=== PATIENT | female | born 1965 | race Caucasian/White ===

== ENCOUNTER 2018-04-03 18:28 | Emergency (ER) | payer BC, OTHER ==
[~2018-04-03] VITALS: Ht 167.6 cm; Wt 113.4 kg
[~2018-04-03 18:28] MED LIST: CARVEDILOL PO; CAVEDILOL; ENOXAPARIN SQ; FOLIC ACID0.8 MG; PANTOPRAZOLE SO40 MG PO; Z ARMOUR THYROID PO; Z.0.CYMBALTA60 MG PO; Z.0.GLIMEPIRIDE4 MG PO; Z.0.LISINOPRIL5 MG PO; Z.0.MECLIZINE HCL12. PO; Z.0.PRAVASTATIN SOD4 PO; Z.0.WARFARIN SODIUM5 PO
[2018-04-03 19:50] LABS: BASOPHILS % 0.3 % (0.0-1.0); EOSINOPHILS # (AUTO) 0.1 (0.0-0.4); EOSINOPHILS % 1.8 % (0.0-6.0); HEMATOCRIT 33.5 % (34.2-44.1); HEMOGLOBIN 10.4 g/dL (12.0-16.0); LYMPHOCYTES # (AUTO) 1.2 (1.0-3.2); LYMPHOCYTES % 16.1 % (18.0-39.1); MEAN CORPUSCULAR HEMOGLOBIN 24.9 pg (28-32); MEAN CORPUSCULAR VOLUME 80.1 fL (81-99); MONOCYTES # (AUTO) 0.5 (0.2-0.8); MONOCYTES % 6.8 % (4.4-11.3); NEUTROPHILS # (AUTO) 5.5 (2.1-6.9); NEUTROPHILS % 74.6 % (38.7-80.0); PLATELET COUNT 163 x10e3/uL (140-360); RED BLOOD COUNT 4.18 x10e6/uL (3.6-5.1); RED CELL DISTRIBUTION WIDTH 17.1 % (11.7-14.4)
[2018-04-03 20:22] LABS: ALANINE AMINOTRANSFERASE 28 IU/L (0-55); ALBUMIN 3.3 g/dL (3.5-5.0); ALBUMIN/GLOBULIN RATIO 0.7 (0.8-2.0); ALKALINE PHOSPHATASE 92 IU/L (40-150); ANION GAP 13.8 mmol/L (8-16); BLOOD UREA NITROGEN 13 mg/dL (7-26); BUN/CREATININE RATIO 15 (6-25); CALCIUM 9.4 mg/dL (8.4-10.2); CARBON DIOXIDE 25 mmol/L (22-29); CHLORIDE 105 mmol/L (98-107); CREATININE, SERUM 0.85 mg/dL (0.57-1.11); EST GLOMERULAR FILTRATION RATE > 60 ML/MIN (60-); GLUCOSE 260 mg/dL (74-118); POTASSIUM 3.8 mmol/L (3.5-5.1); SODIUM 140 mmol/L (136-145)
[2018-04-03 21:14] LABS: CLARITY,URINE CLEAR (CLEAR); COLOR,URINE AMBER (YELLOW); KETONES,URINE 1+ (NEGATIVE); LEUKOCYTE ESTERASE ,URINE NEGATIVE (NEGATIVE); NITRITE,URINE NEGATIVE (NEGATIVE); PROTEIN,URINE DIPSTICK 1+ (NEGATIVE); URINE UROBILINOGEN 1 mg/dL (0.2 - 1)
[2018-04-03 21:15] LABS: BILIRUBIN,URINE 1+ (NEGATIVE)
[2018-04-03] MEDS ORDERED: ONDANSETRON HCL INJ 2 MG/ML VIAL IV STA (21:15)
[2018-04-03 21:29] LABS: BACTERIA,URINE MODERATE /HPF; EPITHELIAL CELLS,URINE MANY /LPF
[2018-04-03 21:32] LABS: MUCUS,URINE MANY (RARE)
[2018-04-03] MEDS ORDERED: SODIUM CHLORIDE 0.9% 50ML 50 ML ONE (21:53)
[2018-04-03] MEDS ORDERED: IOPAMIDOL 370 MG/ML 200 ML INFUS..BTL INJ ONE (21:53)
--- NOTE | 2018-04-03 22:10 | Diagnostic Imaging Report ---
EXAM: CT ABDOMEN AND PELVIS with IV CONTRAST DATE: 04/03/2018 9:15 PM Time stamp on Exam: 2144 hours INDICATION: Right-sided abdominal pain COMPARISON: CT of the abdomen and pelvis March 20, 2012 TECHNIQUE: The abdomen and pelvis were scanned using a multidetector helical scanner. Coronal and sagittal reformations were obtained. Routine protocol performed. IV Contrast: 100 cc Isovue-370 Oral Contrast: None CTDIvol has been reviewed. It is below the limits set by the Radiation Protocol Committee (RPC). FINDINGS: LOWER THORAX: No consolidations LIVER: Hepatomegaly with subtle nodular liver contour and relative enlargement of the left lobe and caudate lobes of the liver. BILIARY: Cholecystectomy. No ductal dilation. SPLEEN: Splenomegaly to 15.7 cm in craniocaudal dimension. PANCREAS: No masses ADRENALS: No nodules KIDNEYS: Symmetric perfusion. No enhancing masses. No hydronephrosis. GI TRACT: No distention, wall thickening or evidence of obstruction. VESSELS: Moderate atherosclerotic changes of the abdominal aorta without aneurysm. There is an infrarenal inferior vena cava filter. The main portal vein is patent. PERITONEUM/RETROPERITONEUM: Mesenteric edema and trace ascites around the inferior liver. LYMPH NODES: No lymphadenopathy REPRODUCTIVE ORGANS: Not visualized BLADDER: Decompressed SOFT TISSUES: Unremarkable BONES: No suspicious bone lesions. IMPRESSION: Findings consistent with early cirrhosis and portal hypertension with trace ascites. Signed by: Dr. Azra Pickering M.D. on 04/03/2018 10:06 PM
[2018-04-03 22:18] VITALS: BP 145/77
== END 2018-04-03 22:32 | disposition home or self-care (01) ==
LOC: ER 18:28
DX: R10.84 Generalized abdominal pain (principal); K74.60 Unspecified cirrhosis of liver; K76.6 Portal hypertension; I10 Essential (primary) hypertension; E11.9 Type 2 diabetes mellitus without complications; Z79.84 Long term (current) use of oral hypoglycemic drugs; E03.9 Hypothyroidism, unspecified; K21.9 Gastro-esophageal reflux disease without esophagitis; E78.5 Hyperlipidemia, unspecified; K44.9 Diaphragmatic hernia without obstruction or gangrene; K22.70 Barrett's esophagus without dysplasia; D64.9 Anemia, unspecified; Z86.718 Personal history of other venous thrombosis and embolism; Z79.01 Long term (current) use of anticoagulants
CPT/HCPCS: 36415; 74177; 80053; 81001; 85025; 99284; J2405; Q9967

== ENCOUNTER → 2018-05-12 | Day surgery (SDC) | payer OTHER ==
[2018-05-10 16:10] LABS: BASOPHILS # (AUTO) 0.1 (0.0-0.1); BASOPHILS % 0.8 % (0.0-1.0); EOSINOPHILS # (AUTO) 0.1 (0.0-0.4); HEMATOCRIT 33.8 % (34.2-44.1); HEMOGLOBIN 10.4 g/dL (12.0-16.0); LYMPHOCYTES # (AUTO) 1.5 (1.0-3.2); LYMPHOCYTES % 22.8 % (18.0-39.1); MEAN CORPUSCULAR HEMOGLOBIN 24.8 pg (28-32); MEAN CORPUSCULAR HGB CONC 30.8 g/dL (31-35); MEAN CORPUSCULAR VOLUME 80.7 fL (81-99); MONOCYTES # (AUTO) 0.5 (0.2-0.8); MONOCYTES % 7.7 % (4.4-11.3); NEUTROPHILS # (AUTO) 4.2 (2.1-6.9); NEUTROPHILS % 66.2 % (38.7-80.0); PLATELET COUNT 141 x10e3/uL (140-360); RED BLOOD COUNT 4.19 x10e6/uL (3.6-5.1); RED CELL DISTRIBUTION WIDTH 16.3 % (11.7-14.4)
[2018-05-10 16:20] LABS: INR 1.61
[2018-05-10 16:21] LABS: PARTIAL THROMBOPLASTIN TIME 38.5 seconds (23.8-35.5)
[2018-05-10 16:29] LABS: ALANINE AMINOTRANSFERASE 35 IU/L (0-55); ALBUMIN 3.4 g/dL (3.5-5.0); ALBUMIN/GLOBULIN RATIO 0.7 (0.8-2.0); ALKALINE PHOSPHATASE 92 IU/L (40-150); ANION GAP 13.5 mmol/L (8-16); BLOOD UREA NITROGEN 14 mg/dL (7-26); BUN/CREATININE RATIO 16 (6-25); CARBON DIOXIDE 25 mmol/L (22-29); CHLORIDE 104 mmol/L (98-107); CREATININE, SERUM 0.87 mg/dL (0.57-1.11); EST GLOMERULAR FILTRATION RATE > 60 ML/MIN (60-); GLUCOSE 284 mg/dL (74-118); POTASSIUM 4.5 mmol/L (3.5-5.1); SODIUM 138 mmol/L (136-145)
[~2018-05-12] MED LIST changes: +BYETTA5 MCG/0.02 SQ; +CRESTOR20 MG PO; +KETAMINE HCL INJ 50 MG/ML 10 ML VIAL ONE; +LEVSIN0.125 MG PO; +LIDOCAINE HCL 2% LOCAL INJ 5 ML SDV VIAL INJ ONE; +LOVENOX SQ; +METOCLOPRAMIDE HCL 10 MG/2ML VIAL ONE; +MIDAZOLAM HCL 2 MG/2 ML VIAL ONE; +ONDANSETRON HCL INJ 2 MG/ML VIAL ONE; +PROMETHAZINE HC25 M1 PO; +PROPOFOL IV EMULSION 10 MG/ML 50 ML VIAL ONE; +QUESTRAN PACKET4 GM PO; +SERTRALINE HCL100 MG PO; +SUCRALFATE1 GM PO; +SYNTHROID125 MCG PO; +WARFARIN SODIUM2 MG PO; +ZOFRAN ODT4 MG PO
[2018-05-12 07:21] LABS: INR 1.39
[2018-05-12 07:22] LABS: PARTIAL THROMBOPLASTIN TIME 36.4 seconds (23.8-35.5)
== END | disposition home or self-care (01) ==
LOC: OR 05:03
PROVIDERS: ATTEND Internal Medicine Gastroenterology
DX: R19.7 Diarrhea, unspecified (principal); K63.9 Disease of intestine, unspecified; K58.9 Irritable bowel syndrome, unspecified; K64.8 Other hemorrhoids; K74.60 Unspecified cirrhosis of liver; I10 Essential (primary) hypertension; E11.9 Type 2 diabetes mellitus without complications; E03.9 Hypothyroidism, unspecified; G47.33 Obstructive sleep apnea (adult) (pediatric); E78.5 Hyperlipidemia, unspecified; E66.01 Morbid (severe) obesity due to excess calories; B19.10 Unspecified viral hepatitis B without hepatic coma; B19.20 Unspecified viral hepatitis C without hepatic coma; N20.0 Calculus of kidney; F32.9 Major depressive disorder, single episode, unspecified; Z88.6 Allergy status to analgesic agent; Z88.1 Allergy status to other antibiotic agents; Z01.810 Encounter for preprocedural cardiovascular examination; Z01.812 Encounter for preprocedural laboratory examination; Z79.01 Long term (current) use of anticoagulants; Z79.02 Long term (current) use of antithrombotics/antiplatelets; Z68.38 Body mass index [BMI] 38.0-38.9, adult; Z86.718 Personal history of other venous thrombosis and embolism; Z87.891 Personal history of nicotine dependence; Z80.0 Family history of malignant neoplasm of digestive organs
CPT/HCPCS: 36415 ×2; 45380; 80053; 82948; 85025; 85610 ×2; 85730 ×2; 93005; J2001; J2250; J2405; J2765

== ENCOUNTER 2018-07-21 13:09 | Emergency (ER) | payer OTHER ==
[~2018-07-21] VITALS: Ht 167.6 cm; Wt 110.2 kg
[~2018-07-21 13:09] MED LIST changes: -KETAMINE HCL INJ 50 MG/ML 10 ML VIAL ONE; -LIDOCAINE HCL 2% LOCAL INJ 5 ML SDV VIAL INJ ONE; -METOCLOPRAMIDE HCL 10 MG/2ML VIAL ONE; -MIDAZOLAM HCL 2 MG/2 ML VIAL ONE; -ONDANSETRON HCL INJ 2 MG/ML VIAL ONE; -PROPOFOL IV EMULSION 10 MG/ML 50 ML VIAL ONE
[2018-07-21] MEDS ORDERED: ONDANSETRON HCL INJ 2 MG/ML VIAL IV STA (13:17)
[2018-07-21] MEDS ORDERED: SODIUM CHLORIDE 0.9% 1000ML 1,000 ML IV STA (13:17)
[2018-07-21] MEDS ORDERED: ASPIRIN 81 MG CHEW TAB PO ONE (13:30)
[2018-07-21 14:25] LABS: BASOPHILS # (AUTO) 0.1 (0.0-0.1); EOSINOPHILS # (AUTO) 0.2 (0.0-0.4); EOSINOPHILS % 2.4 % (0.0-6.0); HEMATOCRIT 42.6 % (34.2-44.1); HEMOGLOBIN 13.2 g/dL (12.0-16.0); LYMPHOCYTES # (AUTO) 1.3 (1.0-3.2); LYMPHOCYTES % 17.7 % (18.0-39.1); MEAN CORPUSCULAR HEMOGLOBIN 26.4 pg (28-32); MEAN CORPUSCULAR VOLUME 85.2 fL (81-99); MONOCYTES # (AUTO) 0.5 (0.2-0.8); MONOCYTES % 6.1 % (4.4-11.3); NEUTROPHILS # (AUTO) 5.3 (2.1-6.9); NEUTROPHILS % 72.5 % (38.7-80.0); PLATELET COUNT 160 x10e3/uL (140-360); RED CELL DISTRIBUTION WIDTH 18.6 % (11.7-14.4)
[2018-07-21 14:35] LABS: BILIRUBIN,URINE NEGATIVE (NEGATIVE); CLARITY,URINE SL CLOUDY (CLEAR); COLOR,URINE YELLOW (YELLOW); KETONES,URINE TRACE (NEGATIVE); LEUKOCYTE ESTERASE ,URINE NEGATIVE (NEGATIVE); NITRITE,URINE NEGATIVE (NEGATIVE); PROTEIN,URINE DIPSTICK NEGATIVE (NEGATIVE); URINE UROBILINOGEN 0.2 mg/dL (0.2 - 1)
[2018-07-21 14:37] LABS: INR 2.2; PROTHROMBIN TIME 26.1 seconds (11.9-14.5)
[2018-07-21 14:38] LABS: PARTIAL THROMBOPLASTIN TIME 44.8 seconds (23.8-35.5)
[2018-07-21 14:41] LABS: AMORPHOUS SEDIMENT,URINE FEW (FEW); BACTERIA,URINE FEW /HPF; EPITHELIAL CELLS,URINE FEW /LPF; MUCUS,URINE FEW (RARE); WBC,URINE (MAN) 0-5 /HPF (0-5)
[2018-07-21 14:50] LABS: ALANINE AMINOTRANSFERASE 38 IU/L (0-55); ALBUMIN 3.8 g/dL (3.5-5.0); ALBUMIN/GLOBULIN RATIO 0.8 (0.8-2.0); ALKALINE PHOSPHATASE 103 IU/L (40-150); AMYLASE 63 U/L (25-125); ANION GAP 16.3 mmol/L (8-16); BLOOD UREA NITROGEN 12 mg/dL (7-26); BUN/CREATININE RATIO 13 (6-25); CALCIUM 10.2 mg/dL (8.4-10.2); CARBON DIOXIDE 23 mmol/L (22-29); CHLORIDE 105 mmol/L (98-107); CREATINE KINASE 37 IU/L (29-168); EST GLOMERULAR FILTRATION RATE > 60 ML/MIN (60-); GLUCOSE 184 mg/dL (74-118); LIPASE 40 U/L (8-78); MAGNESIUM 1.8 MG/DL (1.3-2.1); POTASSIUM 4.3 mmol/L (3.5-5.1); SODIUM 140 mmol/L (136-145)
[2018-07-21 15:11] LABS: THYROID STIMULATING HORMONE 0.601 uIU/mL (0.350-4.940)
--- NOTE | 2018-07-21 16:45 | Diagnostic Imaging Report ---
EXAM: CT of the abdomen and pelvis WITH contrast HISTORY: Abdominal pain, vomiting, nausea, blood in stool, lower abdominal pain COMPARISON: CT abdomen and pelvis April 03, 2018. TECHNIQUE: The abdomen and pelvis were scanned utilizing a multidetector helical scanner. Coronal and sagittal reformats are provided. PROTOCOL: Routine IV CONTRAST: 100 cc of Isovue-370. ORAL CONTRAST: Water RADIATION DOSE: Total DLP: 804.57 mGy*cm Estimated effective dose: (DLP x 0.015 x size factor) Dose modulation, iterative reconstruction, and/or weight based adjustment of the mA/kV was utilized to reduce the radiation dose to as low as reasonably achievable. COMPLICATIONS: None FINDINGS: LOWER THORAX: Unremarkable LIVER: Persistent hepatomegaly with subtle nodular liver contour and relative enlargement of the left lobe and caudate lobes of the liver. BILIARY: Cholecystectomy. No ductal dilation. SPLEEN: Persistent splenomegaly. PANCREAS: No masses. Mild diffuse atrophy. ADRENALS: No nodules KIDNEYS: Symmetric perfusion. No enhancing masses. No hydronephrosis. A stable 3 mm nonobstructing calcific density near the inferior pole of the left kidney. GI TRACT: Postsurgical changes within the right lower quadrant of the abdomen/right pelvis, and in the rectosigmoid region. Near one surgical anastomotic site there is mild dilation and small bowel feces sign (see series 2 image 58), but this appears similar to the comparison. Bowel gas and fecal material in the rectosigmoid region. VESSELS: Moderate atherosclerotic changes including the coronary arteries. IVC filter. PERITONEUM/RETROPERITONEUM: Persistent mild mesenteric edema and trace ascites adjacent to the inferior liver. LYMPH NODES: No lymphadenopathy REPRODUCTIVE ORGANS: Not visualized BLADDER: Decompressed, which limits evaluation. SOFT TISSUES: Unremarkable BONES: No suspicious bone lesions. IMPRESSION: 1. Findings remain consistent with early cirrhosis and portal hypertension. 2. Postsurgical changes within the abdomen and pelvis and one small segment of stable small bowel stasis, the stability suggests postsurgical stasis/mild chronic low-grade mechanical obstruction. If there is concern for developing/increasing bowel obstruction, advise serial abdominal radiographs. 3. Stable 3 mm nonobstructing left renal stone. Signed by: Dr. Aubrey Curran D.O., M.M.M. on 07/21/2018 4:42 PM
[2018-07-21] MEDS ORDERED: PROPRANOLOL HCL10 MG PO (17:56)
[2018-07-21] MEDS ORDERED: ULTRAM50 MG PO (17:56)
[2018-07-21] MEDS ORDERED: SODIUM CHLORIDE 0.9% 50ML 50 ML ONE (18:22)
[2018-07-21] MEDS ORDERED: IOPAMIDOL 370 MG/ML 200 ML INFUS..BTL INJ ONE (18:22)
[2018-07-21 19:15] VITALS: BP 124/71
== END 2018-07-21 19:04 | disposition home or self-care (01) ==
LOC: ER 13:09
DX: R10.11 Right upper quadrant pain (principal); R10.84 Generalized abdominal pain; R11.2 Nausea with vomiting, unspecified; K74.60 Unspecified cirrhosis of liver; N20.0 Calculus of kidney
CPT/HCPCS: 36415; 74177; 80053; 81001; 82150; 82550; 82553; 83690; 83735; 84443; 84484; 85025; 85610; 85730; 87086; 99284; Q9967

== ENCOUNTER 2018-10-04 19:25 | Emergency (ER) | payer OTHER ==
[~2018-10-04] VITALS: Ht 165.1 cm; Wt 118.8 kg
[~2018-10-04 19:25] MED LIST changes: +PROPRANOLOL HCL10 MG PO; +ULTRAM50 MG PO
[2018-10-04] MEDS ORDERED: MORPHINE SULFATE 2 MG/ML SYR IV STA (20:01)
[2018-10-04] MEDS ORDERED: ONDANSETRON HCL INJ 2 MG/ML VIAL IV STA (20:01)
--- NOTE | 2018-10-04 22:37 | Diagnostic Imaging Report ---
EXAM: CT ABD/PEL WITH CONTRAST-HOPD DATE: 10/04/2018 12:00 AM INDICATION: Abdominal pain COMPARISON: 07/21/2018 TECHNIQUE: The abdomen and pelvis were scanned using a multidetector helical scanner. Coronal and sagittal reformations were obtained. CT low dose techniques were utilized, as applicable. IV Contrast: 100 ml Isovue 300/370 FINDINGS: Evaluation somewhat degraded by noise related to body habitus. LOWER THORAX: No consolidations LIVER: Stable morphologic changes suggesting cirrhosis. No masses. GALLBLADDER/BILIARY: Surgically absent SPLEEN: Stable splenomegaly, 15 to 16 cm. PANCREAS: Unremarkable ADRENALS: No nodules KIDNEYS: No suspicious renal masses. Stable 3 mm nonobstructing left renal calculus. No hydronephrosis. GI TRACT: Postsurgical changes are again noted status post prior bowel resections. Unchanged haziness of the small bowel mesentery. No evidence of bowel obstruction. Appendix is not visualized. VESSELS: Moderate atherosclerotic changes. Infrarenal IVC filter is again noted. PERITONEUM/RETROPERITONEUM: No free air or fluid collection. Stable areas of fat necrosis. LYMPH NODES: No lymphadenopathy REPRODUCTIVE ORGANS/BLADDER: Hysterectomy. Decompressed bladder. SOFT TISSUES: Postsurgical changes along the anterior abdominal wall with juxtaposed bowel. BONES: No suspicious bone lesions. IMPRESSION: 1. No significant change from prior. No acute abnormality. 2. Morphologic changes of cirrhosis with splenomegaly suggesting portal hypertension. Signed by: Dr Alice Rocha MD on 10/04/2018 10:34 PM
[2018-10-04 22:55] VITALS: BP 154/83
== END 2018-10-04 23:02 | disposition home or self-care (01) ==
LOC: FSED 19:25
DX: R10.11 Right upper quadrant pain (principal); R10.13 Epigastric pain; R11.2 Nausea with vomiting, unspecified; R19.7 Diarrhea, unspecified; I10 Essential (primary) hypertension; E11.9 Type 2 diabetes mellitus without complications; E78.5 Hyperlipidemia, unspecified; K74.60 Unspecified cirrhosis of liver; B19.20 Unspecified viral hepatitis C without hepatic coma; Z86.711 Personal history of pulmonary embolism
CPT/HCPCS: 74177; 80048; 80076; 81003; 85025; 99284; J2270; J2405

== ENCOUNTER 2019-03-22 14:32 | Emergency (ER) | payer OTHER ==
[~2019-03-22] VITALS: Ht 165.1 cm; Wt 118.8 kg
[2019-03-22] MEDS ORDERED: SODIUM CHLORIDE 0.9% 1000ML 1,000 ML IV STA (14:55)
--- NOTE | 2019-03-22 14:59 | NUR ---
PT GIVEN UA CUP ON ARRIVAL, STATES WENT TO RESTROOM TO VOID AND "FORGOT" TO GET SPECIMENT D/T HER "SHORT TERM MEMORY LOSS" WHICH SHE HAS FROM LONG-TERM TPN WHEN IN HOSPITAL AT [facility] FOR 9 MONTHS FOR DIVERTICULITIS FIXED AND SMALL INTESTINES RUPTURED AND CONTINUED COMPLICATIONS.
[2019-03-22 15:55] LABS: BASOPHILS % 0.7 % (0.0-1.0); EOSINOPHILS # (AUTO) 0.1 (0.0-0.4); EOSINOPHILS % 2.1 % (0.0-6.0); HEMATOCRIT 38.5 % (34.2-44.1); HEMOGLOBIN 12.8 g/dL (12.0-16.0); LYMPHOCYTES # (AUTO) 1.6 (1.0-3.2); LYMPHOCYTES % 25.7 % (18.0-39.1); MEAN CORPUSCULAR HEMOGLOBIN 28.1 pg (28-32); MEAN CORPUSCULAR HGB CONC 33.2 g/dL (31-35); MEAN CORPUSCULAR VOLUME 84.6 fL (81-99); MONOCYTES # (AUTO) 0.4 (0.2-0.8); NEUTROPHILS # (AUTO) 3.9 (2.1-6.9); NEUTROPHILS % 64.2 % (38.7-80.0); PLATELET COUNT 115 x10e3/uL (140-360); RED BLOOD COUNT 4.55 x10e6/uL (3.6-5.1); RED CELL DISTRIBUTION WIDTH 15.6 % (11.7-14.4)
[2019-03-22 15:56] LABS: BILIRUBIN,URINE NEGATIVE (NEGATIVE); CLARITY,URINE HAZY (CLEAR); COLOR,URINE YELLOW (YELLOW); KETONES,URINE NEGATIVE (NEGATIVE); LEUKOCYTE ESTERASE ,URINE NEGATIVE (NEGATIVE); NITRITE,URINE NEGATIVE (NEGATIVE); PROTEIN,URINE DIPSTICK NEGATIVE (NEGATIVE); URINE UROBILINOGEN 4 mg/dL (0.2 - 1)
[2019-03-22 16:10] LABS: BACTERIA,URINE MODERATE /HPF; EPITHELIAL CELLS,URINE MODERATE /LPF; RBC,URINE 0-5 /HPF (0-5); WBC,URINE (MAN) 0-5 /HPF (0-5)
[2019-03-22 16:12] LABS: ALANINE AMINOTRANSFERASE 35 IU/L (0-55); ALBUMIN 3.4 g/dL (3.5-5.0); ALBUMIN/GLOBULIN RATIO 0.7 (0.8-2.0); ALKALINE PHOSPHATASE 100 IU/L (40-150); ANION GAP 9.9 mmol/L (8-16); BLOOD UREA NITROGEN 8 mg/dL (7-26); BUN/CREATININE RATIO 10 (6-25); CALCIUM 9.7 mg/dL (8.4-10.2); CARBON DIOXIDE 28 mmol/L (22-29); CHLORIDE 97 mmol/L (98-107); CREATININE, SERUM 0.82 mg/dL (0.57-1.11); EST GLOMERULAR FILTRATION RATE > 60 ML/MIN (60-); GLUCOSE 346 mg/dL (74-118); POTASSIUM 3.9 mmol/L (3.5-5.1); SODIUM 131 mmol/L (136-145)
[2019-03-22] MEDS ORDERED: KEFLEX500 MG PO (16:18)
== END 2019-03-22 19:04 | disposition home or self-care (01) ==
LOC: ER 14:32
DX: E11.65 Type 2 diabetes mellitus with hyperglycemia (principal); L73.8 Other specified follicular disorders; E11.22 Type 2 diabetes mellitus with diabetic chronic kidney disease; I12.9 Hypertensive chronic kidney disease with stage 1 through stage 4 chronic kidney disease, or unspecified chronic kidney disease; N18.4 Chronic kidney disease, stage 4 (severe); E03.9 Hypothyroidism, unspecified; K21.9 Gastro-esophageal reflux disease without esophagitis; Z88.1 Allergy status to other antibiotic agents; Z88.8 Allergy status to other drugs, medicaments and biological substances
CPT/HCPCS: 36415; 80053; 81001; 82948; 85025; 87086; 99284; J7030

== ENCOUNTER 2019-04-16 23:57 | Emergency (ER) | payer OTHER ==
[~2019-04-16] VITALS: Ht 170.2 cm; Wt 123.4 kg
[~2019-04-16 23:57] MED LIST changes: +KEFLEX500 MG PO
[2019-04-17] MEDS ORDERED: ONDANSETRON HCL INJ 2MG/ML 2ML 2 MG/ML VIAL IV STA (00:14)
[2019-04-17] MEDS ORDERED: MORPHINE SULFATE INJ 4 MG/ML INJ 1ML IV PRN (00:15)
[2019-04-17] MEDS ORDERED: SODIUM CHLORIDE 0.9% 50ML 50 ML ONE (00:37)
[2019-04-17] MEDS ORDERED: IOPAMIDOL 370 MG/ML 200 ML INFUS..BTL INJ ONE (00:37)
[2019-04-17] MEDS ORDERED: ONDANSETRON HCL INJ 2MG/ML 2ML 2 MG/ML VIAL ONE (00:38)
[2019-04-17] MEDS ORDERED: MORPHINE SULFATE INJ 4 MG/ML INJ 1ML ONE (00:38)
--- NOTE | 2019-04-17 01:42 | Diagnostic Imaging Report ---
EXAMINATION: CT of the abdomen and pelvis with contrast. TECHNIQUE: Helical CT images of the abdomen and pelvis were performed from the lung bases to the lesser trochanters after the intravenous administration of 100 cc of Omnipaque 300 and the oral administration of none. Coronal and sagittal reformatted images were obtained.Dose modulation, iterative reconstruction, and/or weight based adjustment of the mA/kV was utilized to reduce the radiation dose to as low as reasonably achievable. COMPARISON: None. CLINICAL HISTORY:Abdominal pain DISCUSSION: ABDOMEN/PELVIS: LOWER THORAX:Unremarkable. HEPATOBILIARY: Cirrhotic morphology. No intra-or extrahepatic biliary ductal dilation. Cholecystectomy. SPLEEN: No splenomegaly. PANCREAS: No focal masses or ductal dilatation. ADRENALS: No adrenal nodules. KIDNEYS/URETERS: No obstruction. Punctate left renal calculus. PELVIC ORGANS/BLADDER: Bladder is decompressed. Hysterectomy. PERITONEUM/RETROPERITONEUM: No free air or fluid. LYMPH NODES: No intra-abdominal, retroperitoneal, pelvic or inguinal lymphadenopathy. VESSELS: Vascular calcifications. IVC filter. GI TRACT: No obstruction. Postsurgical change to the bowel. BONES AND SOFT TISSUE: No bony destructive lesions. Prior hernia repair. IMPRESSION: No acute CT finding. Cirrhotic liver. Punctate left renal calculus. Signed by: Dr. Randy Lacy M.D. on 04/17/2019 1:39 AM
== END 2019-04-17 02:08 | disposition home or self-care (01) ==
LOC: FSED 23:57
DX: R10.13 Epigastric pain (principal); R10.33 Periumbilical pain; R11.2 Nausea with vomiting, unspecified; N30.90 Cystitis, unspecified without hematuria
CPT/HCPCS: 74177; 80048; 80076; 81003; 85025; 99284; J2270; J2405; Q9967

== ENCOUNTER 2019-09-18 18:07 | Emergency (ER) | payer OTHER ==
[~2019-09-18] VITALS: Ht 167.6 cm; Wt 123.4 kg
--- OUTSIDE RECORDS SUMMARY | 2019-09-18 18:12 | XMS REPORT | Summary of Care ---
Author Author [facility] Organization [facility] Address Unknown Phone Unavailable Care Team Providers Care Supervisor Assembling Name Role Phone Mulu Flanagan Bunny HUI PCP Reason for Referral * Radiology Services (Routine) Referred By Contact Referred To Contact Status Reason Specialty Diagnoses / Procedures Roque Sierra MD [address] [facility] [address] [place] [id number] [place], Radiology [address] [facility] [address] [place] [address] Pending Radiology Diagnoses Nausea and vomiting, intractability of vomiting not specified, unspecified vomiting type P rocedures NM GASTRIC EMPTYING SOLID Reason for Visit * Reason Comments Initial Consultation Encounter Details Care Team Description Date Type Department Roque Sierra MD [address] [facility] [address] [place] [address] [phone] Initial Consultation 06/27/2019 Office Visit [facility] Gastroenterology [address] [facility] [address] [facility], [address] [place] [id number] Allergies Comments Active Allergy Reactions Severity Noted Date Adhesive Tape "makes me sick" Cephalexin Other (See 05/06/2018 Comments) Hydromorphone Hcl Doxycycline " makes me sick" Doxycycline Hyclate 05/06/2018 Dapagliflozin Itching, Rash 11/30/2018 documented as of this encounter (statuses as of 06/27/2019) Medications End Date Status Medication Sig Dispensed Refills Start Date Active pantoprazole (PROTONIX) 0 40 MG tabletIndications: 8 Finger pain, left Active rosuvastatin (CRESTOR) 20 0 MG tabletIndications: 8 Finger pain, left Active warfarin (COUMADIN) 3 MG 0 tabletIndications: Finger 8 pain, left Active levothyroxine (SYNTHROID) 0 125 MCG 8 tabletIndications: Finger pain, left Active warfarin (COUMADIN) 4 MG 0 tabletIndications: Finger 8 pain, left Active carvedilol (COREG) 6.25 Take 6.25 mg 0 MG tabletIndications: by mouth 2 Finger pain, left times daily (with meals). Active Diclofenac Sodium 1 % GEL Apply 2g tid 3 Tube 2 to the BL 9 knees Active sucralfate (CARAFATE) 1 Take 1 g by 0 GM/10ML suspension mouth four times daily. Active ONDANSETRON OR Take 4 mg by 0 mouth. Active promethazine (PHENERGAN) Take 12.5 mg 0 12.5 MG tablet by mouth every 6 hours as needed for Nausea. Active atorvastatin (LIPITOR) 40 Take 40 mg by 0 MG tablet mouth daily. Active ascorbic acid 500 MG Take 500 mg 0 tablet by mouth daily. Active ferrous sulfate 325 (65 ferrous 0 Fe) MG tablet sulfate 325 mg (65 mg iron) tablet Active hyoscyamine (LEVBID) hyoscyamine 0 0.375 MG CR tablet ER 0.375 mg tablet,extend ed release,12 hr Active PILOCARPINE HCL, ORAL, 5 Take 5 mg by 90 Each 1 MG TABS mouth daily. 9 Active NOVOLOG FLEXPEN 100 Inject 30 12 Pen 3 UNIT/ML SOPN Units into 9 the skin 3 times daily (with meals). Active Insulin Glargine 300 Inject 35 12 Pen 2 UNIT/ML SOPN Units into 9 the skin two times daily. Active tramadol (ULTRAM) 50 MG Take 1 Tab by 90 Tab 2 tablet mouth every 6 9 hours as needed for Pain. Active Continuous Blood Gluc 1 Each every 6 Each 3 Sensor (FREESTYLE KATHERINE 14 days. 9 14 DAY SENSOR) MISCIndications: Insulin dependent type 2 diabetes mellitus (HCCode) Active Continuous Blood Gluc 1 Each daily. 1 Device 1 Policy Intern (FREESTYLE KATHERINE 9 14 DAY READER) DEVIIndications: Insulin dependent type 2 diabetes mellitus (HCCode) Active gabapentin (NEURONTIN) TAKE 1 90 Cap 0 300 MG capsule CAPSULE BY 9 MOUTH THREE TIMES A DAY Active polyethylene glycol Take 17 g by 1 Bottle 2 (GLYCOLAX) powder mouth daily. 9 documented as of this encounter (statuses as of 06/27/2019) Active Problems Problem Noted Date Insulin dependent type 2 diabetes mellitus (HCCode) 05/02/2019 Cirrhosis (HCCode) 05/02/2019 Flexor tenosynovitis of finger 01/31/2018 Osteophyte of hand 01/31/2018 documented as of this encounter (statuses as of 06/27/2019) Immunizations Name Administration Dates Next Due Pneumococcal 05/04/2019 Polysaccharide Zoster Live 05/04/2019 documented as of this encounter Social History Date Tobacco Use Types Packs/Day Years Used Former Smoker Smokeless Tobacco: Never Used Drinks/Week oz/Week Comments Alcohol Use 1 Glasses of wine 0.6 No Alcohol Habits Answer Date Recorded How often do you have a drink containing alcohol? Never 11/30/2018 How many drinks containing alcohol do you have on Not asked a typical day when you are drinking? How often do you have six or more drinks on one Not asked occasion? Sex Assigned at Date Recorded Not on file Industry Job Start Date Occupation Not on file Not on file Not on file Travel End Travel History Travel Start No recent travel history available. documented as of this encounter Last Filed Vital Signs Reading Time Taken Comments Vital Sign 130/70 06/27/2019 1:54 PM CDT Blood Pressure - - Pulse 36.8 C (98.3 F) 06/27/2019 1:54 PM CDT Temperature - - Respiratory Rate - - Oxygen Saturation - - Inhaled Oxygen Concentration 121.6 kg (268 lb) 06/27/2019 1:54 PM CDT Weight 170.2 cm (5' 7") 06/27/2019 1:54 PM CDT Height 41.97 06/27/2019 1:54 PM CDT Body Mass Index documented in this encounter Progress Notes * Roque Sierra MD - 06/27/2019 2:00 PM CDT [facility] Dr. Roque Sierra [address] [place] [address] Erinn Pate female 1965 [id number] Visit Type: Initial Consult Referring Physician: [place] [address] [address] [facility] [place] [address] CHIEF COMPLAINT: Chief Complaint Patient presents with Initial Consultation REASON FOR CONSULTATION: abdominal pain/nausea/vomiting SOURCE OF INFORMATION: patient and chart HISTORY OF PRESENT ILLNESS: Ms. Pate is a 54yo F with compensated DONAHUE cirrhosis, DM, ?bowel perforation in 2014 s/p possible resection, ?gastroparesis and GERD here for initial visit. EGD 05/2019 with three nodules in stomach; no PHG or varices. Path c/w hyperplas tic polyp Ms. Pate was previously followed by Dr. Ervin in [place] but wants to move a ll her care to [facility]. Started seeing Dr. Ervin in 2017 to establish care and do routine screening. S he was found to have abdominal pain which led to imaging showing fatty liver/cir rhosis. She had a Colonoscopy in 2018 which showed a possible lipoma at the AO and resolving colitis. He was referred to Dr. Sumner for cirrhosis care who is pl anning an EGD tomorrow and colonoscopy. Abdominal pain/vomiting: Around the beginning of 2018 she started having intermi ttent mid-abdomen/LLQ pain that occurs daily. Occasionally it gets so severe th at she has to "double over." She alternates between diarrhea and constipation. The pain is unchanged regardless of whether she has a BM. Half the week she is constipated, some time she has loose stools. No overt blood in her stool. Kezia ting for celiac with Dr. Ervin with high Ttg IgA. Fecal calprotectin was eleva aden. VCE 2018 with gastritis AVMs. Interestingly CRP also elevated with path a t some point showing colitis. Takes hyoscyamine which controls spasms but make her sedated. Has not tried FDgard. Drinks ample water. States she takes lots of vegetables fruits but no fiber supplement. CT in 04/2019: with nodular contour liver, punctate nonobstructing left lower tosha e nephrolithiasis. Small and large intestine: The small and large bowel are norm al in caliber with postsurgical changes with sigmoid resection and small bowel resect ion. Again seen are multiple patulous anastomosis in the right lower quadrant. Unchanged tethering of multiple small bowel loops to the anterior abdominal wal l with surrounding inflammatory stranding and misting mesentery. Appendix: Not identified. Mesenteric stranding in vascular congestion within the lower abdomen is again seen, mildly increased in the interval. No pathologically enlarged intra-abdominal lymph nodes. Inferior abdominal wall hernia containing a loop of small bowel, unchanged in the interval. Nausea/vomiting: Has been going on for two years. Occurs almost daily. Takes Zofran and phenerg an to control nausea. No formal gastric emptying study. EGD by Dr. Tracee lopez. No MJ use Past Medical History: Diagnosis Date Anemia Arthritis Cirrhosis (HCCode) Depression Diabetes (HCCode) Diverticulitis DVT (deep venous thrombosis) (HCCode) GERD (gastroesophageal reflux disease) H/O seasonal allergies High blood pressure High cholesterol Hypothyroid Kidney stone Memory loss Migraine Pulmonary embolus (HCCode) 2000 Past Surgical History: Procedure Laterality Date HX APPENDECTOMY 2002 HX BLADDER REMOVAL Half of bladder removed HX BREAST EXCISIONAL BIOPSY 2009 HX CHOLECYSTECTOMY HX COLON SURGERY HX COLONOSCOPY HX ENDOSCOPY HX GALLBLADDER REMOVAL HX HAND SURGERY HX HERNIA REPAIR 1989, 2013 HX HYSTERECTOMY HX INGUINAL HERNIA REPAIR HX IVC FILTER PLACEMENT 2000 HX STOMACH SURGERY HX TUMOR REMOVAL 1969 1989 Family History Problem Relation Name Age of Onset High Cholesterol Mother High Blood Pressure Mother Depression Mother Heart Attack Mother High Blood Pressure Father High Cholesterol Father Depression Father Diabetes Father Prostate Cancer Father Stroke Maternal Grandmother Prostate Cancer Maternal Grandfather Social History Socioeconomic History Marital status: Spouse name: Not on file Number of children: Not on file Years of education: Not on file Highest education level: Not on file Occupational History Not on file Social Needs Financial resource strain: Not on file Food insecurity: Worry: Not on file Inability: Not on file Transportation needs: Medical: Not on file Non-medical: Not on file Tobacco Use Smoking status: Former Smoker Smokeless tobacco: Never Used Substance and Sexual Activity Alcohol use: No Alcohol/week: 0.6 oz Types: 1 Glasses of wine per week Frequency: Never Drug use: No Sexual activity: Not on file Lifestyle Physical activity: Days per week: Not on file Minutes per session: Not on file Stress: Not on file Relationships Social connections: Talks on phone: Not on file Gets together: Not on file Attends sikh service: Not on file Active member of club or organization: Not on file Attends meetings of clubs or organizations: Not on file Relationship status: Not on file Intimate partner violence: Fear of current or ex partner: Not on file Emotionally abused: Not on file Physically abused: Not on file Forced sexual activity: Not on file Other Topics Concerns: Not on file Social History Narrative Not on file Allergies Allergen Reactions Adhesive Tape Cephalexin Other (See Comments) "makes me sick" Dilaudid [Hydromorphone Hcl] Doxycycline Doxycycline Hyclate " makes me sick" Farxiga [Dapagliflozin] Itching and Rash CURRENT MEDICATIONS: Current Outpatient Medications: ascorbic acid 500 MG tablet, Take 500 mg by mouth daily., Disp: , Rfl: atorvastatin (LIPITOR) 40 MG tablet, Take 40 mg by mouth daily., Disp: , Rf l: carvedilol (COREG) 6.25 MG tablet, Take 6.25 mg by mouth 2 times daily (wit h meals)., Disp: , Rfl: Continuous Blood Gluc Policy Intern (FREESTYLE KATHERINE 14 DAY READER) LYRIC, 1 Each daily., Disp: 1 Device, Rfl: 1 Continuous Blood Gluc Sensor (FREESTYLE KATHERINE 14 DAY SENSOR) MISC, 1 Each e very 14 days., Disp: 6 Each, Rfl: 3 Diclofenac Sodium 1 % GEL, Apply 2g tid to the BL knees, Disp: 3 Tube, Rfl: 2 ferrous sulfate 325 (65 Fe) MG tablet, ferrous sulfate 325 mg (65 mg iron) tablet, Disp: , Rfl: gabapentin (NEURONTIN) 300 MG capsule, TAKE 1 CAPSULE BY MOUTH THREE TIMES A DAY, Disp: 90 Cap, Rfl: 0 hyoscyamine (LEVBID) 0.375 MG CR tablet, hyoscyamine ER 0.375 mg tablet,ext ended release,12 hr, Disp: , Rfl: Insulin Glargine 300 UNIT/ML SOPN, Inject 35 Units into the skin two times daily., Disp: 12 Pen, Rfl: 2 levothyroxine (SYNTHROID) 125 MCG tablet, , Disp: , Rfl: NOVOLOG FLEXPEN 100 UNIT/ML SOPN, Inject 30 Units into the skin 3 times de ly (with meals)., Disp: 12 Pen, Rfl: 3 ONDANSETRON OR, Take 4 mg by mouth., Disp: , Rfl: pantoprazole (PROTONIX) 40 MG tablet, , Disp: , Rfl: PILOCARPINE HCL, ORAL, 5 MG TABS, Take 5 mg by mouth daily., Disp: 90 Each, Rfl: 1 promethazine (PHENERGAN) 12.5 MG tablet, Take 12.5 mg by mouth every 6 hour s as needed for Nausea., Disp: , Rfl: rosuvastatin (CRESTOR) 20 MG tablet, , Disp: , Rfl: sucralfate (CARAFATE) 1 GM/10ML suspension, Take 1 g by mouth four times da savana., Disp: , Rfl: tramadol (ULTRAM) 50 MG tablet, Take 1 Tab by mouth every 6 hours as needed for Pain., Disp: 90 Tab, Rfl: 2 warfarin (COUMADIN) 3 MG tablet, , Disp: , Rfl: warfarin (COUMADIN) 4 MG tablet, , Disp: , Rfl: REVIEW OF SYSTEMS: GENERAL: No fevers/chills EYES: no vision loss ENT: no hearing loss CV: no chest pain RESP: no dyspnea or cough GI: per HPI : no dysuria DERM: Varicose veins NEURO: no stroke ENDO: polydipsia HEME: no bleeding PHYSICAL EXAMINATION: Patient Profile: 54 y.o. female BP 130/70 | Temp 98.3 F (36.8 C) (Oral) | Ht 5' 7" (1.702 m) | Wt 268 lb (121.6 kg) | BMI 41.97 kg/m Body mass index is 41.97 kg/m. Body surface area is 2.4 meters squared. Gen: NAD, well-appearing, appears stated age HEENT: NCAT, anicteric CV: RRR, no mrg, +TANNER Resp: CTAB Abd: +BS, soft, diffuse mild ttp, no r/g, midline scar MSK: moving all extremities; varicose veins Neuro: alert and oriented Psych: appropriate affect Skin: no jaundice IMPRESSION AND RECOMMENDATIONS: 54yo F with compensated DONAHUE cirrhosis, DM, ?bowel perforation in 2015 s/p possi ble resection, ?gastroparesis and GERD here for initial visit. GERD: - continue BID protonix at this time; can discuss decreasing to daily in future Suspected IBS: mixed type though has frequent constipation. CT x 2 without sign ificant pathology aside from adhesions though does have some objective data from other gastro with high CRP, fecal calpro and +ttg IgA - will ask to start taking fiber supplement - miralax on days of constipation - continue hyoscyamine as is working - will ask Dr. Sumner for repeat colon biopsies - CRP, sed rate, fecal calprotectin and elastase +TTG IgA with normal IgA - repeat serologies here - will ask Dr. Sumner to biopsy small bowel at time of scheduled EGD and biopsy co shanta. Recurrently nausea/vomiting: gastroparesis vs. GERD vs other - Gastric emptying study - continue BID ppi; can consider ph impedance in future if above negative Roque Sierra MD documented in this encounter Plan of Treatment Care Team Description Date Type Specialty Fidencio Sumner MD [address] [facility] [address] [place] [address] 06/29/2019 [facility] Hepatology Sekou Soria MD [address] [facility] [address] [facility], [address] [place], [place] [id number] 08/21/2019 Office Visit Endocrinology Leonard Galvan MD [address] [place], [place] [id number] 09/19/2019 Office Visit Neurology Order Schedule Name Type Priority Associated Diagnoses Ordered: 06/27/2019 CELIAC DISEASE PANEL Lab Routine Abdominal bloating Positive autoantibody screening for celiac disease Ordered: 06/27/2019 IGA Lab Routine Abdominal bloating Positive autoantibody screening for celiac disease Ordered: 06/27/2019 C-REACTIVE PROTEIN Lab Routine Positive autoantibody screening for celiac disease Elevated C-reactive protein (CRP) Ordered: 06/27/2019 SEDIMENTATION RATE Lab Routine Positive autoantibody MODIFIED WESTERGREN screening for celiac disease Elevated C-reactive protein (CRP) Ordered: 06/27/2019 CALPROTECTIN, FECAL Lab Routine Alternating constipation and diarrhea Ordered: 06/27/2019 PANCREATIC ELASTASE - Lab Routine Alternating constipation FECAL and diarrhea 1 Occurrences starting 06/27/2019 until 12/25/2020 NM GASTRIC EMPTYING SOLID Imaging Routine Nausea and vomiting, intractability of vomiting not specified, unspecified vomiting type Health Maintenance Due Date Last Done Comments A1C TESTING EVERY 6 1965 MONTHS COLON CANCER SCREENIN1965 COLONOSCOPY MAMMOGRAM ANNUAL 1965 TETANUS SHOT (ADULT) 01/20/1979 ANNUAL DIABETIC FOOT EXAM 01/20/1982 ANNUAL DIABETIC 01/20/1982 RETINOPATHY SCREENING BMI FOLLOW UP PLAN 01/20/1982 HIV SCREENING 01/20/1982 CERVICAL CANCER SCREENING 01/20/1985 3 YEAR FOLLOW UP FLU VACCINE > 6 MONTHS 05/18/2019 11/18/2018 HEPATITIS C SCREENING Completed 05/06/2018 documented as of this encounter Results Not on filedocumented in this encounter Visit Diagnoses Diagnosis Abdominal bloating - Primary Flatulence, eructation, and gas pain Positive autoantibody screening for celiac disease Nausea and vomiting, intractability of vomiting not specified, unspecified vomiting type Alternating constipation and diarrhea Other symptoms involving digestive system Elevated C-reactive protein (CRP) documented in this encounter Insurance Type Payer Benefit Subscriber ID Effective Phone Address Plan / Dates Group [facility] xxxxxxxxxx 2018-P [facility] PLAN [facility] [address] [id number] - [place] [address] documented as of this encounter
--- OUTSIDE RECORDS SUMMARY | 2019-09-18 18:13 | XMS REPORT | Summary of Care ---
Author Author [facility] Organization [facility] Address Unknown Phone Unavailable Care Team Providers Care Fluxer Name Role Phone Masha Mulu Bunny HUI PCP Reason for Referral * Consult, Test & Treat (Routine) Referred By Contact Referred To Contact Status Reason Specialty Diagnoses / Procedures Sergey Redmond MD [address] [place] [id number] Hiren Burger MD [address] [place] [id number] Pending Consult, Test, and Physical Diagnoses Treat Medicine and Back pain, Rehab unspecified back location, unspecified back pain laterality, unspecified chronicity P rocedures [place] OFFICE OUTPATIENT NEW 45 MINUTES Reason for Visit * Reason Comments Leg Pain Left leg, thigh Encounter Details Care Team Description Date Type Department Sergey Redmond MD [address] [place] [address] [place] [id number] Leg Pain (Left leg, thigh) 08/24/2019 Office Visit [facility] Vascular Surgery [address] [place] [address] [place] [id number] Allergies Comments Active Allergy Reactions Severity Noted Date Adhesive Tape "makes me sick" Cephalexin Other (See 05/06/2018 Comments) Hydromorphone Hcl Doxycycline " makes me sick" Doxycycline Hyclate 05/06/2018 Dapagliflozin Itching, Rash 11/30/2018 documented as of this encounter (statuses as of 08/24/2019) Medications End Date Status Medication Sig Dispensed Refills Start Date Active pantoprazole (PROTONIX) at bedtime. 0 40 MG tabletIndications: 8 Finger pain, [...] pain, left times daily (with meals). Active sucralfate (CARAFATE) 1 Take 1 g by 0 GM/10ML suspension mouth four times daily. Active ONDANSETRON OR Take 4 mg by 0 mouth. Active atorvastatin (LIPITOR) 40 Take 40 mg by 0 MG tablet mouth daily. Active ascorbic acid 500 MG Take 500 mg 0 tablet by mouth daily. Active ferrous sulfate 325 (65 ferrous 0 Fe) MG tablet sulfate 325 mg (65 mg iron) tablet Active hyoscyamine (LEVBID) hyoscyamine 0 0.375 MG CR tablet ER 0.375 mg tablet,extend ed release,12 hr Active tramadol (ULTRAM) 50 MG Take 1 Tab by 90 Tab 2 tablet mouth every 6 9 hours as needed for Pain. Active polyethylene glycol Take 17 g by 1 Bottle 2 (GLYCOLAX) powder mouth daily. 9 Active gabapentin (NEURONTIN) TAKE 1 270 Cap 1 300 MG capsule CAPSULE BY 9 MOUTH THREE TIMES A DAY Active trazodone (DESYREL) 50 MG Take 50 mg by 0 tabletIndications: Major mouth nightly depressive disorder, as needed. recurrent episode, moderate (HCCode), Illness anxiety disorder Active escitalopram (LEXAPRO) 10 Take 1 Tab by 30 Tab 2 MG tabletIndications: mouth daily. 9 Major depressive disorder, recurrent episode, moderate (HCCode), Illness anxiety disorder Active promethazine (PHENERGAN) Take 1 Tab by 30 Tab 1 12.5 MG tablet mouth every 6 9 hours as needed for Nausea. Active PILOCARPINE HCL, ORAL, 5 TAKE 1 TABLET 90 Each 1 MG TABSIndications: BY MOUTH 9 Sicca, unspecified type THREE TIMES A (HCCode) DAY - REPLACING CEVILAMINE Active NOVOLOG FLEXPEN 100 Inject 35-40 15 Pen 3 UNIT/ML SOPN Units into 9 the skin 3 times daily (with meals). Active Insulin Glargine, 1 Unit Inject 40 15 Pen 2 Dial, 300 UNIT/ML SOPN Units into 9 the skin two times daily. documented as of this encounter (statuses as of 08/24/2019) Active Problems Problem Noted Date Major depressive [facility], recurrent episode, [facility] 07/19/2019 Illness anxiety disorder 07/19/2019 Insulin dependent type 2 diabetes mellitus [facility] 05/02/2019 Cirrhosis [facility] 05/02/2019 Flexor tenosynovitis of finger 01/31/2018 Osteophyte of hand 01/31/2018 documented as of this encounter (statuses as of 08/24/2019) Immunizations Name Administration Dates Next Due Pneumococcal [...] Signs Reading Time Taken Comments Vital Sign 126/67 08/24/2019 11:38 AM ROLL OUT MANAGER Blood Pressure 82 08/24/2019 11:38 AM ROLL OUT MANAGER Pulse - - Temperature - - Respiratory Rate - - Oxygen Saturation - - Inhaled Oxygen Concentration 122 kg (268 lb 14.4 oz) 08/24/2019 11:38 AM ROLL OUT MANAGER Weight 167.6 cm (5' 6") 08/24/2019 11:38 AM ROLL OUT MANAGER Height 43.4 08/24/2019 11:38 AM ROLL OUT MANAGER Body Mass Index documented in this encounter Patient Instructions * Patient Instructions* Felicitas Fisher CMA - 08/24/2019 12:15 PM ROLL OUT MANAGER Thank you for choosing [facility]. You may receive a survey in the mail. Please provide comments to let us know how we can improve our patient care. Instructions for your care: Follow up PRN referral to PMR Dr Hiren Redmond MD emergency department aide Division of Vascular Surgery and Endovascular Therapy If you have any questions, please feel free to call us at: OUT MANAGER documented in this encounter Progress Notes * Randy Marx MD - 08/24/2019 11:00 AM ROLL OUT MANAGER [facility] Vascular Surgery Clinic [address] [place] [address]. [id number] Office: [phone] DATE OF VISIT: 08/24/19 PATIENT NAME: Erinn Pate : 1965; AGE: 54 y.o.; Sex:F PHONE NUMBER: ; (Work); PHYSICIAN: No att. providers found PRIMARY CARE / REFERRING PHYSICIAN: Mulu Flanagan DO / Karolina Flanagan / [id number] [facility] [id number] REASON FOR EVALUATION / CHIEF COMPLAINT: Evaluation and treatment of left lower extremity pain. History of DVT with IVC filter on coumadin. HISTORY OF PRESENT ILLNESS: Erinn Pate is a 54 y.o. female patient wh o has medical history significant for hypertension, hyperlipidemia, diabetes deb litus type II, morbid obesity, non-alcoholic steatohepatitis with cirrhosis, div erticulitis s/p bowel resection, obstructive sleep apnea with home CPAP, recurre nt deep venous thrombosis with pulmonary embolism on coumadin and s/p inferior v raul cava filter in 2000, gastroparesis, and major depressive disorder who presen for evaluation of left leg pain. She reports acute onset focal stabbing left distal lateral lower leg pain that began acutely. Not associated with walking or trauma. Rest did not help. No skin changes. No fever or chills. Went to ED to be evaluated for DVT and was discharged home. No claudication or rest pain. Now the lower leg pain has resolved and she has similar pain on her lateral upper thigh. No aggravating or alleviating factors. PAST SURGICAL HISTORY: The patient's has a past surgical history that includes HX Hand surgery; HX Hysterectomy; hx gallbladder removal; HX Stomach surgery; hx hernia repair (1989, 2013); hx tumor removal (1969 1989); HX Bladder removal; hx ivc filter placement (2000); HX Appendectomy (2002); hx breast excisional biopsy (2007, 2009); hx colonoscopy; hx endoscopy; HX Cholecystectomy; HX Inguinal h ernia repair; and HX Colon surgery. PAST MEDICAL HISTORY: The patient has a past medical history of Anemia, Arthrit is, Cirrhosis (HCCode), Depression, Diabetes (HCCode), Diverticulitis, DVT (deep venous thrombosis) (HCCode), GERD (gastroesophageal reflux disease), H/O season al allergies, High blood pressure, High cholesterol, Hypothyroid, Kidney stone, Memory loss, Migraine, and Pulmonary embolus (HCCode). FAMILY HISTORY: The patient's family history includes Depression in her father a nd mother; Diabetes in her father; Heart Attack in her mother; High Blood Pressu re in her father and mother; High Cholesterol in her father and mother; Prostate Cancer in her father and maternal grandfather; Stroke in her maternal grandmoth er. CURRENT MEDICATIONS: Outpatient Medications Prior to Visit Medication Sig Dispense Refill ascorbic acid Take 500 mg by mouth daily. atorvastatin Take 40 mg by mouth daily. carvedilol Take 6.25 mg by mouth 2 times daily (with meals). escitalopram Take 1 Tab by mouth daily. 30 Tab 2 ferrous sulfate ferrous sulfate 325 mg (65 mg iron) tablet gabapentin TAKE 1 CAPSULE BY MOUTH THREE TIMES A DAY 270 Cap 1 hyoscyamine hyoscyamine ER 0.375 mg tablet,extended release,12 hr Insulin Glargine (1 Unit Dial) Inject 40 Units into the skin two times daily . 15 Pen 2 levothyroxine NOVOLOG FLEXPEN Inject 35-40 Units into the skin 3 times daily (with meals). 15 Pen 3 ONDANSETRON OR Take 4 mg by mouth. pantoprazole at bedtime. PILOCARPINE HCL (ORAL) TAKE 1 TABLET BY MOUTH THREE TIMES A DAY - REPLACING CEVILAMINE 90 Each 1 polyethylene glycol Take 17 g by mouth daily. 1 Bottle 2 promethazine Take 1 Tab by mouth every 6 hours as needed for Nausea. 30 Tab 1 rosuvastatin sucralfate Take 1 g by mouth four times daily. tramadol Take 1 Tab by mouth every 6 hours as needed for Pain. 90 Tab 2 trazodone Take 50 mg by mouth nightly as needed. warfarin warfarin No facility-administered medications prior to visit. Allergies Allergen Reactions Adhesive Tape Cephalexin Other (See Comments) "makes me sick" Dilaudid [Hydromorphone Hcl] Doxycycline Doxycycline Hyclate " makes me sick" Farxiga [Dapagliflozin] Itching and Rash SOCIAL HISTORY: reports that she has quit smoking. She has never used smokeless tobacco. She reports that she does not drink alcohol or use drugs. FAMILY HISTORY: family history includes Depression in her father and mother; Paulette betes in her father; Heart Attack in her mother; High Blood Pressure in her [facility] and mother; High Cholesterol in her father and mother; Prostate Cancer in her father and maternal grandfather; Stroke in her maternal grandmother. REVIEW OF SYSTEMS: General: negative for - maiaise, weight gain or weight loss Ophthalmic: negative for - decreased vision, double vision or loss of vision ENT: negative for - headaches, visual changes, or tinnitus. Respiratory: no cough, shortness of breath Cardiovascular: no chest pain, orthopnea, or dyspnea on exertion Gastrointestinal: no abdominal pain, change in bowel habits, Musculoskeletal: negative for - joint stiffness, joint swelling or bone pain Neurological: negative for - numbness of left hand and bilateral feet. No weakne ss. Hematological and Lymphatic: negative for - bleeding problems, bruising, fatigue , swollen lymph nodes. VITAL SIGNS: BP 126/67 (BP Location: left arm, Patient Position: Sitting) | Pul se 82 | Ht 5' 6" (1.676 m) | Wt 268 lb 14.4 oz (122 kg) | BMI 43.40 kg/m PHYSICAL EXAM: Constitutional: Well nourished, no signs of distress. Obese HENT: Normocephalic and atraumatic. Cranial nerves II-XI are grossly intact. E xtraocular motor intact. Cardiovascular: Normal rate, regular rhythm and normal heart sounds. No murmurs , rubs or gallops Pulmonary/Chest: Breath sounds normal. No respiratory distress. No adventitious sounds. Abdominal: Soft. No abdominal distension or tenderness. Obese. No abdominal puls atile mass noted. Extremities: Trace ankle Edema. No cyanosis or clubbing. Scattered varicosities L>R Neurological: She is alert and oriented. No muscle weakness and normal gait. Vascular: Papable femoral, dorsalis pedis, and posterior tibial pulses. No wound s. Diagnostic Evaluation: ASSESSMENT & PLAN: The patient with known history of deep venous thrombosis with pulmonary embolism s/p IVC filter on coumadin. No arterial or venous etiology identified for left leg pain. -Continue lifelong therapeutic anticoagulation -Recommended daily 20-30mm Hg compression stockings when upright - referral to Dr Burger, PM&R for history of spine herniation, neurologic symptoms of left leg. Randy Marx MD Vascular Surgery Fellow [facility] I have reviewed the above note performed by Dr Rodriguez and agree with his assessm ent and plan. She has no evidence of peripheral arterial disease and her pain i s not claudication. PM&R referral for neurologic pain without vascular etiology. Follow up PRN Over 50% of this 45 minute visit was spent in counseling and coordination of car e (Outpatient office established patient visit:- CPT# 04441). Sergey Redmond MD Director Client Division of Vascular Surgery and Endovascular Therapy Demetri Marroquin Department of Surgery [facility] OUT MANAGER documented in this encounter Plan of Treatment Care Team Description Date Type Specialty Leonard Galvan MD [address] [address] [phone] 09/19/2019 Office Visit Neurology Order Schedule Name Type Priority Associated Diagnoses Ordered: 08/24/2019 AMB REF TO PHYSICAL MED Outpatient Routine Back pain, unspecified [facility] Referral back location, unspecified back pain laterality, unspecified chronicity Health Maintenance Due Date Last Done Comments MAMMOGRAM ANNUAL 1965 TETANUS SHOT (ADULT) 01/20/1979 ANNUAL DIABETIC FOOT EXAM 01/20/1982 ANNUAL DIABETIC 01/20/1982 RETINOPATHY SCREENING BMI FOLLOW UP PLAN 01/20/1982 HIV SCREENING 01/20/1982 CERVICAL CANCER SCREENING 01/20/1985 3 YEAR FOLLOW UP FLU VACCINE > 6 MONTHS 05/18/2019 11/18/2018 A1C TESTING EVERY 6 02/19/2020 08/21/2019 MONTHS COLON CANCER SCREENIN06/29/2029 06/29/2019 COLONOSCOPY HEPATITIS C SCREENING Completed 05/06/2018 documented as of this encounter Results Not on filedocumented in this encounter Visit Diagnoses Diagnosis Back pain, unspecified back location, unspecified back pain laterality, unspecified chronicity - Primary documented in this encounter Insurance Type Payer Benefit Subscriber ID Effective Phone Address Plan / Dates Group [facility] xxxxxxxxxx 2018-P [facility] [address] [place] [address] documented as of this encounter
--- OUTSIDE RECORDS SUMMARY | 2019-09-18 18:13 | XMS REPORT | Summary of Care ---
Author Author [facility] Organization [facility] Address Unknown Phone Unavailable Care Team Providers Care Bleach Machine Operator Name Role Phone Masha Mulu Bunny HUI PCP Reason for Referral * Consult, Test & Treat (Routine) Referred By Contact Referred To Contact Status Reason Specialty Diagnoses / Procedures Sekou Soria MD [address], [address] [place] [address] [place] [phone] Pending Consult, Test, and Ophthalmology Diagnoses Treat Insulin dependent type 2 diabetes mellitus (HCCode) P rocedures AL OFFICE OUTPATIENT NEW 45 MINUTES AL EYE EXAM, NEW PATIENT,COMPREHESV Reason for Visit * Reason Comments Follow-up Visit - Diabetes Encounter Details Care Team Description Date Type Department Sekou Soria MD [address], [address] [place] [address] Follow-up Visit - Diabetes 08/21/2019 Office Visit [facility] Endocrinology [address]; [address] [place] [address] Allergies Comments Active Allergy Reactions Severity Noted Date Adhesive Tape "makes me sick" Cephalexin Other (See 05/06/2018 Comments) Hydromorphone Hcl Doxycycline " makes me sick" Doxycycline Hyclate 05/06/2018 Dapagliflozin Itching, Rash 11/30/2018 documented as of this encounter (statuses as of 08/21/2019) Medications End Date Status Medication Sig Dispensed [...] into 9 the skin two times daily. 08/21/2019 Discontinued Diclofenac Sodium 1 % GEL Apply 2g tid 3 Tube 2 to the BL 9 knees 08/19/2019 Discontinued PILOCARPINE HCL, ORAL, 5 Take 5 mg by 90 Each 1 MG TABS mouth daily. 9 08/21/2019 Discontinued NOVOLOG FLEXPEN 100 Inject 30 12 Pen 3 UNIT/ML SOPN Units into 9 the skin 3 times daily (with meals). 08/21/2019 Discontinued Insulin Glargine 300 Inject 35 12 Pen 2 UNIT/ML SOPN Units into 9 the skin two times daily. 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 [facility] 05/02/2019 [facility]osis [facility] 05/02/2019 Flexor tenosynovitis of finger 01/31/2018 Osteophyte of hand 01/31/2018 documented as of this encounter (statuses as of 08/21/2019) Immunizations Name Administration Dates Next Due Pneumococcal [...] Signs Reading Time Taken Comments Vital Sign 126/78 08/21/2019 2:10 PM [facility] Blood Pressure 93 08/21/2019 2:10 PM [facility] Pulse - - Temperature - - Respiratory Rate - - Oxygen Saturation - - Inhaled Oxygen Concentration 122 kg (269 lb) 08/21/2019 2:10 PM [facility] Weight 167.6 cm (5' 6") 08/21/2019 2:10 PM [facility] Height 43.42 08/21/2019 2:10 PM [facility] Body Mass Index documented in this encounter Patient Instructions * Patient Instructions* Sekou Soria MD - 08/21/2019 2:30 PM [facility] DIABETES INSTRUCTIONS Your diabetes regimen is as follows: Insulin Toujeo 40 units in the morning and 40 units in the afternoon. This is a long acting insulin. Please take at the same time of the day. Insulin Novolog 35 units with meals. Please do NOT take it if you do not eat. Yo u can take half of the dose if you eat half of your meal. Please use the following scale before your meals if your sugar is high: Blood Sugar Novolog Insulin < 150 No insulin 151-200 2 units 201-250 4 units 251-300 6 units 301-350 8 units 351-400 10 units PLEASE CHECK YOUR BLOOD GLUCOSE 4 TIMES A DAY: BEFORE BREAKFAST, BEFORE LUNCH, B EFORE DINNER AND AT BEDTIME. Please send the results through [employer] or call in the clinic in 2 weeks after this visit for our review and further recommendation s Important Reminders: - Please remember to obtain your yearly diabetic eye exam for diabetic retinopat hy if you have not done. Please send us a copy of the results if they were not done at [facility]. Our fax # is [phone]. - Please check your blood pressure at home, your blood pressure goal is less juan n 140/90 - Please check your feet daily for ulcers and infections - It is recommended that you eat Diabetic diet. More information can be found a t [email or web address]-[email or web address]-[email or web address]/rarc-mkp-h-[email or web address] - Eat meals on time and on a regular schedule - Blood sugar goals ---- Your fasting blood sugar should be between 90-130 ---- Your blood sugar after meals should be no greater than 180 Treatment of low blood sugar (less than 65) - the 15/15 rule Eat 15 grams of carbohydrate 4 glucose tablets OR Half cup (4 ounces) of fruit juice or regular soda OR 6 hard candies OR 1 tablespoon of sugar OR honey Wait 15 minutes for the sugar to get into the blood and check your blood sugar. If it is below 65 then you can repeat with 15 more grams of carbohydrates. Your blood sugar should be checked to make sure it has come within a safe range PLEASE BRING A RECORD OF YOUR DILATED EYE EXAM at your next visit IT IS VERY IMPORTANT TO BRING YOUR BLOOD GLUCOSE LOGS WITH YOU TO EVERY ENDOCRIN E VISIT GENERAL INSTRUCTIONS Please go to the front line supervisor on your way out today to schedule your next appointm ent. Please let us know what we can do better by providing comments on the survey you will receive. We value your feedback! Return to clinic in 3 months [facility] documented in this encounter Progress Notes * Sekou Soria MD - 08/21/2019 2:30 PM [facility] [address] [facility] 8th [address]; [address] [facility] [address] Dept: [phone] Dept Referring physician No ref. provider found Chief Complaint: Type 2 diabetes History of Present Illness Ms. Pate is a 54 y.o. White female who presents with type 2 diabetes. She has cirrhosis and steatosis Initial endocrine visit at [facility] Endocrine with ma 05/02/2019 She saw endo at [place] before Onset: Diagnosed > 10 years ago Current diabetes regimen: Forgets Novolog 4-5 times a week. Insulin Toujeo 35 units in the morning and 35 units in the afternoon Novolog insulin 30 units with each meal SSI 2:50 > 150 Stopped Byetta around early 2018 . She recalled NO pancreatitis but unsure why i t was stopped Severity: Last A1C: HEMOGLOBIN A1C Date Value Ref Range Status 08/21/2019 9.8 (A) 4.0 - 5.6 % Final 04/2019: hba1c 11.3% Hypoglycemic episodes: BG 69, happened during the day. Unclear precipitating fac tor No history of seizure, loss of consciousness or hospitalization due to hypoglyce amarilis Eat 3 meals a day: bk, lunch and dinner. No bedtime snacks. Before BK: 200-300 Before meals: 300s Associated signs and symptoms Diabetes associated complications/co-morbidities Microvascular Neuropathy: ++ numbness, tingling in b/l fingers/toes Eye exam: last dilated eye exam was in > 1 year ago Nephropathy: not on ACEI/ARB Macrovascular Lipids: on statin CAD: no history of stroke, ischemic heart disease, peripheral arterial disease DM foot: no ulcers No history of pancreatitis, medullary thyroid carcinoma or MEN syndrome Current Outpatient Medications Medication Sig Dispense Refill ascorbic acid 500 MG tablet Take 500 mg by mouth daily. atorvastatin (LIPITOR) 40 MG tablet Take 40 mg by mouth daily. carvedilol (COREG) 6.25 MG tablet Take 6.25 mg by mouth 2 times daily (with meals). Diclofenac Sodium 1 % GEL Apply 2g tid to the BL knees 3 Tube 2 escitalopram (LEXAPRO) 10 MG tablet Take 1 Tab by mouth daily. 30 Tab 2 ferrous sulfate 325 (65 Fe) MG tablet ferrous sulfate 325 mg (65 mg iron) ta blet gabapentin (NEURONTIN) 300 MG capsule TAKE 1 CAPSULE BY MOUTH THREE TIMES A DAY 270 Cap 1 hyoscyamine (LEVBID) 0.375 MG CR tablet hyoscyamine ER 0.375 mg tablet,exten ded release,12 hr Insulin Glargine 300 UNIT/ML SOPN Inject 35 Units into the skin two times da savana. 12 Pen 2 levothyroxine (SYNTHROID) 125 MCG tablet NOVOLOG FLEXPEN 100 UNIT/ML SOPN Inject 30 Units into the skin 3 times daily (with meals). 12 Pen 3 ONDANSETRON OR Take 4 mg by mouth. pantoprazole (PROTONIX) 40 MG tablet at bedtime. PILOCARPINE HCL, ORAL, 5 MG TABS TAKE 1 TABLET BY MOUTH THREE TIMES A DAY - REPLACING CEVILAMINE 90 Each 1 polyethylene glycol (GLYCOLAX) powder Take 17 g by mouth daily. 1 Bottle 2 promethazine (PHENERGAN) 12.5 MG tablet Take 1 Tab by mouth every 6 hours as needed for Nausea. 30 Tab 1 rosuvastatin (CRESTOR) 20 MG tablet sucralfate (CARAFATE) 1 GM/10ML suspension Take 1 g by mouth four times mahogany y. tramadol (ULTRAM) 50 MG tablet Take 1 Tab by mouth every 6 hours as needed f or Pain. 90 Tab 2 trazodone (DESYREL) 50 MG tablet Take 50 mg by mouth nightly as needed. warfarin (COUMADIN) 3 MG tablet warfarin (COUMADIN) 4 MG tablet No current facility-administered medications for this visit. Review of Systems Constitutional: negative for fevers, chills, sweats. anorexia. Eyes: negative for eye redness or excessive tears Ears, nose, mouth, throat: negative for ear drainage, earaches, hearing loss. Respiratory: negative for cough, sputum, hemoptysis. Cardiovascular: Negative for chest pain, dyspnea, or palpitations. Gastrointestinal: negative for nausea or vomiting Genitourinary: negative for dysuria. Skin: negative for rash, skin lesion(s). Hematologic/lymphatic: negative for easy bruising, bleeding. Musculoskeletal: negative for myalgias, or arthralgias. Neurological: negative for weakness. Endocrine: please see HPI Allergic/Immunologic: negative for urticaria, and anaphylaxis. Social History Tobacco Use Smoking status: Former Smoker Smokeless tobacco: Never Used Substance Use Topics Alcohol use: No Alcohol/week: 0.6 oz Types: 1 Glasses of wine per week Frequency: Never Drug use: No Past medical history, family history and surgical history : reviewed, listed bel ow or as in scanned in media Past Medical History: Diagnosis Date Anemia Arthritis Cirrhosis (HCCode) Depression Diabetes (HCCode) Diverticulitis DVT (deep venous thrombosis) (HCCode) GERD (gastroesophageal reflux disease) H/O seasonal allergies High blood pressure High cholesterol Hypothyroid Kidney stone Memory loss Migraine Pulmonary embolus (HCCode) 2000 Past Surgical History: Procedure Laterality Date HX APPENDECTOMY 2002 HX BLADDER REMOVAL Half of bladder removed HX BREAST EXCISIONAL BIOPSY 2007, 2009 HX CHOLECYSTECTOMY HX COLON SURGERY HX COLONOSCOPY HX ENDOSCOPY HX GALLBLADDER REMOVAL HX HAND SURGERY HX HERNIA REPAIR 1989, 2013 HX HYSTERECTOMY HX INGUINAL HERNIA REPAIR HX IVC FILTER PLACEMENT 2000 HX STOMACH SURGERY HX TUMOR REMOVAL 1969 1989 Allergies Allergen Reactions Adhesive Tape Cephalexin Other (See Comments) "makes me sick" Dilaudid [Hydromorphone Hcl] Doxycycline Doxycycline Hyclate " makes me sick" Farxiga [Dapagliflozin] Itching and Rash Physical Exam Vitals: 08/21/19 1410 Height: 5' 6" (1.676 m) Body mass index is 42.68 kg/m. 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 DIAGNOSIS ICD-10-CM 1. Insulin dependent type 2 diabetes mellitus (HCCode) E11.9 Z79.4 Assessment and Plan Erinn Pate is a 54 y.o. female with 1. Type 2 diabetes Hypoglycemia: BG 69s, close to dinner time. Unclear trigger Regimen prior to this visit: she missed taking her insulin 4- 5 times a week. ually Novolog Insulin Toujeo 30 units in AM and 30 units in PM Novolog insulin 30 units with each meal SSI 2:50 > 150 Stopped Byetta around early 2018 . She recalled NO pancreatitis but unsure why i t was stopped Plan: Prescription drug management for diabetes: emphasized compliance . Increase Touj eo and Novolog dose Insulin Toujeo 40 units in the morning and 40 units in the afternoon Novolog insulin 35 units with each meal. Only take Novolog with meal SSI 2:50 > 150 BG log to be sent in for review in 1-2 weeks Discussed with patient to do self exam of both feet daily Check blood glucose before meals and at bedtime Counseled consistent and low carb diet Counseled signs/symptoms of hypoglycemia. Hypoglycemia precautions and manag ement discussed. Counseled to eat all meals on time to avoid hypoglycemia Counseled patient to wear socks/shoes that are loose and examine feet daily Dyslipidemia: - On statin Diabetic retinopathy - Eye exam 04/2019 . Per pt, no dilated eye exam due to possible side effects of eye drops Diabetic nephropathy - Check microalbuminuria - not on CARLA/ARB Orders Placed This Encounter Procedures POCT glycated hemoglobin, total Lipid panel Fast 8 hours before lipid testing Microalbumin / creatinine urine ratio AMB REFERRAL TO OPHTHALMOLOGY [facility] Referral Priority: Routine Referral Type: Consult, Test & Treat Referral Reason: Consult, Test, and Treat Requested Specialty: Ophthalmology Number of Visits Requested: 6 Return to clinic in 3 months. Patient was given enough time and opportunities to ask questions. All questions and concerns were addressed to patient's satisfaction Sekou Soria MD Coin Wrapping Machine Operator Department of Endocrinology, Diabetes and Metabolism [facility] documented in this encounter Plan of Treatment Care Team Description Date Type Specialty Sergey Redmond MD [address] [facility] [address] [place] [address] 08/24/2019 Office Visit Vascular Surgery Leonard Galvan MD [address] [facility] [address] [place] [address] 09/19/2019 Office Visit Neurology Order Schedule Name Type Priority Associated Diagnoses Ordered: 08/21/2019 LIPID PANEL Lab Routine Insulin dependent type 2 diabetes mellitus (HCCode) Ordered: 08/21/2019 MICROALBUMIN/CREAT URINE Lab Routine Insulin dependent type 2 RATIO diabetes mellitus (HCCode) Order Schedule Name Type Priority Associated Diagnoses Ordered: 08/21/2019 AMB REF TO OPHTHALMOLOGY Outpatient Routine Insulin dependent type 2 [facility] Referral diabetes mellitus (HCCode) Health Maintenance Due Date Last Done Comments A1C TESTING EVERY 6 1964 MONTHS MAMMOGRAM ANNUAL 1965 TETANUS SHOT (ADULT) 01/20/1979 ANNUAL DIABETIC FOOT EXAM 01/20/1982 ANNUAL DIABETIC 01/20/1982 RETINOPATHY SCREENING BMI FOLLOW UP PLAN 01/20/1982 HIV SCREENING 01/20/1982 CERVICAL CANCER SCREENING 01/20/1985 3 YEAR FOLLOW UP FLU VACCINE > 6 MONTHS 05/18/2019 11/18/2018 COLON CANCER SCREENIN06/29/2029 06/29/2019, 05/12/2018 COLONOSCOPY HEPATITIS C SCREENING Completed 05/06/2018 documented as of this encounter Procedures Comments Procedure Name Priority Date/Time Associated Diagnosis POCT HEMOGLOBIN A1C Routine 08/21/2019 Insulin dependent type 2 2:50 PM [facility] diabetes mellitus (HCCode) documented in this encounter Results * POCT HEMOGLOBIN A1C (08/21/2019 2:50 PM [facility]) HEMOGLOBIN A1C 9.8 (A) 4.0 - 5.6 % Specimen Blood documented in this encounter Visit Diagnoses Diagnosis Insulin dependent type 2 diabetes mellitus (HCCode) - Primary Type II or unspecified type diabetes mellitus without mention of complication, not stated as uncontrolled documented in this encounter Insurance Type Payer Benefit Subscriber ID Effective Phone Address Plan / Dates Group [facility] xxxxxxxxxx [id number] [facility] [address] [id number] [place] [address] documented as of this encounter
--- OUTSIDE RECORDS SUMMARY | 2019-09-18 18:13 | XMS REPORT | Clinical Summary ---
Author Author [facility] Organization [facility] Address Unknown Phone Unavailable Care Team Providers Care Computer Discovery Teacher Name Role Phone Mulu Flanagan PCP Allergies Comments Active Allergy Reactions Severity Noted Date Adhesive Tape "makes me sick" Cephalexin Other (See 05/06/2018 Comments) Hydromorphone Hcl Doxycycline " makes me sick" Doxycycline Hyclate 05/06/2018 Dapagliflozin Itching, Rash 11/30/2018 Medications End Date Status Medication Sig Dispensed [...] Gluc 1 Each daily. 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 (HCCode) 05/02/2019 Cirrhosis (HCCode) 05/02/2019 Flexor tenosynovitis of finger 01/31/2018 Osteophyte of hand 01/31/2018 Encounters Care Team Description Date Type Specialty Roque Sierra MD Needs Labs Drawn 07/18/2019 Telephone Gastroenterology Roque Sierra MD 07/18/2019 Orders Only Gastroenterology Christina Gamez MD Refill 07/14/2019 Refill Rheumatology Roque Sierra MD Schedule For Test/Appt (info) 07/13/2019 Telephone Gastroenterology Roque Sierra MD 07/13/2019 Orders Only Gastroenterology Roque Sierra MD 07/10/2019 Orders Only Gastroenterology Carol Chopra MD 07/07/2019 Orders Only Rheumatology Sekou Soria MD Prior Authorization (Prior Authorization) 07/05/2019 Telephone Endocrinology Fidencio Sumner MD 06/29/2019 Orders Only Hepatology Sekou Soria MD Medication Change 06/29/2019 Telephone Endocrinology Roque Sierra MD Initial Consultation 06/27/2019 Office Visit Gastroenterology Provider, Historical 06/26/2019 Orders Only Gastroenterology Santiago Easley MD Gastro Procedure (see Procedures or Media tab for report) 06/26/2019 Telephone Gastroenterology Kristal Erwin PA-C 06/20/2019 Orders Only Hepatology Christina Gamez MD Refill 06/15/2019 Refill Rheumatology Carol Chopra MD Other (Pharmacy form) 06/13/2019 Telephone Rheumatology Claribel Kinney MD Return Patient Call (NOV appointment) 06/13/2019 Telephone Neurology Santiago Easley MD 06/02/2019 Orders Only Gastroenterology Lyssa Barbosa, RN, BSN 05/31/2019 Orders Only Rheumatology Carol Chopra MD 05/12/2019 Orders Only Rheumatology Myah Torres PA-C 05/09/2019 Orders Only Hepatology Sekou Soria MD Initial Consultation (Type 2. Fasting am: 338. Pt has high BG. Wants to discuss disease managment. Post ER Follow up / ) 05/02/2019 Office Visit Endocrinology from Last 3 Months Immunizations Name Administration Dates Next Due Pneumococcal 05/04/2019 Polysaccharide Zoster Live 05/04/2019 Family History Medical History Relation Name Comments Depression Father Diabetes Father High Blood Pressure Father High Cholesterol Father Prostate Cancer Father Prostate Cancer Maternal Grandfather Stroke Maternal Grandmother Depression Mother Heart Attack Mother High Blood Pressure Mother High Cholesterol Mother Relation Name Status Comments Father Maternal Grandfather Maternal Grandmother Mother Social History Date Tobacco Use Types Packs/Day [...] Travel Start No recent travel history available. 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 Oxygen Saturation - - Inhaled Oxygen Concentration 119.9 kg (264 lb 6.4 oz) 07/18/2019 9:41 AM CDT Weight 167.6 cm (5' 6") 07/18/2019 9:41 AM CDT Height 42.68 07/18/2019 9:41 AM CDT Body Mass Index Plan of Treatment Care Team Description Date Type Specialty Sekou Soria MD [address], [address] [place] [address] 08/21/2019 Office Visit Endocrinology Leonard Galvan MD [address] [place], [place] [id number] 09/19/2019 Office Visit Neurology Health Maintenance Due Date Last Done Comments A1C TESTING EVERY 6 1964 MONTHS MAMMOGRAM ANNUAL 1965 TETANUS SHOT (ADULT) 01/20/1979 ANNUAL DIABETIC FOOT EXAM 01/20/1982 ANNUAL DIABETIC 01/20/1982 RETINOPATHY SCREENING BMI FOLLOW UP PLAN 01/20/1982 HIV SCREENING 01/20/1982 CERVICAL CANCER SCREENING 01/20/1985 3 YEAR FOLLOW UP FLU VACCINE > 6 MONTHS 07/19/2019 11/18/2018 Postponed from 05/18/2019 (Other) COLON CANCER SCREENIN05/12/2028 05/12/2018 COLONOSCOPY HEPATITIS C SCREENING Completed 05/06/2018 Procedures Comments Procedure Name Priority Date/Time Associated Diagnosis CELIAC DISEASE Routine 07/10/2019 COMPREHENSIVE([facility] 12:[address]) C-REACTIVE PROTEIN Routine 07/10/2019 12:20 PM CDT SEDIMENTATION RATE Routine 07/10/2019 MODIFIED WESTERGREN 12:20 PM CDT PATHOLOGY TISSUE Routine 06/29/2019 11:04 AM CDT POCT GLUCOSE Routine 06/29/2019 9:54 AM CDT PROTIME-INR Routine 06/29/2019 9:46 AM CDT CBC W/AUTO DIFF WITH Routine 06/20/2019 PLATELETS 9:51 AM CDT PROTIME-INR Routine 06/20/2019 9:51 AM CDT HEPATIC FUNCTION PANEL Routine 06/20/2019 9:51 AM CDT BASIC METABOLIC PROFILE + Routine 06/20/2019 E-GFR 9:51 AM CDT PATHOLOGY TISSUE Routine 06/02/2019 12:15 PM CDT (SCN) GI PROCEDURE Routine 06/02/2019 AFP TUMOR MARKER Routine 05/09/2019 4:10 PM CDT BASIC METABOLIC PANEL Routine 05/09/2019 4:10 PM CDT HEPATIC FUNCTION PANEL Routine 05/09/2019 4:10 PM CDT PROTIME-INR Routine 05/09/2019 4:10 PM CDT CBC W/AUTO DIFF WITH Routine 05/09/2019 PLATELETS 4:10 PM CDT from Last 3 Months Results * CELIAC DISEASE COMPREHENSIVE([facility]) (07/10/2019 12:20 PM CDT) INTERPRETATION SEE NOTE [facility] Comment: tTG IgA positive by JOHN is consistent with celiac disease, but not confirmed by NIKKI IFA. Total serum IgA is elevated. Consider mucosal inflammatory conditions or underlying gammopathy. Recommend correlation with clinical, radiographic and endoscopic findings. Test code 60976 will be discontinued on 09/18/19 to be consistent with AAFP and ACG guidelines. A new test code, 53970, has been available since 04/17/19 to include Tissue Transglutaminase (tTG) IgA with Reflex to Endomysial Screen/Titer reflex, and Total IgA with Reflex to Deamidated Gliadin Peptide (DGP) IgG and Tissue Transglutaminase (tTG) IgG to be consistent with said guidelines. Test code 93087 will be orderable up to and including 09/17/19, thereafter it will not be orderable. TISSUE 6 (H) U/mL [facility] TRANSGLUTAMINAS Comment: E ANTIBODY, IGA <4 No Antibody Detected > OR=4 Antibody Detected IGA 459 (H) 47 - 310 mg/dL [facility] ENDOMYSI[facility] NEGATIVEComment: Performed at: NEGATIVE [facility] ANTIBODY SCR [facility]Z [facility] (IGA) W/REFL TO [facility] [id number] [place] [phone] BRITTANY COWART MD,PHD,YECENIA Specimen Serum specimen (specimen) Resulting Agency Comment Performing Organization Information: Site ID: [id number] Name: [facility] Address: [address] [place] [phone] Director: BRITTANY COWART MD,PHD,YECENIA Performing Organization Address City/State/Zipcode Phone Number [facility] [address] [place] [address] * SEDIMENTATION RATE MODIFIED WESTERGREN (07/10/2019 12:20 PM CDT) ERYTHROCYTE 56 (H)Comment: Performed at: < OR=30 mm/h [facility] SEDIMENTATION [facility] [place] [address] [place] [phone] MARS GEORGE MD Specimen Blood (substance) Resulting Agency Comment Performing Organization Information: Site ID: MILLIE Name: [facility] [place] Address: [address] [place] [phone] Director: MARS GEORGE MD Performing Organization Address City/[facility] [place] [place] [address] * C-REACTIVE PROTEIN (07/10/2019 12:20 PM CDT) C-REACTIVE 15.9 (H) <8.0 mg/L [facility] PROTEIN Comment: REPORT COMMENT: FASTING:YES COLLECTION KIT GIVEN TO PATIENT. PATIENT ADVISED TO RETURN. Performed at: [facility] [address] [address] MARS GEORGE MD Specimen Serum specimen (specimen) Resulting Agency Comment Performing Organization Information: Site ID: [facility] Name: [facility] [place] Address: [address] [place] [phone] Director: MARS GEORGE MD Performing Organization Address [facility] Hospital[facility] [address] * PATHOLOGY TISSUE (06/29/2019 11:04 AM CDT) Only the most recent of 2 results within the time period is included. CASE REPORT Surgical Pathology [facility] Report Case: [id number] Authorizing Provider:Fidencio Sumner MD Collected: 06/29/2019 1104 Ordering Location: [facility] Endoscopy Received: 06/29/2019 1535 Services Pathologist: Jocy Evans MD Specimens: A) - Duodenum, BX B) - Cecum, BX C) - Colon Biopsy, Random DIAGNOSIS A.DUODENUM BIOPSY [facility] - NO DIAGNOSTIC ALTERATION B. COLON, CECUM, BIOPSY -NO DIAGNOSTIC ALTERATION -MINUTE MATURE ADIPOSE TISSUE SEEN (SEE COMMENT) C. COLON, RANDOM BIOPSY -NO DIAGNOSTIC ALTERATION -NO EVIDENCE OF MICROSCOPIC COLITIS Signing Pathologist Direct Phone Line: [phone] at3:43 PM DIAGNOSIS B. A very minute area of [facility] COMMENT adipose tissue is seen in deep lamina propria/submucosa.Although non-specific, it may be part of the lipoma noted endoscopically. CPT 46029 X 3 [facility] CLINICAL Cirrhosis of liver without [facility] HISTORY ascites and screening for colon cancer SPECIMEN SOURCE A. Duodenum biopsy. B. [facility] biopsy. C. Random colon biopsy GROSS This case is received in three [facility] DESCRIPTION parts. All parts are labeled correctly with the patient's name and date of . Part A. Received in formalin labeled "duodenum" consists of a 0.5 x 0.4 x 0.3 cm rockwell-brown irregular tissue. The specimen is filtered and is submitted in toto in cassette A. Part B. Received in formalin labeled "cecum" consists of a 0.6 x 0.4 x 0.3 cm rockwell-brown irregular tissue. The specimen is filtered and is submitted in toto in cassette B. Part C. Received in formalin labeled "random colon biopsy" consists of two irregular fragments of rockwell-brown tissue aggregating to 0.8 x 0.3 x 0.2 cm. The specimen is filtered and is submitted in toto in cassette C. AH/ew MICROSCOPIC Performed. [facility] DESCRIPTION GROSS [facility], Department of Pathology, [address] [place] [address], TECHNICAL [facility], Department of Pathology, [address] [place] [address], PROFESSIONAL [facility], Department of Pathology, [address] [place] [id number], Specimen Other (qualifier value) Performing Organization Address City/State/Zipcode Phone Number [facility] * POCT GLUCOSE (06/29/2019 9:54 AM CDT) GLUCOSE [address] (H)Comment: TESTED AT 70 - 110 mg/dL [facility] [address] [facility] [id number] Specimen Performing Organization Address City/State/[facility] Phone Number [facility] * PROTIME-INR (06/29/2019 9:46 AM CDT) Only the most recent of 3 results within the time period is included. PROTIME 14.5 (H) 11.9 - 14.[address] [facility] INR 1.[address] <=[address]9 [facility] Specimen Narrative Performed At Effective 03/15/2019: PT Reference Range Change [facility] New: 11.9-14.2Previous: 11.7-14.7 RECOMMENDED COUMADIN/WARFARIN INR THERAPY RANGES STANDARD DOSE: 2.0-3.0Includes: PROPHYLAXIS for venous thrombosis, systemic embolization; TREATMENT for venous thrombosis and/or pulmonary embolus. HIGH RISK: Target INR is 2.5-3.5 for patients wiht mechanical heart valves. Performing Organization Address [facility] Phone Number [facility] * BASIC METABOLIC PROFILE + E-GFR (06/20/2019 9:51 AM CDT) GLUCOSE 201 (H) 65 - 139 mg/dL [facility] Comment: Non-fasting reference interval BLOOD UREA 13 7 - 25 mg/dL [facility] NITROGEN CREATININE 0.73 0.50 - 1.05 mg/dL [facility] Comment: For patients >49 years of age, the reference limit for Creatinine is approximately 13% higher for people identified as -Gabonese. EGFR 93 > OR=60 [facility] mL/min/1.73m2 EGFR AA 107 > OR=60 [facility] mL/min/1.73m2 BUN/CREAT RATIO NOT APPLICABLE 6 - 22 (calc) [facility] SODIUM 139 135 - 146 mmol/L [facility] POTASSIUM 4.2 3.5 - 5.3 mmol/L [facility] CHLORIDE 101 98 - 110 mmol/L [facility] CO2 30 20 - 32 mmol/L [facility] CALCIUM 9.7Comment: Performed at: [facility] 8.6 - 10.4 mg/dL [employer] [address] [phone] MARS GEORGE MD Specimen Serum specimen (specimen) Resulting Agency Comment Performing Organization Information: Site ID: [id number] Name: [facility] [place] Address: [address] [place] [phone] Director: MARS GEORGE MD Performing Organization Address [facility]/Zipcode Phone Number [facility] [address] [place] [address] * CBC W/AUTO DIFF WITH PLATELETS (06/20/2019 9:51 AM CDT) Only the most recent of 2 results within the time period is included. WHITE BLOOD 8.1 3.8 - 10.8 [facility] CELL COUNT Thousand/uL RED BLOOD CELL 4.78 3.80 - 5.10 [facility] COUNT Million/uL HEMOGLOBIN 13.6 11.7 - 15.5 g/dL [facility] HEMATOCRIT 40.0 35.0 - 45.0 % [facility] MEAN 83.7 80.0 - 100.0 fL [facility] CORPUSCULAR VOLUME MEAN 28.5 27.0 - 33.0 pg [facility] CORPUSCULAR HEMOGLOBIN MEAN 34.0 32.0 - 36.0 g/dL [facility] CORPUSCULAR HEMOGLOBIN CONC RED CELL 15.0 11.0 - 15.0 % [facility] DISTRIBUTION WIDTH PLATELET COUNT 172 140 - 400 [facility] Thousand/uL MEAN PLATELET 12.3 7.5 - 12.5 fL [facility] VOLUME NEUTROPHILS 5,808 1,500 - 7,800 [facility] ABSOLUTE COUNT cells/uL LYMPHOCYTES 1,563 850 - 3,900 cells/uL [facility] ABSOLUTE COUNT MONOCYTES 470 200 - 950 cells/uL [facility] ABSOLUTE COUNT EOSINOPHILS 203 15 - 500 cells/uL [facility] ABSOLUTE COUNT BASOPHILS 57 0 - 200 cells/uL [facility] ABSOLUTE COUNT NEUTROPHILS % 71.7 % [facility] LYMPHOCYTES % 19.3 % [facility] MONOCYTES % 5.8 % [facility] EOSINOPHILS % 2.5 % [facility] BASOPHILS % 0.7 % [facility] Comment: REPORT COMMENT: FASTING:NO Performed at: [facility] [address] [address] MARS GEORGE MD Specimen Blood (substance) Resulting Agency Comment Performing Organization Information: Site ID: [facility] Name: [facility] [place] Address: [address] [place] [phone] Director: MARS GEORGE MD Performing Organization Address [facility]/Zipcode Phone Number [facility] [address] [place] [address] * HEPATIC FUNCTION PANEL (06/20/2019 9:51 AM CDT) Only the most recent of 2 results within the time period is included. Pathologist [facility] PROTEIN TOTAL 8.2 (H) 6.1 - 8.1 g/dL [facility] ALBUMIN 4.0 3.6 - 5.1 g/dL [facility] GLOBULINS, 4.2 (H) 1.9 - 3.7 g/dL [facility] SERUM, TOTAL (calc) A/G RATIO 1.0 1.0 - 2.5 (calc) [facility] BILIRUBIN TOTAL 1.1 0.2 - 1.2 mg/dL [facility] BILIRUBIN 0.3 (H) < OR=0.2 mg/dL [facility] DIRECT BILIRUBIN 0.8 0.2 - 1.2 mg/dL [facility] INDIRECT (calc) ALKALINE 95 33 - 130 U/L [facility] PHOSPHATASE AST (SGOT) 20 10 - 35 U/L [facility] ALT (SGPT) 17Comment: Performed at: [facility] 6 - 29 U/L [employer] [address] [address] MARS GEORGE MD Specimen Serum specimen (specimen) Resulting Agency Comment Performing Organization Information: Site ID: [facility] Name: [facility] [place] Address: [address] [place] [phone] Director: MARS GEORGE MD Performing Organization Address City/[facility] Phone Number [place] [phone] * (SCN) GI PROCEDURE (06/02/2019) Narrative Performed At * AFP TUMOR MARKER (05/09/2019 4:10 PM CDT) Pathologist [facility] AFP 4.3 <10.0 ng/mL [facility] Specimen Performing Organization Address City/State/Zipcode Phone Number [facility] * BASIC METABOLIC PANEL (05/09/2019 4:10 PM CDT) Pathologist [facility] SODIUM 137 136 - 145 meq/L [facility] POTASSIUM 4.1 3.5 - 5.1 meq/L [facility] CHLORIDE 102 98 - 107 meq/L [facility] CO2 26 22 - 29 meq/L [facility] BLOOD UREA 9 7 - 21 mg/dL [facility] NITROGEN CREATININE 0.79 0.57 - 1.25 mg/dL [facility] GLUCOSE 251 (H) 70 - 105 mg/dL [facility] CALCIUM 9.5 8.4 - 10.2 mg/dL [facility] EGFR 76Comment: ESTIMATED GFR IS mL/min/1.[address] [facility] NOT ACCURATE CREATININE CLEARANCE IN PREDICTING GLOMERULAR FILTRATION RATE. ESTIMATED GFR IS NOT APPLICABLE FOR DIALYSIS PATIENTS. Specimen Performing Organization Address City/State/Zipcode Phone Number [facility] from Last 3 Months Insurance Type Payer Benefit Subscriber ID Effective Phone Address Plan / Dates Group [facility] xxxxxxxxxx 2018-P [facility] resent [id number] [place] [address]
--- NOTE | 2019-09-18 19:05 | Diagnostic Imaging Report ---
EXAM: FINGER RT - HOPD DATE: 09/18/2019 12:00 AM INDICATION: Injury ^[id number] ^[id number] COMPARISON: None FINDINGS: 3 views of the right fourth finger show no displaced fracture or dislocation. Bones are moderately demineralized. Degenerative changes are seen at the DIP joints. There is mild deformity of the third, fourth and fifth proximal phalanges that may be related to previous injury. Soft tissues unremarkable. IMPRESSION: No acute bony abnormality. Signed by: Dr. Jamil Gutierrez M.D. on 09/18/2019 7:02 PM
== END 2019-09-18 18:55 | disposition home or self-care (01) ==
LOC: FSED 18:07
DX: S63.634A Sprain of interphalangeal joint of right ring finger, initial encounter (principal); X50.1XXA Overexertion from prolonged static or awkward postures, initial encounter; Y92.008 Other place in unspecified non-institutional (private) residence as the place of occurrence of the external cause; I10 Essential (primary) hypertension; E11.9 Type 2 diabetes mellitus without complications; E78.5 Hyperlipidemia, unspecified; K76.9 Liver disease, unspecified; K21.9 Gastro-esophageal reflux disease without esophagitis; Z86.718 Personal history of other venous thrombosis and embolism
CPT/HCPCS: 99283

== ENCOUNTER 2020-03-24 22:19 | Emergency (ER) | payer OTHER ==
[~2020-03-24] VITALS: Ht 167.6 cm; Wt 119.3 kg
[~2020-03-24 22:19] MED LIST changes: +TYLENOL WITH C1 EACH PO
--- OUTSIDE RECORDS SUMMARY | 2020-03-24 22:25 | XMS REPORT | Clinical Summary ---
Author Author [facility] Address Unknown Phone Unavailable Care Team Providers Care Handle Turner Name Role Phone Mulu Flanagan PCP Allergies Comments Active Allergy Reactions Severity Noted Date Adhesive Rash Low 01/17/2019 hallucination Hydromorphone (Bulk) Other (See 05/06/2018 Comments) Doxycycline Hyclate Nausea And 05/06/2018 Vomiting Fluconazole Rash Low 01/17/2019 Cephalexin Nausea And 05/06/2018 Vomiting Medications End Date Status Medication Sig Dispensed Refills Start Date Active carvedilol (COREG) 6.25 Take 6.25 mg 0 MG tablet by mouth 2 (two) times daily with breakfast and dinner. Active levothyroxine (SYNTHROID, Take 125 mcg 0 LEVOTHROID) 125 MCG by mouth tablet Every morning on an empty stomach. Active promethazine (PHENERGAN) Take 12.5 mg 0 12.5 MG tablet by mouth every 12 (twelve) hours as needed for Nausea . Active ergocalciferol (VITAMIN Take 50,000 0 D2) 1,250 mcg (50,000 Units by unit) capsule mouth once a week . Active ondansetron (ZOFRAN-ODT) Take 4 mg by 0 4 MG disintegrating mouth every 8 tablet (eight) hours as needed for Nausea. Active DULoxetine (CYMBALTA) 60 Take 60 mg by 0 MG capsule mouth nightly. Active hyoscyamine (LEVBID) Take 0.75 mg 0 0.375 mg 12 hr tablet by mouth 2 (two) times daily 2 tablet of 0.375 twice day. Active atorvastatin (LIPITOR) 40 Take 40 mg by 0 MG tablet mouth daily. Active gabapentin (NEURONTIN) Take 300 mg 0 300 MG capsule by mouth 3 (three) times daily as needed. Active ferrous sulfate 325 (65 Take 325 mg 0 FE) MG tablet by mouth 2 (two) times daily. Active insulin aspart U-100 Inject 0 (NOVOLOG) 100 unit/mL (3 subcutaneousl mL) InPn y 3 (three) times daily before meals 12 units before meals with sliding scale. Active pilocarpine (SALAGEN) 5 Take 5 mg by 0 MG tablet mouth once. Active warfarin (COUMADIN) 4 MG Take 1 tablet 30 tablet 0 tablet (4 mg total) 9 by mouth daily Alternate with 3mg. Active TOUJEO SOLOSTAR U-300 INJECT 35 1 02/28/20 1 INSULIN 300 unit/mL (1.5 UNITS 9 mL) InPn syringe SUBCUTANEOUSL Y TWICE DAILY Active warfarin (COUMADIN) 3 MG Take 3 mg by 0 tablet mouth daily 3MG on Wednesday, Wednesday, and Wednesday. . Active traZODone (DESYREL) 50 MG Take 50 mg by 0 tablet mouth nightly. Active enoxaparin (LOVENOX) 80 Inject 0 mg/0.8 mL Syrg subcutaneousl y 2 (two) times daily . 08/21/2020 Active spironolactone Take 1 tablet 30 tablet 11 (ALDACTONE) 50 MG tablet (50 mg total) 9 by mouth daily. 06/05/2020 Active furosemide (LASIX) 20 MG Take 1 tablet 60 tablet 6 tabletIndications: (20 mg total) 0 Cirrhosis of liver with by mouth 2 ascites, unspecified (two) times hepatic cirrhosis type daily for 210 (HCC) days. Active rifAXIMin (XIFAXAN) 550 Take 1 tablet 60 tablet 11 mg TabIndications: (550 mg 0 Hepatic encephalopathy total) by (HCC) mouth 2 (two) times daily. 02/11/2021 Active ursodioL (ACTIGALL) 500 Take 1 tablet 180 tablet 3 MG tablet (500 mg 0 total) by mouth 2 (two) times daily. Active dicyclomine (BENTYL) 10 Take 10 mg by 0 MG capsule mouth 4 (four) times daily before meals and nightly. Active escitalopram oxalate Take 20 mg by 0 (LEXAPRO) 20 MG tablet mouth daily. Active insulin detemir U-100 Inject 0 (LEVEMIR) 100 unit/mL subcutaneousl injection y nightly. Active omeprazole (PRILOSEC) 40 Take 40 mg by 0 MG capsule mouth daily. Active ondansetron (ZOFRAN) 4 MG Take 4 mg by 0 tablet mouth 2 (two) times daily as needed for Nausea. Active traMADoL (ULTRAM) 50 mg Take 50 mg by 0 tablet mouth every 6 (six) hours as needed for Pain. 03/12/2020 Discontinued sucralfate (CARAFATE) 1 Take 1 g by 0 gram tablet mouth 2 (two) times daily . 06/03/2019 Discontinued pantoprazole (PROTONIX) Take 40 mg by 0 40 MG tablet mouth once . 04/20/2019 Discontinued warfarin (COUMADIN) 4 MG Take 4 mg by 0 tablet mouth every other day Alternate with 3mg. 06/27/2019 Discontinued traMADol (ULTRAM) 50 mg 50 mg every 6 0 tablet (six) hours 9 as needed . 04/20/2019 Discontinued warfarin (COUMADIN) 3 MG Take 3 mg by 0 tablet mouth every other day Alternate with 4mg. . 03/12/2020 Discontinued ascorbic acid, vitamin C, Take 500 mg 0 (ASCORBIC ACID WITH LYNSEY by mouth HIPS) 500 MG tablet daily. 03/12/2020 Discontinued nystatin-triamcinolone Apply 0 (MYCOLOG II) 100,000-0.1 topically 2 unit/g-% cream (two) times daily as needed. 04/20/2019 Discontinued enoxaparin (LOVENOX) 80 Inject 0 mg/0.8 mL Syrg subcutaneousl y every 12 (twelve) hours. 06/03/2019 furosemide (LASIX) 20 MG Take 1 tablet 30 tablet 3 tabletIndications: (20 mg total) 9 Cirrhosis of liver with by mouth ascites, unspecified daily for 120 hepatic cirrhosis type days. (HCC) 06/03/2019 spironolactone Take 1 tablet 30 tablet 3 (ALDACTONE) 50 MG (50 mg total) 9 tabletIndications: by mouth Cirrhosis of liver with daily for 120 ascites, unspecified days. hepatic cirrhosis type (HCC) 02/12/2020 Discontinued ursodiol (ACTIGALL) 500 Take 500 mg 0 MG tablet by mouth 2 (two) times daily. 03/12/2020 Discontinued pantoprazole (PROTONIX) Take 1 tablet 30 tablet 1 40 MG tablet (40 mg total) 9 by mouth daily. 06/27/2019 Discontinued PEG Between 4-6 1 each 0 8782-wzsfcepdseuf-pkwssvn pm the day 9 C (MOVIPREP) before mix 1 100-7.5-2.691 gram PwPk packet of ea packetIndications: Colon A & B drink 1 cancer screening section q 15 min, mix and drink other A & B 6-8 hrs before appt.. 07/24/2019 Discontinued furosemide (LASIX) 20 MG TAKE 1 TABLET 30 tablet 1 tablet BY MOUTH 9 EVERY DAY 08/22/2019 Discontinued spironolactone TAKE 1 TABLET 30 tablet 1 (ALDACTONE) 50 MG tablet BY MOUTH 9 EVERY DAY 06/27/2019 Discontinued enoxaparin sodium Inject 0 (LOVENOX SUBQ) subcutaneousl y. 09/20/2019 Discontinued furosemide (LASIX) 20 MG TAKE 1 TABLET 30 tablet 1 tablet BY MOUTH 9 EVERY DAY 11/08/2019 Discontinued furosemide (LASIX) 20 MG Take 1 tablet 20 tablet 0 tablet (20 mg total) 9 by mouth 2 (two) times daily. 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 Abnormal liver enzyme appears to be related to nonalco holic fatty liver disease and she has multiple risk factors for that Class 3 severe obesity in adult 05/06/2018 Last Assessment & Plan: The patient's current BMI is 40 . Obesity is an established risk facto r for vascular complications (ie coronary artery disease, cerebrovascula r disease, peripheral vascular disease), osteoarthritis, pulmonary dis ease, as well as the development of non-alcoholic fatty liver disease and t he risk for non-alcoholic steatohepatitis. We have recommended a structured weight loss program (10% body weight initially), along with diet jourdan modifications and regular exercise for overall good health and to minimize the risk of obesity -related complications. The assessment of a high density finishing operator or packing floor worker may be beneficial. I discussed the following weight loss t echniques: (1) Decreasing portion size. (2) Avoid eating in front of television or computers. Eat at a dining room table instead. (3) Start exercising. Start at 15 minut es every day and increase by 2 minutes every 2 weeks. Your goal is to exercise 30-45 minutes most days of the week. Time yourself every time you exercise and do not go over your alloted time for the day. You can try fast walking or swimming. Screening for endocrine/metabolic/immunity disorders 05/06/2018 Last Assessment & Plan: Serological tests will be completed to determine the presence of immunity to hepatitis A and B. If found suscepti ble she will be referred to her primary care provider to consider the a dministration of the appropriate vaccines. Cirrhosis of liver without ascites 05/06/2018 Last Assessment & Plan: Compensated cirrhosis, diagnosed by con stellation of symptoms/examination/labs/imaging. The re is not any evidence of acute decompensation. This is complicated by portal hypertension manifested by thrombocytopenia and cirrhosis appears to be related to nonalcoholic fatty liver disease, related to diabetes obes ity and hyperlipidemia Screening for cancer 05/06/2018 Last Assessment & Plan: Cirrhosis, regardless of etiology, is a risk factor for hepatocellular carcinoma (HCC), with an annual inciden ce of 1.5-7%. We recommend surveillance for HCC with abdominal tang ging and alphafetoprotein every 6 months. Pulmonary embolism 05/06/2018 Last Assessment & Plan: Patient has known history of deep vein thrombosis and pulmonary embolism , S/p IVC Filter and on warfarin Encounters Care Team Description Date Type Specialty Lee Holden III ARTHRODESIS,FINGER 03/14/2020 Surgery General Surgery AntonioSydniDO tyler 03/14/2020 Anesthesia General Surgery Event Lee Holden III 03/14/2020 Hospital General Surgery Encounter 03/14/2020 Travel 03/12/2020 Hospital Pre-Admission Testi ng Encounter 03/12/2020 Travel Mely Wise RN 03/08/2020 Abstract Hepatology Mely Wise RN 02/12/2020 Refill Hepatology Fidencio Sumner MD 02/11/2020 Refill Hepatology Kristal Erwin PA Cirrhosis of liver without ascites, unsp ecified hepatic cirrhosis type (HCC) (Primary Dx); Hepatic encephalopathy (HCC) 02/08/2020 Orders Only Hepatology Shannon Swenson RN Paperwork 12/08/2019 Telephone Hepatology Kristal Erwin PA Hepatic encephalopathy (HCC) (Primary Dx ) 11/28/2019 Orders Only Hepatology Fidencio Sumner MD Cirrhosis of liver with ascites, unspeci fied hepatic cirrhosis type (HCC) 11/27/2019 Hospital Radiology Encounter Mami Anne 11/27/2019 Abstract Hepatology 11/26/2019 Travel Blake Annehawn PRIOR AUTH (XIFAXAN 550 MG ) 11/24/2019 Telephone Hepatology Fidencio Sumner MD Dunn, Parxann Marie, PA Immunity status testing (Primary Dx); Cirrhosis of liver with ascites, unspecified hepatic cirrhosis type (HCC); Cirrhosis of liver without ascites, unspecified hepatic cirrhosis type (HCC); Fatty liver; Obesity, Class III, BMI 40-49.9 (morbid obesity) (HCC); Screening for cancer; Screening for endocrine/metabolic/immunity disorders; Hepatic encephalopathy (HCC); Hepatitis B core antibody positive; Other pulmonary embolism without acute cor pulmonale, unspecified chronicity (HCC); Portal hypertension (HCC) 11/22/2019 Office Visit Hepatology Mely Wise RN Abdominal Pain 11/13/2019 Telephone Hepatology Yuriy Us REFILL REQUEST 11/08/2019 Telephone Hepatology Mely Wise RN 09/20/2019 Refill Hepatology Fidencio Sumner MD 09/18/2019 Refill Hepatology Haleigh Cao, adobe ball mixer Refill (Spironolactone and ne w symptoms) 08/22/2019 Telephone Transplant Hepatolo Haleigh Roach RN 08/22/2019 Refill Transplant Hepatolo gy Fidencio Sumner MD 08/15/2019 Refill Hepatology Jeffery Alvarado FNP Returning pt's mychart msg 08/04/2019 Telephone Hepatology Roque Sierra MD Nausea and vomiting, intractability of v omiting not specified, unspecified vomiting type 08/01/2019 Hospital Radiology Encounter 08/01/2019 Travel 07/31/2019 Travel Roque Sierra MD Diarrhea, unspecified type (Primary Dx); Elevated sed rate (elev SR); Nausea and vomiting, intractability of vomiting not specified, unspecified vomiting type 07/28/2019 Outside Orders Central Scheduling Myah Torres PA-C Follow-up 07/26/2019 Telephone Hepatology Roque Sierra MD Nausea and vomiting, intractability of v omiting not specified, unspecified vomiting type (Primary Dx) 07/26/2019 Outside Orders Central Scheduling Fidencio Sumner MD 07/24/2019 Refill Hepatology Ramon Cabezas, HAT MODEL 06/29/2019 Anesthesia Gastroenterology Event Fidencio Sumner MD UPPER ENDOSCOPY 06/29/2019 Surgery Gastroenterology Fidencio Sumner MD 06/29/2019 Hospital Gastroenterology Encounter 06/27/2019 Hospital Pre-Admission Testi ng Encounter Fidencio Sumner MD 06/26/2019 Refill Hepatology Opal Parks RN colonoscopy prep 06/21/2019 Telephone Hepatology Kristal Erwin PA Cirrhosis of liver without ascites, unsp ecified hepatic cirrhosis type (HCC) (Primary Dx) 06/08/2019 Orders Only Hepatology Dilshad Frias MD 06/02/2019 Anesthesia Gastroenterology Event Santiago Easley MD UPPER ENDOSCOPY,POLYPECTOMY 06/02/2019 Surgery Gastroenterology Antonio Phillips MD Athreya, Khannan Kameshvaran, MD Generalized abdominal pain; Cirrhosis of liver without ascites, unspecified hepatic cirrhosis type (HCC); UGIB (upper gastrointestinal bleed); Obesity, Class III, BMI 40-49.9 (morbid obesity) (HCC) 06/02/2019 Hospital Cardiology - Encounter 06/03/2019 Myah Bailey Procedure (EGD/Colonoscopy) 05/24/2019 Telephone Hepatology Fidencio Sumner MD Diller, Karen Cardwell, PA-C Cirrhosis of liver without ascites, unsp ecified hepatic cirrhosis type (HCC) (Primary Dx); Screening for cancer; Immunity status testing; Portal hypertension (HCC) 05/09/2019 Office Visit Hepatology Johny Craft MD Hoffman, Maria, MD Henderson, Joceline Lopez MD Generalized abdominal pain (Primary Dx); Abdominal pain, unspecified abdominal location; Cirrhosis of liver without ascites, unspecified hepatic cirrhosis type (HCC); Metabolic syndrome; Abnormal liver enzymes; Fatty liver; Portal hypertension (HCC); Kidney stone on left side; NAFLD (nonalcoholic fatty liver disease); Obesity, Class III, BMI 40-49.9 (morbid obesity) (HCC); Screening for malignant neoplasm; Immunity status testing 04/17/2019 Emergency General Internal Il dicine - 04/20/2019 04/17/2019 Orders Only General Internal Il dicine 04/17/2019 Travel Myah Torres PA-C Follow-up 04/17/2019 Telephone Hepatology after 03/24/2019 Family History Medical History Relation Name Comments Cancer Father Diabetes Father Alzheimer's disease Maternal Grandfather Other Maternal Stomach tumor Grandfather Anuerysm Maternal Grandmother Stroke Maternal Grandmother Heart disease Mother Cancer Paternal Grandmother Relation Name Status Comments Father Maternal Grandfather Maternal Grandmother Mother Paternal Grandmother Social History Date Tobacco Use Types Packs/Day Years Used Quit: 11/2014 Former Smoker Smokeless Tobacco: Never Used Tobacco Cessation: Counseling Given: No Comments: quit 2014 Alcohol Use Drinks/Week oz/Week Comments No Alcohol Habits Answer Date Recorded How often do you have a drink containing alcohol? Never 01/11/2019 How many drinks containing alcohol do you have on No t asked a typical day when you are drinking? How often do you have six or more drinks on one Not asked occasion? Sex Assigned at Date Recorded Female 07/31/2019 4:59 PM CDT Industry Job Start Date Occupation Not on file Not on file Not on file Travel End Travel History Travel Start No recent travel history available. Last Filed Vital Signs Time Taken Vital Sign Reading 03/14/2020 12:45 PM CDT Blood Pressure 98/59 03/14/2020 12:45 PM CDT Pulse 66 03/14/2020 12:45 PM CDT Temperature 36.4 C (97.6 F) 03/14/2020 12:45 PM CDT Respiratory Rate 9 03/14/2020 12:45 PM CDT Oxygen Saturation 95% 06/03/2019 5:51 PM CDT Inhaled Oxygen 21% Concentration 03/14/2020 9:45 AM CDT Weight 115.7 kg (255 lb 1.2 oz) 03/14/2020 9:45 AM CDT Height 175.3 cm (5' 9") 03/14/2020 9:45 AM CDT Body Mass Index 37.67 Plan of Treatment Care Team Description Date Type Specialty Fidencio Sumner MD [address] [address] [phone] 05/22/2020 Office Visit Hepatology Health Maintenance Due Date Last Done Comments BREAST CANCER SCREENING 1965 DIABETIC EYE EXAM 01/20/1974 CERVICAL CANCER SCREENING 01/20/1985 PAP ONLY (Age 21-65) HEMOGLOBIN A1C 07/20/2019 04/19/2019 COLON CANCER SCREENING 06/29/2029 06/29/2019 COLONOSCOPY PNEUMOCOCCAL VACCINE 2-64 Completed 05/04/2019 YEARS AT RISK INFLUENZA VACCINE Completed 08/18/2019 Implants Device Identifier Shelf Expiration Date Model / Serial / L ot [place]planted [place] [id number] / / Scr Cmpr Hdlss Lng Thrd 2.4x25 Fracture/F Right: Hand SYNTHES:SY - [id number] [employer] [place] Implanted: Qty: 1 on 03/14/2020 by Lee Holden III Device Identifier Shelf Expiration Date Model / Serial / L ot Explanted Type Area Manufactur er 292.623 / / Gwire Spde-1e 1.1x150 Ns 292.623 - IMPLANTS Right: Hand SYNTHES:SY [id number] [employer] [place] Explanted: Qty: 3 on 03/14/2020 by Lee Holden III Procedures Comments Procedure Name Priority Date/Time Associated Diag nosis RHYTHM STRIP - SCAN 03/18/2020 8:20 AM CDT POCT-GLUCOSE METER Routine 03/14/2020 12:03 PM CDT FL FLUORO NON-SPECIFIC UP Routine 03/14/2020 TO 1 HOUR 11:45 AM CDT ARTHRODESIS,FINGER 03/14/2020 Arthritis of hand, right 11:00 AM CDT Special Needs Rvd by tena hook POCT-GLUCOSE METER Routine 03/14/2020 9:36 AM CDT PT/APTT STAT 03/14/2020 9:28 AM CDT BASIC METABOLIC PANEL (7) Routine 02/09/2020 Cirr hosis of liver 12:34 PM CDT without ascites, unspecified hepatic cirrhosis type (HCC) HEPATIC FUNCTION PANEL Routine 02/09/2020 Cirrhos is of liver 12:34 PM CDT without ascites, unspecified hepatic cirrhosis type (HCC) CBC W/PLT COUNT & AUTO Routine 02/09/2020 Cirrhos is of liver DIFFERENTIAL 12:34 PM CDT without ascites, unspecified hepatic cirrhosis type (HCC) PROTHROMBIN TIME/INR Routine 02/09/2020 Cirrhosis of liver 12:34 PM CDT without ascites, unspecified hepatic cirrhosis type (HCC) US ABDOMEN COMPLETE Routine 11/27/2019 Cirrhosis of liver with 1:15 PM VITICULTURIST ascites, unspecified hepatic cirrhosis type (HCC) CBC W/PLT COUNT & AUTO Routine 11/22/2019 Cirrhos is of liver with DIFFERENTIAL 2:06 PM VITICULTURIST ascites, unspecifie d hepatic cirrhosis type (HCC) HEPATITIS B SURFACE Routine 11/22/2019 Immunity s tatus testing ANTIBODY 2:06 PM VITICULTURIST HEPATITIS B SURFACE Routine 11/22/2019 Immunity s tatus testing ANTIGEN 2:06 PM VITICULTURIST HEPATITIS B PCR, Routine 11/22/2019 Cirrhosis of liver with QUANTITATIVE 2:06 PM VITICULTURIST ascites, unspecifie d hepatic cirrhosis type (HCC) ALPHA FETOPROTEIN (AFP), Routine 11/22/2019 Cirrh osis of liver with TUMOR MARKER 2:06 PM VITICULTURIST ascites, unspecifie d hepatic cirrhosis type (HCC) PROTHROMBIN TIME/INR Routine 11/22/2019 Cirrhosis of liver with 2:06 PM VITICULTURIST ascites, unspecified hepatic cirrhosis type (HCC) CBC W/PLT COUNT & AUTO Routine 11/22/2019 Cirrhos is of liver with DIFFERENTIAL 2:06 PM VITICULTURIST ascites, unspecifie d hepatic cirrhosis type (HCC) HEPATIC FUNCTION PANEL Routine 11/22/2019 Cirrhos is of liver with 2:06 PM VITICULTURIST ascites, unspecified hepatic cirrhosis type (HCC) BASIC METABOLIC PANEL (7) Routine 11/22/2019 Cirr hosis of liver with 2:06 PM VITICULTURIST ascites, unspecified hepatic cirrhosis type (HCC) NM GASTRIC EMPTYING STUDY Routine 08/01/2019 Naus ea and vomiting, SOLID 11:41 AM CDT intractability of vomiting not specified, unspecified vomiting type REPORT OF PROCEDURE - 06/29/2019 ENDOSCOPY URL 11:26 AM CDT TISSUE EXAM AP Routine 06/29/2019 11:04 AM CDT REPORT OF PROCEDURE - 06/29/2019 ENDOSCOPY URL 10:55 AM CDT COLONOSCOPY,BIOPSY 06/29/2019 Cirrhosis of liver 10:00 AM CDT without ascites, unspecified hepatic cirrhosis type (HCC) Screening for colon cancer UPPER ENDOSCOPY 06/29/2019 Cirrhosis of liver 10:00 AM CDT without ascites, unspecified hepatic cirrhosis type (HCC) Screening for colon cancer POCT-GLUCOSE METER Routine 06/29/2019 9:54 AM CDT PROTHROMBIN TIME/INR STAT 06/29/2019 9:46 AM CDT BASIC METABOLIC PANEL (7) Routine 06/20/2019 Cirr hosis of liver 9:51 AM CDT without ascites, unspecified hepatic cirrhosis type (HCC) HEPATIC FUNCTION PANEL Routine 06/20/2019 Cirrhos is of liver 9:51 AM CDT without ascites, unspecified hepatic cirrhosis type (HCC) CBC W/PLT COUNT & AUTO Routine 06/20/2019 Cirrhos is of liver DIFFERENTIAL 9:51 AM CDT without ascites, unspecified hepatic cirrhosis type (HCC) PROTHROMBIN TIME/INR Routine 06/20/2019 Cirrhosis of liver 9:51 AM CDT without ascites, unspecified hepatic cirrhosis type (HCC) RHYTHM STRIP - SCAN 06/06/2019 9:00 AM CDT POCT-GLUCOSE METER Routine 06/03/2019 1:30 PM CDT PROTHROMBIN TIME/INR Routine 06/03/2019 12:22 PM CDT COMPREHENSIVE METABOLIC Routine 06/03/2019 PANEL 12:22 PM CDT CBC (HEMOGRAM ONLY) Routine 06/03/2019 12:22 PM CDT HIV-1 ANTIGEN WITH Routine 06/03/2019 HIV-1/2 ANTIBODY 4:[address] ABDOMEN & PELVIS - Routine 06/03/2019 RENAL STONE EVALUATION 3:37 AM CDT WITHOUT/WITH IV CONTRAST CT CHEST WITHOUT IV Routine 06/03/2019 CONTRAST 3:37 AM CDT POCT-GLUCOSE METER Routine 06/02/2019 9:26 PM CDT URINALYSIS W/ REFLEX Routine 06/02/2019 URINE CULTURE 5:12 PM CDT POCT-GLUCOSE METER Routine 06/02/2019 4:58 PM CDT POCT-GLUCOSE METER Routine 06/02/2019 12:44 PM CDT REPORT OF PROCEDURE - 06/02/2019 ENDOSCOPY URL 12:43 PM CDT TISSUE EXAM AP Routine 06/02/2019 12:15 PM CDT UPPER 06/02/2019 Gastrointestinal ENDOSCOPY,POLYPECTOMY 12:00 PM CDT hemorrhage, uns pecified gastrointestinal hemorrhage type POCT-GLUCOSE METER Routine 06/02/2019 11:58 AM CDT POCT-GLUCOSE METER Routine 06/02/2019 7:29 AM CDT CBC W/PLT COUNT & AUTO Routine 06/02/2019 DIFFERENTIAL 5:40 AM CDT PROTHROMBIN TIME/INR Routine 06/02/2019 5:40 AM CDT HEPATIC FUNCTION PANEL Routine 06/02/2019 5:40 AM CDT BASIC METABOLIC PANEL (7) Routine 06/02/2019 5:40 AM CDT CBC W/PLT COUNT & AUTO Routine 06/02/2019 DIFFERENTIAL 5:40 AM CDT CBC W/PLT COUNT & AUTO Routine 05/09/2019 Cirrhos is of liver DIFFERENTIAL 4:10 PM CDT without ascites, unspecified hepatic cirrhosis type (HCC) Screening for cancer ALPHA FETOPROTEIN (AFP), Routine 05/09/2019 Cirrh osis of liver TUMOR MARKER 4:10 PM CDT without ascites, unspecified hepatic cirrhosis type (HCC) Screening for cancer PROTHROMBIN TIME/INR Routine 05/09/2019 Cirrhosis of liver 4:10 PM CDT without ascites, unspecified hepatic cirrhosis type (HCC) Screening for cancer CBC W/PLT COUNT & AUTO Routine 05/09/2019 Cirrhos is of liver DIFFERENTIAL 4:10 PM CDT without ascites, unspecified hepatic cirrhosis type (HCC) Screening for cancer HEPATIC FUNCTION PANEL Routine 05/09/2019 Cirrhos is of liver 4:10 PM CDT without ascites, unspecified hepatic cirrhosis type (HCC) Screening for cancer BASIC METABOLIC PANEL (7) Routine 05/09/2019 Cirr hosis of liver 4:10 PM CDT without ascites, unspecified hepatic cirrhosis type (HCC) Screening for cancer REPORT OF PROCEDURE - 04/20/2019 ENDOSCOPY SCAN 3:10 PM CDT POCT-GLUCOSE METER Routine 04/20/2019 12:00 PM CDT POCT-GLUCOSE METER Routine 04/20/2019 7:52 AM CDT CBC W/PLT COUNT & AUTO Routine 04/20/2019 DIFFERENTIAL 3:32 AM CDT PROTHROMBIN TIME/INR Routine 04/20/2019 3:32 AM CDT CBC W/PLT COUNT & AUTO Routine 04/20/2019 DIFFERENTIAL 3:32 AM CDT HEPATIC FUNCTION PANEL Routine 04/20/2019 3:32 AM CDT BASIC METABOLIC PANEL (7) Routine 04/20/2019 3:32 AM CDT POCT-GLUCOSE METER Routine 04/19/2019 8:55 PM CDT POCT-GLUCOSE METER Routine 04/19/2019 4:36 PM CDT POCT-GLUCOSE METER Routine 04/19/2019 12:08 PM CDT POCT-GLUCOSE METER Routine 04/19/2019 7:13 AM CDT CBC W/PLT COUNT & AUTO Routine 04/19/2019 DIFFERENTIAL 4:42 AM CDT CBC W/PLT COUNT & AUTO Routine 04/19/2019 DIFFERENTIAL 4:42 AM CDT HEPATIC FUNCTION PANEL Routine 04/19/2019 4:42 AM CDT BASIC METABOLIC PANEL (7) Routine 04/19/2019 4:42 AM CDT HEMOGLOBIN A1C Routine 04/19/2019 4:42 AM CDT PROTHROMBIN TIME/INR Routine 04/19/2019 4:42 AM CDT POCT-GLUCOSE METER Routine 04/18/2019 10:11 PM CDT PERIPHERAL VASCULAR 04/18/2019 REPORT - SCAN 9:12 PM CDT POCT-GLUCOSE METER Routine 04/18/2019 6:21 PM CDT RAPID DRUG SCREEN, URINE Routine 04/18/2019 1:14 PM CDT POCT-GLUCOSE METER Routine 04/18/2019 12:16 PM CDT POCT-GLUCOSE METER Routine 04/18/2019 7:22 AM CDT CBC W/PLT COUNT & AUTO Routine 04/18/2019 DIFFERENTIAL 6:23 AM CDT CBC W/PLT COUNT & AUTO Routine 04/18/2019 DIFFERENTIAL 6:[address] ABDOMEN/PELVIS WITH IV STAT 04/18/2019 CONTRAST 2:01 AM CDT VENOUS DOPPLER LEGS Routine 04/18/2019 BILATERAL 12:35 AM CDT ECG 12-LEAD Routine 04/17/2019 10:09 PM CDT Procedure Note - Interface, External Ris In - 04/17/2019 10:17 PM CDT Ventricula r Rate 85 BPM Atrial Rate 85 BPM P-R Interval 142 ms QRS Duration 72 ms Q-T Interval 406 ms QTC Calculatio n(Bazett) 483 ms P [place] 36 degrees R [place] 81 degrees T [place] 63 degrees Normal sinus rhythm Prolonged QT Abnormal ECG No previous ECGs available ECG 12-LEAD STAT 04/17/2019 10:09 PM CDT XR CHEST 2 VIEWS STAT 04/17/2019 9:42 PM CDT CBC W/PLT COUNT & AUTO STAT 04/17/2019 DIFFERENTIAL 9:39 PM CDT PT/APTT STAT 04/17/2019 9:39 PM CDT LIPASE STAT 04/17/2019 9:39 PM CDT COMPREHENSIVE METABOLIC STAT 04/17/2019 PANEL 9:39 PM CDT CBC W/PLT COUNT & AUTO STAT 04/17/2019 DIFFERENTIAL 9:39 PM CDT URINALYSIS W/ REFLEX STAT 04/17/2019 URINE CULTURE 9:31 PM CDT after 03/24/2019 Results * RHYTHM STRIP - SCAN (03/18/2020 8:20 AM CDT) Only the most recent of 2 results within the time period is included. Narrative Performed At This result has an attachment that is n ot available. * POC-Glucose meter (03/14/2020 12:03 PM CDT) Only the most recent of 19 results within the time period is included. POC-Glucose Meter 221 (H)Comment: : Notified 70 - 110 mg/dL [facility] RN/MD: TESTED AT [facility] [address] [address]: Traction Power Engineer/Licensing Coordinator ID = [id number] for Shannon Genao Specimen Blood Performing Organization Address City/State/Zipcode Ph one Number [place] [address] [facility] [place] * [place] fluoro non-specific up to 1 hour (03/14/2020 11:45 AM CDT) Specimen Narrative Performed At FINAL REPORT RIS TECHNIQUE: Fluoroscopic images from ort hopedic procedure. INDICATION: Surgery. COMPARISON: None. IMPRESSION: Fluoroscopic images from orthopedic pro cedure, not obtained by the undersigned. Please refer to operative note for more details of the procedure and findings. Fluoroscopy time: 150 seconds Number of images: Two Signed: Randy Lacy MD Report Verified Date/Time: 0 14:34:58 Procedure Note Interface, External Ris In - 03/14/2020 2:37 PM CDT FINAL REPORT TECHNIQUE: Fluoroscopic images from orthopedic procedure. INDICATION: Surgery. COMPARISON: None. IMPRESSION: Fluoroscopic images from orthopedic procedure, not obtained by the undersigned. Please refer to operative note for more details of the procedure and findings. Fluoroscopy time: 150 seconds Number of images: Two Signed: Randy Lacy MD Report Verified Date/Time: 03/14/2020 14:34:58 Performing Organization Address [facility] one Number GE RIS * PT/aPTT (03/14/2020 9:28 AM CDT) Only the most recent of 2 results within the time period is included. Protime <10.0 9.8 - 12.[address] [facility] [place] INR 1.0 <=5.[address] [facility] [place] PTT 25.4 (L) 25.8 - 34.[address] [facility] [place] Specimen Blood Narrative Performed At RECOMMENDED COUMADIN/WARFARIN INR THERAPY RANGES [facility] STANDARD DOSE: 2.0 - 3.0 Includes: PROPHYLAXIS fo r venous thrombosis, - CLYDE systemic embolization; TREATMENT for ve nous thrombosis and/or pulmonary embolus. HIGH RISK: Target INR is 2.5-3.5 for pa tients with mechanical heart valves. Performing Organization Address [facility] one Number [facility] - [address] [place], [place] [address] [place] * Pro-time/INR (02/09/2020 12:34 PM CDT) Only the most recent of 9 results within the time period is included. INR 1.4 (H) BHAKTI Comment: Reference Range 0.9-1.1 Moderate-intensity Warfarin Therapy 2.0-3.0 Higher-intensity Warfarin Therapy 3.0-4.0 PT 14.4 (H) 9.0 - 11.5 sec BHAKTI Comment: For more information on this test, go to: http://education.[employer].com/faq/TFW934 Specimen Blood Narrative Performed At FASTING:YES [facility] FASTING: YES Resulting Agency Comment Performing Organization Information: Site ID: [id number] Name: [facility] Address: [address] [place] [address] Director: Bill Humphreys Performing Organization Address [facility] one Number [facility] [address] [place] [address] [facility] * CBC with platelet count + automated diff (02/09/2020 12:34 PM CDT) Only the most recent of 2 results within the time period is included. WBC 5.9 3.8 - 10.8 Thousand/uL [facility] A RBC 5.18 (H) 3.80 - 5.10 Million/uL [facility] A Hemoglobin 14.3 11.7 - 15.5 g/dL [facility] Hematocrit 44.4 35.0 - 45.0 % [facility] MCV 85.7 80.0 - 100.0 fL [facility] MCH 27.6 27.0 - 33.0 pg [facility] MCHC 32.2 32.0 - 36.0 g/dL [facility] RDW 14.3 11.0 - 15.0 % [facility] Platelets 121 (L) 140 - 400 Thousand/uL [facility] MPV 12.1 7.5 - 12.5 fL [facility] # Neutros 3,888 1,500 - 7,800 cells/uL [facility] # Lymphs 1,463 850 - 3,900 cells/uL [facility] # Monos 384 200 - 950 cells/uL [facility] # Eos 124 15 - 500 cells/uL [facility] # Baso 41 0 - 200 cells/uL [facility] % Neutros 65.9 % [facility] % Lymphs 24.8 % [facility] % Monos 6.5 % [facility] % Eos 2.1 % [facility] % Baso 0.7 % [facility] Specimen Blood Narrative Performed At FASTING:YES [facility] FASTING: YES Resulting Agency Comment Performing Organization Information: Site ID: [id number] Name: [facility] Address: [address] [place] [phone] Director: Bill Humphreys Performing Organization Address City/State/[facility] Ph one Number [facility] [address] [place] [address] [facility] * Hepatic function panel (02/09/2020 12:34 PM CDT) Only the most recent of 7 results within the time period is included. Protein, Total, Serum 7.7 6.1 - 8.1 g/dL [facility] Albumin 3.9 3.6 - 5.1 g/dL [facility] GLOBULIN (QUEST) 3.8 (H) 1.9 - 3.7 g/dL (calc) [facility] Albumin Globulin Ratio 1.0 1.0 - 2.5 (calc) [facility] Bilirubin, Total 1.1 0.2 - 1.2 mg/dL [facility] Bilirubin, Direct 0.3 (H) < OR = 0.2 mg/dL [facility] Bilirubin, Indirect 0.8 0.2 - 1.2 mg/dL (calc) [facility] Alkaline Phosphatase, S 90 37 - 153 U/L [facility] AST (SGOT) 23 10 - 35 U/L [facility] ALT (SGPT) 24 6 - 29 U/L [facility] Specimen Blood Narrative Performed At FASTING:YES [facility] FASTING: YES Resulting Agency Comment Performing Organization Information: Site ID: [id number] Name: [facility] Address: [address] [place] [id number] Director: Bill Humphreys Performing Organization Address City/State/Zipcode Ph one Number [facility] [address] [place] [address] [facility] * Basic Metabolic Panel (02/09/2020 12:34 PM CDT) Only the most recent of 7 results within the time period is included. Glucose 295 (H) 65 - 99 mg/dL [facility] Comment: Fasting reference interval For someone without known diabetes, a glucose value >125 mg/dL indicates that they may have diabetes and this should be confirmed with a follow-up test. BUN 13 7 - 25 mg/dL [facility] Creatinine 0.65 0.50 - 1.05 mg/dL [facility] Comment: For patients >49 years of age, the reference limit for Creatinine is approximately 13% higher for people identified as -Martiniquais. eGFR If NonAfricn Am 99 > OR = 60 mL/min/1.73m2 [facility] eGFR If Africn Am 115 > OR = 60 mL/min/1.73m2 [facility] BUN/Creatinine Ratio NOT APPLICABLE 6 - 22 (calc) [facility] Sodium 136 135 - 146 mmol/L [facility] Potassium, Serum 4.2 3.5 - 5.3 mmol/L [facility] Chloride 101 98 - 110 mmol/L [facility] Carbon Dioxide, Total 27 20 - 32 mmol/L [facility] Calcium, Serum 9.3 8.6 - 10.4 mg/dL [facility] Specimen Blood Narrative Performed At FASTING:YES [facility] FASTING: YES Resulting Agency Comment Performing Organization Information: Site ID: [id number] Name: [facility] Address: [address] [place] [address] Director: Bill Humphreys Performing Organization Address City/State/Zipcode Ph one Number [place] [address] [address] [facility] * US abdomen complete (11/27/2019 1:15 PM VITICULTURIST) Specimen Narrative Performed At FINAL REPORT [employer] TECHNIQUE: Grayscale ultrasound of the abdomen. INDICATION: 54-year-old woman with cirr hosis. COMPARISON: Chest, abdomen, and pelvis CT 06/03/2019; abdomen ultrasound 12/14/2018. FINDINGS: MIDLINE VASCULATURE: The visualized inf erior vena cava is patent. Portal vein is patent and prominent, me asuring 1.4 cm in diameter. The maximum visualized aortic diameter is 2.4 cm. LIVER: The liver is prominent and measu res 21.1 cm. The liver is increased in echogenicity with subtle n odular contour. No focal lesions. BILIARY: Gallbladder: Prior cholecystectomy. Common bile duct measures 0.7 cm, withi n normal limits. No intrahepatic biliary ductal dilatation. PANCREAS: The pancreas is not clearly v isualized due to overlying bowel gas. SPLEEN: The spleen is prominent and alton sures 16.3 cm. PERITONEUM: Trace ascites. KIDNEYS: Both kidneys are normal in siz e. No hydronephrosis. No sonographically evident solid mass lesi on. IMPRESSION: Fatty cirrhotic liver with portal hyper tension and trace ascites. No focal liver lesion. Signed: Ilya Berumen MD Report Verified Date/Time: 0 16:16:10 Reading Location: [address] Radiolo gy Reading Room Procedure Note Interface, External Ris In - 11/27/2019 4:18 PM VITICULTURIST FINAL REPORT TECHNIQUE: Grayscale ultrasound of the abdomen. INDICATION: 54-year-old woman with cirrhosis. COMPARISON: Chest, abdomen, and pelvis CT 06/03/2019; abdomen ultrasound 12/14/2018. FINDINGS: MIDLINE VASCULATURE: The visualized inferior vena cava is patent. Portal vein is patent and prominent, measuring 1.4 cm in diameter. The maximum visualized aortic diameter is 2.4 cm. LIVER: The liver is prominent and measures 21.1 cm. The liver is increased in echogenicity with subtle nodular contour. No focal lesions. BILIARY: Gallbladder: Prior cholecystectomy. Common bile duct measures 0.7 cm, within normal limits. No intrahepatic biliary ductal dilatation. PANCREAS: The pancreas is not clearly visualized due to overlying bowel gas. SPLEEN: The spleen is prominent and measures 16.3 cm. PERITONEUM: Trace ascites. KIDNEYS: Both kidneys are normal in size. No hydronephrosis. No sonographically evident solid mass lesion. IMPRESSION: Fatty cirrhotic liver with portal hypertension and trace ascites. No focal liver lesion. Signed: Ilya Berumen MD Report Verified Date/Time: 11/27/2019 16:16:10 Reading Location: [address] Radiology Reading Room Performing Organization Address [facility] Ph one Number GE RIS * Hepatitis B PCR, quantitative (11/22/2019 2:06 PM VITICULTURIST) HBV PCR, Quantitative HBV DNA not detected HBV DNA not detect ed [facility] Specimen Blood Narrative Performed At This test uses a Real-Time Polymerase Chain Reaction (RT-PCR) methodology and [facility] was performed using MEL[employer] AmpliPrep/MELBA TaqMan HBV Test, v2.0 ([employer] [facility] [employer] Reportable range for this assay is 20 - 170,000,000 IU per mL (1.30 - 8.23 Log IU/mL). Performing Organization Address City/[facility] Ph one Number [address] [address] MED[facility]ENTER * CBC with platelet count + automated diff (11/22/2019 2:06 PM VITICULTURIST) Only the most recent of 7 results within the time period is included. WBC 6.6 3.5 - 10.5 K/L [facility] RBC 5.03 3.93 - 5.22 M/L [facility] Hemoglobin 14.1 11.2 - 15.7 GM/DL [facility] Hematocrit 42.7 34.1 - 44.9 % [facility] MCV 84.9 79.4 - 94.8 fL [facility] MCH 28.0 25.6 - 32.2 pg [facility] MCHC 33.0 32.2 - 35.5 GM/DL [facility] RDW 15.3 (H) 11.7 - 14.4 % [facility] Platelets 121 (L) 150 - 450 K/CU MM [facility] MPV 12.1 9.4 - 12.3 fL [facility] nRBC 0 0 - 0 /100 WBC [facility] % Neutros 73 % [facility] % Lymphs 18 % [facility] % Monos 6 % [facility] % Eos 2 % [facility] % Baso 1 % [facility] # Neutros 4.83 1.56 - 6.13 K/L [facility] # Lymphs 1.21 1.18 - 3.74 K/L [facility] # Monos 0.36 0.24 - 0.36 K/L [facility] # Eos 0.11 0.04 - 0.36 K/L [facility] # Baso 0.05 0.01 - 0.08 K/L [facility] Immature 0 0 - 1 % [facility] Granulocytes-Relative [facility] Specimen Blood Performing Organization Address City/State/Zipcode Ph one Number [facility] [address] [phone] [place] [address] * Alpha fetoprotein (AFP), tumor marker (11/22/2019 2:06 PM VITICULTURIST) Only the most recent of 2 results within the time period is included. Alpha-Fetoprotein 5.6 <10.0 ng/mL [facility] Specimen Blood Narrative Performed At Traction Power Engineer ID - [facility] Performing Organization Address [facility] one [address] 0 [phone] [place] [address] * Hepatitis B surface antibody (11/22/2019 2:06 PM VITICULTURIST) Hep B S Ab 1,064.1 (H) <8.0 mIU/mL [facility] Specimen Blood Narrative Performed At Traction Power Engineer ID - [facility] Performing Organization Address [facility] one [address] 0 [phone] [address] * Hepatitis B surface antigen (11/22/2019 2:06 PM VITICULTURIST) HBsAg Screen Nonreactive Nonreactive [facility] Specimen Blood Narrative Performed At Traction Power Engineer ID - [facility] Performing Organization Address [facility] one [place] [phone] [place] [address] * NM gastric emptying study solid (08/01/2019 11:41 AM CDT) Specimen Narrative Performed At FINAL REPORT GE RIS PROCEDURE: GASTRIC EMPTYING STUDY with Solids CPT CODE: 95715 INDICATION: Intractable vomiting PROTOCOL: 0.54 mCi of Tc-99m sulfur col loid was administered orally in the equivalent of 2 scrambled egg wh ites. Serial images of the upper abdomen were obtained in the SLOVAK projection for 90 minutes. Gastric emptying was calculated by the power exponential fit method. FINDINGS: There is progressive emptying of gastric contents into the small bowel. The half-emptying time was calculated to be 63 minutes. Gastroesophageal reflux was not noted. IMPRESSION: 1. Normal gastric emptying of a solid m eal. 2. No gastroesophageal reflux was seen during the course of this study. Signed: Mele Ch MD Report Verified Date/Time: 9 17:20:46 Reading Location: [address] [place] [address] Med Reading Room Procedure Note Interface, External Ris In - 08/01/2019 5:22 PM CDT FINAL REPORT PROCEDURE: GASTRIC EMPTYING STUDY with Solids CPT CODE: 96433 INDICATION: Intractable vomiting PROTOCOL: 0.54 mCi of Tc-99m sulfur colloid was administered orally in the equivalent of 2 scrambled egg whites. Serial images of the upper abdomen were obtained in the SLOVAK projection for 90 minutes. Gastric emptying was calculated by the power exponential fit method. FINDINGS: There is progressive emptying of gastric contents into the small bowel. The half-emptying time was calculated to be 63 minutes. Gastroesophageal reflux was not noted. IMPRESSION: 1. Normal gastric emptying of a solid me al. 2. No gastroesophageal reflux was seen d uring the course of this study. Signed: Mele Ch MD Report Verified Date/Time: 08/01/2019 17:20:46 Reading Location: [address] Med Reading Room Performing Organization Address City/State/Zipcode Ph one Number GE RIS * REPORT OF PROCEDURE - ENDOSCOPY URL (06/29/2019 11:26 AM CDT) Narrative Performed At This result has an attachment that is n ot available. * Tissue Exam (06/29/2019 11:04 AM CDT) Only the most recent of 2 results within the time period is included. Case Report Surgical Pathology [facility]AL TH Report [facility] Case: [id number] Authorizing Provider:Fidencio Sumner MD Collected: 06/29/2019 1104 Ordering Location: [facility] Endoscopy Received: 06/29/2019 1535 Services Pathologist: Jocy Evans MD Specimens: A) - Duodenum, BX B) - Cecum, BX C) - Colon Biopsy, Random DIAGNOSIS A.DUOD[facility]UM BIOPSY [facility] - NO DIAGNOSTIC ALTERATION [facility] B. COLON, CECUM, BIOPSY - NO DIAGNOSTIC ALTERATION - MINUTE MATURE ADIPOSE TISSUE SEEN (SEE COMMENT) C. COLON, RANDOM BIOPSY - NO DIAGNOSTIC ALTERATION - NO EVIDENCE OF MICROSCOPIC COLITIS Signing Pathologist Direct Phone Line: [phone] COMMENT B. A very minute area of [facility] adipose tissue is seen in deep [facility] lamina propria/submucosa. Although non-specific, it may be part of the lipoma noted endoscopically. CPT Code(s) 31788 X 3 [facility] CLINICAL HISTORY Cirrhosis of liver without [facility] ascites and screening for [facility] colon cancer SPECIMEN SOURCE A. Duodenum biopsy. B. Cecum [facility] biopsy. C. Random colon biopsy [facility] GROSS DESCRIPTION This case is received in three [facility] parts. All parts are labeled [facility] correctly with the patient's name and date [...] in toto in cassette C. AH/ew MICROSCOPIC DESCRIPTION Performed. [facility] Gross assessment was [facility] performed at [place], Department of [facility] TER Pathology, [address] [place] [address], Technical component was [facility] performed at [place], Department of [facility] TER Pathology, [address] [place] [address], Professional component [facility] was performed at [facility], Department of [facility] TER Pathology, [address] [place] [address], [place] [address], Specimen Tissue Tissue - Cecum structure (body structure) Tissue - Colon Biopsy, Random Performing Organization Address City/[facility] Ph one Number [facility] [address] [place], [place] [address] [facility] * REPORT OF PROCEDURE - ENDOSCOPY URL (06/29/2019 10:55 AM CDT) Narrative Performed At This result has an attachment that is n ot available. * CBC (Hemogram only) (06/03/2019 12:22 PM CDT) WBC 7.8 3.5 - 10.5 K/L [facility] RBC 4.55 3.93 - 5.22 M/L [facility] Hemoglobin 12.8 11.2 - 15.7 GM/DL [facility] Hematocrit 39.2 34.1 - 44.9 % [facility] MCV 86.2 79.4 - 94.8 fL [facility] MCH 28.1 25.6 - 32.2 pg [facility] MCHC 32.7 32.2 - 35.5 GM/DL [facility] RDW 16.4 (H) 11.7 - 14.4 % [facility] Platelets 98 (L) 150 - 450 K/CU MM [facility] MPV 11.5 9.4 - 12.3 fL [facility] nRBC 0 0 - 0 /100 WBC [facility] Specimen Blood Performing Organization Address City/[facility] Ph one Number [facility] [address] [place], [place] [address] [facility] * Comprehensive metabolic panel (06/03/2019 12:22 PM CDT) Only the most recent of 2 results within the time period is included. Protein, Total 7.8 6.0 - 8.3 gm/dL [facility] Albumin 3.5 3.5 - 5.0 g/dL [facility] Alkaline Phosphatase 84 40 - 150 U/L [facility] [place] Total Bilirubin 2.2 (H) 0.2 - 1.2 mg/dL [facility] Sodium 133 (L) 136 - 145 meq/L [facility] Potassium 3.5 3.5 - 5.1 meq/L [facility] Chloride 101 98 - 107 meq/L [facility] CO2 25 22 - 29 meq/L [facility] BUN 8 7 - 21 mg/dL [facility] Creatinine 0.69 0.57 - 1.25 mg/dL [facility] Glucose 228 (H) 70 - 105 mg/dL [facility] Calcium 8.4 8.4 - 10.2 mg/dL [facility] AST 23 5 - 34 U/L [facility] ALT 20 6 - 55 U/L [facility] EGFR 88Comment: ESTIMATED GFR IS mL/min/1.73 sq m [facility] NOT ACCURATE CREATININE [facility] CLEARANCE IN PREDICTING GLOMERULAR FILTRATION RATE. ESTIMATED GFR IS NOT APPLICABLE FOR DIALYSIS PATIENTS. Specimen Blood Narrative Performed At Specimen slightly icteric [facility] Performing Organization Address City/State/Zipcode Ph one Number [place] [phone] [place], [place] [address] MED[facility]ENTER * HIV-1 Antigen with HIV-1/2 Antibody (06/03/2019 4:26 AM CDT) HIV-1 Antigen with HIV Nonreactive Nonreactive [facility] 1&2 Antibody [facility] Specimen Blood Performing Organization Address City/State/Zipcode Ph one Number [facility] [address] [place], [place] [address] * CT abdomen & pelvis - renal stone evaluation without/with iv contrast (06/03/2019 3:37 AM CDT) Specimen Narrative Performed At FINAL REPORT [employer] CT, ABDOMEN AND PELVIS, RENAL STONE SARI L, WITHOUT / WITH IV CONTRAST, CT, CHEST, WITHOUT CONTRAST INDICATION: abdominal pain, nephrolithi asis COMPARISON: None TECHNIQUE:Noncontrastaxially or iented images were obtained from the thoracic inlet through the pelvis. Postcontrast and delayed phase imaging through the abdomen and pelvis. Coronal and sagittal reformats were provided. DOSE REDUCTION: Dose modulation, iterat vesta reconstruction, and/or weight-based adjustment of the mA/kV wa s utilized to reduce the radiation dose to as low as reasonably achievable. FINDINGS: Chest: Lungs and Pleura: Clear lungs. No effus ion or pneumothorax. Central airways: Patent. Mediastinum: No adenopathy. Visualized thyroid gland is unremarkable. The esophagus is normal in caliber. Heart and pericardium: Normal. Moderate coronary artery calcifications. Great vessels: Normal calibers. Soft tissues: Surgical clips in the que ateral breasts. Retroareolar soft tissue nodule on the right measuri ng up to 1.3 cm, is unchanged since 2018. Regional skeletal structures: Mild mult ilevel degenerative changes of the thoracolumbar spine. No aggressive osseous lesion or acute fracture.. Abdomen and Pelvis: Liver: No parenchymal abnormality. Mild hepatomegaly with the liver measuring up to 18 cm in the midclavicu lar line. Nodular contour of the liver. Gallbladder and biliary tree: Postsurgi hans changes of a cholecystectomy. No intra or extrahepat ic biliary ductal dilatation.. Pancreas: No acute findings. Spleen: No acute findings. Adrenal Glands: No acute findings. Kidneys and ureters: No hydronephrosis or hydroureter. No contour deforming renal lesions. Punctate nonob structing left lower pole nephrolithiasis. Bladder and reproductive organs: Postsu rgical changes of a hysterectomy. No suspicious adnexal mas ses. The bladder is relatively decompressed.. Stomach and Duodenum: Metallic clips in the gastric body may represent endoscopy clips, correlate cl inically. Duodenum is unremarkable.. Small and large intestine: The small an d large bowel are normal in caliber with postsurgical changes with sigmoid resection and small bowel resection. Again seen are multipl e patulous anastomosis in the right lower quadrant. Unchanged tetheri ng of multiple small bowel loops to the anterior abdominal wall wi th surrounding inflammatory stranding and misting mesentery. Howeve r there is limited evaluation for bowel pathology given lack of p.o. contrast material. Appendix: Not identified. Major vascular structures: Normal aorti c caliber with scattered atherosclerotic calcifications. Infrare nal IVC filter is present.. Peritoneum and retroperitoneum: No pneu moperitoneum. No drainable fluid collections. Mesenteric stranding in vascular congestion within the lower abdomen is again seen, mildly increased in the interval. No pathologically enlarged intra-abdominal lymph nodes. Inferior abdominal wall hernia containing a loop of small bowel, unchanged in the interval. Additional Findings: Scarring over the anterior abdominal wall. IMPRESSION: No acute intrathoracic abnormality. Moderate coronary artery calcifications are advanced for age. Retroareolar soft tissue nodule on the right measuring up to 1.3 cm, is unchanged since 2018. However correlate with mammogram. Hepatomegaly with nodular contour sugge sting hepatocellular dysfunction. Postsurgical changes of cholecystectomy sigmoidectomy and hysterectomy. Unchanged tethering of mu ltiple loops of bowel along the anterior abdominal wall. Nonobstructing left lower pole nephroli thiasis. No hydronephrosis or hydroureter. No obstructing urolithiasi s. Inferior anterior abdominal wall hernia , likely incisional containing a loop small bowel however no findings to suggest bowel obstruction. Signed: Dez Mijares MD Report Verified Date/Time: 9 04:17:26 Procedure Note Interface, External Ris In - 06/03/2019 4:19 AM CDT FINAL REPORT CT, ABDOMEN AND PELVIS, RENAL STONE EVAL, WITHOUT / WITH IV CONTRAST, CT, CHEST, WITHOUT CONTRAST INDICATION: abdominal pain, nephrolithiasis COMPARISON: None TECHNIQUE: Noncontrast axially oriented images were obtained from the thoracic inlet through the pelvis. Postcontrast and delayed phase imaging through the abdomen and pelvis. Coronal and sagittal reformats were provided. DOSE REDUCTION: Dose modulation, iterative reconstruction, and/or weight-based adjustment of the mA/kV was utilized to reduce the radiation dose to as low as reasonably achievable. FINDINGS: Chest: Lungs and Pleura: Clear lungs. No effusion or pneumothorax. Central airways: Patent. Mediastinum: No adenopathy. Visualized thyroid gland is unremarkable. The esophagus is normal in caliber. Heart and pericardium: Normal. Moderate coronary artery calcifications. Great vessels: Normal calibers. Soft tissues: Surgical clips in the bilateral breasts. Retroareolar soft tissue nodule on the right measuring up to 1.3 cm, is unchanged since 2018. Regional skeletal structures: Mild multilevel degenerative changes of the thoracolumbar spine. No aggressive osseous lesion or acute fracture.. Abdomen and Pelvis: Liver: No parenchymal abnormality. Mild hepatomegaly with the liver measuring up to 18 cm in the midclavicular line. Nodular contour of the liver. Gallbladder and biliary tree: Postsurgical changes of a cholecystectomy. No intra or extrahepatic biliary ductal dilatation.. Pancreas: No acute findings. Spleen: No acute findings. Adrenal Glands: No acute findings. Kidneys and ureters: No hydronephrosis or hydroureter. No contour deforming renal lesions. Punctate nonobstructing left lower pole nephrolithiasis. Bladder and reproductive organs: Postsurgical changes of a hysterectomy. No suspicious adnexal masses. The bladder is relatively decompressed.. Stomach and Duodenum: Metallic clips in the gastric body may represent endoscopy clips, correlate clinically. Duodenum is unremarkable.. Small and large intestine: The small and large bowel are normal in caliber with postsurgical changes with sigmoid resection and small bowel resection. Again seen are multiple patulous anastomosis in the right lower quadrant. Unchanged tethering of multiple small bowel loops to the anterior abdominal wall with surrounding inflammatory stranding and misting mesentery. However there is limited evaluation for bowel pathology given lack of p.o. contrast material. Appendix: Not identified. Major vascular structures: Normal aortic caliber with scattered atherosclerotic calcifications. Infrarenal IVC filter is present.. Peritoneum and retroperitoneum: No pneumoperitoneum. No drainable fluid collections. Mesenteric stranding in vascular congestion within the lower abdomen is again seen, mildly increased in the interval. No pathologically enlarged intra-abdominal lymph nodes. Inferior abdominal wall hernia containing a loop of small bowel, unchanged in the interval. Additional Findings: Scarring over the anterior abdominal wall. IMPRESSION: No acute intrathoracic abnormality. Moderate coronary artery calcifications are advanced for age. Retroareolar soft tissue nodule on the right measuring up to 1.3 cm, is unchanged since 2018. However correlate with mammogram. Hepatomegaly with nodular contour suggesting hepatocellular dysfunction. Postsurgical changes of cholecystectomy sigmoidectomy and hysterectomy. Unchanged tethering of multiple loops of bowel along the anterior abdominal wall. Nonobstructing left lower pole nephrolithiasis. No hydronephrosis or hydroureter. No obstructing urolithiasis. Inferior anterior abdominal wall hernia, likely incisional containing a loop small bowel however no findings to suggest bowel obstruction. Signed: Dez Mijares MD Report Verified Date/Time: 06/03/2019 04:17:26 Performing Organization Address City/State/Zipcode Ph one Number [facility] * CT chest without IV contrast (06/03/2019 3:37 AM CDT) Specimen Narrative Performed At FINAL REPORT [facility] CT, ABDOMEN AND PELVIS, RENAL STONE SARI L, WITHOUT / WITH IV CONTRAST, CT, CHEST, WITHOUT CONTRAST INDICATION: abdominal pain, nephrolithi asis COMPARISON: None TECHNIQUE:Noncontrastaxially or iented images were obtained from the thoracic inlet through the pelvis. Postcontrast and delayed phase imaging through the abdomen and pelvis. Coronal and sagittal reformats were provided. DOSE REDUCTION: Dose modulation, iterat vesta reconstruction, and/or weight-based adjustment of the mA/kV wa s utilized to reduce the radiation dose to as low as reasonably achievable. FINDINGS: Chest: Lungs and Pleura: Clear lungs. No effus ion or pneumothorax. Central airways: Patent. Mediastinum: No adenopathy. Visualized thyroid gland is unremarkable. The esophagus is normal in caliber. Heart and pericardium: Normal. Moderate coronary artery calcifications. Great vessels: Normal calibers. Soft tissues: Surgical clips in the que ateral breasts. Retroareolar soft tissue nodule on the right measuri ng up to 1.3 cm, is unchanged since 2018. Regional skeletal structures: Mild mult ilevel degenerative changes of the thoracolumbar spine. No aggressive osseous lesion or acute fracture.. Abdomen and Pelvis: Liver: No parenchymal abnormality. Mild hepatomegaly with the liver measuring up to 18 cm in the midclavicu lar line. Nodular contour of the liver. Gallbladder and biliary tree: Postsurgi hans changes of a cholecystectomy. No intra or extrahepat ic biliary ductal dilatation.. Pancreas: No acute findings. Spleen: No acute findings. Adrenal Glands: No acute findings. Kidneys and ureters: No hydronephrosis or hydroureter. No contour deforming renal lesions. Punctate nonob structing left lower pole nephrolithiasis. Bladder and reproductive organs: Postsu rgical changes of a hysterectomy. No suspicious adnexal mas ses. The bladder is relatively decompressed.. Stomach and Duodenum: Metallic clips in the gastric body may represent endoscopy clips, correlate cl inically. Duodenum is unremarkable.. Small and large intestine: The small an d large bowel are normal in caliber with postsurgical changes with sigmoid resection and small bowel resection. Again seen are multipl e patulous anastomosis in the right lower quadrant. Unchanged tetheri ng of multiple small bowel loops to the anterior abdominal wall wi th surrounding inflammatory stranding and misting mesentery. Howeve r there is limited evaluation for bowel pathology given lack of p.o. contrast material. Appendix: Not identified. Major vascular structures: Normal aorti c caliber with scattered atherosclerotic calcifications. Infrare nal IVC filter is present.. Peritoneum and retroperitoneum: No pneu moperitoneum. No drainable fluid collections. Mesenteric stranding in vascular congestion within the lower abdomen is again seen, mildly increased in the interval. No pathologically enlarged intra-abdominal lymph nodes. Inferior abdominal wall hernia containing a loop of small bowel, unchanged in the interval. Additional Findings: Scarring over the anterior abdominal wall. IMPRESSION: No acute intrathoracic abnormality. Moderate coronary artery calcifications are advanced for age. Retroareolar soft tissue nodule on the right measuring up to 1.3 cm, is unchanged since 2018. However correlate with mammogram. Hepatomegaly with nodular contour sugge sting hepatocellular dysfunction. Postsurgical changes of cholecystectomy sigmoidectomy and hysterectomy. Unchanged tethering of mu ltiple loops of bowel along the anterior abdominal wall. Nonobstructing left lower pole nephroli thiasis. No hydronephrosis or hydroureter. No obstructing urolithiasi s. Inferior anterior abdominal wall hernia , likely incisional containing a loop small bowel however no findings to suggest bowel obstruction. Signed: Shaeffer, Dez MD Report Verified Date/Time: 9 04:17:26 Procedure Note Interface, External Ris In - 06/03/2019 4:19 AM CDT FINAL REPORT CT, ABDOMEN AND PELVIS, RENAL STONE EVAL, WITHOUT / WITH IV CONTRAST, CT, CHEST, WITHOUT CONTRAST INDICATION: abdominal pain, nephrolithiasis COMPARISON: None TECHNIQUE: Noncontrast axially oriented images were obtained from the thoracic inlet through the pelvis. Postcontrast and delayed phase imaging through the abdomen and pelvis. Coronal and sagittal reformats were provided. DOSE REDUCTION: Dose modulation, iterative reconstruction, and/or weight-based adjustment of the mA/kV was utilized to reduce the radiation dose to as low as reasonably achievable. FINDINGS: Chest: Lungs and Pleura: Clear lungs. No effusion or pneumothorax. Central airways: Patent. Mediastinum: No adenopathy. Visualized thyroid gland is unremarkable. The esophagus is normal in caliber. Heart and pericardium: Normal. Moderate coronary artery calcifications. Great vessels: Normal calibers. Soft tissues: Surgical clips in the bilateral breasts. Retroareolar soft tissue nodule on the right measuring up to 1.3 cm, is unchanged since 2018. Regional skeletal structures: Mild multilevel degenerative changes of the thoracolumbar spine. No aggressive osseous lesion or acute fracture.. Abdomen and Pelvis: Liver: No parenchymal abnormality. Mild hepatomegaly with the liver measuring up to 18 cm in the midclavicular line. Nodular contour of the liver. Gallbladder and biliary tree: Postsurgical changes of a cholecystectomy. No intra or extrahepatic biliary ductal dilatation.. Pancreas: No acute findings. Spleen: No acute findings. Adrenal Glands: No acute findings. Kidneys and ureters: No hydronephrosis or hydroureter. No contour deforming renal lesions. Punctate nonobstructing left lower pole nephrolithiasis. Bladder and reproductive organs: Postsurgical changes of a hysterectomy. No suspicious adnexal masses. The bladder is relatively decompressed.. Stomach and Duodenum: Metallic clips in the gastric body may represent endoscopy clips, correlate clinically. Duodenum is unremarkable.. Small and large intestine: The small and large bowel are normal in caliber with postsurgical changes with sigmoid resection and small bowel resection. Again seen are multiple patulous anastomosis in the right lower quadrant. Unchanged tethering of multiple small bowel loops to the anterior abdominal wall with surrounding inflammatory stranding and misting mesentery. However there is limited evaluation for bowel pathology given lack of p.o. contrast material. Appendix: Not identified. Major vascular structures: Normal aortic caliber with scattered atherosclerotic calcifications. Infrarenal IVC filter is present.. Peritoneum and retroperitoneum: No pneumoperitoneum. No drainable fluid collections. Mesenteric stranding in vascular congestion within the lower abdomen is again seen, mildly increased in the interval. No pathologically enlarged intra-abdominal lymph nodes. Inferior abdominal wall hernia containing a loop of small bowel, unchanged in the interval. Additional Findings: Scarring over the anterior abdominal wall. IMPRESSION: No acute intrathoracic abnormality. Moderate coronary artery calcifications are advanced for age. Retroareolar soft tissue nodule on the right measuring up to 1.3 cm, is unchanged since 2018. However correlate with mammogram. Hepatomegaly with nodular contour suggesting hepatocellular dysfunction. Postsurgical changes of cholecystectomy sigmoidectomy and hysterectomy. Unchanged tethering of multiple loops of bowel along the anterior abdominal wall. Nonobstructing left lower pole nephrolithiasis. No hydronephrosis or hydroureter. No obstructing urolithiasis. Inferior anterior abdominal wall hernia, likely incisional containing a loop small bowel however no findings to suggest bowel obstruction. Signed: eDz Mijares MD Report Verified Date/Time: 06/03/2019 04:17:26 Performing Organization Address City/State/Zipcode Ph one Number [facility] * Urinalysis w/Microscopic + Reflex to Culture (06/02/2019 5:12 PM CDT) Only the most recent of 2 results within the time period is included. Color, UA Yellow [facility] Clarity, UA Clear [facility] Specific [place], UA 1.032 1.001 - 1.[address] [facility] [place] pH, UA 6.0 5.0 - 8.0 [facility] Protein, UA 30 mg/dL (A) Negative [facility] Glucose, UA Negative Negative [facility] Ketones, UA Negative Negative [facility] Bilirubin, UA Negative Negative [facility] Blood, UA Negative Negative [facility] Nitrite, UA Negative Negative [facility] Leukocytes, UA Negative Negative [facility] Urobilinogen, UA 4.0 (H) 0.2 - 1.0 mg/dL [facility] RBC, UA 0 /HPF [facility] WBC, UA 1 /HPF [facility] Bacteria, UA Rare [facility] Mucus Rare [facility] Squam Epithel, UA <1 /HPF [facility] Specimen Source [facility] Specimen Urine Performing Organization Address City/[facility] Ph one Number [place] [phone] [facility] [place] * REPORT OF PROCEDURE - ENDOSCOPY URL (06/02/2019 12:43 PM CDT) Narrative Performed At This result has an attachment that is n ot available. * EKG-SCANNED (04/20/2019 3:10 PM CDT) Narrative Performed At This result has an attachment that is n ot available. * Hemoglobin A1c (04/19/2019 4:42 AM CDT) Hemoglobin A1C 11.3 (H) 4.3 - 6.1 % [facility] Specimen Blood Narrative Performed At This result has an attachment that is n ot available. Performing Organization Address City/[facility] Ph one Number [place] [phone] [facility] [place] * PERIPHERAL VASCULAR REPORT - SCAN (04/18/2019 9:12 PM CDT) Narrative Performed At This result has an attachment that is n ot available. * Rapid drug screen, urine (04/18/2019 1:14 PM CDT) Barbiturate Screen Negative Negative [facility] Benzodiazepine Screen Negative Negative [facility] Cocaine (Metab.) Screen Negative Negative [facility] Methadone Screen Negative Negative [facility] Opiate Screen Positive (A) Negative [facility] Cannabinoid Screen Negative Negative [facility] Amph/Methamph Screen Negative Negative [facility] [place] Phencyclidine Screen Negative Negative [facility] [place] Specimen Urine Narrative Performed At [facility] Cocaine 300 ng/mL [facility] Brcnxqhtfhs42 n g/mL Iiiafhmuvqzkra610 ng/mL Barbiturate 200 ng/ mL Wjvvlbvcyoupl86 ng/ mL Opiate3 00 ng/mL Methadone 300 n g/mL Amphetamine/ 1000 ng/mL Methamphetamine This assay provides an unconfirmed qual itative test result for the clinical management of patients in emergency sit uations. Chain of custody not maintained. Some jexr-rlr-zvynsap medications, as w ell as adulterants, may cause inaccurate results. Clinical correlation should be applied. A more comprehensive drug screen or confirmation of a detected dr ug may be performed upon request. Performing Organization Address City/State/Zipcode Ph one Number [place] [phone] [facility] [address] * CT abdomen/pelvis with IV contrast (04/18/2019 2:01 AM CDT) Specimen Narrative Performed At FINAL REPORT [facility] EXAM: CT of the abdomen and pelvis, wit h contrast CLINICAL HISTORY: Abdominal pain. TECHNIQUE: CT of the abdomen and pelvis was performed with intravenous contrast administration. This exam was performed according to our departmental dose opti mization program which includes automated exposure control, ad justment of the mA and/or kV according to patient's size and/or use of iterative reconstructive technique. COMPARISON:None FINDINGS: LOWER CHEST: Within normal limits. LIVER: Mild nodular contour of the live r suggesting cirrhosis. Hepatomegaly. BILE DUCTS: Within normal limits. GALL BLADDER: Status post cholecystecto my. PANCREAS: Within normal limits. SPLEEN: Mild splenomegaly. ADRENALS: Within normal limits. KIDNEYS/URETERS: Punctate non obstructi ng stone in the left lower renal pole. Unremarkable right kidney. No hydroureteronephrosis or perinephric stranding. URINARY BLADDER: Underdistended otherwi se unremarkable. REPRODUCTIVE ORGANS: Status post hyster ectomy. No adnexal masses. BOWEL/MESENTERY: Status post sigmoid re section. Status post small bowel resection with multiple patulous anastomoses in the right mid to lower abdomen. Tethering of small amy wel loops to the lower anterior abdominal wall.Diffuse mes enteric congestion, nonspecific. No bowel obstruction or abnormal wall t hickening. Nonvisualization of the appendix but no secondary changes t o suggest acute appendicitis. PERITONEUM/RETROPERITONEUM: Trace lower abdominal and pelvic free fluid, nonspecific. No free air or flui d collection. VESSELS: Infrarenal IVC filter. Atheros clerotic calcifications of the aorta and branches. LYMPH NODES: No abdominal or pelvic lym phadenopathy. SOFT TISSUES: Midline abdominal scar. BONES: Lower lumbar facet arthropathy. No suspicious osseous lesions. IMPRESSION: Status post small bowel and sigmoid res ection. Status post cholecystectomy and hysterectomy. No bowel obstruction, free air or fluid collection. Punctate nonobstructing left renal ston e. No hydroureteronephrosis. Cirrhosis. Hepatosplenomegaly. Signed: Ollie Arellano MD Report Verified Date/Time: 9 02:31:06 Procedure Note Interface, External Ris In - 04/18/2019 2:33 AM CDT FINAL REPORT EXAM: CT of the abdomen and pelvis, with contrast CLINICAL HISTORY: Abdominal pain. TECHNIQUE: CT of the abdomen and pelvis was performed with intravenous contrast administration. This exam was performed according to our departmental dose optimization program which includes automated exposure control, adjustment of the mA and/or kV according to patient's size and/or use of iterative reconstructive technique. COMPARISON: None FINDINGS: LOWER CHEST: Within normal limits. LIVER: Mild nodular contour of the liver suggesting cirrhosis. Hepatomegaly. BILE DUCTS: Within normal limits. GALL BLADDER: Status post cholecystectomy. PANCREAS: Within normal limits. SPLEEN: Mild splenomegaly. ADRENALS: Within normal limits. KIDNEYS/URETERS: Punctate non obstructing stone in the left lower renal pole. Unremarkable right kidney. No hydroureteronephrosis or perinephric stranding. URINARY BLADDER: Underdistended otherwise unremarkable. REPRODUCTIVE ORGANS: Status post hysterectomy. No adnexal masses. BOWEL/MESENTERY: Status post sigmoid resection. Status post small bowel resection with multiple patulous anastomoses in the right mid to lower abdomen. Tethering of small bowel loops to the lower anterior abdominal wall. Diffuse mesenteric congestion, nonspecific. No bowel obstruction or abnormal wall thickening. Nonvisualization of the appendix but no secondary changes to suggest acute appendicitis. PERITONEUM/RETROPERITONEUM: Trace lower abdominal and pelvic free fluid, nonspecific. No free air or fluid collection. VESSELS: Infrarenal IVC filter. Atherosclerotic calcifications of the aorta and branches. LYMPH NODES: No abdominal or pelvic lymphadenopathy. SOFT TISSUES: Midline abdominal scar. BONES: Lower lumbar facet arthropathy. No suspicious osseous lesions. IMPRESSION: Status post small bowel and sigmoid resection. Status post cholecystectomy and hysterectomy. No bowel obstruction, free air or fluid collection. Punctate nonobstructing left renal stone. No hydroureteronephrosis. Cirrhosis. Hepatosplenomegaly. Signed: Ollie Arellano MD Report Verified Date/Time: 04/18/2019 02:31:06 Performing Organization Address City/State/Zipcode Ph one Number [facility] * Venous doppler legs bilateral (04/18/2019 12:35 AM CDT) Ejection Fraction [facility] Specimen Impressions Performed At Right Impression [facility] 1. There is no deep venous obstruction in the common femoral, profunda [facility] femoral, femoral, popliteal, posterior tibial or peroneal veins where visualized. 2. There is no superficial venous obstr uction in the great saphenous vein where visualized. Left Impression 1. There is no deep venous obstruction in the common femoral, profunda femoral, femoral, popliteal, posterior tibial or peroneal veins where visualized. 2. There is no superficial venous obstr uction in the great saphenous vein where visualized. Conclusions Summary Venous duplex imaging and compression o f the bilateral lower extremities were performed. The veins were technica lly difficult to visualize due to edema and patient body habitus. The que ateral venous systems were patent and compressible with no evidence of th rombus where visualized. The venous Doppler waveforms were phasic with resp iration. Signature Velocities are measured in cm/s ; Diame ters are measured in cm Narrative Performed At [facility] - Lower Extremities DVT Study [facility] Demographics [facility] Patient NameCOANDREZ KEITA Date of Study 04/17/2019 SYDNI VIDES 0 Age 54 Visit [id number] GenderFemal e Date of 1965 Referring JOHNY STAHL [facility] Number [id number] Physician Photo Finish Photographer Ari Brantley MD Phys ician Procedure Type of Study: Veins: Lower Extremities DVT Study, MATTEO OUS DOPPLER LEG, BILATERAL. Indications for Study:Abdominal pain. Patient Status:TODAY. Study Location:Portable. Technical Quality:Technically Difficult . Risk Factors History of Disease + +----+ + !Diagnosis !Date!Comments ! + +----+ + !History/Risk!!Morbid O besity, H/o Cirrhosis, H/o PE, H/o DVT! !Factors:!!(2014), HTN, HLD, Alf Anti-coagulant Use! + +----+ + Procedure Note Interface, External Ris In - 04/18/2019 7:00 AM CDT [facility] - Lower Extremities DVT Study Demographics Patient Name ANDREZ PATE Date of Study 04/17/2019 DOMINIC Age 54 Visit Number [id number] Gender Female Accession Number [id number] Date of 1965 Referring JOHNY CRAFT Room Number [id number] Physician Photo Finish Photographer Ari Payne Interpreting Manuel Brantley MD Physician Procedure Type of Study: Veins: Lower Extremities DVT Study, VENOUS DOPPLER LEG, BILATERAL. Indications for Study:Abdominal pain. Patient Status:TODAY. Study Location:Portable. Technical Quality:Technically Difficult. Risk Factors History of Disease + +----+ + !Diagnosis !Date!Comments ! + +----+ + !History/Risk ! !Morbid Obesity, H/o Cirrhosis, H/o PE, H/o DVT ! !Factors: ! !(2000, 2014), HTN, HLD, Alf Anti-coagulant Use! + +----+ + Impressions Right Impression 1. There is no deep venous obstruction i n the common femoral, profunda femoral, femoral, popliteal, posterior tibial or peroneal veins where visualized. 2. There is no superficial venous obstru ction in the great saphenous vein where visualized. Left Impression 1. There is no deep venous obstruction i n the common femoral, profunda femoral, femoral, popliteal, posterior tibial or peroneal veins where visualized. 2. There is no superficial venous obstru ction in the great saphenous vein where visualized. Conclusions Summary Venous duplex imaging and compression of the bilateral lower extremities were performed. The veins were technically difficult to visualize due to edema and patient body habitus. The bilateral venous systems were patent and compressible with no evidence of thrombus where visualized. The venous Doppler waveforms were phasic with respiration. Signature Velocities are measured in cm/s ; Diameters are measured in cm Performing Organization Address City/State/[facility] Number [facility] MK[facility]ON CPACS * ECG 12 lead (04/17/2019 10:09 PM CDT) Specimen Narrative Performed At Ventricular Rate 85 BPM [employer] Atrial Rate 85 BPM P-R Interval 142 ms QRS Duration 72 ms Q-T Interval 406 ms QTC Calculation(Bazett) 483 ms P [place] 36 degrees R [place] 81 degrees T [place] 63 degrees Normal sinus rhythm Prolonged QT Abnormal ECG No previous ECGs available Confirmed by MD SHERMAN JOSEPH P ([id number]) on 04/18/2019 6:38:40 AM Procedure Note Interface, External Ris In - 04/18/2019 6:38 AM CDT Ventricular Rate 85 BPM Atrial Rate 85 BPM P-R Interval 142 ms QRS Duration 72 ms Q-T Interval 406 ms QTC Calculation(Bazett) 483 ms P [place] 36 degrees R [place] 81 degrees T [place] 63 degrees Normal sinus rhythm Prolonged QT Abnormal ECG No previous ECGs available Confirmed by MD SHERMAN JOSEPH P ([id number]) on 04/18/2019 6:38:40 AM Performing Organization Address City/State/Zipcode Ph one Number GE MUSE * XR chest 2 views (04/17/2019 9:42 PM CDT) Specimen Narrative Performed At FINAL REPORT [employer] Exam: Chest x-ray, PA and lateral views Clinical History: Abdominal pain. Comparison: No prior study for comparis on. Technique: Frontal and lateral views of the chest were obtained. Findings: The heart is normal in size. The aorta is uncoiled. There is no focal pulmonary consolidation, pleural effusi on or pneumothorax. There is no pulmonary edema. The bony thorax is demineralized. The v isualized upper abdomen is unremarkable. Impression: No focal pulmonary consolidation. Signed: Ollie Aerllano MD Report Verified Date/Time: 22:13:40 Procedure Note Interface, External Ris In - 04/17/2019 10:47 PM CDT FINAL REPORT Exam: Chest x-ray, PA and lateral views Clinical History: Abdominal pain. Comparison: No prior study for comparison. Technique: Frontal and lateral views of the chest were obtained. Findings: The heart is normal in size. The aorta is uncoiled. There is no focal pulmonary consolidation, pleural effusion or pneumothorax. There is no pulmonary edema. The bony thorax is demineralized. The visualized upper abdomen is unremarkable. Impression: No focal pulmonary consolidation. Signed: Ollie Arellano MD Report Verified Date/Time: 04/17/2019 22:13:40 Performing Organization Address City/State/Zipcode Ph one Number GE RIS * Lipase (04/17/2019 9:39 PM CDT) Lipase 17 8 - 78 U[facility] Specimen Blood Narrative Performed At Specimen slightly icteric [facility] Performing Organization Address City/State/Zipcode Ph one Number [facility] [address], [place] [address] [facility] after 03/24/2019 Insurance Payer Benefit Subscriber ID Type Phone Address Plan / Group [employer] xxxxxxxxxx [employer] [phone] Advance Directives For more information, please contact: [address] [address] Date Inactivated Comments Code Status Date Activated 03/14/2020 3:03 PM Full Code 03/14/2020 8:36 AM This code status was determined by: Patient 06/03/2019 10:55 PM Full Code 06/02/2019 5:29 AM This code status was determined by: Patient 04/20/2019 5:06 PM Full Code 04/18/2019 5:29 AM This code status was determined by: Patient 01/17/2019 10:24 PM Full Code 01/17/2019 12:28 PM This code status was determined by: Patient
--- OUTSIDE RECORDS SUMMARY | 2020-03-24 22:26 | XMS REPORT | Continuity of Care Document ---
Author Author Mickey Qiu [employer] ANDREZ [facility] [employer] Address Unknown Phone Unavailable Care Team Providers Care Assistant Foreman Name Role Phone [employer] Unavailable Un available Problems Problem Status Onset Date Classification Date Reported Comments Source Abdominal bloating Active 02/28/2020 02/29/2020 [facility] Positive autoantibody screening for celiac disease Active 02/28/2020 02/29/2020 [facility] Alternating constipation and diarrhea Active 02/28/2020 02/29/2020 [facility] Elevated C-reactive protein (CRP) Active 02/28/2020 02/29/2020 [facility] Elevated anti-tissue transglutaminase (tTG) IgA level Active 02/28/2020 02/29/2020 [facility] Elevated sed rate (elev SR) Ac tive 02/28/2020 02/29/2020 [facility] Other fecal abnormalities Acti ve 02/28/2020 02/29/2020 [facility] Encounter for long-term (current) use of high-risk medication Active 02/28/2020 02/29/2020 [facility] History of gastrointestinal procedure Active 02/28/2020 02/29/2020 [facility] Abdominal distention Active 02/28/2020 02/29/2020 [facility] Epigastric pain Active 02/28/2020 02/29/2020 [facility] History of DVT (deep vein thrombosis) Active 02/28/2020 02/29/2020 [facility] Age-related nuclear cataract of both eyes Active 02/28/2020 02/29/2020 [facility] Refractive error Active 02/28/2020 02/29/2020 [facility] Vitreous syneresis of both eyes Active 02/28/2020 02/29/2020 [facility] Hereditary and idiopathic peripheral neuropathy Active 02/28/2020 02/29/2020 [facility] Numbness and tingling in left hand Active 02/28/2020 02/29/2020 [facility] Myalgia Active 02/28/2020 02/29/2020 [facility] PAD (peripheral artery disease) (HCCode) Active 02/28/2020 02/29/2020 [facility] Left leg pain Active 02/28/2020 02/29/2020 [facility] Numbness and tingling of both feet Active 02/28/2020 02/29/2020 [facility] Back pain Active 02/28/2020 02/29/2020 [facility] Nausea and vomiting Active 02/28/2020 02/29/2020 [facility] Osteoarthritis Active 02/28/2020 02/29/2020 [facility] Sicca (HCCode) Active 02/28/2020 02/29/2020 [facility] Arthritis of finger of right hand Active 02/28/2020 02/29/2020 [facility] Hepatic encephalopathy (HCCode) Active 11/23/2019 02/29/2020 [facility] Major depressive disorder, recurrent epi sode, moderate (HCCode) Active 07/19/2019 02/29/2020 [facility] Illness anxiety disorder Active 07/19/2019 02/29/2020 [facility] Insulin dependent type 2 diabetes mellitus (HCCode) Active 05/02/2019 02/29/2020 [facility] Cirrhosis (HCCode) Active 05/02/2019 02/29/2020 [facility] Flexor tenosynovitis of finger Active 01/31/2018 02/29/2020 [facility] Osteophyte of hand Active 01/31/2018 02/29/2020 [facility] Back pain, unspecified back location, un specified back pain laterality, unspecified chronicity Active 11/24/2019 [facility] Nausea and vomiting, intractability of v omiting not specified, unspecified vomiting type Active 12/06/2019 [facility] Diarrhea, unspecified type Act vesta 07/19/2019 [facility] Osteoarthritis, unspecified osteoarthrit is type, unspecified site Active 02/21/2020 [facility] Hepatic cirrhosis, unspecified hepatic c irrhosis type, unspecified whether ascites present (HCCode) Active 07/19/2019 [facility] Bloating Active 12/06/2019 [facility] Chronic anticoagulation Active 12/06/2019 [facility] Finger pain, right Active 02/29/2020 [facility] Sicca, unspecified type (HCCode) Active 12/06/2019 [facility] Diabetes mellitus type 2 in obese (HCCode) Active 12/06/2019 [facility] Numbness of left foot Active 12/06/2019 [facility] Memory loss Active 12/06/2019 [facility] Vitamin D deficiency Active 12/06/2019 [facility] Cirrhosis of liver without ascites, unsp ecified hepatic cirrhosis type (HCCode) Active 12/06/2019 [facility] Neuropathy Active 12/06/2019 [facility] Vaginal itching Active 02/28/2020 [facility] Healthcare maintenance Active 02/28/2020 [facility] Arthritis of finger Active 02/29/2020 [facility] Medications Medication Details Route Status Patient Instructions Ordering Provider Order Date Source famotidine (PEPCID) 40 MG tablet Take 1 Tab by mouth daily. ORAL Active 02/28/2020 [facility] dicyclomine (BENTYL) 10 MG capsule Active 02/25/2020 [facility] XIFAXAN 550 MG TABS Active 02/25/2020 [facility] triamcinolone acetonide (KENALOG-40) 40 mg/mL 40 mg, lidocaine 1% (10 mg/mL) 2 mL Intra-articular Active 02/20/2020 [facility] nystatin (NYSTOP) powder Nysto p 100,000 unit/gram topical powder No Longer Activ e 02/20/2020 [facility] sucralfate (CARAFATE) 1 g tablet sucralfate 1 gram tablet No Longer Active 02/20/2020 [facility] promethazine (PHENERGAN) 12.5 MG tablet Take 1 Tab by mouth every 6 hours as needed for Nausea. ORAL Active 02/15/2020 [facility] ondansetron (ZOFRAN-ODT) 4 mg disintegrating tablet Take 1 Tab by mouth every 8 hours as needed for Nausea. ORAL Active 01/30/2020 [facility] PILOCARPINE HCL, ORAL, 5 MG TABS Active 01/17/2020 [facility] tramadol (ULTRAM) 50 MG tablet TAKE 1 TABLET BY MOUTH EVERY 6 HOURS NEEDED FOR PAIN Active 01/15/2020 [facility] trazodone (DESYREL) 50 MG tablet Take half-tablet to full tablet as needed for insomnia or anxiety Active 01/12/2020 [facility] pantoprazole (PROTONIX) 40 MG tablet Active 01/10/2020 [facility] Insulin Detemir (LEVEMIR FLEXTOUCH) 100 UNIT/ML SOPN Inject 40 Units into the skin two times daily for 90 days. Subcutaneous Active 01/03/2020 [facility] Insulin Pen Needle (LITETOUCH PEN NEEDLE S) 32G X 4 MM MISC Use with insulin 5x daily; Dx E11.65; Pl ease make axel with Dr. Soria Active 01/02/2020 [facility] Diclofenac Sodium 1 % GEL Plac e 1 Percent onto the skin 2 times daily as needed for up to 30 days. Transdermal Active 12/05/2019 [facility] hyoscyamine (LEVBID) 0.375 MG CR tablet hyoscyamine ER 0.375 mg tablet,extended release,12 hr No Longer Active 11/21/2019 [facility] escitalopram (LEXAPRO) 20 MG tablet Take 1 Tab by mouth daily. ORAL Active 11/21/2019 [facility] trazodone (DESYREL) 50 MG tablet Take 50 mg by mouth nightly as needed. ORAL No Longer Active 11/21/2019 [facility] famotidine (PEPCID) 20 MG tablet Take 1 Tab by mouth daily for 90 days. ORAL Active 11/21/2019 [facility] dicyclomine (BENTYL) 10 MG capsule Take 1 Cap by mouth 2 times daily as needed (abdominal pain/cramping) for up to 90 days. ORAL Active 11/21/2019 [facility] ascorbic acid 500 MG tablet Ta ke 500 mg by mouth daily. ORAL No Longer Active 11/21/2019 [facility] albuterol (PROAIR HFA) 108 (90 base) mcg/act inhaler ProAir HFA 90 mcg/actuation aerosol inhaler No Longer Active 11/21/2019 [facility] benzonatate (TESSALON) 200 mg capsule benzonatate 200 mg capsule No Longer Active 11/21/2019 [facility] Exenatide (BYETTA 10 MCG PEN) 10 MCG/0.04ML SOPN Byetta 10 mcg/dose(250 mcg/mL)2.4 mL subcutaneous pen injector No Longer Active 11/21/2019 [facility] pioglitazone (ACTOS) 30 MG tablet pioglitazone 30 mg tablet No Longer Active 11/21/2019 [facility] promethazine (PHENERGAN) 12.5 MG tablet Take 1 Tab by mouth every 6 hours as needed for Nausea. ORAL Active 11/20/2019 [facility] PILOCARPINE HCL, ORAL, 5 MG TABS TAKE 1 TABLET BY MOUTH THREE TIMES A DAY - REPLACING CEVILAMINE No Longer Active 10/30/2019 [facility] sertraline (ZOLOFT) 100 MG tablet sertraline 100 mg tablet No Longer Active 10/20/2019 [facility] escitalopram (LEXAPRO) 10 MG tablet Take 1 Tab by mouth daily. ORAL No Longer Active 10/20/2019 [facility] furosemide (LASIX) 20 MG tablet Take 20 mg by mouth. ORAL Active 09/20/2019 [facility] Ergocalciferol 1.25 MG (38773 UT) CAPS Active 09/16/2019 [facility] TRUE METRIX BLOOD GLUCOSE TEST USE DIRECTED 3 TIMES A DAY Active 09/09/2019 [facility] Ursodiol 500 MG TABS TAKE 1 TA BLET BY MOUTH TWICE A DAY Active 09/07/2019 [facility] gabapentin (NEURONTIN) 300 MG capsule Am and noon - 300mg , pm - 600mg Active 09/06/2019 [facility] spironolactone (ALDACTONE) 50 MG tablet Take 50 mg by mouth. ORAL Active 08/22/2019 [facility] PILOCARPINE HCL, ORAL, 5 MG TABS TAKE 1 TABLET BY MOUTH THREE TIMES A DAY - REPLACING CEVILAMINE Active 08/21/2019 [facility] NOVOLOG FLEXPEN 100 UNIT/ML SOPN Inject 35-40 Units into the skin 3 times daily (with meals). Subcutaneous Active 08/21/2019 [facility] Insulin Glargine, 1 Unit Dial, 300 UNIT/ML SOPN Inject 40 Units into the skin two times daily. Subcutaneous Active 08/21/2019 [facility] Insulin Glargine, 1 Unit Dial, 300 UNIT/ML SOPN Inject 40 Units into the skin two times daily. Subcutaneous Active 08/21/2019 [facility] Insulin Glargine, 1 Unit Dial, (TOUJEO S OLOSTAR) 300 UNIT/ML SOPN Inject into the skin. Subcuta neous Active 08/21/2019 [facility] Insulin Glargine, 1 Unit Dial, (TOUJEO S OLOSTAR) 300 UNIT/ML SOPN Inject into the skin. Subcuta neous Active 08/21/2019 [facility] promethazine (PHENERGAN) 12.5 MG tablet Take 1 Tab by mouth every 6 hours as needed for Nausea. ORAL No Longer Active 08/14/2019 [facility] escitalopram (LEXAPRO) 10 MG tablet Take 1 Tab by mouth daily. ORAL No Longer Active 07/18/2019 [facility] gabapentin (NEURONTIN) 300 MG capsule TAKE 1 CAPSULE BY MOUTH THREE TIMES A DAY Active 07/14/2019 [facility] polyethylene glycol (GLYCOLAX) powder Take 17 g by mouth daily. ORAL No Longer Active 06/27/2019 [facility] gabapentin (NEURONTIN) 300 MG capsule TAKE 1 CAPSULE BY MOUTH THREE TIMES A DAY No Longer Active 06/15/2019 [facility] Continuous Blood Gluc Sensor (FREESTYLE KATHERINE 14 DAY SENSOR) MISC 1 Each every 14 days. Does not apply Active 06/13/2019 [facility] Continuous Blood Gluc Travel Agent (FREESTYL E KATHERINE 14 DAY READER) LYRIC 1 Each daily. Does not apply Active 06/13/2019 [facility] tramadol (ULTRAM) 50 MG tablet Take 1 Tab by mouth every 6 hours as needed for Pain. ORAL Active 06/08/2019 [facility] NOVOLOG FLEXPEN 100 UNIT/ML SOPN Inject 30 Units into the skin 3 times daily (with meals). Subcutaneous No Longer Active 05/02/2019 [facility] Insulin Glargine 300 UNIT/ML SOPN Inject 35 Units into the skin two times daily. Subcutaneous No Longer Active 05/02/2019 [facility] PILOCARPINE HCL, ORAL, 5 MG TABS Take 5 mg by mouth daily. ORAL No Longer Active 03/02/2019 [facility] Diclofenac Sodium 1 % GEL Appl y 2g tid to the BL knees No Longer Active 11/17/2018 [facility] warfarin (COUMADIN) 3 MG tablet Tues,Thurs,Sat,Sun Active 01/18/2018 [facility] warfarin (COUMADIN) 4 MG tablet every Wednesday, Wednesday, Wednesday. Active 01/18/2018 [facility] pantoprazole (PROTONIX) 40 MG tablet at bedtime. Active 01/15/2018 [facility] rosuvastatin (CRESTOR) 20 MG tablet No Longer Active 01/15/2018 [facility] levothyroxine (SYNTHROID) 125 MCG tablet Active 12/14/2017 [facility] carvedilol (COREG) 6.25 MG tablet Take 6.25 mg by mouth 2 times daily (with meals). ORAL Active [facility] sucralfate (CARAFATE) 1 GM/10ML suspension Take 1 g by mouth four times daily. ORAL Active [facility] ONDANSETRON OR Take 4 mg by [facility]. ORAL Active [facility] atorvastatin (LIPITOR) 40 MG tablet Take 40 mg by mouth daily. ORAL Active [facility] ascorbic acid 500 MG tablet Ta ke 500 mg by mouth daily. ORAL Active [facility] ferrous sulfate 325 (65 Fe) MG tablet ferrous sulfate 325 mg (65 mg iron) tablet Active [facility] hyoscyamine (LEVBID) 0.375 MG CR tablet hyoscyamine ER 0.375 mg tablet,extended release,12 hr Active [facility] trazodone (DESYREL) 50 MG tablet Take 50 mg by mouth nightly as needed. ORAL Active [facility] promethazine (PHENERGAN) 12.5 MG tablet Take 12.5 mg by mouth every 6 hours as needed for Nausea. ORAL Active [facility] nystatin (NYSTOP) powder Nysto p 100,000 unit/gram topical powder Active [facility] ondansetron (ZOFRAN) 4 MG tablet ondansetron HCl 4 mg tablet Active [facility] sucralfate (CARAFATE) 1 g tablet sucralfate 1 gram tablet Active [facility] Ascorbic Acid (VITAMIN C OR) T cyndee by mouth. ORAL Active [facility] albuterol (PROAIR HFA) 108 (90 base) mcg/act inhaler ProAir HFA 90 mcg/actuation aerosol inhaler Active [facility] benzonatate (TESSALON) 200 mg capsule benzonatate 200 mg capsule Active [facility] Exenatide (BYETTA 10 MCG PEN) 10 MCG/0.04ML SOPN Byetta 10 mcg/dose(250 mcg/mL)2.4 mL subcutaneous pen injector Active [facility] pioglitazone (ACTOS) 30 MG tablet pioglitazone 30 mg tablet Active [facility] Allergies, Adverse Reactions, Alerts Substance Category Reaction Severity Reaction type Status Date Reported Comments Source Cephalexin Other (See Comments) Propensity to adverse reacti ons to drug Active 05/06/2018 [facility] Doxycycline Hyclate Propensity to adverse reacti ons to drug Active 05/06/2018 [facility] Dapagliflozin Itching, Rash , Propensity to adverse reacti ons to drug Active 11/30/2018 [facility] Adhesive Tape Propensity to adverse reacti ons to substance Active [facility] Hydromorphone Hcl Propensity to adverse reacti ons to drug Active [facility] Doxycycline Propensity to adverse reacti ons to drug Active [facility] Immunizations Immunization Date Given Site Status Last Updated Comments Source Influenza (whole) 08/18/2019 [facility] Zoster Recombinant 08/12/2019 [facility] Influenza Quad-PF 07/27/2019 [facility] Pneumococcal Polysaccharide [facility] Zoster Live 05/04/2019 [facility] Results Order Name Results Value Reference Range Date Interpretation Comments Source HEPATITIS B VIRAL DNA QUANT PCR RESU LT/COMMENT HBV DNA not detected HBV DNA not detected 11/24/2019 [facility] HEPATITIS B VIRAL DNA QUANT PCR <p>This test uses a Real-Time Polymerase Chain Reaction (RT-PCR) methodology and was performed using MEL[employer] AmpliPrep/MELBA TaqMan HBV Test, v2.0 ([employer]</p& amp;gt;<p>Reportable range for this assay is 20 - 170,000,000 IU per mL (1.30 - 8.23 Log IU/mL).</p> This test uses a Real-Time Polymerase Ch ain Reaction (RT- PCR) methodology and was performed using [employer] AmpliPrep/MELBA TaqMan HBV Test, v2.0 ([employer]Reportable range for this assay is 20 - 170,000,000 IU per mL (1.30 - 8.23 Log IU/mL). 11/24/2019 [facility] HEPATITIS B SURFACE AB QUAL HEP BS A NTIBODY 1064.1 <8.0 mIU/mL 11/23/2019 [facility] HEPATITIS B SURFACE AB QUAL <p>Opera tor ID - DB</p> Code Enforcement Inspector ID - DB 11/23/2019 [facility] HEPATITIS B SURFACE AB QUAL Lab Inte rpretation Abnormal 11/23/2019 [facility] AFP TUMOR MARKER AFP 5.6 <10.0 11/23/2019 [facility] AFP TUMOR MARKER <p>Code Enforcement Inspector ID - DB </p> Code Enforcement Inspector ID - DB 11/23/2019 [facility] HEPATITIS B SURFACE ANTIGEN HE P B SURFACE ANTIGEN (REFL) Nonreactive Nonreactive 11/23/2019 [facility] HEPATITIS B SURFACE ANTIGEN <p>Opera tor ID - DB</p> Code Enforcement Inspector ID - DB 11/23/2019 [facility] BASIC METABOLIC PANEL <td ID="[id number]">SODIUM</td><td>136</td><td>136 - 145 meq/L</td><td>[facility]</td><td ID="[id number]"/> 136 136 - 145 11/22/2019 [facility] BASIC METABOLIC PANEL <td ID="[id number]">POTASSIUM</td><td>4.1</td><td>3.5 - 5.1 meq/L</td><td>[facility]</td><td ID="[id number]"/> 4.1 3.5 - 5.1 11/22/2019 [facility] BASIC METABOLIC PANEL <td ID="[id number]">CHLORIDE</td><td>102</td><td>98 - 107 meq/L</td><td>[facility]</td><td ID="[id number]"/> 102 98 - 107 11/22/2019 [facility] BASIC METABOLIC PANEL <td ID="[id number]">CO2</td><td>26</td><td>22 - 29 meq/L</td><td>[facility]</td><td ID="[id number]"/> 26 22 - 29 11/22/2019 [facility] BASIC METABOLIC PANEL <td ID="[id number]">BLOOD UREA NITROGEN</td><td>10</td><td>7 - 21 mg/dL</td><td>[facility]</td><td ID="[id number]"/> 10 7 - 21 11/22/2019 [facility] BASIC METABOLIC PANEL <td ID="[id number]">CREATININE</td><td>0.76</td><td>0.57 - 1.25 mg/dL</td><td>[facility]</td><td ID="[id number]"/> 0.76 0.57 - 1.25 11/22/2019 [facility] BASIC METABOLIC PANEL <td ID="[id number]">GLUCOSE</td><td><span style="flagData">341</span><span style="flagData"> (H)</span></td><td>70 - 105 mg/dL</td><td>[facility]</td><td ID="[id number]"/> 341 70 - 105 11/22/2019 [facility] BASIC METABOLIC PANEL <td ID="[id number]">CALCIUM</td><td>9.7</td><td>8.4 - 10.2 mg/dL</td><td>[facility]</td><td ID="[id number]"/> 9.7 8.4 - 10.2 11/22/2019 [facility] BASIC METABOLIC PANEL <td ID="[id number]">EGFR</td><td><span>79</span><span style="allIndent"><span style="cellHeader">Comment: </span><span ID="[id number]">ESTIMATED GFR IS NOT ACCURATE CREATININE CLEARANCE IN PREDICTING GLOMERULAR FILTRATION RATE. ESTIMATED GFR IS NOT APPLICABLE FOR DIALYSIS PATIENTS.</span></span></td><td>mL/min/1.73 sq m</td><td>[facility]</td><td ID="[id number]"/> 79 mL/min/1.73 sq m 11/22/2019 ESTIMATED GFR IS NOT ACCU RATE CREATININE CLEARANCE IN PREDICTING GLOMERULAR FILTRATION RATE. ESTIMATED GFR IS NOT APPLICABLE FOR DIALYSIS PATIENTS. [facility] BASIC METABOLIC PANEL <p>Code Enforcement Inspector ID - BS</p> Code Enforcement Inspector ID - BS 11/22/2019 [facility] BASIC METABOLIC PANEL Lab Interpreta tion Abnormal 11/22/2019 [facility] HEPATIC FUNCTION PANEL TOTAL PROTEIN 8.3 6.0 - 8.3 11/22/2019 [facility] HEPATIC FUNCTION PANEL <td ID="[id number]">ALBUMIN</td><td>4.0</td><td>3.5 - 5.0 g/dL</td><td>[facility]</td><td ID="[id number]"/> 4.0 3.5 - 5 11/22/2019 [facility] HEPATIC FUNCTION PANEL <td ID="[id number]">BILIRUBIN TOTAL</td><td><span style="flagData">1.4</span><span style="flagData"> (H)</span></td><td>0.2 - 1.2 mg/dL</td><td>[facility]</td><td ID="[id number]"/> 1.4 0.2 - 1.2 11/22/2019 [facility] HEPATIC FUNCTION PANEL BILIRUBIN DIR ECT 0.7 0.1 - 0.5 11/22/2019 [facility] HEPATIC FUNCTION PANEL <td ID="[id number]">ALKALINE PHOSPHATASE</td><td>111</td><td>40 - 150 U/L</td><td>[facility]</td><td ID="[id number]"/> 111 40 - 150 11/22/2019 [facility] HEPATIC FUNCTION PANEL <td ID="[id number]">AST (SGOT)</td><td><span style="flagData">38</span><span style="flagData"> (H)</span></td><td>5 - 34 U/L</td><td>[facility]</td><td ID="[id number]"/> 38 5 - 34 11/22/2019 [facility] HEPATIC FUNCTION PANEL <td ID="[id number]">ALT (SGPT)</td><td>36</td><td>6 - 55 U/L</td><td>[facility]</td><td ID="[id number]"/> 36 6 - 55 11/22/2019 [facility] HEPATIC FUNCTION PANEL <p>Code Enforcement Inspector I D - BS</p> Code Enforcement Inspector ID - BS 11/22/2019 [facility] HEPATIC FUNCTION PANEL Lab Interpret ation Abnormal 11/22/2019 [facility] PROTIME-INR <td ID="[id number]">PROTIME</td><td><span style="flagData">16.5</span><span style="flagData"> (H)</span></td><td>11.9 - 14.2 seconds</td><td>[facility]</td><td ID="[id number]"/> 16.5 11.9 - 14.2 11/22/2019 [facility] PROTIME-INR <td ID="[id number]">INR</td><td>1.4</td><td><=5.9</td><td>[facility]</td><td ID="[id number]"/> 1.4 <=5.9 11/22/2019 [facility] PROTIME-INR <p>Effective 2018: PT Reference Range Change</p><p>New: 11.9-14.2 Previous: 11.7-14.7</p><p>RECOMMENDED COUMADIN/WARFARIN INR THERAPY RANGES</p><p>STANDARD DOSE: 2.0-3.0 Includes: PROPHYLAXIS for venous thrombosis, systemic embolization; TREATMENT for venous thrombosis and/or pulmonary embolus.</p><p>HIGH RISK: Target INR is 2.5-3.5 for patients wiht mechanical heart valves.</p> Effective 03/15/2019: PT Reference Range ChangeNew: 11.9-14.2 Previous: 11.7-14.7RECOMMENDED COUMADIN/WARFARIN INR THERAPY RANGESSTANDARD DOSE: 2.0-3.0 Includes: PROPHYLAXIS for venous thrombosis, systemic embolization; TREATMENT for venous thrombosis and/or pulmonary embolus.HIGH RISK: Target INR is 2.5-3.5 for patients wiht mechanical heart valves. 11/22/2019 [facility] PROTIME-INR Lab Interpretation Abno rmal 11/22/2019 [facility] CLOSTRIDIUM DIFFICILE TOXIN/GDH WITH REFLEX TO PCR GDH NEGATIVE NEGATIVE 11/11/2019
INTERPRETATION: C. diff icile not present.
C. Diff Toxin by PCR not indicated.

Unless Otherwise Indicated, All Testing Performed At:
[facility], [address] [place] [id number]
Academic Coordinator: Edward Escobar M.D.
CLIA Number [id number] [place]. [id number]

[facility] OCT, RETINA - OU - BOTH EYES < span>OD: 240, no fluid</span>
<span>OS: 238, no fluid</span>
OD: 240, no fluid OS: 238, no fluid 10/24/2019 [facility] CRYOGLOBULIN <td ID="[id number]">CRYOGLOBULIN</td><td><span>NEGATIVE</span>
<spa n style="allIndent"><span style="cellHeader">Comment: </span>
<span ID="[id number]" style="pre">Preliminary result is negative for Cryoglobulins; further reports will
not be generated until the study is completed at 7 days.

</span></span></td><td>NEGATIVE</td><td>CPL</td><td ID= "[id number]"/> NEGATIVE NEGATIVE 09/15/2019 Preliminary result is negative for Cryoglobulins; further reports will
not be generated until the study is completed at 7 days.

[facility] CRYOGLOBULIN FINAL REPORT NEG ATIVE NEGATIVE 09/15/2019
Unless Otherwise Indicated, All Testing Performed At:
[facility], [address] [place] [address] [place] [address]
Academic Coordinator: Edward Escobar M.D.
CLIA Number [id number] [place]. [id number]

[facility] ANTI NEUTROPHIL CYTOPLASMIC ANTIBODY <td ID="[id number]">NEUTROPHIL CYTOPLASMIC ANTIBODIES</td><td><1:10</td><td><1:10</td><td>CPL</td><td ID="[id number]"/> <1:10 <1:10 09/08/2019 [facility] ANTI NEUTROPHIL CYTOPLASMIC ANTIBODY INTERPRETATION (NOTE) 09/08/2019 Negative ANCA test excludes cytoplasmic (C- ANCA) and perinuclear
(P-ANCA). Serine protease 3 (PR3) and myeloperoxidase (MPO) antibody
testing is not routinely indicated. A negative ANCA test is expected
in most healthy individuals; however, it does not completely exclude
the presence of systemic vasculitis. Some vasculitis patients have
continuously positive ANCA without disease activity, while others with
active disease are ANCA negative. For selected patients with a high
clinical suspicion for vasculitis, non-reflexed PR3 and MPO antibody
testing may be indicated.

Unless Otherwise Indicated, All Testing Performed At:
[place] [address]
Academic Coordinator: Edward Escobar M.D.
IA Number [id number] [place]. [id number]

[facility] SEDIMENTATION RATE MODIFIED WESTERGREN <td ID="[id number]">ERYTHROCYTE SEDIMENTATION RATE</td><td><span style="flagData">36</span><span style="flagData"> (H)</span>
<span style="allIndent"><span style="cellHeader">Comment: </span>
<span ID="[id number]" style="pre">
Unless Otherwise Indicated, All Testing Performed At:
[facility], [address] [place] [address]
Academic Coordinator: Edward Escobar M.D.
CLIA Number [id number] [place]. [id number]

</span></span></td><td>0 - 20 MM/HOUR</td><td>CPL</td><td ID="[id number]"/> 36 0 - 20 09/07/2019
Unless Otherwise Indicated, All Testing Performed At:
[facility], [address] [place] [address]
Academic Coordinator: Edward Escobar M.D.
CLIA Number [id number] [place]. [id number]

[facility] SEDIMENTATION RATE MODIFIED WESTERGREN Lab Interpretation Abnormal 09/07/2019 [facility] C-REACTIVE PROTEIN <td ID="Res [id number]">C- REACTIVE PROTEIN</td><td><span style="flagData">1.1</span><span style="flagData"> (H)</span>
<span style="allIndent"><span style="cellHeader">Comment: </span>
<span ID="[id number]" style="pre">
Unless Otherwise Indic ated, All Testing Performed At:
[facility], [address] [place] [address]
Academic Coordinator: Edward Escobar M.D.
CLIA Number [id number] [place] [id number]

</span></span></td><td><0.5 MG/DL</td><td>CPL</td><td ID="[id number]"/> 1.1 <0.5 MG/DL 09/07/2019
Unless Otherwise Indicated, All Testing Performed At:
[facility], [address] [place] [address]
Academic Coordinator: Edward Escobar M.D.
CLIA Number [id number] [place]. [id number]

[facility] C-REACTIVE PROTEIN Lab Interpretatio n Abnormal 09/07/2019 [facility] CK <td ID="[id number] Name">CREATINE KINASE TOTAL</td><td><span>60</span>
<span style="allIndent"><span style="cellHeader">Comment: </span>
<span ID="[id number]& quot; style="pre">
Unless Otherwise Indicated, All Testing Performed At:
[facility], [address] [place] [address]
Academic Coordinator: Edward Escobar M.D.
CLIA Number [id number] [place]. [id number]

</span&am p;gt;</span></td><td>28 - 176 U/L</td><td>CPL</td><td ID="[id number]"/> 60 28 - 176 09/07/2019
Unless Otherwise Indicated, All Testing Performed At:
[facility], [address] [place] [address]
Academic Coordinator: Edward Escobar M.D.
CLIA Number [id number] [place]. [id number]

[facility] COMPLEMENT C3 AND C4 <td ID="R [id number]">C3 COMPLEMENT</td><td>127</td><td>90 - 180 MG/DL</td><td>CPL</td><td ID="[id number]"/> 127 90 - 180 09/07/2019 [facility] COMPLEMENT C3 AND C4 <td ID="R [id number]">C4 COMPLEMENT</td><td><span>18</span>
<span style="allIndent"><span style="cellHeader">Comment: </span>
<span ID="[id number]" st yle="pre">
Unless Otherwise Indicated, All Testing Performed At:
[facility], [address] [place] [address]
Academic Coordinator: Edward Escobar M.D.
CLIA Number [id number] [place]. [id number]

</span></span></td><td>10 - 40 MG/DL</td><td>CPL</td><td ID="Cflydu23342385Blul5Abequqwem"/> 18 10 - 40 09/07/2019
Unless Otherwise Indicated, All Testing Performed At:
[facility], [address] [place] [address]
Academic Coordinator: Edward Escobar M.D.
CLIA Number [id number] [place] [id number]

[facility] COMPREHENSIVE METABOLIC PANEL <td ID="[id number]">GLUCOSE</td><td><span style="flagData">305</span><span style="flagData"> (H)</span></td><td>70 - 99 MG/DL</td><td>CPL</td><td ID="[id number]"/> 305 70 - 99 09/07/2019 [facility] COMPREHENSIVE METABOLIC PANEL <td ID="[id number]">BLOOD UREA NITROGEN</td><td>9</td><td>6 - 20 MG/DL</td><td>CPL</td><td ID="Oialee17756050Deib9Borwrrcsc"/> 9 6 - 20 09/07/2019 [facility] COMPREHENSIVE METABOLIC PANEL <td ID="Ugobyn21248365Stdb4Fnwm">CREATININE</td><td>0.62</td><td>0.60 - 1.30 MG/DL</td><td>CPL</td><td ID="[id number]"/> 0.62 0.60 - 1.30 09/07/2019 [facility] COMPREHENSIVE METABOLIC PANEL <td ID="[id number]">EGFR AA</td><td>118</td><td>>60 ML/MIN/1.73</td><td>CPL</td><td ID="[id number]"/> 118 >60 ML/MIN/1.73 09/07/2019 [facility] COMPREHENSIVE METABOLIC PANEL <td ID="[id number]">EGFR</td><td>102</td><td>>60 ML/MIN/1.73</td><td& gt;CPL</td><td ID="Hpzoww13980342Vnut9Ufloilowa"/> 102 >60 ML/MIN/1.73 09/07/2019 [facility] COMPREHENSIVE METABOLIC PANEL <td ID="Wcnmxd85697144Hgak0Znir">BUN/CREAT RATIO</td><td>15</td><td>6 - 28 RATIO</td><td>CPL</td><td ID="Fvwlmj42084117Umnt3Aygxbqtey"/> 15 6 - 28 09/07/2019 [facility] COMPREHENSIVE METABOLIC PANEL <td ID="Mioxyv01924754Oigu2Rhkb">SODIUM</td><td>136</td><td>133 - 146 MEQ/L</td><td>CPL</td><td ID="Iuxbfm81979899Vlgz3Astqegkee"/> 136 133 - 146 09/07/2019 [facility] COMPREHENSIVE METABOLIC PANEL <td ID="Mjczsr20742579Nwry4Pidf">POTASSIUM</td><td>4.2</td><td>3.5 - 5.4 MEQ/L</td><td>CPL</td><td ID="Swwdja67215785Srob0Covvucgxz"/> 4.2 3.5 - 5.4 09/07/2019 [facility] COMPREHENSIVE METABOLIC PANEL <td ID="Dpzouj16795303Sctp5Oosk">CHLORIDE</td><td>100</td><td>95 - 107 MEQ/L</td><td>CPL</td><td ID="Byxeke49361133Jxem0Uxbhxkisb"/> 100 95 - 107 09/07/2019 [facility] COMPREHENSIVE METABOLIC PANEL <td ID="[id number]">CO2</td><td>25</td><td>19 - 31 MEQ/L</td><td>CPL</td><td ID="Kzjjih14775845Ujjb19Xnkjgeanb"/> 25 19 - 31 09/07/2019 [facility] COMPREHENSIVE METABOLIC PANEL <td ID="Fbwunn05895400Uvoy40Clix">CALCIUM</td><td>9.3</td><td>8.5 - 10.5 MG/DL</td><td>CPL</td><td ID="Cjcrsw45894599Tcjx86Jwlmvpkhs"/> 9.3 8.5 - 10.5 09/07/2019 [facility] COMPREHENSIVE METABOLIC PANEL <td ID="Vqiiuk27090661Ihwn43Ddwt">PROTEIN TOTAL</td><td>8.0</td><td>6.1 - 8.3 G/DL</td><td>CPL</td><td ID="Fqinqa42616466Xapj14Gpeyvokws"/> 8.0 6.1 - 8.3 09/07/2019 [facility] COMPREHENSIVE METABOLIC PANEL <td ID="[id number]">ALBUMIN</td><td>4.1</td><td>3.5 - 5.2 G/DL</td><td>CPL</td><td ID="Ijvgbu16983861Pjca54Nmwlrfkll"/> 4.1 3.5 - 5.2 09/07/2019 [facility] COMPREHENSIVE METABOLIC PANEL <td ID="[id number]">GLOBULINS, SERUM, TOTAL</td><td><span style="flagData">3.9</span><span style="flagData"> (H)</span></td><td>1.9 - 3.7 G/DL</td><td>CPL</td><td ID="Lwsrtn50894519Bjxq67Uxikfovkb"/> 3.9 1.9 - 3.7 09/07/2019 [facility] COMPREHENSIVE METABOLIC PANEL <td ID="Miowwv99847223Ftwn09Jqoi">A/G RATIO</td><td>1.1</td><td>1.0 - 2.6 RATIO</td><td>CPL</td><td ID="Bozpbk83113546Ryyy25Ksakpnqvk"/> 1.1 1.0 - 2.6 09/07/2019 [facility] COMPREHENSIVE METABOLIC PANEL <td ID="Eiyres81271211Trzh22Ouov">BILIRUBIN TOTAL</td><td><span style="flagData">1.3</span><span style="flagData"> (H)</span></td><td><=1.2 MG/DL</td><td>CPL</td><td ID="Fnkcpj23304983Otur19Ououcmcmv"/> 1.3 <=1.2 MG/DL 09/07/2019 [facility] COMPREHENSIVE METABOLIC PANEL <td ID="[id number]">ALKALINE PHOSPHATASE</td><td>93</td><td>40 - 133 U/L</td><td>CPL</td><td ID="Munnxu53650289Wdij58Qnnmakyvf"/> 93 40 - 133 09/07/2019 [facility] COMPREHENSIVE METABOLIC PANEL <td ID="Pypbjx35903799Janx09Wvqa">AST (SGOT)</td><td>27</td><td>9 - 40 U/L</td><td>CPL</td><td ID="Xtxrey63209164Ifjx90Ytfvrapuh"/> 27 9 - 40 09/07/2019 [facility] COMPREHENSIVE METABOLIC PANEL <td ID="Qlgkmq22549920Qaky45Uhzw">ALT (SGPT)</td><td><span>24</span>
<span style="allIndent"><span style="cellHeader">Comment: </span>
<span ID="[id number]" style="pre">
Unless Otherwise Indicated, All Testing Performed At:
[facility], [address] [place] [address]
Academic Coordinator: Edward Escobar M.D.
CLIA Number [id number] [place] [id number]

</span></span></td><td>5 - 40 U/L</td><td>CPL</td><td ID="Tqoowj00828519Zzsq38Shfaqgvod"/> 24 5 - 40 09/07/2019
Unless Otherwise Indicated, All Testing Performed At:
[facility], [address] [place] [address]
Academic Coordinator: Edward Escobar M.D.
CLIA Number [id number] [place]. [id number]

[facility] COMPREHENSIVE METABOLIC PANEL Lab In terpretation Abnormal 09/07/2019 [facility] CBC W/AUTO DIFF WITH PLATELETS <td ID="[id number]">WHITE BLOOD CELL COUNT</td><td>6.3</td><td>4.0 - 11.0 K/UL</td><td>CPL</td><td ID="Yohhmu59911476Tkmn1Ejcjwzmfo"/> 6.3 4.0 - 11.0 09/07/2019 [facility] CBC W/AUTO DIFF WITH PLATELETS <td ID="[id number]">RED BLOOD CELL COUNT</td><td>4.83</td><td>3.80 - 5.10 M/UL</td><td>CPL</td><td ID="Bdoaap84007750Befe9Wlbsvfijt"/> 4.83 3.80 - 5.10 09/07/2019 [facility] CBC W/AUTO DIFF WITH PLATELETS <td ID="Yiyhdb59462973Iygx6Mzjp">HEMOGLOBIN</td><td>13.7</td><td>11.5 - 15.5 G/DL</td><td>CPL</td><td ID="Deavbv40628040Tlwn4Vaonumwve"/> 13.7 11.5 - 15.5 09/07/2019 [facility] CBC W/AUTO DIFF WITH PLATELETS <td ID="Ftvago90425099Prlb3Bdvb">HEMATOCRIT</td><td>40.2</td><td>34.0 - 45.0 %</td><td>CPL</td><td ID="Qtwbtj35011798Ltlw3Uowvgeski"/> 40.2 34 - 45 09/07/2019 [facility] CBC W/AUTO DIFF WITH PLATELETS <td ID="Mipsbn62521168Drwx3Iwyx">MEAN CORPUSCULAR VOLUME</td><td>83.2</td><td>80.0 - 100.0 fL</td><td>CPL</td><td ID="Vvzhzd09008038Bvzk2Rqozjqjhb"/> 83.2 80 - 100 09/07/2019 [facility] CBC W/AUTO DIFF WITH PLATELETS <td ID="Cseocc17803694Fxki4Aerm">MEAN CORPUSCULAR HEMOGLOBIN</td><td>28.4</td><td>27.0 - 34.0 PG</td><td>CPL</td><td ID="Uczxfz41617539Fkpo5Gboiqxnqq"/> 28.4 27 - 34 09/07/2019 [facility] CBC W/AUTO DIFF WITH PLATELETS <td ID="[id number]">MEAN CORPUSCULAR HEMOGLOBIN CONC</td><td>34.1</td><td>32.0 - 35.5 G/DL</td><td>CPL</td><td ID="Uxylqt50557828Wchn8Gqkgfdfbw"/> 34.1 32.0 - 35.5 09/07/2019 [facility] CBC W/AUTO DIFF WITH PLATELETS <td ID="Pyzaqq60490735Tbol8Brrw">RED CELL DISTRIBUTION WIDTH</td><td>14.4</td><td>11.0 - 15.0 %</td><td>CPL</td><td ID="Brlzbi88182497Aabf7Qgulhkcru"/> 14.4 11 - 15 09/07/2019 [facility] CBC W/AUTO DIFF WITH PLATELETS <td ID="Awzjup74507674Tkkv9Fycj">NEUTROPHILS %</td><td>67.7</td><td>40.0 - 74.0 %</td><td>CPL</td><td ID="Bemrup30154050Zmew4Zaatwwuuy"/> 67.7 40 - 74 09/07/2019 [facility] CBC W/AUTO DIFF WITH PLATELETS <td ID="Wnlogp39545287Iepv68Bfrd">LYMPHOCYTES %</td><td>22.8</td><td>19.0 - 48.0 %</td><td>CPL</td><td ID="Mydrsr59617937Rzfy62Pxvepovow"/> 22.8 19 - 48 09/07/2019 [facility] CBC W/AUTO DIFF WITH PLATELETS <td ID="Ufrevz03698816Yoly49Sfdp">MONOCYTES %</td><td>6.5</td><td>4.0 - 13.0 %</td><td>CPL</td><td ID="Qtuyig17548624Lyav00Xnvxxivfg"/> 6.5 4 - 13 09/07/2019 [facility] CBC W/AUTO DIFF WITH PLATELETS <td ID="Qsjkgi69541413Fjqz84Bvpj">EOSINOPHILS %</td><td>2.4</td><td>0.0 - 7.0 %</td><td>CPL</td><td ID="Rexypt09887936Owgw08Liockthft"/> 2.4 0 - 7 09/07/2019 [facility] CBC W/AUTO DIFF WITH PLATELETS <td ID="Vqfwip64561561Dbxt35Jdou">BASOPHILS %</td><td>0.6</td><td>0.0 - 2.0 %</td><td>CPL</td><td ID="Etgvuq82995245Zvbi57Xscayrqit"/> 0.6 0 - 2 09/07/2019 [facility] CBC W/AUTO DIFF WITH PLATELETS <td ID="[id number]">PLATELET COUNT</td><td><span>141</span>
<span style="allIndent"><span style="cellHeader">Comment: </span>
<span ID="Ogifwb89874502Bzti39Juyandh" style="pre">
Unless Otherwise Indicated, All Testing Performed At:
[facility], [address] [place] [address]
Academic Coordinator: Edward Escobar M.D.
CLIA Number [id number] [place]. [id number]

</span></span></td><td>130 - 400 K/UL</td><td>CPL</td><td ID="Wqomal16176579Mlpy55Ytjoqvyex"/> 141 130 - 400 09/07/2019
Unless Otherwise Indicated, All Testing Performed At:
[place] [address]
Academic Coordinator: Edward Escobar M.D.
CLIA Number [id number] [place]. [id number]

[facility] LIPID PANEL <td ID="Njnygg24648240Kkeo8Kjlq">CHOLESTEROL</td><td>157</td><td><200 mg/dL</td><td>QUEST</td><td ID="Izmtyt41010897Hnnh8Erjcoviql"/> 157 <200 08/23/2019 [facility] LIPID PANEL <td ID="Feygoc73867790Qpbd0Bfwd">HDL</td><td><span style="flagData">39</span><span style="flagData"> (L)</span></td><td>>50 mg/dL</td><td>QUEST</td><td ID="Res svq55592051Soja5Houxtfchl"/> 39 >50 08/23/2019 [facility] LIPID PANEL <td ID="Ulcgxb62341745Ryxu3Nsce">TRIGLYCERIDES</td><td><span style="flagData">162</span><span style="flagData"> (H)</span></td><td><150 mg/dL</td><td>QUEST</td><td ID="Kfetjo27765672Sqgf8Nlhdqcwnc"/> 162 <150 08/23/2019 [facility] LIPID PANEL <td ID="Xkdqqe4853 5381Mpeb2Zodp">LDL CHOLESTEROL CALCULATED</td><td><span>91</span>
<span style="allIndent"><span style="cellHeader">Comment: </span>
<span ID="Pettfd95520766Jpbx2Fdhizqb" style="pre">Reference range: <100

Desirable range <100 mg/dL for primary prevention;
<70 mg/dL for patients with CHD or diabetic patients
with > or = 2 CHD risk factors.

LDL-C is now calculated using the Phillip-Saenz
calculation, which is a validated novel method providing
better accuracy than the Friedewald equation in the
estimation of LDL- C.
Phillip SS et al. MANJULA. 2013;310(19): 5014-1152
(http://TRIA Beauty/faq/OLU967)

</span></span></td><td>mg/dL (calc)</td><td>QUEST</td><td ID="Wqchis65287594Sgpc1Jajhhntqg"/> 91 mg/dL (calc) 08/23/2019 Reference range: <100

Desirable range <100 mg/dL for primary prevention;
<70 mg/dL for patients with CHD or diabetic patients
with > or = 2 CHD risk factors.

LDL-C is now calculated using the Phillip-Saenz
calculation, which is a validated novel method providing
better accuracy than the Friedewald equation in the
estimation of LDL- C.
Phillip SS et al. MANJULA. 2013;310(19): 2555-9743
(http://Wakie/Budist.MyWealth/faq/PST480)

[facility] LIPID PANEL <td ID="Osamme89451585Docx8Ttvh">CHOLESTEROL/HDL RATIO</td><td>4.0</td><td><5.0 (calc)</td><td>QUEST</td><td ID="Rtdsis15838536Rwzn9Ipjyjkkxs"/> 4 <5.0 (calc) 08/23/2019 [facility] LIPID PANEL <td ID="Qwtrdd3630 2837Ueme1Ndho">NON HDL CHOLESTEROL</td><td><span>118</span>
<span style="allIndent"><span style="cellHeader">Comment: </span>
<span ID="Cwmynv16761595Xpas5Lfhvxib&q uot; style="pre">For patients with diabetes plus 1 major ASCVD risk
factor, treating to a non-HDL-C goal of <100 mg/dL
(LDL-C of <70 mg/dL) is considered a therapeutic
option.
Performed at: [facility] [place] [address] MARS GEORGE MD &am p;lt;br/>
</span></span></td><td><130 mg/dL (calc)</td><td>QUEST</td>&a mp;lt;td ID="Tijyll38729583Ntpy6Dxaacrtyz"/> 118 <130 mg/dL (calc) 08/23/2019 For patients with diabetes plus 1 major ASCVD risk
factor, treating to a non-HDL-C goal of <100 mg/dL
(LDL-C of <70 mg/dL) is considered a therapeutic
option.
Performed at: [facility] [address] MARS GEORGE MD

[facility] LIPID PANEL <p>Performing Orga nization Information:</p><p> Site ID: RGA</p><p> Name: [facility] [place]</p><p& gt; Address: [address] [place] [phone]</p><p> Director: MARS GEORGE MD</p> Performing Organization Information: Si te ID: RGA Name: [facility] [place] Address: [address] [place] [phone] Director: MARS GEORGE MD 08/23/2019 [facility] LIPID PANEL Lab Interpretation Abno rmal 08/23/2019 [facility] MICROALBUMIN/CREAT URINE RATIO <td ID="Jyywjq33879715Ifyh8Hosd">CREATININE URINE</td><td>184</td><td>20 - 275 mg/dL</td><td>QUEST</td><td ID="Cqpzyw35645517Jqqk3Vmwerzuvf"/> 184 20 - 275 08/23/2019 [facility] MICROALBUMIN/CREAT URINE RATIO <td ID="Gbmkjb94475054Dncw1Hasz">MICROALBUMIN URINE</td><td><span>1.3</span>
<span style="allIndent"><span style="cellHeader">Comment: </span>
<span ID="[id number]&qu ot; style="pre">Reference Range
Not established

</span></span></td><td>mg/dL</td><td>QUEST</td><td ID="Algmet91255886Hoov1Hgqheckmj"/> 1.3 08/23/2019 Reference Range
Not established

[facility] MICROALBUMIN/CREAT URINE RATIO <td ID="Xxaimi72736965Vptg0Zdqi">MICROALBUMIN/CREATININE RATIO</td><td><span>7</span>
<span style="allIndent"><span style="cellHeader">Comment: </span>
<span ID="Pujasd31794432Bhsd9Jlcodac" style="pre">
The ADA defines abnormalities in albumin
excretion as follows:

Category Result (mcg/mg creatinine)

Normal <30
Microalbuminuria 30-299
Clinical albuminuria > OR = 300&l t;br/>
The ADA recommends that at least two of three
specimens collected within a 3-6 month period be
abnormal before considering a patient to be
within a diagnostic category.

REPORT COMMENT:
FASTING:YES
Performed at: [facility] [address] [address] MARS GEORGE MD

</span></span></td><td><30 mcg/mg creat</td><td>QUEST</td><td ID="[id number]"/> 7 <30 mcg/mg creat 08/23/2019
The ADA defines abnormalities in al bumin
excretion as follows:

Category Result (mcg/mg creatinine)

Normal <30<br/& gt;Microalbuminuria 30-299
Clinical albuminuria > OR = 300

The ADA recommends that at least two of three
specimens collected within a 3-6 month period be
abnormal before considering a patient to be
within a diagnostic category.

REPORT COMMENT:
FASTING:YES
Performed at: [facility] [address] [address] MARS GEORGE MD

[facility] MICROALBUMIN/CREAT URINE RATIO <p>Performing Organization Information:</p><p> Site ID: RGA</p><p> Name: [facility] [place]</p><p> Address: [address] [place] [phone]</p><p> Director: MARS GEORGE MD</p> Performing Organization Information: Site ID: RGA Name: [facility] [place] Address: [address] [place] [phone] Director: MARS GEORGE MD 08/23/2019 [facility] POCT HEMOGLOBIN A1C <td ID="[id number]">HEMOGLOBIN A1C</td><td><span style="flagData">9.8</span><span style="flagData"> (A)</span></td><td>4.0 - 5.6 %</td><td/><td ID="[id number]"/> 9.8 4 - 5.6 08/21/2019 [facility] POCT HEMOGLOBIN A1C Lab Interpretati on Abnormal 08/21/2019 [facility] C-REACTIVE PROTEIN <td ID="Res [id number]">C- REACTIVE PROTEIN</td><td><span style="flagData">15.9</span><span style="flagData"> (H)</span>
<span style="allIndent"><span style="cellHeader">Comment: </span>
<span ID="[id number]" style="pre">
REPORT COMMENT:
FASTING:YES
COLLECTION KIT GIVEN TO PATIENT. PATIENT ADVISED TO RETURN.
Performed at: [facility] [address] [address] MARS GEORGE MD

</span></span></td><td><8.0 mg/L</td><td>QUEST</td><td ID="[id number]"/> 15.9 <8.0 07/17/2019
REPORT COMMENT:
FASTING:YES
COLLECTION KIT GIVEN TO PATIENT. PATIENT ADVISED TO RETURN.
Performed at: [facility] [address] [address] MARS GEORGE MD

[facility] C-REACTIVE PROTEIN <p>Performi ng Organization Information:</p><p>Site ID: RGA</p><p>Name: [facility] [place]</p><p>A ddress: [address] [place] [phone]</p><p>Director: AMRS GEORGE MD</p> Performing Organization Information:Site ID: RGAName: [facility] [place]: [address] [place] [phone]: MARS GEORGE MD 07/17/2019 [facility] C-REACTIVE PROTEIN Lab Interpretatio n Abnormal 07/17/2019 [facility] CELIAC DISEASE COMPREHENSIVE([facility]) INTERPRETATION SEE NOTE 07/17/2019 tTG IgA positive by JOHN is consistent with celiac disease,
but not confirmed by NIKKI IFA. Total serum IgA is elevated.
Consider mucosal inflammatory conditions or underlying
gammopathy. Recommend correlation with clinical,
radiographic and endoscopic findings.

Test code 41045 will be discontinued on 09/18/19 to be
consistent with AAFP and ACG guidelines. A new test code,
35829, has been available since 04/17/19 to include Tissue
Transglutaminase (tTG) IgA with Reflex to Endomysial
Screen/Titer reflex, and Total IgA with Reflex to Deamidated
Gliadin Peptide (DGP) IgG and Tissue Transglutaminase (tTG)
IgG to be consistent with said guidelines. Test code 98046
will be orderable up to and including 09/17/19, thereafter
it will not be orderable.

[facility] CELIAC DISEASE COMPREHENSIVE([facility]) <td ID="[id number]">TISSUE TRANSGLUTAMINASE ANTIBODY, IGA</td><td><span style="flagData">6</span><span style="flagData"> (H)</span>
<span style="allIndent"><span style="cellHeader">Comment: </span>
<span ID="[id number]" style="pre">
<4 No Antibody Detected
> OR = 4 Antibody Detected

</span></span></td><td>U/mL&lt ;/td><td>[facility]</td><td ID="[id number]"/> 6 07/17/2019
<4 No Antibody Detected
> OR = 4 Antibody Detected

[facility] CELIAC DISEASE COMPREHENSIVE([facility]) <td ID="[id number]">IGA</td><td><span style="flagData">459</span><span style="flagData"> (H)</span></td><td>47 - 310 mg/dL</td><td>[facility]</td><td ID="[id number]"/> 459 47 - 310 07/17/2019 [facility] CELIAC DISEASE COMPREHENSIVE([facility]) <td ID="[id number]">ENDOMYSIAL ANTIBODY SCR (IGA) W/REFL TO TITER</td><td><span>NEGATIVE</span><span style="allIndent"><span style="cellHeader">Comment: </span><span ID="[id number]"&am p;gt;Performed at: [facility] [address] [facility] [phone] BRITTANY COWART MD,PHD,YECENIA </span></span></td><td&a mp;gt;NEGATIVE</td><td>[facility]</td><td ID="[id number]"/> NEGATIVE NEGATIVE 07/17/2019 Performed at: [facility] [address] [phone] BRITTANY COWART MD,PHD,YECENIA [facility] CELIAC DISEASE COMPREHENSIVE([facility]) <p>Performing Organization Information:</p><p>Site ID: </p><p>Name: [facility]</p><p>Address: [address] [place] [phone]</p><p>Director: BRITTANY COWART MD,PHD,YECENIA</p> Performing Organization Information:Site ID: EZName: [facility]ress: [address] [place] [phone]: BRITTANY COWART MD,PHD,YECENIA 07/17/2019 [facility] CELIAC DISEASE COMPREHENSIVE([facility]) Lab Interpretation Abnormal 07/17/2019 [facility] SEDIMENTATION RATE MODIFIED [place] <td ID="[id number]">ERYTHROCYTE SEDIMENTATION RATE</td><td><span style="flagData">56</span><span style="flagData"> (H)</span><span style="allIndent"><span style="cellHeader">Comment: </span><span ID="[id number]">Performed at: [facility] [address] [address] MARS GEORGE MD </span></span></td><td>< OR = 30 mm/h</td><td>[facility]</td><td ID="[id number]"/> 56 < OR = 30 07/17/2019 Performed at: [facility] [address] [address] MARS GEORGE MD [facility] SEDIMENTATION RATE MODIFIED WESTERGREN <p>Performing Organization Information:</p><p>Site ID: RGA</p><p>Name: STEFANI VAZQUEZ</p><p>Address: [address] [place] [address]</p><p>Director: MARS GEORGE MD</p> Performing Organization Information:Site ID: RGAName: STEFANI [place]O [place]Address: [address] [place] [address]Wknhiczu: MARS GEORGE MD 07/17/2019 [facility] SEDIMENTATION RATE MODIFIED WESTERGREN Lab Interpretation Abnormal 07/17/2019 [facility] PATHOLOGY TISSUE CASE REPORT Surgical Pathology Report Case: [id number] Authorizing Provider:Fidencio Sumner MD Collected: 06/29/2019 1104 Ordering Location: [facility] Endoscopy Received:06/29/2019 1535 Services Pathologist: Jocy Evans MD Specimens: A) - Duodenum, BX B) - Cecum, BX C) - Colon Biopsy, Random 07/01/2019 [facility] PATHOLOGY TISSUE <td ID="[id number]">DIAGNOSIS</td><td styleCode="noIndent"><span ID="[id number]" style="pre">A.DUODENUM BIOPSY
- NO DIAGNOSTIC ALTERATION

B. COLON, CECUM, BIOPSY
-NO DIAGNOSTIC ALTERATION
-MINUTE MATURE ADIPOSE TISSUE SEEN (SEE COMMENT)

C. COLON, RANDOM BIOPSY
-NO DIAGNOSTIC ALTERATION
-NO EVIDENCE OF MICROSCOPIC COLITIS

Signing Pathologist Direct Phone Line: [phone]
at3:43 PM
</span></td><td/><td>[facility]</td><td ID="[id number]"/> A.DUODENUM BIOPSY - NO DIAGNOSTIC ALTERATION B. COLON, CECUM, BIOPSY -NO DIAGNOSTIC ALTERATION -MINUTE MATURE ADIPOSE TISSUE SEEN (SEE COMMENT) C. COLON, RANDOM BIOPSY -NO DIAGNOSTIC ALTERATION -NO EVIDENCE OF MICROSCOPIC COLITIS Signing Pathologist Direct Phone Line: [phone] at3:43 PM 07/01/2019 [facility] PATHOLOGY TISSUE DIAGNOSIS COMMENT B. A very minute area of adipose tissue is seen in deep lamina propria/submucosa.Although non-specific, it may be part of the lipoma noted endoscopically. 07/01/2019 [facility] PATHOLOGY TISSUE CPT 49042 X 3 07/01/2019 [facility] PATHOLOGY TISSUE CLINICAL HISTORY Cirrhosis of liver without ascites and screening for colon cancer 07/01/2019 [facility] PATHOLOGY TISSUE SPECIMEN SOURCE A. Duodenum biopsy. B. Cecum biopsy. C. Random colon biopsy 07/01/2019 [facility] PATHOLOGY TISSUE GROSS DESCRIPTION This case is received in three parts. All parts are labeled correctly with the patient's name and date of . Part A. Received in formalin labeled "duodenum" consists of a 0.5 x 0.4 x 0.3 cm rockwell-brown irregular tissue. The s pecimen is filtered and is submitted in toto [...] submitted in toto in cassette C. AH/ew 07/01/2019 [facility] PATHOLOGY TISSUE MICROSCOPIC DESCRIP TION Performed. 07/01/2019 [facility] PATHOLOGY TISSUE GROSS ASSESSMENT [facility], Department of Pathology, [address] [place] [address], [place] [address], 07/01/2019 [facility] PATHOLOGY TISSUE TECHNICAL COMPONENT [facility], Department of Pathology, [address] [place] [address], 07/01/2019 [facility] PATHOLOGY TISSUE PROFESSIONAL COMPON ENT [facility], Department of Pathology, [address] [place] [address], 07/01/2019 [facility] PROTIME-INR <td ID="[id number]">PROTIME</td><td><span style="flagData">14.5</span><span style="flagData"> (H)</span></td><td>11.9 - 14.2 seconds</td><td>[facility]</td><td ID="[id number]"/> 14.5 11.9 - 14.2 06/29/2019 [facility] PROTIME-INR <td ID="[id number]">INR</td><td>1.2</td><td><=5.9</td><td>[facility]</td><td ID="[id number]"/> 1.2 <=5.9 06/29/2019 [facility] PROTIME-INR <p>Effective 2018: PT Reference Range Change</p><p>New: 11.9-14.2Previous: 11.7-14.7</p><p>RECOMMENDED COUMADIN/WARFARIN INR THERAPY RANGES</p><p>STANDARD DOSE: 2.0-3.0Includes: PROPHYLAXIS for venous thrombosis, systemic embolization; TREATMENT for venous thrombosis and/or pulmonary embolus.</p><p>HIGH RISK: Target INR is 2.5-3.5 for patients wiht mechanical heart valves.</p> Effective 03/15/2019: PT Reference Range ChangeNew: 11.9-14.2Previous: 11.7-14.7RECOMMENDED COUMADIN/WARFARIN INR THERAPY RANGESSTANDARD DOSE: 2.0-3.0Includes: PROPHYLAXIS for venous thrombosis, systemic embolization; TREATMENT for venous thrombosis and/or pulmonary embolus.HIGH RISK: Target INR is 2.5-3.5 for patients wiht mechanical heart valves. 06/29/2019 [facility] PROTIME-INR Lab Interpretation Abno rmal 06/29/2019 [facility] POCT GLUCOSE GLUCOSE P.O.C. 140 70 - 110 06/29/2019 TESTED AT [facility] [address] [place] [address] [facility] POCT GLUCOSE Lab Interpretation Abn ormal 06/29/2019 [facility] BASIC METABOLIC PROFILE + E-GFR <td ID="[id number]">GLUCOSE</td><td><span style="flagData">201</span><span style="flagData"> (H)</span>
<span style="allIndent"><span style="cellHeader">Comment: </span>
<span ID="[id number]" style="pre">
Non-fasting reference interval

</span></span></td><td>65 - 139 mg/dL</td><td>[facility]</td><td ID="[id number]"/> 201 65 - 139 06/21/2019
Non-fasting reference interval

[facility] BASIC METABOLIC PROFILE + E-GFR <td ID="[id number]">BLOOD UREA NITROGEN</td><td>13</td><td>7 - 25 mg/dL</td><td>[facility]</td><td ID="[id number]"/> 13 7 - 25 06/21/2019 [facility] BASIC METABOLIC PROFILE + E-GFR <td ID="[id number]">CREATININE</td><td><span>0.73</span>
<span style="allIndent"><span style="cellHeader">Comment: </span>
<span ID="[id number]" style="pre">For patients >49 years of age, the reference limit
for Creatinine is approximately 13% higher for people
identified as -Austrian.

</span></span></td><td>0.50 - 1.05 mg/dL</td><td>[facility]</td><td ID="[id number]"/> 0.73 0.5 - 1.05 06/21/2019 For patients >49 years of age, the reference limit
for Creatinine is approximately 13% higher for people
identified as -Austrian.

[facility] BASIC METABOLIC PROFILE + E-GFR <td ID="Mfjhaj09151628Evkm6Sljj">EGFR</td><td>93</td><td>> OR = 60 mL/min/1.73m2</td><td>[facility]</td><td ID="Qehicd55811038Ddwz4Ppkmagrpy"/> 93 > OR = 60 mL/min/1.73m2 2018 [facility] BASIC METABOLIC PROFILE + E-GFR <td ID="[id number]">EGFR AA</td><td>107</td><td>> OR = 60 mL/min/1.73m2</td><td>[facility]</td><td ID="Hyyyqy76401574Sxrj5Kumxgplke"/> 107 > OR = 60 mL/min/1.73m2 06/21/2019 [facility] BASIC METABOLIC PROFILE + E-GFR <td ID="Rtcfpy77567547Sglv9Rsav">BUN/CREAT RATIO</td><td>NOT APPLICABLE</td><td>6 - 22 (calc)</td><td>[facility]</td><td ID="Bxaeug84458408Suue2Fklcoveel"/> NOT APPLICABLE 6 - 22 06/21/2019 [facility] BASIC METABOLIC PROFILE + E-GFR <td ID="[id number]">SODIUM</td><td>139</td><td>135 - 146 mmol/L</td><td>[facility]</td><td ID="Emgpwp67130826Gvkq1Kiyfbgbep"/> 139 135 - 146 06/21/2019 [facility] BASIC METABOLIC PROFILE + E-GFR <td ID="[id number]">POTASSIUM</td><td>4.2</td><td>3.5 - 5.3 mmol/L</td><td>[facility]</td><td ID="Xkjpvz99971124Fjnn2Jbtycisgv"/> 4.2 3.5 - 5.3 06/21/2019 [facility] BASIC METABOLIC PROFILE + E-GFR <td ID="Ejkoum83589892Rswp0Toih">CHLORIDE</td><td>101</td><td>98 - 110 mmol/L</td><td>[facility]</td><td ID="Runjnm96896831Rhon2Yprggooyw"/> 101 98 - 110 06/21/2019 [facility] BASIC METABOLIC PROFILE + E-GFR <td ID="Banetn51267270Srel04Fgic">CO2</td><td>30</td><td>20 - 32 mmol/L</td><td>[facility]</td><td ID="Lxcyee88935924Tkeq80Jnvxnqvbc"/> 30 20 - 32 06/21/2019 [facility] BASIC METABOLIC PROFILE + E-GFR <td ID="[id number]">CALCIUM</td><td><span>9.7</span><span style="allIndent"><span style="cellHeader">Comment: </span><span ID="[id number]">Performed at: [facility] [address] [address] MARS GEORGE MD </span></span></td><td>8.6 - 10.4 mg/dL</td><td>[facility]</td><td ID="Jezlle04534228Gbgb61Zumdpwagm"/> 9.7 8.6 - 10.4 06/21/2019 Performed at: [facility] [address] [address] MARS GEORGE MD [facility] BASIC METABOLIC PROFILE + E-GFR <p>Performing Organization Information:</p><p>Site ID: A</p><p>Name: [facility] [place]</p><p>Address: [address] [place] [id number] [place] [address]</p><p>Director: MARS GEORGE MD</p> Performing Organization Information:Site ID: RGAName: [facility] [place]Address: [address] [place] [id number]: MARS GEORGE MD 06/21/2019 [facility] BASIC METABOLIC PROFILE + E-GFR Lab Interpretation Abnormal 06/21/2019 [facility] CBC W/AUTO DIFF WITH PLATELETS <td ID="[id number]">WHITE BLOOD CELL COUNT</td><td>8.1</td><td>3.8 - 10.8 Thousand/uL</td><td>[facility]</td><td ID="Kvtjxj08485831Fwfb7Sanancitk"/> 8.1 3.8 - 10.8 06/21/2019 [facility] CBC W/AUTO DIFF WITH PLATELETS <td ID="[id number]">RED BLOOD CELL COUNT</td><td>4.78</td><td>3.80 - 5.10 Million/uL</td><td>[facility]</td><td ID="Teuotw80713697Bbwq5Yoeyauvfc"/> 4.78 3.80 - 5.10 06/21/2019 [facility] CBC W/AUTO DIFF WITH PLATELETS <td ID="[id number]">HEMOGLOBIN</td><td>13.6</td><td>11.7 - 15.5 g/dL</td><td>[facility]</td><td ID="Iqknpk31153903Jmbg9Zadegrtxw"/> 13.6 11.7 - 15.5 06/21/2019 [facility] CBC W/AUTO DIFF WITH PLATELETS <td ID="Mwppfp98971915Henk6Bcmh">HEMATOCRIT</td><td>40.0</td><td>35.0 - 45.0 %</td><td>[facility]</td><td ID="Yhktbi43805859Jnyh2Puvrlmohj"/> 40.0 35 - 45 06/21/2019 [facility] CBC W/AUTO DIFF WITH PLATELETS <td ID="[id number]">MEAN CORPUSCULAR VOLUME</td><td>83.7</td><td>80.0 - 100.0 fL</td><td>[facility]</td><td ID="Oxumui35306896Uucb2Peozctxhn"/> 83.7 80 - 100 06/21/2019 [facility] CBC W/AUTO DIFF WITH PLATELETS <td ID="[id number]">MEAN CORPUSCULAR HEMOGLOBIN</td><td>28.5</td><td>27.0 - 33.0 pg</td><td>[facility]</td><td ID="Neybax56434535Pjci4Njfhpmcjy"/> 28.5 27 - 33 06/21/2019 [facility] CBC W/AUTO DIFF WITH PLATELETS <td ID="[id number]">MEAN CORPUSCULAR HEMOGLOBIN CONC</td><td>34.0</td><td>32.0 - 36.0 g/dL</td><td>[facility]</td><td ID="Rwqdht01542292Wcuj9Zhcdikpmv"/> 34.0 32 - 36 06/21/2019 [facility] CBC W/AUTO DIFF WITH PLATELETS <td ID="Sbluzq38679529Vxxx2Duks">RED CELL DISTRIBUTION WIDTH</td><td>15.0</td><td>11.0 - 15.0 %</td><td>[facility]</td><td ID="Qxyfsj53314862Oger9Ibfqwlfcc"/> 15.0 11 - 15 06/21/2019 [facility] CBC W/AUTO DIFF WITH PLATELETS <td ID="Nfwids56733757Zwes2Ocrh">PLATELET COUNT</td><td>172</td><td>140 - 400 Thousand/uL</td><td>[facility]</td><td ID="Zdnvhk37087023Pkzv4Qpjufblew"/> 172 140 - 400 06/21/2019 [facility] CBC W/AUTO DIFF WITH PLATELETS <td ID="[id number]">MEAN PLATELET VOLUME</td><td>12.3</td><td>7.5 - 12.5 fL</td><td>[facility]</td><td ID="Qcxflw68687377Lfeb72Iupwlvqtw"/> 12.3 7.5 - 12.5 06/21/2019 [facility] CBC W/AUTO DIFF WITH PLATELETS <td ID="[id number]">NEUTROPHILS ABSOLUTE COUNT</td><td>5,808</td><td>1,500 - 7,800 cells/uL</td><td>[facility]</td><td ID="Eealas34402330Vtnj67Ugpgvqrzr"/> 5808 1,500 - 7800 06/21/2019 [facility] CBC W/AUTO DIFF WITH PLATELETS <td ID="[id number]">LYMPHOCYTES ABSOLUTE COUNT</td><td>1,563</td><td>850 - 3,900 cells/uL</td><td>[facility]</td><td ID="Bvqpyu82908528Vxuh59Rkgychles"/> 1563 850 - 3900 06/21/2019 [facility] CBC W/AUTO DIFF WITH PLATELETS <td ID="Swivgd50286925Mllq82Nipn">MONOCYTES ABSOLUTE COUNT</td><td>470</td><td>200 - 950 cells/uL</td><td>[facility]</td><td ID="Zgtbjq31405657Bbav29Spwtzofld"/> 470 200 - 950 06/21/2019 [facility] CBC W/AUTO DIFF WITH PLATELETS <td ID="Gdquay54333534Vjnq79Keix">EOSINOPHILS ABSOLUTE COUNT</td><td>203</td><td>15 - 500 cells/uL</td><td>[facility]</td><td ID="Fvugnj37662842Bjat22Lqdqllgkt"/> 203 15 - 500 06/21/2019 [facility] CBC W/AUTO DIFF WITH PLATELETS <td ID="Gblgww70937095Nwwv02Zhqk">BASOPHILS ABSOLUTE COUNT</td><td>57</td><td>0 - 200 cells/uL</td><td>[facility]</td><td ID="Uutvhs78737460Kbfw78Hggmvitzx"/> 57 0 - 200 06/21/2019 [facility] CBC W/AUTO DIFF WITH PLATELETS <td ID="Lfanvy39138763Lcfv28Mets">NEUTROPHILS %</td><td>71.7</td><td>%</td><td>[facility]</td><td ID="Lyfqsw09741977Jwrv03Iylhtttre"/> 71.7 06/21/2019 [facility] CBC W/AUTO DIFF WITH PLATELETS <td ID="Vdlflg82449424Mwww78Bder">LYMPHOCYTES %</td><td>19.3</td><td>%</td><td>[facility]</td><td ID="Sbmmlv77247532Hkdy03Hidetfyzp"/> 19.3 06/21/2019 [facility] CBC W/AUTO DIFF WITH PLATELETS <td ID="Rhysyo99981696Icth74Rlao">MONOCYTES %</td><td>5.8</td><td>%</td><td>[facility]& lt;/td><td ID="Wwdesx47176730Mswe49Suzagbvzd"/> 5.8 06/21/2019 [facility] CBC W/AUTO DIFF WITH PLATELETS <td ID="Faflgd11713759Esga79Rngl">EOSINOPHILS %</td><td>2.5</td><td>%</td><td>[facility]</td><td ID="Iamitu46051379Vggq63Hpuxmadgx"/> 2.5 06/21/2019 [facility] CBC W/AUTO DIFF WITH PLATELETS <td ID="Vsfvnf72786518Ufqy44Jlde">BASOPHILS %</td><td><span>0.7</span>
<span style="allIndent"><span style="cellHeader">Comment: </span>
<span ID="[id number]" style="pre">
REPORT COMMENT:
FASTING:NO
Performed at: [facility] [address] [address] MARS GEORGE MD

</span></span></td><td>%</td><td>[facility]</td><td ID="Bczqtu47327847Jjps03Ntrarejlw"/> 0.7 06/21/2019
REPORT COMMENT:
FASTING:NO
Performed at: [facility] [address] [address] MARS GEORGE MD

[facility] CBC W/AUTO DIFF WITH PLATELETS <p>Performing Organization Information:</p><p>Site ID: RGA</p><p>Name: [facility] [facility] [place]</p><p>Address: [address] [place] [address]</p><p>Director: MARS GEORGE MD</p> Performing Organization Information:Site ID: RGAName: [employer] [facility] [place]Address: [address] [place] [address]Ckpdxooq: MARS GEORGE MD 06/21/2019 [facility] HEPATIC FUNCTION PANEL <td ID="Lpgwak65783097Epxg5Knza">PROTEIN TOTAL</td><td><span style="flagData">8.2</span><span style="flagData"> (H)</span></td><td>6.1 - 8.1 g/dL</td><td>[facility]</td><td ID="Conzgn00709927Htur6Ewktnyums"/> 8.2 6.1 - 8.1 06/21/2019 [facility] HEPATIC FUNCTION PANEL <td ID="Nenciu68592520Xpep9Oxwb">ALBUMIN</td><td>4.0</td><td>3.6 - 5.1 g/dL</td><td>[facility]</td><td ID="Rufgvw44238856Xehj1Qoijzhftl"/> 4 3.6 - 5.1 06/21/2019 [facility] HEPATIC FUNCTION PANEL <td ID="[id number]">GLOBULINS, SERUM, TOTAL</td><td><span style="flagData">4.2</span><span style="flagData"> (H)</span></td><td>1.9 - 3.7 g/dL (calc)</td><td>[facility]</td><td ID="Kuywhj55563628Pypk2Dfgvktstg"/> 4.2 1.9 - 3.7 06/21/2019 [facility] HEPATIC FUNCTION PANEL <td ID="Yniuoc88796689Xbdq8Flsm">A/G RATIO</td><td>1.0</td><td>1.0 - 2.5 (calc)</td><td>[facility]</td><td ID="Qyxozc71986784Neun8Wghtmkcpo"/> 1 1.0 - 2.5 06/21/2019 [facility] HEPATIC FUNCTION PANEL <td ID="Zmmgsy76275558Ssxc8Rpzb">BILIRUBIN TOTAL</td><td>1.1</td><td>0.2 - 1.2 mg/dL</td><td>[facility]</td><td ID="Lnruky43388035Lubr1Fpxgrdbls"/> 1.1 0.2 - 1.2 06/21/2019 [facility] HEPATIC FUNCTION PANEL <td ID="Mslysr42981198Ywpn5Blsn">BILIRUBIN DIRECT</td><td><span style="flagData">0.3</span><span style="flagData"> (H)</span></td><td>< OR = 0.2 mg/dL</td><td>[facility]</td><td ID="Mwehwq26360890Xeoc5Qzjnnrtfe"/> 0.3 < OR = 0.2 06/21/2019 [facility] HEPATIC FUNCTION PANEL <td ID="[id number]">BILIRUBIN INDIRECT</td><td>0.8</td><td>0.2 - 1.2 mg/dL (calc)</td><td>[facility]</td><td ID="Ltgrjc32127345Wunz3Qnwkqstxp"/> 0.8 0.2 - 1.2 06/21/2019 [facility] HEPATIC FUNCTION PANEL <td ID="Yldgey89510637Bygz5Gcvg">ALKALINE PHOSPHATASE</td><td>95</td><td>33 - 130 U/L</td><td>[facility]</td><td ID="Fkjpso53222880Cmyn9Geagkeypc"/> 95 33 - 130 06/21/2019 [facility] HEPATIC FUNCTION PANEL <td ID="Lpdqcq18283964Ruay9Etoh">AST (SGOT)</td><td>20</td><td>10 - 35 U/L</td><td>[facility]</td><td ID="Yrijlx97001492Dgcu4Gqojaslrv"/> 20 10 - 35 06/21/2019 [facility] HEPATIC FUNCTION PANEL <td ID="Ghnbkg56176312Qfcu09Bufu">ALT (SGPT)</td><td><span>17</span><span style="allIndent"><span style="cellHeader">Comment: </span><span ID="[id number]">Performed at: [facility] [facility] [address] [address] MARS GEORGE MD </span></span></td><td>6 - 29 U/L</td><td>[facility]</td><td ID="Icyolq62519219Xozs96Qmtkmnofj"/> 17 6 - 29 06/21/2019 Performed at: [facility] [employer] [address] [address] MARS GEORGE MD [facility] HEPATIC FUNCTION PANEL <p>Perf orming Organization Information:</p><p>Site ID: NIKKIA</p><p>Name: [facility] [facility] [place]</p><p>A ddress: [address] [place] [address]</p><p>Director: MARS GEORGE MD</p> Performing Organization Information:Site ID: RGAName: [facility] [place]: [address] [place] [address]Hrqemnry: MARS GEORGE MD 06/21/2019 [facility] HEPATIC FUNCTION PANEL Lab Interpret ation Abnormal 06/21/2019 [facility] AFP TUMOR MARKER AFP 4.3 <10.0 05/10/2019 [facility] BASIC METABOLIC PANEL <td ID="Uaribw04582270Clhd7Egdd">SODIUM</td><td>137</td><td>136 - 145 meq/L</td><td>[facility]</td><td ID="Mnxdgn86968541Vhaf8Cbxhzweip"/> 137 136 - 145 05/09/2019 [facility] BASIC METABOLIC PANEL <td ID="Luladg27165808Mjcm3Utsj">POTASSIUM</td><td>4.1</td><td>3.5 - 5.1 meq/L</td><td>[facility]</td><td ID="Akobwy20566443Tqvm8Ccdsisjbn"/> 4.1 3.5 - 5.1 05/09/2019 [facility] BASIC METABOLIC PANEL <td ID="Lotamb68239968Nqve2Glfb">CHLORIDE</td><td>102</td><td>98 - 107 meq/L</td><td>[facility]</td><td ID="Lunhoe08851782Wude5Tgxhupwbm"/> 102 98 - 107 05/09/2019 [facility] BASIC METABOLIC PANEL <td ID="Ffzbjo85509332Hrkz0Zxci">CO2</td><td>26</td><td>22 - 29 meq/L</td><td>[facility]</td><td ID="Pmuccm56969480Ddhs4Fusdegohc"/> 26 22 - 29 05/09/2019 [facility] BASIC METABOLIC PANEL <td ID="Gffsji66581384Rkdv6Vnnp">BLOOD UREA NITROGEN</td><td>9</td><td>7 - 21 mg/dL</td><td>[facility]</td><td ID="Htorex42672370Pbul9Eglcwbuxl"/> 9 7 - 21 05/09/2019 [facility] BASIC METABOLIC PANEL <td ID="Ockyav15548495Xybq9Fljn">CREATININE</td><td>0.79</td><td>0.57 - 1.25 mg/dL</td><td>[facility]</td><td ID="Lcgyaz11878019Mxgf6Ipqkfnilh"/> 0.79 0.57 - 1.25 05/09/2019 [facility] BASIC METABOLIC PANEL <td ID="Cqeyrl25093472Xykz5Ppsd">GLUCOSE</td><td><span style="flagData">251</span><span style="flagData"> (H)</span></td><td>70 - 105 mg/dL</td><td>[facility]</td><td ID="Qofzib15628645Gwqr8Qtpiajkqj"/> 251 70 - 105 05/09/2019 [facility] BASIC METABOLIC PANEL <td ID="Nhzomb71229980Koxh3Clcf">CALCIUM</td><td>9.5</td><td>8.4 - 10.2 mg/dL</td><td>[facility]</td><td ID="Fucmou76273726Ktep1Lybcnrhrd"/> 9.5 8.4 - 10.2 05/09/2019 [facility] BASIC METABOLIC PANEL <td ID="Eiouev83362948Maab2Ifdj">EGFR</td><td><span>76</span><span style="allIndent"><span style="cellHeader">Comment: </span><span ID="[id number]">ESTIMATED GFR IS NOT ACCURATE CREATININE CLEARANCE IN PREDICTING GLOMERULAR FILTRATION RATE. ESTIMATED GFR IS NOT APPLICABLE FOR DIALYSIS PATIENTS.</span></span></td><td>mL/min/1.73 sq m</td><td>[facility]</td><td ID="[id number]"/> 76 mL/min/1.73 sq m 05/09/2019 ESTIMATED GFR IS NOT ACCU RATE CREATININE CLEARANCE IN PREDICTING GLOMERULAR FILTRATION RATE. ESTIMATED GFR IS NOT APPLICABLE FOR DIALYSIS PATIENTS. [facility] BASIC METABOLIC PANEL Lab Interpreta tion Abnormal 05/09/2019 [facility] Pathology Reports No Data Provided for This Section Diagnostic Reports Report Value Date Source XR FINGER RIGHT < 2 VW For res ult, please reference physician's note on the corresponding date. 02/28/2020 [facility] US ABDOMEN COMPLETE IMPRESSION :Fatty cirrhotic liver with portal hypertension and trace ascites. No focal liver lesion. Signed: Ilya Berumen MDReport Verified Date/Time: 11/27/2019 16:16:10 Reading Location: [address] Radiology Reading Room L REPORT TECHNIQUE: Grayscale ultrasound of the abdomen. [...] The liver is increased in echogenicity with sub tle nodular contour. No focal lesions. BILIARY:Gallbladder: Prior cholecystectomy.Common bile duct measures 0.7 cm, within normal limits. No intrahepatic biliary ductal dilatation. PANCREAS: The pancreas is not clearly visualized due to overlying bowel gas. SPLEEN: The spleen is prominent and measures 16.3 cm. PERITONEUM: Trace ascites. KIDNEYS: Both kidneys are normal in size. No hydronephrosis. No sonographically evident solid mass lesion. Hang, Rad Results In - 11/27/2019 4:18 PM CSTFINAL REPORT TECHNIQUE: Grayscale ultrasound of the abdomen. [...] hydronephrosis. No sonographically evident solid mass lesion. IMPRESSION IMPRESSION: Fatty cirrhotic liver with portal hypertension and trace ascites. No focal liver lesion. Signed: Ilya Berumen MD Report Verified Date/Time: 11/27/2019 16:16:10 Reading Location: [address] Radiology Reading Room 11/27/2019 [facility] XR FINGER RIGHT < 2 VW For res ult, please reference physician's note on the corresponding date. 11/21/2019 [facility] XR FINGER RIGHT < 2 VW For res ult, please reference physician's note on the corresponding date. 09/22/2019 [facility] US ANK/BRAC INDICES, SINGLE BILAT [facility] ABI Study Report Name: ANDREZ ALFARO POPN: [id number]/Encounter No:[id number]: [id number]: [id number]: FStudy Date: Aug 24, 2019Study Time: 09:58 AMReading Group: YOVANNY Joneseferring Group: Unassigned [facility] Phys: MARVIN JAZMINE MDSonographer: Iram Shields RVTLocation: Vascular Lab Study Quality: ExcellentDiagnosis Code: (I73.9) Peripheral vascular disease, unspecified(M79.605) Left leg pain(R20.0, R20.2) Numbness and tingling of both feetProcedure Code: 04189 Limited bilateral noninvasive physiologicstudies of upper or lower extremity.Indications: Focal stabbing pain to the left distal lateral lowerleg, which has resolved and now has similar pain on the left lateralupper thigh. Numbness and tingling of toes of left foot and mild inthe right great toe. ABI:Rig ht Post Post Post Rest 1 min 1 min Immed. Waveform Pressure (mmHg) (mmHg) (mmHg) (mmHg) Brachial 130 Post Tibial Triphasic 164 Dors Pedis Triphasic 154 DON 1.17 Toe Pressure 105 TBI 0.75 Left Post Post Post Rest 1 min 1 min Immed. Waveform Pressure (mmHg) (mmHg) (mmHg) (mmHg) Brachial 140 Post Tibial Triphasic 162 Dors Pedis Triphasic 158 DON 1.16 Toe Pressure 144 TBI 1.03 Fi ndings:Triphasic Doppler signals in the bilateral dorsalis pedis and distalTAMARA BRUNO 2019-08-24 Page 1 of 2Studycast - [email or web address] ABI Study Report posterior tibial arteries. Normal bilateral great toe waveforms. IMPRESSION:Nor mal Bilateral ankle brachial indices.Normal Bilateral Toe brachial indices.Approved By: Claudio Brady at: August 31, 2019 07:40 PM ESTElectronically Signed on StudyCaden CARR 2019-08-24 Page 2 of [facility] - [email or web address] [email or web address] In [employer] - 08/31/2019 6:41 PM [facility] DON Study Report Name: ANDREZ CARR Accession/Encounter No:[id number] : 1965 Age: 54 Gender: F Study Date: Aug 24, 2019 Study Time: 09:58 AM Reading Group: Claudio Davalos MD Referring Group: Unassigned [facility] Phys: JAZMINE WONG MD Sql Dba: Iram Shields RVT Location: Vascular Lab Study Quality: Excellent Diagnosis Code: (I73.9) Peripheral vascular disease, unspecified (M79.605) Left leg pain (R20.0, R20.2) Numbness and tingling of both feet Procedure Code: 99823 Limited bilateral noninvasive physiologic studies of upper or lower extremity. Indications: Focal stabbing pain to the left distal lateral lower leg, which has resolved and now has similar pain on the left lateral upper thigh. Numbness and tingling of toes of left foot and mild in the right great toe. DON: Right Post Post Post Rest 1 min 1 min Immed. Waveform Pressure (mmHg) (mmHg) (mmHg) (mmHg) Brachial 130 Post Tibial Triphasic 164 Dors Pedis Triphasic 154 DON 1.17 Toe Pressure 105 TBI 0.75 Left Post Post Post Rest 1 min 1 min Immed. Waveform Pressure (mmHg) (mmHg) (mmHg) (mmHg) Brachial 140 Post Tibial Triphasic 162 Dors Pedis Triphasic 158 DON 1.16 Toe Pressure 144 TBI 1.03 Findings: Triphasic Doppler signals in the bilateral dorsalis pedis and distal ANDREZ BRUNO 2019-08-24 Page 1 of 2 [employer] - [email or web address] [facility] DON Study Report posterior tibial arteries. Normal bilateral great toe waveforms. IMPRESSION: Normal Bilateral ankle brachial indices. Normal Bilateral Toe brachial indices. Approved By: Claudio Davalos Approved at: August 31, 2019 07:40 PM EST Electronically Signed on [employer] ANDREZ CARR 2019-08-24 Page 2 of 2 [employer] 09/01/2019 [facility] Consultation Notes No Data Provided for This Section Discharge Summaries No Data Provided for This Section History and Physicals No Data Provided for This Section Vital Signs Vital Sign Value Date Comments Source Height 167.6 cm 02/28/2020 [facility] Weight 112.946 02/28/2020 [facility] Systolic (mm Hg) 115 02/28/2020 [facility] Diastolic (mm Hg) 79 02/28/2020 [facility] Heart Rate 91 02/28/2020 [facility] Temperature Oral (F) 36.61 Rocio 02/28/2020 [facility] Height 167.6 cm 02/28/2020 [facility] Weight 112.946 02/28/2020 [facility] Systolic (mm Hg) 132 02/20/2020 [facility] Diastolic (mm Hg) 77 02/20/2020 [facility] Heart Rate 91 02/20/2020 [facility] Temperature Oral (F) 36.44 Rocio 02/20/2020 [facility] Respitory Rate 16 02/20/2020 [facility] Height 167.6 cm 02/20/2020 [facility] Weight 116.302 02/20/2020 [facility] Systolic (mm Hg) 122 12/05/2019 [facility] Diastolic (mm Hg) 69 12/05/2019 [facility] Heart Rate 78 12/05/2019 [facility] Respitory Rate 16 12/05/2019 [facility] Height 167.6 cm 12/05/2019 [facility] Weight 117.028 12/05/2019 [facility] Systolic (mm Hg) 116 12/05/2019 [facility] Diastolic (mm Hg) 77 12/05/2019 [facility] Heart Rate 76 12/05/2019 [facility] Temperature Oral (F) 36.5 Rocio 12/05/2019 [facility] Respitory Rate 18 12/05/2019 [facility] Height 167.6 cm 12/05/2019 [facility] Weight 117.3 12/05/2019 [facility] Systolic (mm Hg) 159 11/21/2019 [facility] Diastolic (mm Hg) 69 11/21/2019 [facility] Heart Rate 96 11/21/2019 [facility] Temperature Oral (F) 36.5 Rocio 11/21/2019 [facility] Respitory Rate 16 11/21/2019 [facility] Height 167.6 cm 11/21/2019 [facility] Weight 117.482 11/21/2019 [facility] Height 167.6 cm 11/21/2019 [facility] Weight 117.482 11/21/2019 [facility] Systolic (mm Hg) 134 09/27/2019 [facility] Diastolic (mm Hg) 79 09/27/2019 [facility] Heart Rate 93 09/27/2019 [facility] Height 167.6 cm 09/22/2019 [facility] Weight 122.925 09/22/2019 [facility] Respitory Rate 16 09/06/2019 [facility] Systolic (mm Hg) 126 08/24/2019 [facility] Diastolic (mm Hg) 67 08/24/2019 [facility] Heart Rate 82 08/24/2019 [facility] Height 167.6 cm 08/24/2019 [facility] Weight 121.972 08/24/2019 [facility] Systolic (mm Hg) 126 08/21/2019 [facility] Diastolic (mm Hg) 78 08/21/2019 [facility] Heart Rate 93 08/21/2019 [facility] Height 167.6 cm 08/21/2019 [facility] Weight 122.018 08/21/2019 [facility] Systolic (mm Hg) 118 07/18/2019 [facility] Diastolic (mm Hg) 73 07/18/2019 [facility] Heart Rate 95 07/18/2019 [facility] Respitory Rate 16 07/18/2019 [facility] Height 167.6 cm 07/18/2019 [facility] Weight 119.931 07/18/2019 [facility] Systolic (mm Hg) 130 06/27/2019 [facility] Diastolic (mm Hg) 70 06/27/2019 [facility] Temperature Oral (F) 36.83 Rocio 06/27/2019 [facility] Height 170.2 cm 06/27/2019 [facility] Weight 121.564 06/27/2019 [facility] Encounters Location Location Details Encounter Type Encounter Number Reason For Visit Attending Provider ADM Date DC Date Status Source [facility] Endocrinology Office Visit [id number] Sekou Soria MD 05/02/2019 05/02/2019 [facility] Hepatology Orders Only [id number] Myah Torres PA-C 05/09/2019 [facility] Rheumatology Orders Only [id number] Carol Chopra MD 2018 [facility] Rheumatology Orders Only [id number] Lyssa Barbosa RN, BSN 05/31/20 [facility] Gastroenterology Orders Only [id number] Santiago Easley MD 06/02/2019 [facility] Rheumatology Telephone [id number] Carol Chopra MD 2018 [facility] Neurology Telephone [id number] Claribel Kinney MD 06/13/2019 [facility] Rheumatology Refill [id number] Christina Gamez MD 06/15/2019 [facility] Hepatology Orders Only [id number] Kristal Erwin PA-C 06/20/2019 [facility] Gastroenterology Orders Only [id number] Historical Provider 06/26/2019 [facility] Gastroenterology Telephone [id number] Santiago Easley MD 06/26/2019 [facility] Gastroenterology Office Visit [id number] Roque Sierra MD 06/27/2019 06/28/2019 [facility] Hepatology Orders Only [id number] Fidencio Sumner MD 06/29/2019 [facility] Endocrinology Telephone [id number] Sekou Soria MD 06/29/2019 [facility] Endocrinology Telephone [id number] Sekou Soria MD 07/05/2019 [facility] Rheumatology Orders Only [id number] Carol Chopra MD 2018 [facility] Gastroenterology Orders Only [id number] Roque Sierra MD 07/10/2019 [facility] Gastroenterology Telephone [id number] Roque Sierra MD 07/13/2019 [facility] Gastroenterology Orders Only [id number] Roque Sierra MD 07/13/2019 [facility] Rheumatology Refill [id number] Christina Gamez MD 07/14/2019 [facility] Gastroenterology Telephone [id number] Roque Sierra MD 07/18/2019 [facility] Gastroenterology Orders Only [id number] Roque Sierra MD 07/18/2019 [facility] Vascular Surgery Telephone [id number] Jazmine Wong MD [facility] Rheumatology Refill [id number] Carol Chopra MD 2018 [facility] Endocrinology Office Visit [id number] Sekou Soria MD 08/21/2019 08/21/2019 [facility] Vascular Surgery Orders Only [id number] Jazmine Wong MD 08/23/2019 [facility] Vascular Surgery Abstract [id number] Jazmine Wong MD 9 [facility] Vascular Surgery Abstract [id number] Jazmine Wong MD 9 [facility] Vascular Surgery Abstract [id number] Jazmine Wong MD 9 [facility] Vascular Surgery Ancillary Procedure [id number] 08/24/2008/24/2019 [facility] Vascular Surgery Office Visit [id number] Jazmine Wong MD 08/24/2019 08/24/2019 [facility] Rheumatology Telephone [id number] Carol Chopra MD 2018 [facility] Rheumatology Orders Only [id number] Carol Chopra MD 2018 [facility] Vascular Surgery Abstract [id number] Jazmine Wong MD 9 [facility] Vascular Surgery Abstract [id number] Jazmine Wong MD 9 [facility] Gastroenterology Telephone [id number] Roque Sierra MD 09/06/2019 [facility] Rheumatology Office Visit [id number] Carol Chopra MD 201809/06/2019 [facility] Rheumatology Telephone [id number] Carol Chopra MD 2018 [facility] Neurology Telephone [id number] [facility] 09/12/2019 [facility] Rheumatology Telephone [id number] Carol Chopra MD 2018 [facility] Neurology Office Visit [id number] Leonard Galvan MD 09/19/2019 09/19/2019 [facility] Orthopedic Surgery Office Visit [id number] Mavis MCKEON 09/22/2019 09/25/2019 [facility] Rheumatology Telephone [id number] Carol Chopra MD 2018 [facility] Rheumatology Telephone [id number] Carol Chopra MD 2018 [facility] Neurology Clinical Support [id number] Mirian Pearson 9 09/27/2019 [facility] Rheumatology Telephone [id number] Carol Chopra MD 2018 [facility] Rheumatology Telephone [id number] Carol Chopra MD 2018 [facility] Gastroenterology Telephone [id number] Roque Sierra MD 10/19/2019 [facility] Ophthalmology Office Visit [id number] Angela Zaman MD 10/24/2019 10/24/2019 [facility] Rheumatology Refill [id number] Carol Chopra MD 2019 [facility] Gastroenterology Telephone [id number] Roque Sierra MD 10/30/2019 [facility] Gastroenterology Telephone [id number] Roque Sierra MD 11/10/2019 [facility] Gastroenterology Telephone [id number] Roque Sierra MD 11/13/2019 [facility] Gastroenterology Telephone [id number] Roque Sierra MD 11/17/2019 [facility] Gastroenterology Refill [id number] Roque Sierra MD 11/18/2019 [facility] Orthopedic Surgery Office Visit [id number] Mavis MCKEON 11/21/2019 11/21/2019 [facility] Gastroenterology Office Visit [id number] Roque Sierra MD 11/21/2019 11/21/2019 [facility] Hepatology Orders Only [id number] Kristal Erwin PA-C 11/22/2019 [facility] Gastroenterology Telephone [id number] Roque Sierra MD 11/22/2019 [facility] Hepatology Orders Only [id number] Fidencio Sumner MD 11/22/2019 [facility] Hepatology Orders Only [id number] Fidencio Sumner MD 11/27/2019 [facility] Gastroenterology Telephone [id number] Roque Sierra MD 12/04/2019 [facility] Gastroenterology Telephone [id number] Roque Sierra MD 12/05/2019 [facility] Rheumatology Office Visit [id number] Carol Chopra MD 201912/05/2019 [facility] Rheumatology Office Visit [id number] Carol Chopra MD 201902/20/2020 [facility] Miki Downey [facility] Office Visit [id number] Michael Keller MD 02/28/2020 02/28/2020 [facility] Orthopedic Surgery Office Visit [id number] Lee Holden MD 02/28/2020 02/28/2020 [facility] Procedures Procedure Code Date Perfomer Comments Source US ABDOMEN COMPLETE 38002 11/28/2019 [facility] PROTIME-INR 36417 11/23/2019 [facility] HEPATIC FUNCTION PANEL 83665 11/23/2019 [facility] BASIC METABOLIC PANEL 79473 11/23/2019 [facility] AFP TUMOR MARKER 24236 11/23/2019 [facility] HEPATITIS B SURFACE ANTIGEN 87 340 11/23/2019 [facility] HEPATITIS B SURFACE AB QUAL NO CPT 11/23/2019 [facility] HEPATITIS B VIRAL DNA QUANT PCR NOCPT 11/23/2019 [facility] CLOSTRIDIUM DIFFICILE TOXIN/GDH WITH REFLEX TO PCR 00783 11/11/2019 [facility] ([facility]) SCANNED ORDER NOCPT 11/09/2019 [facility] OCT, RETINA - OU - BOTH EYES 9 2134 10/25/2019 [facility] XR FINGER RIGHT < 2 VW 00263 09/22/2019 [facility] SEDIMENTATION RATE MODIFIED WESTERGREN 39172 09/06/2019 [facility] C-REACTIVE PROTEIN 80076 09/06/2019 [facility] CBC W/AUTO DIFF WITH PLATELETS 03225 09/06/2019 [facility] CRYOGLOBULIN 84588 09/06/2019 [facility] COMPLEMENT C3 AND C4 NOCPT 09/06/2019 [facility] ANTI NEUTROPHIL CYTOPLASMIC ANTIBODY 01921 09/06/2019 [facility] COMPREHENSIVE METABOLIC PANEL 18471 09/06/2019 [place] [address] [facility] US ANK/BRAC INDICES, SINGLE BILAT 84125 08/24/2019 [facility] LIPID PANEL 80357 08/22/2019 [facility] MICROALBUMIN/CREAT URINE RATIO 92797 08/22/2019 [facility] POCT HEMOGLOBIN A1C 34349 08/22/2019 [facility] CELIAC DISEASE COMPREHENSIVE([facility]) NOCPT 07/10/2019 [facility] POCT GLUCOSE 21553 06/29/2019 Taisha [facility] BASIC METABOLIC PROFILE + E-GFR NOCPT 06/20/2019 Yaima [facility] PATHOLOGY TISSUE 04980 06/02/2019 Tracee [facility] ([facility]) GI PROCEDURE NOCPT 06/02/2019 Provider [facility] Assessment and Plan No Data Provided for This Section Plan of Care Plan of Care Date Source COLON CANCER SCREENING: COLONOSCOPY 06/29/2029 [facility] COLON CANCER SCREENING: COLONOSCOPY 05/12/2028 [facility] NM GASTRIC EMPTYING SOLID Imaging Routine Nausea and vomiting, intractability of vomiting not specified, unspecified vomiting type 1 Occurrences starting 06/27/2019 until 12/25/2020 12/25/2020 [facility] ANNUAL DIABETIC RETINOPATHY SCREENING 10/24/2020 [facility] FLU VACCINE > 6 MONTHS 020 [facility] Upcoming EncountersDateTypeSpecialtyCare TeamDescription 03/04/2020 Clinical Support Gastroenterology Roque Sierra MD[address] [phone]) 03/06/2020 Office Visit Hematology and Oncology Sly Upton MD[address] [phone] (Fax) 03/14/2020 Appointment Orthopedic Surgery Lee Holden III, MD[address] [place] [address] [phone] (Fax) 03/27/2020 Office Visit Gynecology Oncology Michael Keller MD[address] [place] [address] [phone] (Fax) 03/27/2020 Office Visit Orthopedic Surgery Lee Holden III, MD[address] [place] [address] [phone] (Fax) 04/17/2020 Office Visit Rheumatology Carol Chopra MD[address] [place] [address] [phone] (Fax) 04/30/2020 Office Visit Gastroenterology Hazel Nava, NS[address] [phone] (Fax) Scheduled OrdersNameTypePriorityAssociated DiagnosesOrder Schedule ORT - XR FINGER RIGHT 2V ( CHARGE ONLY) NC Charge Routine Finger pain, right Ordered: 02/28/2020 Health MaintenanceDue DateLast DoneComments COLON CANCER SCREENING: COLONOSCOPY 1965 MAMMOGRAM ANNUAL 1965 TETANUS SHOT (ADULT) 01/20/1979 ANNUAL DIABETIC FOOT EXAM 01/20/1982 BMI FOLLOW UP PLAN 01/20/1982 HIV SCREENING 01/20/1982 CERVICAL CANCER SCREENING 3 YEAR FOLLOW UP 01/20/1985 A1C TESTING EVERY 6 MONTHS 02/19/2020 08/21/2019 FLU VACCINE > 6 MONTHS 05/18/2020 08/18/2019, 07/27/2019, 11/18/2018 ANNUAL DIABETIC RETINOPATHY SCREENING 10/24/2020 10/24/2019 HEPATITIS C SCREENING Completed 05/06/2018 documented as of this encounter 02/28/2020 [facility] ORT - XR FINGER RIGHT 2V ( CHARGE ONLY) NC Charge Routine Finger pain, right Ordered: 02/28/2020 02/28/2020 [facility] Upcoming EncountersDateTypeSpecialtyCare TeamDescription 02/28/2020 Office Visit Orthopedic Surgery Lee Holden III, MD[address] [phone] (Fax) 03/04/2020 Clinical Support Gastroenterology Roque Sierra MD[address] [phone]) 03/06/2020 Office Visit Hematology and Oncology Sly Upton MD[address] [phone]) 03/27/2020 Office Visit Gynecology Oncology Michael Keller MD[address] [phone] (Fax) 04/17/2020 Office Visit Rheumatology Carol Chopra MD[address] [place] [address] [phone] (Fax) 04/30/2020 Office Visit Gastroenterology Hazel Nava, UJ[address] [phone] (Fax) Scheduled OrdersNameTypePriorityAssociated DiagnosesOrder Schedule PAP SMEAR - IMAGE GUIDED - NON MEDICARE Lab Routine Vaginal itchingHealthcare maintenance Ordered: 02/28/2020 HPV HIGH RISK Lab Routine Vaginal itchingHealthcare maintenance Ordered: 02/28/2020 WET PREP W/ TRICH CULT REFLEX Microbiology Routine Vaginal itchingHealthcare maintenance Ordered: 02/28/2020 VAGINAL PATHOGEN DNA PANEL Lab Routine Vaginal itchingHealthcare maintenance Ordered: 02/28/2020 Health MaintenanceDue DateLast DoneComments COLON CANCER SCREENING: COLONOSCOPY 1965 MAMMOGRAM ANNUAL 1964 TETANUS SHOT (ADULT) 01/20/1979 ANNUAL DIABETIC FOOT EXAM 01/20/1982 BMI FOLLOW UP PLAN 01/20/1982 HIV SCREENING 01/20/1982 CERVICAL CANCER SCREENING 3 YEAR FOLLOW UP 01/20/1985 A1C TESTING EVERY 6 MONTHS 02/19/2020 08/21/2019 FLU VACCINE > 6 MONTHS 05/18/2020 08/18/2019, 07/27/2019, 11/18/2018 ANNUAL DIABETIC RETINOPATHY SCREENING 10/24/2020 10/24/2019 HEPATITIS C SCREENING Completed 05/06/2018 documented as of this encounter 02/28/2020 [facility] PAP SMEAR - IMAGE GUIDED - NON MEDICARE Lab Routine Vaginal itchingHealthcare maintenance Ordered: 02/28/2020 02/28/2020 [facility] HPV HIGH RISK Lab Routine Vaginal itchingHealthcare maintenance Ordered: 02/28/2020 02/28/2020 [facility] WET PREP W/ TRICH CULT REFLEX Microbiology Routine Vaginal itchingHealthcare maintenance Ordered: 02/28/2020 02/28/2020 [facility] VAGINAL PATHOGEN DNA PANEL Lab Routine Vaginal itchingHealthcare maintenance Ordered: 02/28/2020 02/28/2020 [facility] Upcoming EncountersDateTypeSpecialtyCare TeamDescription 02/27/2020 Office Visit Gastroenterology Ramón Gomes, IxW[address] [phone] (Fax) 02/28/2020 Office Visit Gynecology Oncology Michael Keller MD[address] [phone] (Fax) 03/04/2020 Clinical Support Gastroenterology Roque Sierra MD[address] [phone]) 03/06/2020 Office Visit Hematology and Oncology Sly Upton MD[address] [phone]) 04/17/2020 Office Visit Rheumatology Carol Chopra MD7[address] [place], [place] [phone] (Fax) 04/30/2020 Office Visit Gastroenterology Hazel Nava, IP[address] [phone] (Fax) [facility] DateLast DoneComments COLON CANCER SCREENING: COLONOSCOPY 1964 MAMMOGRAM ANNUAL 1964 TETANUS SHOT (ADULT) 01/20/1979 ANNUAL DIABETIC FOOT EXAM 01/20/1982 BMI FOLLOW UP PLAN 01/20/1982 HIV SCREENING 01/20/1982 CERVICAL CANCER SCREENING 3 YEAR FOLLOW UP 01/20/1985 A1C TESTING EVERY 6 MONTHS 02/19/2020 08/21/2019 FLU VACCINE > 6 MONTHS 05/18/2020 08/18/2019, 07/27/2019, 11/18/2018 ANNUAL DIABETIC RETINOPATHY SCREENING 10/24/2020 10/24/2019 HEPATITIS C SCREENING Completed 05/06/2018 documented as of this encounter 02/20/2020 [facility] A1C TESTING EVERY 6 MONTHS 01/2020 [facility] Upcoming EncountersDateTypeSpecialtyCare TeamDescription 12/08/2019 Procedure visit Gastroenterology Roque Sierra MD[address] [phone] (Fax) 12/11/2019 Office Visit Gastroenterology Roque Sierra MD[address] [phone] (Fax) 04/17/2020 Office Visit Rheumatology Carol Chopra MD7200 [place], [place] [phone] (Fax) [facility] DateLast DoneComments COLON CANCER SCREENING: COLONOSCOPY 1964 MAMMOGRAM ANNUAL 1964 TETANUS SHOT (ADULT) 01/20/1979 ANNUAL DIABETIC FOOT EXAM 01/20/1982 BMI FOLLOW UP PLAN 01/20/1982 HIV SCREENING 01/20/1982 CERVICAL CANCER SCREENING 3 YEAR FOLLOW UP 01/20/1985 A1C TESTING EVERY 6 MONTHS 02/19/2020 08/21/2019 ANNUAL DIABETIC RETINOPATHY SCREENING 10/24/2020 10/24/2019 HEPATITIS C SCREENING Completed 05/06/2018 FLU VACCINE > 6 MONTHS Completed 08/18/2019, 07/27/2019, 11/18/2018 12/06/2019 [facility] Upcoming EncountersDateTypeSpecialtyCare TeamDescription 12/08/2019 Procedure visit Gastroenterology Roque Sierra MD[address] [phone] (Fax) 12/11/2019 Office Visit Gastroenterology Roque Sierra MD[address] [phone] (Fax) 01/02/2020 Office Visit Psychiatry Franki Lugo MD[address] [facility] PsychDam[place], [place] [phone] 01/02/2020 Appointment Psychiatry 04/17/2020 Office Visit Rheumatology Carol Chopra MD7[address] [place], [place] [phone] (Fax) Scheduled OrdersNameTypePriorityAssociated DiagnosesOrder Schedule [employer] Routine Osteoarthritis, unspecified osteoarthritis type, unspecified siteEncounter for long-term (current) use of high-risk medication Ordered: 12/05/2019 Health MaintenanceDue DateLast DoneComments COLON CANCER SCREENING: COLONOSCOPY 1964 MAMMOGRAM ANNUAL 1964 TETANUS SHOT (ADULT) 01/20/1979 ANNUAL DIABETIC FOOT EXAM 01/20/1982 BMI FOLLOW UP PLAN 01/20/1982 HIV SCREENING 01/20/1982 CERVICAL CANCER SCREENING 3 YEAR FOLLOW UP 01/20/1985 A1C TESTING EVERY 6 MONTHS 02/19/2020 08/21/2019 ANNUAL DIABETIC RETINOPATHY SCREENING 10/24/2020 10/24/2019 HEPATITIS C SCREENING Completed 05/06/2018 FLU VACCINE > 6 MONTHS Completed 08/18/2019, 07/27/2019, 11/18/2018 documented as of this encounter 12/05/2019 [facility] [employer] Routine Osteoarthritis, unspecified osteoarthritis type, unspecified siteEncounter for long-term (current) use of high-risk medication Ordered: 12/05/2019 12/05/2019 [facility] Upcoming EncountersDateTypeSpecialtyCare TeamDescription 12/05/2019 Office Visit Rheumatology Carol Chopra MD7200 [place], [place] [phone] (Fax) 12/11/2019 Office Visit Gastroenterology Roque Sierra MD[address] [phone] (Fax) Health MaintenanceDue DateLast DoneComments COLON CANCER SCREENING: COLONOSCOPY 1964 MAMMOGRAM ANNUAL 1964 TETANUS SHOT (ADULT) 01/20/1979 ANNUAL DIABETIC FOOT EXAM 01/20/1982 BMI FOLLOW UP PLAN 01/20/1982 HIV SCREENING 01/20/1982 CERVICAL CANCER SCREENING 3 YEAR FOLLOW UP 01/20/1985 A1C TESTING EVERY 6 MONTHS 02/19/2020 08/21/2019 ANNUAL DIABETIC RETINOPATHY SCREENING 10/24/2020 10/24/2019 HEPATITIS C SCREENING Completed 05/06/2018 FLU VACCINE > 6 MONTHS Completed 08/18/2019, 07/27/2019, 11/18/2018 11/23/2019 [facility] Upcoming EncountersDateTypeSpecialtyCare TeamDescription 12/05/2019 Office Visit Rheumatology Carol Chopra MD7200 [place], [place] [phone] (Fax) 12/05/2019 Office Visit Psychiatry Franki Lugo MD[address] [facility] [place] [phone] 12/05/2019 Appointment Psychiatry 12/11/2019 Office Visit Gastroenterology Roque Sierra MD[address] [phone]) 01/02/2020 Office Visit Psychiatry Franki Lugo MD[address] LoopDepartment of Psychiarty- [place] [phone] 01/02/2020 Appointment Psychiatry Scheduled ReferralsNameTypePriorityAssociated DiagnosesOrder Schedule AMB REF TO GI [facility] Outpatient Referral Routine Bloating Ordered: 11/21/2019 AMB REF TO [facility] Outpatient Referral Routine Epigastric pain Ordered: 11/21/2019 AMB REFERRAL TO HEMATOLOGY ONCOLOGY [facility] Outpatient Referral Routine History of DVT (deep vein thrombosis)Chronic anticoagulation Ordered: 11/21/2019 Health MaintenanceDue DateLast DoneComments COLON CANCER SCREENING: COLONOSCOPY 1965 MAMMOGRAM ANNUAL 1965 TETANUS SHOT (ADULT) 01/20/1979 ANNUAL DIABETIC FOOT EXAM 01/20/1982 BMI FOLLOW UP PLAN 01/20/1982 HIV SCREENING 01/20/1982 CERVICAL CANCER SCREENING 3 YEAR FOLLOW UP 01/20/1985 A1C TESTING EVERY 6 MONTHS 02/19/2020 08/21/2019 ANNUAL DIABETIC RETINOPATHY SCREENING 10/24/2020 10/24/2019 HEPATITIS C SCREENING Completed 05/06/2018 FLU VACCINE > 6 MONTHS Completed 08/18/2019, 07/27/2019, 11/18/2018 documented as of this encounter 11/21/2019 [facility] Upcoming EncountersDateTypeSpecialtyCare TeamDescription 11/29/2019 Office Visit Neuropsychology Carmenza Barnes, StH[address] [phone]) 12/05/2019 Office Visit Rheumatology Carol Chopra MD7200 [place], [place] [phone]) 12/05/2019 Office Visit Psychiatry Franki Lugo MD15[address] LoopDepartment [place] [phone] 12/05/2019 Appointment Psychiatry 12/11/2019 Office Visit Gastroenterology Roque Sierra MD[address] [phone]) 01/02/2020 Office Visit Psychiatry Franki Lugo MD15[address] LoopDepartment of [place], [place] [phone] 01/02/2020 Appointment Psychiatry Scheduled OrdersNameTypePriorityAssociated DiagnosesOrder Schedule ORT - XR FINGER RIGHT 2V ( CHARGE ONLY) NC Charge Routine Finger pain, rightFlexor tenosynovitis of finger Ordered: 11/21/2019 Scheduled ReferralsNameTypePriorityAssociated DiagnosesOrder Schedule AMB REF TO OCC THERAPY EXTERNAL Outpatient Referral Routine Finger pain, right [facility]: [facility] DateLast DoneComments COLON CANCER SCREENING: COLONOSCOPY 1965 MAMMOGRAM ANNUAL 1965 TETANUS SHOT (ADULT) 01/20/1979 ANNUAL DIABETIC FOOT EXAM 01/20/1982 BMI FOLLOW UP PLAN 01/20/1982 HIV SCREENING 01/20/1982 CERVICAL CANCER SCREENING 3 YEAR FOLLOW UP 01/20/1985 A1C TESTING EVERY 6 MONTHS 02/19/2020 08/21/2019 ANNUAL DIABETIC RETINOPATHY SCREENING 10/24/2020 10/24/2019 HEPATITIS C SCREENING Completed 05/06/2018 FLU VACCINE > 6 MONTHS Completed 08/18/2019, 07/27/2019, 11/18/2018 documented as of this encounter 11/21/2019 [facility] ORT - XR FINGER RIGHT 2V ( CHARGE ONLY) NC Charge Routine Finger pain, rightFlexor tenosynovitis of finger Ordered: 11/21/2019 11/21/2019 [facility] Upcoming EncountersDateTypeSpecialtyCare TeamDescription 11/21/2019 Office Visit Orthopedic Surgery Mavis Islas, HJX[address] [phone]) 12/05/2019 Office Visit Rheumatology Carol Chopra MD7200 [place], [place] [phone]) 12/11/2019 Office Visit Gastroenterology Roque Sierra MD[address] [phone]) Health MaintenanceDue DateLast DoneComments COLON CANCER SCREENING: COLONOSCOPY 1965 MAMMOGRAM ANNUAL 1964 TETANUS SHOT (ADULT) 01/20/1979 ANNUAL DIABETIC FOOT EXAM 01/20/1982 BMI FOLLOW UP PLAN 01/20/1982 HIV SCREENING 01/20/1982 CERVICAL CANCER SCREENING 3 YEAR FOLLOW UP 01/20/1985 A1C TESTING EVERY 6 MONTHS 02/19/2020 08/21/2019 ANNUAL DIABETIC RETINOPATHY SCREENING 10/24/2020 10/24/2019 HEPATITIS C SCREENING Completed 05/06/2018 FLU VACCINE > 6 MONTHS Completed 08/18/2019, 07/27/2019, 11/18/2018 11/17/2019 [facility] Upcoming EncountersDateTypeSpecialtyCare TeamDescription 09/19/2019 Office Visit Neurology Leonard Galvan MD[address] [phone] (Fax) Scheduled ReferralsNameTypePriorityAssociated DiagnosesOrder Schedule AMB REF TO PHYSICAL MED REHAB [facility] Outpatient Referral Routine Back pain, unspecified back location, unspecified back pain laterality, unspecified chronicity Ordered: 08/24/2019 Health MaintenanceDue DateLast DoneComments MAMMOGRAM ANNUAL 1964 TETANUS SHOT (ADULT) 01/20/1979 ANNUAL DIABETIC FOOT EXAM 01/20/1982 ANNUAL DIABETIC RETINOPATHY SCREENING 01/20/1982 BMI FOLLOW UP PLAN 01/20/1982 HIV SCREENING 01/20/1982 CERVICAL CANCER SCREENING 3 YEAR FOLLOW UP 01/20/1985 FLU VACCINE > 6 MONTHS 05/18/2019 11/18/2018 A1C TESTING EVERY 6 MONTHS 02/19/2020 08/21/2019 COLON CANCER SCREENING: COLONOSCOPY 06/29/2029 06/29/2019 HEPATITIS C SCREENING Completed 05/06/2018 documented as of this encounter 08/24/2019 [facility] Upcoming EncountersDateTypeSpecialtyCare TeamDescription 08/24/2019 Office Visit Vascular Surgery Jazmine Wong MD[address] [phone]) 09/19/2019 Office Visit Neurology Leonard Galvan MD[address] [phone] (Fax) Scheduled OrdersNameTypePriorityAssociated DiagnosesOrder Schedule LIPID PANEL Lab Routine Insulin dependent type 2 diabetes mellitus (HCCode) Ordered: 08/21/2019 MICROALBUMIN/CREAT URINE RATIO Lab Routine Insulin dependent type 2 diabetes mellitus (HCCode) Ordered: 08/21/2019 Scheduled ReferralsNameTypePriorityAssociated DiagnosesOrder Schedule AMB REF TO OPHTHALMOLOGY [facility] Outpatient Referral Routine Insulin dependent type 2 diabetes mellitus (HCCode) Ordered: 08/21/2019 Health MaintenanceDue DateLast DoneComments A1C TESTING EVERY 6 MONTHS 1964 MAMMOGRAM ANNUAL 1964 TETANUS SHOT (ADULT) 01/20/1979 ANNUAL DIABETIC FOOT EXAM 01/20/1982 ANNUAL DIABETIC RETINOPATHY SCREENING 01/20/1982 BMI FOLLOW UP PLAN 01/20/1982 HIV SCREENING 01/20/1982 CERVICAL CANCER SCREENING 3 YEAR FOLLOW UP 01/20/1985 FLU VACCINE > 6 MONTHS 05/18/2019 11/18/2018 COLON CANCER SCREENING: COLONOSCOPY 06/29/2029 06/29/2019, 05/12/2018 HEPATITIS C SCREENING Completed 05/06/2018 documented as of this encounter 08/21/2019 [facility] LIPID PANEL Lab Routine Insulin dependent type 2 diabetes mellitus (HCCode) Ordered: 08/21/2019 08/21/2019 [facility] MICROALBUMIN/CREAT URINE RATIO Lab Routine Insulin dependent type 2 diabetes mellitus (HCCode) Ordered: 08/21/2019 08/21/2019 [facility] Upcoming EncountersDateTypeSpecialtyCare TeamDescription 08/21/2019 Office Visit Endocrinology Sekou Soria MD7200 [facility] [facility], [address] [place] [address] [phone]) 09/19/2019 Office Visit Neurology Leonard Galvan MD[address] [phone] (Fax) Health MaintenanceDu DateLast DoneComments A1C TESTING EVERY 6 MONTHS 1965 MAMMOGRAM ANNUAL 1964 TETANUS SHOT (ADULT) 01/20/1979 ANNUAL DIABETIC FOOT EXAM 01/20/1982 ANNUAL DIABETIC RETINOPATHY SCREENING 01/20/1982 BMI FOLLOW UP PLAN 01/20/1982 HIV SCREENING 01/20/1982 CERVICAL CANCER SCREENING 3 YEAR FOLLOW UP 01/20/1985 FLU VACCINE > 6 MONTHS 07/19/2019 11/18/2018 Postponed from 05/18/2019 (Other) COLON CANCER SCREENING: COLONOSCOPY 05/12/2028 05/12/2018 HEPATITIS C SCREENING Completed 05/06/2018 07/19/2019 [facility] FLU VACCINE > 6 MONTHS 019 [facility] Upcoming EncountersDateTypeSpecialtyCare TeamDescription 06/29/2019 [facility] Hepatology Fidencio Sumner MD[address], [place] [phone] 08/21/2019 Office Visit Endocrinology Sekou Soria MD[address], [address] [place] [address] [phone]) 09/19/2019 Office Visit Neurology Leonard Galvan MD[address] [phone]) Scheduled OrdersNameTypePriorityAssociated DiagnosesOrder Schedule CELIAC DISEASE PANEL Lab Routine Abdominal bloatingPositive autoantibody screening for celiac disease Ordered: 06/27/2019 IGA Lab Routine Abdominal bloatingPositive autoantibody screening for celiac disease Ordered: 06/27/2019 C-REACTIVE PROTEIN Lab Routine Positive autoantibody screening for celiac diseaseElevated C-reactive protein (CRP) Ordered: 06/27/2019 SEDIMENTATION RATE MODIFIED WESTERGREN Lab Routine Positive autoantibody screening for celiac diseaseElevated C-reactive protein (CRP) Ordered: 06/27/2019 CALPROTECTIN, FECAL Lab Routine Alternating constipation and diarrhea Ordered: 06/27/2019 PANCREATIC ELASTASE - FECAL Lab Routine Alternating constipation and diarrhea Ordered: 06/27/2019 NM GASTRIC EMPTYING SOLID Imaging Routine Nausea and vomiting, intractability of vomiting not specified, unspecified vomiting type 1 Occurrences starting 06/27/2019 until 12/25/2020 Health MaintenanceDue DateLast DoneComments A1C TESTING EVERY 6 MONTHS 1965 COLON CANCER SCREENING: COLONOSCOPY 1964 MAMMOGRAM ANNUAL 1964 TETANUS SHOT (ADULT) 01/20/1979 ANNUAL DIABETIC FOOT EXAM 01/20/1982 ANNUAL DIABETIC RETINOPATHY SCREENING 01/20/1982 BMI FOLLOW UP PLAN 01/20/1982 HIV SCREENING 01/20/1982 CERVICAL CANCER SCREENING 3 YEAR FOLLOW UP 01/20/1985 FLU VACCINE > 6 MONTHS 05/18/2019 11/18/2018 HEPATITIS C SCREENING Completed 05/06/2018 documented as of this encounter 06/27/2019 [facility] CELIAC DISEASE PANEL Lab Routine Abdominal bloatingPositive autoantibody screening for celiac disease Ordered: 06/27/2019 06/27/2019 [facility] IGA Lab Routine Abdominal bloatingPositive autoantibody screening for celiac disease Ordered: 06/27/2019 06/27/2019 [facility] C-REACTIVE PROTEIN Lab Routine Positive autoantibody screening for celiac diseaseElevated C-reactive protein (CRP) Ordered: 06/27/2019 06/27/2019 [facility] SEDIMENTATION RATE MODIFIED WESTERGREN Lab Routine Positive autoantibody screening for celiac diseaseElevated C-reactive protein (CRP) Ordered: 06/27/2019 06/27/2019 [facility] CALPROTECTIN, FECAL Lab Routine Alternating constipation and diarrhea Ordered: 06/27/2019 06/27/2019 [facility] PANCREATIC ELASTASE - FECAL Lab Routine Alternating constipation and diarrhea Ordered: 06/27/2019 06/27/2019 [facility] FLU VACCINE > 6 MONTHS 019 [facility] CERVICAL CANCER SCREENING 3 YEAR FOLLOW UP 01/20/1985 [facility] ANNUAL DIABETIC FOOT EXAM 02/1982 [facility] BMI FOLLOW UP PLAN 01/20/1982 [facility] TETANUS SHOT (ADULT) 01/20/1979 [facility] COLON CANCER SCREENING: COLONOSCOPY 1964 [facility] Social History Social History Date Source Tobacco UseTypesPacks/DayYears UsedDate Former Smoker Quit: 11/2014 Smokeless Tobacco: Never Used Alcohol UseDrinks/Weekoz/WeekComments Not Currently 1 Glasses of wine 1.0 hasn't had a drink since 2013 Alcohol HabitsAnswerDate Recorded How often do you have a drink containing alcohol? Never 11/30/2018 How many drinks containing alcohol do you have on a typical day when you are drinking? Not asked How often do you have six or more drinks on one occasion? 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 COVID-19 ExposureResponseDate Recorded In the last month, have you been in contact with someone who was confirmed or suspected to have Coronavirus / COVID-19? No / Unsure 02/28/2020 10:50 AM CDT documented as of this encounter 02/28/2020 [facility] Family History Value Date S ource Medical HistoryRelationNameComments Depression Father Diabetes Father High Blood Pressure Father High Cholesterol Father Prostate Cancer Father Prostate Cancer Maternal Grandfather Stroke Maternal Grandmother Depression Mother Heart Attack Mother High Blood Pressure Mother High Cholesterol Mother RelationNameStatusComments Father Maternal Grandfather Maternal Grandmother Mother 12/06/2019 [facility] Medical HistoryRelationNameComments Depression Father Diabetes Father High Blood Pressure Father High Cholesterol Father Prostate Cancer Father Prostate Cancer Maternal Grandfather Stroke Maternal Grandmother Depression Mother Heart Attack Mother High Blood Pressure Mother High Cholesterol Mother RelationNameStatusComments Father Maternal Grandfather Maternal Grandmother Mother 11/23/2019 [facility] Medical HistoryRelationNameComments Depression Father Diabetes Father High Blood Pressure Father High Cholesterol Father Prostate Cancer Father Prostate Cancer Maternal Grandfather Stroke Maternal Grandmother Depression Mother Heart Attack Mother High Blood Pressure Mother High Cholesterol Mother RelationNameStatusComments Father Maternal Grandfather Maternal Grandmother Mother 11/17/2019 [facility] Medical HistoryRelationNameComments Depression Father Diabetes Father High Blood Pressure Father High Cholesterol Father Prostate Cancer Father Prostate Cancer Maternal Grandfather Stroke Maternal Grandmother Depression Mother Heart Attack Mother High Blood Pressure Mother High Cholesterol Mother RelationNameStatusComments Father Maternal Grandfather Maternal Grandmother Mother 07/19/2019 [facility] Advance Directives No Data Provided for This Section Functional Status No Data Provided for This Section
--- OUTSIDE RECORDS SUMMARY | 2020-03-24 22:26 | XMS REPORT | Summary of Care ---
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 Role Phone Mulu Flanagan PCP Reason for Visit * Reason Comments Vaginal Itching Encounter Details Care Team Description Date Type Department Michael Keller MD [address] [place], [place] [id number] Vaginal Itching 02/28/2020 Office Visit [facility] [address] [place], [place] [id number] Allergies Comments Active Allergy Reactions Severity Noted Date Adhesive Tape "makes me sick" Cephalexin Other (See Low 08/29/2009 Comments) Hydromorphone Hcl Doxycycline Low 07/21/2018 " makes me sick" Doxycycline Hyclate 05/06/2018 Dapagliflozin Itching, Rash 11/30/2018 Became very violent Other reaction(s): Other (See Comments) hallucination hallucination Hydromorphone Other (See High 05/06/2018 Comments), Hallucination s documented as of this encounter (statuses as of 02/28/2020) Medications End Date Status Medication Sig Dispensed Refills Start Date Active warfarin (COUMADIN) 3 MG Tues,Thurs,Sa 0 01/18 tabletIndications: Finger t,Sun 8 pain, left Active levothyroxine (SYNTHROID) 0 125 MCG 8 tabletIndications: Finger pain, left Active warfarin (COUMADIN) 4 MG every Wednesday, 0 01/18 tabletIndications: Finger Wednesday, 8 pain, left Wednesday. Active carvedilol (COREG) 6.25 Take 6.25 mg 0 MG tabletIndications: by mouth 2 Finger pain, left times daily (with meals). Active atorvastatin (LIPITOR) 40 Take 40 mg by 0 MG tablet mouth daily. Active ferrous sulfate 325 (65 ferrous 0 Fe) MG tablet sulfate 325 mg (65 mg iron) tablet Active NOVOLOG FLEXPEN 100 Inject 35-40 15 Pen 3 08/21 UNIT/ML SOPN Units into 9 the skin 3 times daily (with meals). Additional Information Patient taking differently: 35-40 Units Subcutaneous 3 TIMES DAILY WITH MEALS, Also sliding scale, Reason: Other / Enter Comment, Reported on 09/19/2019 10:04 AM Active gabapentin (NEURONTIN) Am and noon - 120 Cap 3 1 300 MG 300mg , pm - 9 capsuleIndications: 600mg Neuropathy Active Ergocalciferol 1.25 MG 0 (07078 UT) CAPS 9 09/19/2020 Active furosemide (LASIX) 20 MG Take 20 mg by 0 09/20 tablet mouth. 9 Active TRUE METRIX BLOOD GLUCOSE USE 3 08/19 TEST DIRECTED 3 9 TIMES A DAY Active ondansetron (ZOFRAN) 4 MG ondansetron 0 tablet HCl 4 mg tablet 08/21/2020 Active spironolactone Take 50 mg by 0 (ALDACTONE) 50 MG tablet mouth. 9 Active Ursodiol 500 MG TABS TAKE 1 TABLET 9 BY MOUTH 9 TWICE A DAY Active escitalopram (LEXAPRO) 20 Take 1 Tab by 30 Tab 2 MG tablet mouth daily. 0 Active Ascorbic Acid (VITAMIN C Take by 0 OR) mouth. Active Insulin Pen Needle Use with 500 Each 10 02 (LITETOUCH PEN NEEDLES) insulin 5x 0 32G X 4 MM MISC daily; Dx E11.65; Please make axel with Dr. Soria 04/02/2020 Active Insulin Detemir (LEVEMIR Inject 40 25 Pen 3 0 FLEXTOUCH) 100 UNIT/ML Units into 0 SOPN the skin two times daily for 90 days. Active trazodone (DESYREL) 50 MG Take 60 Tab 1 tabletIndications: Major half-tablet 0 depressive disorder, to full recurrent episode, tablet as moderate (HCCode), needed for Illness anxiety disorder insomnia or anxiety Active tramadol (ULTRAM) 50 MG TAKE 1 TABLET 90 Tab 1 tablet BY MOUTH 0 EVERY 6 HOURS NEEDED FOR PAIN Active ondansetron (ZOFRAN-ODT) Take 1 Tab by 30 Tab 0 4 mg disintegrating mouth every 8 0 tabletIndications: Nausea hours as and vomiting, needed for intractability of Nausea. vomiting not specified, unspecified vomiting type Active promethazine (PHENERGAN) Take 1 Tab by 30 Tab 0 12.5 MG mouth every 6 0 tabletIndications: Nausea hours as and vomiting, needed for intractability of Nausea. vomiting not specified, unspecified vomiting type Active famotidine (PEPCID) 40 MG Take 1 Tab by 90 Tab 0 tablet mouth daily. 0 documented as of this encounter (statuses as of 02/28/2020) Active Problems Problem Noted Date Major depressive disorder, recurrent episode, moderat e (HCCode) 07/19/2019 Illness anxiety disorder 07/19/2019 Insulin dependent type 2 diabetes mellitus (HCCode) 05/02/2019 Cirrhosis (HCCode) 05/02/2019 Flexor tenosynovitis of finger 01/31/2018 Osteophyte of hand 01/31/2018 documented as of this encounter (statuses as of 02/28/2020) Immunizations Name Administration Dates Next Due Influenza (whole) 08/18/2019 Influenza Quad-PF 07/27/2019 Pneumococcal 05/04/2019 Polysaccharide Zoster Live 05/04/2019 Zoster Recombinant 08/12/2019 documented as of this encounter Social History Date Tobacco Use Types Packs/Day Years Used Quit: 11/2014 Former Smoker Smokeless Tobacco: Never Used Drinks/Week oz/Week Comments Alcohol Use 1 Glasses of wine 1.0 hasn't had a drink since 4 Not Currently Alcohol Habits Answer Date Recorded How often do you have a drink containing alcohol? Never 11/30/2018 How many drinks containing alcohol do you have on No t asked a typical day when you are drinking? How often do you have six or more drinks on one Not asked occasion? 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 Date Recorded COVID-19 Exposure Response 02/28/2020 10:50 AM CDT In the last month, have you been in contact with No / Unsure someone who was confirmed or suspected to have Coronavirus / COVID-19? documented as of this encounter Last Filed Vital Signs Reading Time Taken Comments Vital Sign 115/79 02/28/2020 11:06 AM CDT Blood Pressure 91 02/28/2020 11:06 AM CDT Pulse 36.6 C (97.9 F) 02/28/2020 11:06 AM CDT Temperature - - Respiratory Rate - - Oxygen Saturation - - Inhaled Oxygen Concentration 112.9 kg (249 lb) 02/28/2020 11:06 AM CDT Weight 167.6 cm (5' 6") 02/28/2020 11:06 AM CDT Height 40.19 02/28/2020 11:06 AM CDT Body Mass Index documented in this encounter Progress Notes * Michael Keller MD - 02/28/2020 11:05 AM CDT Gynecologic Oncology Clinic Note HPI: Erinn Pate is a 55 y.o. with multiple medical comorbiditi es who presents today for evaluation of a 2 year history of vaginal itching. Today, she reports that she has vaginal itching that occurs every few months for the past 2 years. Her current episode has lasted for about 1.5-2 weeks. She rep orts the itching is unbearable. She has previously been tested for yeast and giv en topical nystatin as well as other creams without relief. Prior episodes have resolved with time. She does use feminine hygiene topical sprays to avoid "being a dirty person" and has not noticed any change in the vaginal itching in relati on to its use. She also has had issues with cutaneous yeast infections under "my fold" which she not currently experiencing. She reports the current symptoms f eel different than those infections. She is tolerating a regular diet, without N/V. Is having regular bowel movements , without diarrhea or constipation. She reports no issues voiding. Denies vagina l bleeding or abnormal discharge. Denies significant weight change, change in ac tivity level, new leg swelling, or pelvic fullness. 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 Menarche at 12. Has regular menses, every month, lasting 4 days. No intermenstru al bleeding. No dysme norrhea. Surgical menopause at age 26. Had an episode at work when she fell, then develo ped bleeding from the colon into a "pelvic tumor" leading to her hysterctomy and a colon surgery. Perimenopausal symptoms: none currently + hormone replacement therapy. Started after her hysterectomy stopped 1-2 years later due to breast tenderness. Sexual hx: not sexually active No dyspareunia Contraception history: prior OCP use Reports no history of sexually transmitted infections. No h/o of abnormal pap smears (last pap at age 26) PMH: Past Medical History: Diagnosis Date Anemia Arthritis Cirrhosis (HCCode) Depression Diabetes (HCCode) Diverticulitis DVT (deep venous thrombosis) (HCCode) GERD (gastroesophageal reflux disease) H/O seasonal allergies High blood pressure High cholesterol Hypothyroid Kidney stone Memory loss Migraine Pulmonary embolus (HCCode) 2000 PSH: Past Surgical History: Procedure Laterality Date HX APPENDECTOMY 2002 HX BLADDER REMOVAL Half of bladder removed HX BREAST EXCISIONAL BIOPSY 2007, 2009 HX CHOLECYSTECTOMY HX COLON SURGERY HX COLONOSCOPY HX ENDOSCOPY HX GALLBLADDER REMOVAL HX HAND SURGERY HX HERNIA REPAIR 1989, 2013 HX HYSTERECTOMY HX INGUINAL HERNIA REPAIR HX IVC FILTER PLACEMENT 2000 HX STOMACH SURGERY HX TUMOR REMOVAL 1969 1989 Medications: Current Outpatient Medications on File Prior to Visit Medication Sig Dispense Refill Ascorbic Acid (VITAMIN C OR) Take by mouth. atorvastatin (LIPITOR) 40 MG tablet Take 40 mg by mouth daily. carvedilol (COREG) 6.25 MG tablet Take 6.25 mg by mouth 2 times daily (with meals). Ergocalciferol 1.25 MG (00367 UT) CAPS escitalopram (LEXAPRO) 20 MG tablet Take 1 Tab by mouth daily. 30 Tab 2 famotidine (PEPCID) 40 MG tablet Take 1 Tab by mouth daily. 90 Tab 0 ferrous sulfate 325 (65 Fe) MG tablet ferrous sulfate 325 mg (65 mg iron) ta blet furosemide (LASIX) 20 MG tablet Take 20 mg by mouth. gabapentin (NEURONTIN) 300 MG capsule Am and noon - 300mg , pm - 600mg 120 C ap 3 Insulin Detemir (LEVEMIR FLEXTOUCH) 100 UNIT/ML SOPN Inject 40 Units into th e skin two times daily for 90 days. 25 Pen 3 Insulin Pen Needle (LITETOUCH PEN NEEDLES) 32G X 4 MM MISC Use with insulin 5x daily; Dx E11.65; Please make axel with Dr. Soria 500 Each 10 levothyroxine (SYNTHROID) 125 MCG tablet NOVOLOG FLEXPEN 100 UNIT/ML SOPN Inject 35-40 Units into the skin 3 times da savana (with meals). (Patient taking differently: Inject 35-40 Units into the skin 3 times daily (with meals). Also sliding scale) 15 Pen 3 ondansetron (ZOFRAN) 4 MG tablet ondansetron HCl 4 mg tablet ondansetron (ZOFRAN-ODT) 4 mg disintegrating tablet Take 1 Tab by mouth ever y 8 hours as needed for Nausea. 30 Tab 0 promethazine (PHENERGAN) 12.5 MG tablet Take 1 Tab by mouth every 6 hours as needed for Nausea. 30 Tab 0 spironolactone (ALDACTONE) 50 MG tablet Take 50 mg by mouth. tramadol (ULTRAM) 50 MG tablet TAKE 1 TABLET BY MOUTH EVERY 6 HOURS NEEDE D FOR PAIN 90 Tab 1 trazodone (DESYREL) 50 MG tablet Take half-tablet to full tablet as needed f or insomnia or anxiety 60 Tab 1 TRUE METRIX BLOOD GLUCOSE TEST USE DIRECTED 3 TIMES A DAY 3 Ursodiol 500 MG TABS TAKE 1 TABLET BY MOUTH TWICE A DAY 9 warfarin (COUMADIN) 3 MG tablet ,,Wed,Sun warfarin (COUMADIN) 4 MG tablet every Wednesday, Wednesday, Wednesday. No current facility-administered medications on file prior to visit. Allergies: Allergies Allergen Reactions Hydromorphone Other (See Comments) and Hallucinations Became very violent Other reaction(s): Other (See Comments) hallucination hallucination Adhesive Tape Dilaudid [Hydromorphone Hcl] Doxycycline Hyclate " makes me sick" Farxiga [Dapagliflozin] Itching and Rash Cephalexin Other (See Comments) "makes me sick" Doxycycline Family history: Family History Problem Relation Name Age of Onset High Cholesterol Mother High Blood Pressure Mother Depression Mother Heart Attack Mother High Blood Pressure Father High Cholesterol Father Depression Father Diabetes Father Prostate Cancer Father Stroke Maternal Grandmother Prostate Cancer Maternal Grandfather no family history of 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 Stopped in early 20s Review of Systems - Gen: no fever, no chills, no weight changes, no malaise Neuro: no syncope, no seizures HEENT: no headache, no dizziness, no vision changes CV: no chest pain, no palpitations Resp: no dyspnea, no cough, no wheezing GI: no nausea, no diarrhea, no constipation, no blood in stool : no vaginal discharge, no vaginal bleeding; no dysuria, no hematuria, no inco ntinence, no urinary frequency Musculoskeletal: no back pain, no myalgias, no arthralgias Skin: no pruritus, no rash, no easy bruising Psych: no depressed mood, no loss of interest in activities Physical Exam: BP 115/79 (BP Location: left arm, Patient Position: Sitting) | Pulse 91 | Temp 97.9 F (36.6 C) (Oral) | Ht 5' 6" (1.676 m) | Wt 249 lb (112.9 kg) | LMP 02/27/1991 | BMI 40.19 kg/m General Appearance: 55 y.o. White female, appears to be stated age; awake, alert, well-appearing, & in no apparent distress Mental Status: Alert, oriented to person, place, & time; normal mood, behavior, speech, dress, motor activity, & thought processes Skin: Normal coloring; no bruises, rashes, lesions, or other visible abnormaliti es Lungs: Clear to auscultation with no wheezing, rales, or rhonchi Heart: +S1/S2, regular rate & rhythm without murmur, gallop, or rubs Abdomen: soft, NT/ND with no rebound or guarding; normal bowel sounds; no masses palpated, no HSM, & no CVA tenderness, multiple well healed scars present Extremities: no clubbing, cyanosis, or edema; peripheral pulses normal Musculoskeletal: full RoM, no muscle pain/tenderness, & no joint pain/erythema/swelling/deformity Breast: Normal size and symmetry; no tenderness or palpable mass; no skin change s, nipple discharge, or bleeding; no regional adenopathy Pelvic: Ext: labia majora & minora atrophic with excoriations and inflamed appearnace, no lesions, no inguinal LAD appreciated Vag: Excoriations and inflamed appearing vaginal mucosa, no bleeding, no lesion s, no discharge Cervix surgically absent. Cuff Intact Bimanual: No adnexal masses palpated, non-tender Rectovaginal: rectovaginal septum intact, smooth without masses or nodularity Rectal: no masses, sphincter tone good, no bleeding Labs: none Imaging: none ASSESSMENT Erinn Pate is a 55 y.o. with multiple medical comorbidities wh o presents today for evaluation of a 2 year history of vaginal itching. 1. Vaginal itching 2. Healthcare maintenance and plan: 1. Reviewed with . Erinn Pate the inflamed appearance of both her vu lva and vagina. Reviewed that she has done a great job at keeping her skin dry, but that the vaginal tissues appear to be atrophic with excoriations. I obtained a wet prep to assess for BV, yeast, trichomonas but suspect her symptoms are re lated to the vaginal atrophy. Therefore while awaiting her test results have giv en her the following instructions: Purchase over the counter coconut oil. This can be found in the cooking section of any grocery store, [employer], [employer], etc. There are formulations that are oil as well as some that are thicker like Crisco. Either formulation is okay to use. 1. Wash your hands. 2. Put enough coconut oil on for finger to cover the end of your finger 3. Gently apply the coconut oil to the outside area and the inside of the vagina . 4. Wash your hands after. 5. Do this once daily for a week. 6. After 1 week change to doing this every other day for one more week 7. After that use the coconut oil only as you feel vaginal dryness or itching Also get over the counter hydrocortisone cream 1%. This can be purchased at any grocery store or pharmacy. For the first week ONLY apply a dime size amount of t he hydrocortisone cream to the external genitalia once a day. This can be done at the same time or separately from when you apply the coconut oil. Wash your ocasio nds after. 2. Pap smear obtained. Given history of "pelvic tumor" found prior to her hyster ectomy and no pap smear for 30 years obtained a pap with HPV cotesting today. If normal can defer future paps. RTC 4 weeks to reassess Michael Keller MD Gynecologic Oncologist [facility] Department of Obstetrics and Gynecology [facility] February 28, 2020 11:48 AM documented in this encounter Plan of Treatment Care Team Description Date Type Specialty Lee Holden III, MD [address] [address] [phone] 02/28/2020 Office Visit Orthopedic Surgery Roque Sierra MD [address] [facility] [address] [place] [address] [phone] 03/04/2020 Clinical Gastroenterology Support Sly Upton MD [address] [address] 03/06/2020 Office Visit Hematology and Onco logMichael Mccormick MD [address] [place] [address] 03/27/2020 Office Visit Gynecology Oncology Carol Chopra MD [facility] [place] [address] 04/17/2020 Office Visit Rheumatology Hazel Nava, [place] [address] [facility] [address] [place] [address] [phone] 04/30/2020 Office Visit Gastroenterology Order Schedule Name Type Priority Associated Diag noses Ordered: 02/28/2020 PAP SMEAR - IMAGE GUIDED Lab Routine Vagin al itching - NON MEDICARE Healthcare maintenance Ordered: 02/28/2020 HPV HIGH RISK Lab Routine Vaginal itching Healthcare maintenance Ordered: 02/28/2020 WET PREP W/ TRICH CULT Microbiology Routine Vaginal itching REFLEX Healthcare maintenance Ordered: 02/28/2020 VAGINAL PATHOGEN DNA Lab Routine Vaginal i tching PANEL Healthcare maintenance Health Maintenance Due Date Last Done Comments COLON CANCER SCREENIN1964 COLONOSCOPY MAMMOGRAM ANNUAL 1964 TETANUS SHOT (ADULT) 01/20/1979 ANNUAL DIABETIC FOOT EXAM 01/20/1982 BMI FOLLOW UP PLAN 01/20/1982 HIV SCREENING 01/20/1982 CERVICAL CANCER SCREENING 01/20/1985 3 YEAR FOLLOW UP A1C TESTING EVERY 6 02/19/2020 08/21/2019 MONTHS FLU VACCINE > 6 MONTHS 05/18/2020 08/18/2019, 07/2019, 11/18/2018 ANNUAL DIABETIC 10/24/2020 10/24/2019 RETINOPATHY SCREENING HEPATITIS C SCREENING Completed 05/06/2018 documented as of this encounter Results Not on filedocumented in this encounter Visit Diagnoses Diagnosis Vaginal itching - Primary Pruritus of genital organs Healthcare maintenance Routine general medical examination at a health care facility documented in this encounter Insurance Type Payer Benefit Subscriber ID Effective Phone Address Plan / Dates Group [facility] xxxxxxxxxx 2018-P [place] [facility] [address] [place] [address] [phone] amily (Home) [place] [address] documented as of this encounter
--- OUTSIDE RECORDS SUMMARY | 2020-03-24 22:26 | XMS REPORT | Summary of Care ---
Author Author [facility] Organization [facility] Address Unknown Phone Unavailable Care Team Providers Care Photo Studio Assistant Name Role Phone Mulu Flanagan Bunny HUI PCP Reason for Visit * Reason Comments Follow Up right ring finger Encounter Details Care Team Description Date Type Department Lee Holden III, MD [address] [place] [address] Follow Up (right ring finger) 02/28/2020 Office Visit [facility] Orthopedic Surgery [address] [facility], [place] [address] Allergies Comments Active Allergy Reactions Severity Noted Date Adhesive Tape "makes me sick" Cephalexin Other (See Low 08/29/2009 Comments) Hydromorphone Hcl Doxycycline Low 07/21/2018 " makes me sick" Doxycycline Hyclate 05/06/2018 Dapagliflozin Itching, Rash 11/30/2018 Became very violent Other reaction(s): Other (See Comments) hallucination hallucination Hydromorphone Other (See High 05/06/2018 Comments), Hallucination s documented as of this encounter (statuses as of 02/29/2020) Medications End Date Status Medication Sig Dispensed Refills Start Date Active warfarin (COUMADIN) 3 MG ,,Sa 0 01/18 tabletIndications: Finger t,Sun 8 pain, [...] 600mg Neuropathy Active Ergocalciferol 1.25 MG 0 (69435 UT) CAPS 9 09/19/2020 Active furosemide (LASIX) [...] 90 Tab 0 tablet mouth daily. 0 Active dicyclomine (BENTYL) 10 0 MG capsule 0 Active PILOCARPINE HCL, ORAL, 5 0 MG TABS 0 Active pantoprazole (PROTONIX) 0 40 MG tablet 0 Active XIFAXAN 550 MG TABS 0 0 documented as of this encounter (statuses as of 02/29/2020) Active Problems Problem Noted Date Abdominal bloating 02/28/2020 Abdominal distention 02/28/2020 Age-related nuclear cataract of both eyes 02/28/2020 Alternating constipation and diarrhea 02/28/2020 Back pain 02/28/2020 Elevated anti-tissue transglutaminase (tTG) IgA level 02/28/2020 Elevated C-reactive protein (CRP) 02/28/2020 Elevated sed rate (elev SR) 02/28/2020 Encounter for long-term (current) use of high-risk me dication 02/28/2020 Epigastric pain 02/28/2020 Finger pain, right 02/28/2020 Hereditary and idiopathic peripheral neuropathy 02/15 History of DVT (deep vein thrombosis) 02/28/2020 History of gastrointestinal procedure 02/28/2020 Left leg pain 02/28/2020 Myalgia 02/28/2020 Nausea and vomiting 02/28/2020 Numbness and tingling in left hand 02/28/2020 Numbness and tingling of both feet 02/28/2020 Osteoarthritis 02/28/2020 Other fecal abnormalities 02/28/2020 PAD (peripheral artery disease) (HCCode) 02/28/2020 Positive autoantibody screening for celiac disease 0 02/28/2020 Refractive error 02/28/2020 Sicca (HCCode) 02/28/2020 Vitreous syneresis of both eyes 02/28/2020 Arthritis of finger of right hand 02/28/2020 Hepatic encephalopathy (HCCode) 11/23/2019 Major depressive disorder, recurrent episode, moderat e (HCCode) 07/19/2019 Illness anxiety disorder 07/19/2019 Insulin dependent type 2 diabetes mellitus (HCCode) 05/02/2019 Cirrhosis (HCCode) 05/02/2019 Flexor tenosynovitis of finger 01/31/2018 Osteophyte of hand 01/31/2018 documented as of this encounter (statuses as of 02/29/2020) Immunizations Name Administration Dates Next Due Influenza (whole) 08/18/2019 Influenza Quad-PF 07/27/2019 Pneumococcal 05/04/2019 Polysaccharide Zoster Live 05/04/2019 Zoster Recombinant 08/12/2019 documented as of this encounter Social History Date Tobacco Use Types Packs/Day Years Used Quit: 11/2014 Former Smoker Smokeless Tobacco: Never Used Drinks/Week oz/Week Comments Alcohol Use 1 Glasses of wine 1.0 hasn't had a drink since 201 4 Not Currently Alcohol Habits Answer Date Recorded How often do you have a drink containing alcohol? Never 11/30/2018 How many drinks containing alcohol do you have on No t asked a typical day when you are drinking? How often do you have six or more drinks on one Not asked occasion? Sex Assigned at Date Recorded Female 12/05/2019 4:11 PM [employer] Job Start Date Occupation Not on [...] Signs Reading Time Taken Comments Vital Sign - - Blood Pressure - - Pulse - - Temperature - - Respiratory Rate - - Oxygen Saturation - - Inhaled Oxygen Concentration 112.9 kg (249 lb) 02/28/2020 2:15 PM CDT Weight 167.6 cm (5' 6") 02/28/2020 2:15 PM CDT Height 40.19 02/28/2020 2:15 PM CDT Body Mass Index documented in this encounter Progress Notes * Lee Holden III, MD - 02/28/2020 2:20 PM CDT Erinn Pate is a 55 y.o., , right handed, female who is here f or the evaluation of Pain of Right Ring finger DIP joint. Onset late last year after it got caught in a garbage bag tie. She was evaluated and diagnosed with a sprain of the finger. 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 She came back in for evaluation and instructed to DC the splint and given an order for OT. She did not go to OT due to COVID, but her nephew provided her with some exercises and her ROM has improved. However, the pain has persisted and impacts her ADLs substantially. S he would like to know options. Denies further injury, numbness or tingling. Past Medical History has a past medical history of Anemia, Arthritis, Cirrhos is (HCCode), Depression, Diabetes (HCCode), Diverticulitis, DVT (deep venous thr ombosis) (HCCode), GERD (gastroesophageal reflux disease), H/O seasonal allergie s, High blood pressure, High cholesterol, Hypothyroid, Kidney stone, Memory loss , Migraine, and Pulmonary embolus (HCCode). Hospitalizations and Surgeries: has a past surgical history that includes HX H and surgery; HX Hysterectomy; hx gallbladder removal; HX Stomach surgery; hx her ryan repair (1989, 2013); hx tumor removal (1969 1989); HX Bladder removal; hx iv c filter placement (2000); HX Appendectomy (2002); hx breast excisional biopsy ( 2007, 2009); hx colonoscopy; hx endoscopy; HX Cholecystectomy; HX Inguinal herni a repair; and HX Colon surgery. Medicines: Current Outpatient Medications: Ascorbic Acid (VITAMIN C OR), Take by mouth., Disp: , Rfl: atorvastatin (LIPITOR) 40 MG tablet, Take 40 mg by mouth daily., Disp: , Rf l: carvedilol (COREG) 6.25 MG tablet, Take 6.25 mg by mouth 2 times daily (wit h meals)., Disp: , Rfl: dicyclomine (BENTYL) 10 MG capsule, , Disp: , Rfl: Ergocalciferol 1.25 MG (16418 UT) CAPS, , Disp: , Rfl: escitalopram (LEXAPRO) 20 MG tablet, Take 1 Tab by mouth daily., Disp: 30 T ab, Rfl: 2 famotidine (PEPCID) 40 MG tablet, Take 1 Tab by mouth daily., Disp: 90 Tab, Rfl: 0 ferrous sulfate 325 (65 Fe) MG tablet, ferrous sulfate 325 mg (65 mg iron) tablet, Disp: , Rfl: furosemide (LASIX) 20 MG tablet, Take 20 mg by mouth., Disp: , Rfl: gabapentin (NEURONTIN) 300 MG capsule, Am and noon - 300mg , pm - 600mg, Di sp: 120 Cap, Rfl: 3 Insulin Detemir (LEVEMIR FLEXTOUCH) 100 UNIT/ML SOPN, Inject 40 Units into the skin two times daily for 90 days., Disp: 25 Pen, Rfl: 3 Insulin Pen Needle (LITETOUCH PEN NEEDLES) 32G X 4 MM MISC, Use with insuli n 5x daily; Dx E11.65; Please make axel with Dr. Soria, Disp: 500 Each, Rfl: 10 levothyroxine (SYNTHROID) 125 MCG tablet, , Disp: , Rfl: NOVOLOG FLEXPEN 100 UNIT/ML SOPN, Inject 35-40 Units into the skin 3 times daily (with meals). (Patient taking differently: Inject 35-40 Units into the ski n 3 times daily (with meals). Also sliding scale), Disp: 15 Pen, Rfl: 3 ondansetron (ZOFRAN) 4 MG tablet, ondansetron HCl 4 mg tablet, Disp: , Rfl: ondansetron (ZOFRAN-ODT) 4 mg disintegrating tablet, Take 1 Tab by mouth ev fernando 8 hours as needed for Nausea., Disp: 30 Tab, Rfl: 0 pantoprazole (PROTONIX) 40 MG tablet, , Disp: , Rfl: PILOCARPINE HCL, ORAL, 5 MG TABS, , Disp: , Rfl: promethazine (PHENERGAN) 12.5 MG tablet, Take 1 Tab by mouth every 6 hours as needed for Nausea., Disp: 30 Tab, Rfl: 0 spironolactone (ALDACTONE) 50 MG tablet, Take 50 mg by mouth., Disp: , Rfl: tramadol (ULTRAM) 50 MG tablet, TAKE 1 TABLET BY MOUTH EVERY 6 HOURS NEE DED FOR PAIN, Disp: 90 Tab, Rfl: 1 trazodone (DESYREL) 50 MG tablet, Take half-tablet to full tablet as needed for insomnia or anxiety, Disp: 60 Tab, Rfl: 1 TRUE METRIX BLOOD GLUCOSE TEST, USE DIRECTED 3 TIMES A DAY, Disp: , Rfl: 3 Ursodiol 500 MG TABS, TAKE 1 TABLET BY MOUTH TWICE A DAY, Disp: , Rfl: 9 warfarin (COUMADIN) 3 MG tablet, ,,Sat,Sun, Disp: , Rfl: warfarin (COUMADIN) 4 MG tablet, every Wednesday, Wednesday, Wednesday., Disp: , Rfl: XIFAXAN 550 MG TABS, , Disp: , Rfl: Allergies: Allergies Allergen Reactions Hydromorphone Other (See Comments) and Hallucinations Became very violent Other reaction(s): Other (See Comments) hallucination hallucination Adhesive Tape Dilaudid [Hydromorphone Hcl] Doxycycline Hyclate " makes me sick" Farxiga [Dapagliflozin] Itching and Rash Cephalexin Other (See Comments) "makes me sick" Doxycycline Social History: Social History Tobacco Use Smoking status: Former [...] and pill consumption. Stopped in early 20s Family History: Family History Problem Relation Name Age of Onset High Cholesterol Mother High Blood Pressure Mother Depression Mother Heart Attack Mother High Blood Pressure Father High Cholesterol Father Depression Father Diabetes Father Prostate Cancer Father Stroke Maternal Grandmother Prostate Cancer Maternal Grandfather Review of Systems: Negative for headache, dizziness, blurred vision, chest pain, shortness of breath, abdominal pain, dysuria, diarrhea, fevers, chills, nausea or vomiting Physical Examination: General: Well-developed, well-nourished female in no acute distress. Vital Signs: Stable Physical Exam: Right Hand - Inspection: No wounds, no ecchymosis. Mild edema about the DIP joint of the ri ng finger but with little deformity. No RF nail deformity - Palpation: DIP of the ring finger very TTP - Range of motion: Full ROM of all digits and wrist except the ring finger which lacks about 20 degrees of terminal flexion to make a full composite fist. - Motor: EPL, FPL, and IO intact. - Sensory: sensation intact to light touch - Vascular: brisk capillary refill. Physical Exam: Left hand: - Inspection: No swelling, no wounds, no ecchymosis. - Palpation: NTTP - Range of motion: Full ROM of all digits and wrist. - Motor: EPL, FPL, and IO intact. - Sensory: sensation intact to light touch - Vascular: brisk capillary refill. X-Ray Right ring finger 3 views Advanced degeneration of the DIP joint of the ri ng finger consistent with OA Impression: Right ring finger DIP joint end stage OA. Recommendations and Plan: Discussed diagnosis and treatment plan and all questions answered to the patient 's satisfaction and she agrees with this plan. We discussed all conservative alton ns of care and she felt as though that has been tried and failed. We will proce ed with fusion of the DIP joint. Given her medical history she will need cleara nce from her PCP. We discussed pain medications and she is unable to take nsaid s or tylenol. She has an rx for tramadol at home that has not and does n ot require new rx at this time. Risk and benefits of the proposed procedure(s) were reviewed in detail with the patient. The patient understood the risks of surgery included but were not limi aden to infection, nerve injury and numbness, tendon injury, joint stiffness, sca r tenderness, acute and chronic pain, and failure of the procedure with nonunion , malunion or persistent symptoms requiring more surgery or other treatments. A fter our discussions and after the patient's questions and concerns were answere d and addressed fully, the patient wished to proceed with surgery as outlined. Surgical Procedure: Right ring finger DIP joint fusion with internal fixation an d possible distal radius bone grafting Post-operative Pain Medications: Tramadol prescription she has at home. ATTENDING PHYSICIAN: EVALUATION AND RECOMMENDATIONS The patient was seen and examined by me today in conjunction with the TENTERING MACHINE FEEDER. I a gree with their findings and plan as documented in the note with any exceptions or additions listed. * Mavis Islas, PULMONARY FUNCTION TECHNICIAN - 02/28/2020 2:20 PM CDT History of Present Illness Erinn Pate is a 55 y.o., , right handed, female who is here for the evaluation of Pain of Right Ring finger DIP joint. Onset late last year after it got caught in a garbage bag tie. She was e valuated and diagnosed with a sprain of the finger. 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 S he came back in for evaluation and instructed to DC the splint and given an orde r for OT. She did not go to OT due to COVID, but her nephew provided her with so me exercises and her ROM has improved. However, the pain has persisted and impac ts her ADLs substantially. She would like to know options. Denies further injury , numbness or tingling. Past Medical History has a past medical history of Anemia, Arthritis, Cirrhos is (HCCode), Depression, Diabetes (HCCode), Diverticulitis, DVT (deep venous thr ombosis) (HCCode), GERD (gastroesophageal reflux disease), H/O seasonal allergie s, High blood pressure, High cholesterol, Hypothyroid, Kidney stone, Memory loss , Migraine, and Pulmonary embolus (HCCode). Hospitalizations and Surgeries: has a past surgical history that includes HX H and surgery; HX Hysterectomy; hx gallbladder removal; HX Stomach surgery; hx her ryan repair (1989, 2013); hx tumor removal (1969 1989); HX Bladder removal; hx iv c filter placement (2000); HX Appendectomy (2002); hx breast excisional biopsy ( 2007, 2009); hx colonoscopy; hx endoscopy; HX Cholecystectomy; HX Inguinal herni a repair; and HX Colon surgery. Medicines: Current Outpatient Medications: Ascorbic Acid (VITAMIN C OR), Take by mouth., Disp: , Rfl: atorvastatin (LIPITOR) 40 MG tablet, Take 40 mg by mouth daily., Disp: , Rf l: carvedilol (COREG) 6.25 MG tablet, Take 6.25 mg by mouth 2 times daily (wit h meals)., Disp: , Rfl: dicyclomine (BENTYL) 10 MG capsule, , Disp: , Rfl: Ergocalciferol 1.25 MG (66277 UT) CAPS, , Disp: , Rfl: escitalopram (LEXAPRO) 20 MG tablet, Take 1 Tab by mouth daily., Disp: 30 T ab, Rfl: 2 famotidine (PEPCID) 40 MG tablet, Take 1 Tab by mouth daily., Disp: 90 Tab, Rfl: 0 ferrous sulfate 325 (65 Fe) MG tablet, ferrous sulfate 325 mg (65 mg iron) tablet, Disp: , Rfl: furosemide (LASIX) 20 MG tablet, Take 20 mg by mouth., Disp: , Rfl: gabapentin (NEURONTIN) 300 MG capsule, Am and noon - 300mg , pm - 600mg, Di sp: 120 Cap, Rfl: 3 Insulin Detemir (LEVEMIR FLEXTOUCH) 100 UNIT/ML SOPN, Inject 40 Units into the skin two times daily for 90 days., Disp: 25 Pen, Rfl: 3 Insulin Pen Needle (LITETOUCH PEN NEEDLES) 32G X 4 MM MISC, Use with insuli n 5x daily; Dx E11.65; Please make axel with Dr. Soria, Disp: 500 Each, Rfl: 10 levothyroxine (SYNTHROID) 125 MCG tablet, , Disp: , Rfl: NOVOLOG FLEXPEN 100 UNIT/ML SOPN, Inject 35-40 Units into the skin 3 times daily (with meals). (Patient taking differently: Inject 35-40 Units into the ski n 3 times daily (with meals). Also sliding scale), Disp: 15 Pen, Rfl: 3 ondansetron (ZOFRAN) 4 MG tablet, ondansetron HCl 4 mg tablet, Disp: , Rfl: ondansetron (ZOFRAN-ODT) 4 mg disintegrating tablet, Take 1 Tab by mouth ev fernando 8 hours as needed for Nausea., Disp: 30 Tab, Rfl: 0 pantoprazole (PROTONIX) 40 MG tablet, , Disp: , Rfl: PILOCARPINE HCL, ORAL, 5 MG TABS, , Disp: , Rfl: promethazine (PHENERGAN) 12.5 MG tablet, Take 1 Tab by mouth every 6 hours as needed for Nausea., Disp: 30 Tab, Rfl: 0 spironolactone (ALDACTONE) 50 MG tablet, Take 50 mg by mouth., Disp: , Rfl: tramadol (ULTRAM) 50 MG tablet, TAKE 1 TABLET BY MOUTH EVERY 6 HOURS NEE DED FOR PAIN, Disp: 90 Tab, Rfl: 1 trazodone (DESYREL) 50 MG tablet, Take half-tablet to full tablet as needed for insomnia or anxiety, Disp: 60 Tab, Rfl: 1 TRUE METRIX BLOOD GLUCOSE TEST, USE DIRECTED 3 TIMES A DAY, Disp: , Rfl: 3 Ursodiol 500 MG TABS, TAKE 1 TABLET BY MOUTH TWICE A DAY, Disp: , Rfl: 9 warfarin (COUMADIN) 3 MG tablet, ,,Sat,Sun, Disp: , Rfl: warfarin (COUMADIN) 4 MG tablet, every Wednesday, Wednesday, Wednesday., Disp: , Rfl: XIFAXAN 550 MG TABS, , Disp: , Rfl: Allergies: Allergies Allergen Reactions Hydromorphone Other (See Comments) and Hallucinations Became very violent Other reaction(s): Other (See Comments) hallucination hallucination Adhesive Tape Dilaudid [Hydromorphone Hcl] Doxycycline Hyclate " makes me sick" Farxiga [Dapagliflozin] Itching and Rash Cephalexin Other (See Comments) "makes me sick" Doxycycline Social History: Social History Tobacco Use Smoking status: Former [...] and pill consumption. Stopped in early 20s Family History: Family History Problem Relation Name Age of Onset High Cholesterol Mother High Blood Pressure Mother Depression Mother Heart Attack Mother High Blood Pressure Father High Cholesterol Father Depression Father Diabetes Father Prostate Cancer Father Stroke Maternal Grandmother Prostate Cancer Maternal Grandfather Review of Systems: Negative for headache, dizziness, blurred vision, chest pain, shortness of breath, abdominal pain, dysuria, diarrhea, fevers, chills, nausea or vomiting Physical Examination: General: Well-developed, well-nourished female in no acute distress. Vital Signs: Stable Physical Exam: Right Hand - Inspection: No wounds, no ecchymosis. Mild edema about the DIP joint of the ri ng finger. - Palpation: DIP of the ring finger TTP - Range of motion: Full ROM of all digits and wrist except the ring finger which lacks about 10 degrees of terminal flexion to make a full composite fist. - Motor: EPL, FPL, and IO intact. - Sensory: sensation intact to light touch - Vascular: brisk capillary refill. Physical Exam: Left hand: - Inspection: No swelling, no wounds, no ecchymosis. - Palpation: NTTP - Range of motion: Full ROM of all digits and wrist. - Motor: EPL, FPL, and IO intact. - Sensory: sensation intact to light touch - Vascular: brisk capillary refill. X-Ray Right ring finger 3 views Advanced degeneration of the DIP joint of the ri ng finger consistent with OA Impression: Right ring finger DIP joint end stage OA. Recommendations and Plan: Discussed diagnosis and treatment plan and all questions answered to the patient 's satisfaction and she agrees with this plan. We will proceed with fusion of th e DIP joint. Given her medical history she will need clearance from her PCP. Perlita christian discussed pain medications and she is unable to take nsaids or tylenol. She ocasio s an rx for tramadol at home and does not require new rx at this time. Risk and benefits of the proposed procedure(s) were reviewed in detail with the patient. The patient understood the risks of surgery included but were not limi aden to infection, nerve injury and numbness, tendon injury, joint stiffness, sca r tenderness, acute and chronic pain, and failure of the procedure with persiste nt symptoms requiring more surgery or other treatments. After our discussions a nd after the patient's questions and concerns were answered and addressed fully, the patient wished to proceed with surgery as outlined. Surgical Procedure: Right ring finger DIP joint fusion Post-operative Pain Medications: Tramadol prescription she has at home. ATTENDING PHYSICIAN: EVALUATION AND RECOMMENDATIONS The patient was seen and examined by me today in conjunction with the TENTERING MACHINE FEEDER. Scottie gifford with their findings and plan as documented in the note with any exceptions or additions listed. documented in this encounter Plan of Treatment Care Team Description Date Type Specialty Roque Sierra MD [address] [facility] [address] [place] [address] 03/04/2020 Clinical Gastroenterology Support Sly Upton MD [address] [facility] [address] [place] [address] [phone] 03/06/2020 Office Visit Hematology and Onco logy Lee Holden III, MD [address] [place] [address] [phone] 03/14/2020 Appointment Orthopedic Surgery Michael Keller MD [address] [place] [address] 03/27/2020 Office Visit Gynecology Oncology Lee Holden III, MD [address] [facility] [address] [place] [address] [phone] 03/27/2020 Office Visit Orthopedic Surgery Carol Chopra MD [address] [place] [address] [phone] 04/17/2020 Office Visit Rheumatology Hazel Nava, RD [address] [facility] [address] [place] [address] [phone] 04/30/2020 Office Visit Gastroenterology Order Schedule Name Type Priority Associated Diag noses Ordered: 02/28/2020 ORT - XR FINGER RIGHT 2V [place] Charge Routine Finge r pain, right ( CHARGE ONLY) Health Maintenance Due Date Last Done Comments [...] 05/06/2018 documented as of this encounter Results * XR FINGER RIGHT < 2 VW (02/28/2020 2:22 PM CDT) Specimen Narrative Performed At For result, please reference physician' s note on the corresponding date. documented in this encounter Visit Diagnoses Diagnosis Arthritis of finger - Primary Finger pain, right Pain in limb documented in this encounter Insurance Type Payer Benefit Subscriber ID Effective Phone Address Plan / Dates [place] [facility] [place] [facility]-P [place] [facility] [place] [id number] [place] [phone] documented as of this encounter
--- OUTSIDE RECORDS SUMMARY | 2020-03-24 22:26 | XMS REPORT | Summary of Care ---
Author Author [facility] Organization [facility] Address Unknown Phone Unavailable Care Team Providers Care Stock Replenisher Name Role Phone DesiraeMulu Larios Bunny HUI PCP Reason for Referral * Consult, Test & Treat (Routine) Referred By Contact Referred To Contact Status Reason Specialty Diagnoses / Procedures Roque Sierra MD [address] [place] [address] Al Cc Heme-Onc [address] [place] [address] 7th Floor, [address] [place] [address] Pending Consult, Test, and Hematology and Diagnoses Treat Oncology History of DVT (deep vein thrombosis) Chronic anticoagulation P rocedures [place] OFFICE OUTPATIENT NEW 45 MINUTES * Consult, Test & Treat (Routine) Referred By Contact Referred To Contact Status Reason Specialty Diagnoses / Procedures Roque Sierra MD [facility] [place] [phone] Ramón Gomes, PhD [facility] [address] [address] Pending Consult, Test, and Gastroenterology Diagnoses Treat Epigastric pain P rocedures [place] HEAL & BEHAV ASSESS,EA 15 MIN,INIT [place] PSYCHIATRIC DIAGNOSTIC EVALUATION * Consult, Test & Treat (Routine) Referred By Contact Referred To Contact Status Reason Specialty Diagnoses / Procedures Roque Sierra MD [facility] [address] [address] [place], [place] [address] [facility] [address] [place] [address] Pending Consult, Test, and Gastroenterology Diagnoses Treat Bloating P rocedures [place] MED NUTR THER, 1ST, INDIV, EA 15 MIN Reason for Visit * Reason Comments Pain Abdominal Diarrhea Constipation Encounter Details Care Team Description Date Type Department Roque Sierra MD [address] [facility] [address] [place], [place] [id number] Pain (Abdominal ); Diarrhea; Constipatio n 11/21/2019 Office Visit [facility] Gastroenterology [address] [facility]. 8th Floor, [address] [place] [address] Allergies Comments Active Allergy Reactions Severity Noted Date Adhesive Tape "makes me sick" Cephalexin Other (See Low 08/29/2009 Comments) Hydromorphone Hcl Doxycycline Low 07/21/2018 " makes me sick" Doxycycline Hyclate 05/06/2018 Dapagliflozin Itching, Rash 11/30/2018 Became very violent Other reaction(s): Other (See Comments) hallucination hallucination Hydromorphone Other (See High 05/06/2018 Comments), Hallucination s documented as of this encounter (statuses as of 12/04/2019) Medications End Date Status Medication Sig Dispensed Refills Start Date Active pantoprazole (PROTONIX) at bedtime. 0 40 MG tabletIndications: 8 Finger pain, left Active rosuvastatin (CRESTOR) 20 0 MG tabletIndications: 8 Finger pain, left Active warfarin (COUMADIN) 3 MG ,,Sa 0 01/18 tabletIndications: Finger t,Sun 8 pain, left Active levothyroxine (SYNTHROID) 0 125 MCG 8 tabletIndications: Finger pain, left Active warfarin (COUMADIN) 4 MG every Wednesday, 0 01/18 tabletIndications: Finger Wednesday, 8 pain, left Wednesday. Active carvedilol (COREG) 6.25 Take 6.25 mg 0 MG tabletIndications: by mouth 2 Finger pain, left times daily (with meals). Active ONDANSETRON OR Take 4 mg by 0 mouth. Active atorvastatin (LIPITOR) 40 Take 40 mg by 0 MG tablet mouth daily. Active ferrous sulfate 325 (65 ferrous 0 Fe) MG tablet sulfate 325 mg (65 mg iron) tablet Active tramadol (ULTRAM) 50 MG Take 1 Tab by 90 Tab 2 tablet mouth every 6 9 hours as needed for Pain. Active NOVOLOG FLEXPEN 100 Inject 35-40 15 Pen 3 08/21 UNIT/ML SOPN Units into 9 the skin 3 times daily (with meals). Additional Information Patient taking differently: 35-40 Units Subcutaneous 3 TIMES DAILY WITH MEALS, Also sliding scale, Reason: Other / Enter Comment, Reported on 09/19/2019 10:04 AM Active Insulin Glargine, 1 Unit Inject 40 15 Pen 2 1 Dial, 300 UNIT/ML SOPN Units into 9 the skin two times daily. Active gabapentin (NEURONTIN) Am and noon - 120 Cap 3 1 300 MG 300mg , pm - 9 capsuleIndications: 600mg Neuropathy Active Ergocalciferol 1.25 MG 0 (97004 UT) CAPS 9 09/19/2020 Active furosemide (LASIX) 20 MG Take 20 mg by 0 09/20 tablet mouth. 9 Active TRUE METRIX BLOOD GLUCOSE USE 3 08/19 TEST DIRECTED 3 9 TIMES A DAY Active nystatin (NYSTOP) powder Nystop 0 100,000 unit/gram topical powder Active ondansetron (ZOFRAN) 4 MG ondansetron 0 tablet HCl 4 mg tablet 08/21/2020 Active spironolactone Take 50 mg by 0 (ALDACTONE) 50 MG tablet mouth. 9 Active sucralfate (CARAFATE) 1 g sucralfate 1 0 tablet gram tablet Active Ursodiol 500 MG TABS TAKE 1 TABLET 9 BY MOUTH 9 TWICE A DAY Active promethazine (PHENERGAN) Take 1 Tab by 30 Tab 1 12.5 MG mouth every 6 0 tabletIndications: Nausea hours as and vomiting, needed for intractability of Nausea. vomiting not specified, unspecified vomiting type Active escitalopram (LEXAPRO) 20 Take 1 Tab by 30 Tab 2 MG tablet mouth daily. 0 Active trazodone (DESYREL) 50 MG Take 30 Tab 1 tabletIndications: Major half-tablet 0 depressive disorder, to full recurrent episode, tablet as moderate (HCCode), needed for Illness anxiety disorder insomnia. Active Insulin Glargine, 1 Unit Inject into 0 08/21 Dial, (DEEP ONEAL) the skin. 9 300 UNIT/ML SOPN 02/19/2020 Active famotidine (PEPCID) 20 MG Take 1 Tab by 90 Tab 0 tablet mouth daily 0 for 90 days. 02/19/2020 Active dicyclomine (BENTYL) 10 Take 1 Cap by 90 Cap 1 MG capsule mouth 2 times 0 daily as needed (abdominal pain/cramping ) for up to 90 days. 11/21/2019 Discontinued (*Alternate the rapy) hyoscyamine (LEVBID) hyoscyamine 0 0.375 MG CR tablet ER 0.375 mg tablet,extend ed release,12 hr documented as of this encounter (statuses as of 12/04/2019) Active Problems Problem Noted Date Major depressive disorder, recurrent episode, moderat e (HCCode) 07/19/2019 Illness anxiety disorder 07/19/2019 Insulin dependent type 2 diabetes mellitus (HCCode) 05/02/2019 Cirrhosis (HCCode) 05/02/2019 Flexor tenosynovitis of finger 01/31/2018 Osteophyte of hand 01/31/2018 documented as of this encounter (statuses as of 12/04/2019) Immunizations Name Administration Dates Next Due Influenza [...] Signs Reading Time Taken Comments Vital Sign 159/69 11/21/2019 12:58 PM DIGITAL CONTROLS TECHNICAL OFFICER Blood Pressure 96 11/21/2019 12:58 PM DIGITAL CONTROLS TECHNICAL OFFICER Pulse 36.5 C (97.7 F) 11/21/2019 12:58 PM DIGITAL CONTROLS TECHNICAL OFFICER Temperature 16 11/21/2019 12:58 PM DIGITAL CONTROLS TECHNICAL OFFICER Respiratory Rate - - Oxygen Saturation - - Inhaled Oxygen Concentration 117.5 kg (259 lb) 11/21/2019 12:58 PM DIGITAL CONTROLS TECHNICAL OFFICER Weight 167.6 cm (5' 6") 11/21/2019 12:58 PM DIGITAL CONTROLS TECHNICAL OFFICER Height 41.8 11/21/2019 12:58 PM DIGITAL CONTROLS TECHNICAL OFFICER Body Mass Index documented in this encounter Patient Instructions * Patient Instructions* Roque Sierra MD - 11/21/2019 1:00 PM DIGITAL CONTROLS TECHNICAL OFFICER I would like you to start metamucil daily I would like you to start taking Bentyl as needed for abdominal pain and stop ca rafate and hyoscyamine. I would like you to stop dairy for 2 weeks and see if it helps your symptoms I am giving you samples of Ibgard to try and see if you get relief I would like you to stop protonix and start famotidine TAL CONTROLS TECHNICAL OFFICER documented in this encounter Progress Notes * Roque Sierra MD - 11/21/2019 1:00 PM DIGITAL CONTROLS TECHNICAL OFFICER [facility] Dr. Roque Sierra [address] [place] [address] Erinn Pate female 1965 [id number] Visit Type: Follow-up Referring Physician: Self Referral No address on file CHIEF COMPLAINT: Chief Complaint Patient presents with Pain Abdominal Diarrhea Constipation REASON FOR CONSULTATION: abdominal pain/nausea/vomiting SOURCE OF [...] was previously followed by Dr. Ervin in [place] but wants to move a ll her care to [facility]. Started seeing Dr. Ervin in 2017 to [...] by Dr. Tracee lopez. No MJ use Today: Last visit, plan was for repeat celiac testing, E/c with biopsies, gastric empty study. Labs showed: TTG: minmall elevated but neg HLA testing SBFT: C. Diff neg Elastase: normal Fecal calpro normal HLA-DQ2 and HLA-DQ8 negative Gastric emptying study was negative Small bowel and colon biopsies normal Went to in [place] last week with severe LUQ pain - imaging was unrevealing Imaging from May 2019 was not suggestive of large amount of stool burden. Past Medical History: Diagnosis Date Anemia Arthritis [...] REMOVAL HX HAND SURGERY HX HERNIA REPAIR 2013 HX HYSTERECTOMY HX INGUINAL HERNIA REPAIR [...] file Tobacco Use Smoking status: Former Smoker Quit date: 11/2014 Years since quittin.0 Smokeless tobacco: Never Used Substance and Sexual Activity Alcohol use: Not Currently Alcohol/week: 1.0 standard drinks Types: 1 Glasses of wine per week Frequency: Never Comment: hasn't had a drink since 2013 Drug use: No Sexual activity: Not on file Lifestyle Physical activity: Days per week: Not on file Minutes per session: Not on file Stress: Not on file Relationships Social connections: Talks on phone: Not on file Gets together: Not on file Attends buddhist service: Not on file Active member of [...] Narrative Not on file Allergies Allergen Reactions Hydromorphone Other (See Comments) and Hallucinations Became very violent Other reaction(s): Other (See Comments) hallucination hallucination Adhesive Tape Dilaudid [Hydromorphone Hcl] Doxycycline Hyclate " makes me sick" Farxiga [Dapagliflozin] Itching and Rash Cephalexin Other (See Comments) "makes me sick" Doxycycline CURRENT MEDICATIONS: Current Outpatient Medications: atorvastatin (LIPITOR) 40 MG tablet, Take 40 mg by mouth daily., Disp: , Rf l: carvedilol (COREG) 6.25 MG tablet, Take 6.25 mg by mouth 2 times daily (wit h meals)., Disp: , Rfl: Ergocalciferol 1.25 MG (70838 UT) CAPS, , Disp: , Rfl: escitalopram (LEXAPRO) 20 MG tablet, Take 1 Tab by mouth daily., Disp: 30 T ab, Rfl: 2 ferrous sulfate 325 (65 Fe) MG tablet, ferrous sulfate 325 mg (65 mg iron) tablet, Disp: , Rfl: furosemide (LASIX) 20 MG tablet, Take 20 mg by mouth., Disp: , Rfl: gabapentin (NEURONTIN) 300 MG capsule, Am and noon - 300mg , pm - 600mg, Di sp: 120 Cap, Rfl: 3 hyoscyamine (LEVBID) 0.375 MG CR tablet, hyoscyamine ER 0.375 mg tablet,ext ended release,12 hr, Disp: , Rfl: Insulin Glargine, 1 Unit Dial, (TOUJEO SOLOSTAR) 300 UNIT/ML SOPN, Inject into the skin., Disp: , Rfl: Insulin Glargine, 1 Unit Dial, 300 UNIT/ML SOPN, Inject 40 Units into the s kin two times daily., Disp: 15 Pen, Rfl: 2 levothyroxine (SYNTHROID) 125 MCG tablet, , Disp: , Rfl: NOVOLOG FLEXPEN 100 UNIT/ML SOPN, Inject 35-40 Units into the skin 3 times daily (with meals). (Patient taking differently: Inject 35-40 Units into the ski n 3 times daily (with meals). Also sliding scale), Disp: 15 Pen, Rfl: 3 nystatin (NYSTOP) powder, Nystop 100,000 unit/gram topical powder, Disp: , Rfl: ondansetron (ZOFRAN) 4 MG tablet, ondansetron HCl 4 mg tablet, Disp: , Rfl: ONDANSETRON OR, Take 4 mg by mouth., Disp: , Rfl: pantoprazole (PROTONIX) 40 MG tablet, at bedtime., Disp: , Rfl: promethazine (PHENERGAN) 12.5 MG tablet, Take 1 Tab by mouth every 6 hours as needed for Nausea., Disp: 30 Tab, Rfl: 1 rosuvastatin (CRESTOR) 20 MG tablet, , Disp: , Rfl: spironolactone (ALDACTONE) 50 MG tablet, Take 50 mg by mouth., Disp: , Rfl: sucralfate (CARAFATE) 1 g tablet, sucralfate 1 gram tablet, Disp: , Rfl: tramadol (ULTRAM) 50 MG tablet, Take 1 Tab by mouth every 6 hours as needed for Pain., Disp: 90 Tab, Rfl: 2 trazodone (DESYREL) 50 MG tablet, Take half-tablet to full tablet as needed for insomnia., Disp: 30 Tab, Rfl: 1 TRUE METRIX BLOOD GLUCOSE TEST, USE DIRECTED 3 TIMES A DAY, Disp: , Rfl: 3 Ursodiol 500 MG TABS, TAKE 1 TABLET BY MOUTH TWICE A DAY, Disp: , Rfl: 9 warfarin (COUMADIN) 3 MG tablet, Tues,Th,Sat,Sun, Disp: , Rfl: warfarin (COUMADIN) 4 MG tablet, every Wednesday, Wednesday, Wednesday., Disp: , Rfl: REVIEW OF SYSTEMS: GENERAL: No fevers/chills EYES: no vision loss ENT: no hearing loss CV: no chest pain RESP: no dyspnea or cough GI: per HPI : no dysuria DERM: Varicose veins NEURO: no stroke ENDO: polydipsia HEME: no bleeding PHYSICAL EXAMINATION: Patient Profile: 54 y.o. female BP 159/69 (BP Location: right arm, Patient Position: Sitting, Cuff Size: regular ) | Pulse 96 | Temp 97.7 F (36.5 C) (Oral) | Resp 16 | Ht 5' 6" (1.676 m ) | Wt 259 lb (117.5 kg) | BMI 41.80 kg/m Body mass index is 41.8 kg/m. Body surface area is 2.34 meters squared. Gen: NAD, well-appearing, appears stated [...] GERD here for initial visit. GERD: - does not have typical GERD Symptoms - will switch to famotidine to see if any difference in symptoms Suspected IBS mixed type +/- small bowel adhesions: CT x 2 without significant p athology aside from adhesions. Workup with Dr. Ervin showed +fecal calpro and ttg Iga however repeat here with neg HLA testing, minmally elevated ttg and neg small bowel bx. Fecal hans negative. Awaiting SBFT to purse VCE. Elastase norm al. Imaging from May without significant stool burden. Colon bx neg for faith roscopic colitis - start metamucil daily - switch to bentyl trial - already on gabapentin so will hold off on neuromodulator - EUGENIEgard samples - dairy avoidance trial - GI smart energy specialist - Dr. Gomes appointment - can trial xifaxan if persists - if persists despite above then can consider surgery evaluation for adhesions +TTG IgA with normal IgA; HLA testing neg and small bowel bx neg pointing away f rom celiac Recurrently nausea/vomiting: symptoms not typical of GERD or gastroparesis and G ES neg. Symptoms more of globus in AM - switch to H2RA and see if any difference If SBfT neg then plan for VCE to rule out small bowel inflammation though suspic ion low 8-10 weeks Roque Sierra MD TAL CONTROLS TECHNICAL OFFICER documented in this encounter Plan of Treatment Care Team Description Date Type Specialty Carol Chopra MD [address] [place], [place] [id number] 12/05/2019 Office Visit Rheumatology Franki Lugo MD [address] [place] [address] 12/05/2019 Office Visit Psychiatry 12/05/2019 Appointment Psychiatry Roque Sierra MD [address] [facility] [address] [place] [address] 12/11/2019 Office Visit Gastroenterology Franki Lugo MD [address] [place] [address] 01/02/2020 Office Visit Psychiatry 01/02/2020 Appointment Psychiatry Order Schedule Name Type Priority Associated Diag noses Ordered: 11/21/2019 AMB REF TO GI MACHINE PACKAGE SEALER Outpatient Routine Bloati ng Referral Ordered: 11/21/2019 AMB REF TO GI BEHAVIORAL Outpatient Routine Epiga stric pain HEALTH Referral Ordered: 11/21/2019 AMB REFERRAL TO Outpatient Routine History of DVT (deep vein HEMATOLOGY ONCOLOGY Referral thrombosis) [facility] Chronic anticoagulation Health Maintenance Due Date Last Done Comments COLON CANCER SCREENIN1964 COLONOSCOPY MAMMOGRAM ANNUAL 1965 TETANUS SHOT (ADULT) 01/20/1979 ANNUAL DIABETIC FOOT EXAM 01/20/1982 BMI FOLLOW UP PLAN 01/20/1982 HIV SCREENING 01/20/1982 CERVICAL CANCER SCREENING 01/20/1985 3 YEAR FOLLOW UP A1C TESTING EVERY 6 02/19/2020 08/21/2019 MONTHS ANNUAL DIABETIC 10/24/2020 10/24/2019 RETINOPATHY SCREENING HEPATITIS C SCREENING Completed 05/06/2018 FLU VACCINE > 6 MONTHS Completed 08/18/2019, 07/2019, 11/18/2018 documented as of this encounter Results Not on filedocumented in this encounter Visit Diagnoses Diagnosis Bloating - Primary Flatulence, eructation, and gas pain Abdominal distention Flatulence, eructation, and gas pain Epigastric pain Abdominal pain, epigastric History of DVT (deep vein thrombosis) Personal history of venous thrombosis a nd embolism Chronic anticoagulation Encounter for long-term (current) use o f anticoagulants documented in this encounter Insurance Type Payer Benefit Subscriber ID Effective Phone Address Plan / Dates Group [facility] xxxxxxxxxx 2018-P [address] [place] [facility] resent [address] [place] [address] [phone] [address] [facility] (Home[facility] [place] [address] documented as of this encounter
--- OUTSIDE RECORDS SUMMARY | 2020-03-24 22:26 | XMS REPORT | Summary of Care ---
Author Author [facility] Organization [facility] Address Unknown Phone Unavailable Care Team Providers Care Fixed Wing Aircraft Flight Engineer Name Role Phone Masha Mulu Bunny HUI PCP Reason for Referral * (Routine) Referred By Contact Referred To Contact Status Reason Specialty Diagnoses / Procedures Mavis Islas FNP [address] [address] Pending Consult, Test, and Occupational Diagnoses Treat Therapy Finger pain, right Reason for Visit * Reason Comments Follow Up right ring finger Encounter Details Care Team Description Date Type Department Mavis Islas FNP [address] [address] [phone] Follow Up (right ring finger) 11/21/2019 Office Visit [facility] Orthopedic Surgery [address] [facility] 10th Floor, [place] [address] Allergies Comments Active Allergy Reactions Severity Noted Date Adhesive Tape "makes me sick" Cephalexin Other (See Low 08/29/2009 Comments) Hydromorphone Hcl Doxycycline Low 07/21/2018 " makes me sick" Doxycycline Hyclate 05/06/2018 Dapagliflozin Itching, Rash 11/30/2018 Became very violent Other reaction(s): Other (See Comments) hallucination hallucination Hydromorphone Other (See High 05/06/2018 Comments), Hallucination s documented as of this encounter (statuses as of 11/21/2019) Medications End Date Status Medication Sig Dispensed Refills Start Date Active pantoprazole (PROTONIX) at bedtime. 0 40 MG tabletIndications: 8 Finger pain, left Active rosuvastatin (CRESTOR) 20 0 MG tabletIndications: 8 Finger pain, left Active warfarin (COUMADIN) 3 MG ,, 0 01/18 tabletIndications: Finger t,Sun 8 pain, [...] 600mg Neuropathy Active Ergocalciferol 1.25 MG 0 (77904 UT) CAPS 9 09/19/2020 Active furosemide (LASIX) [...] ONEAL) the skin. 9 300 UNIT/ML SOPN documented as of this encounter (statuses as of 11/21/2019) Active Problems Problem Noted Date Major depressive disorder, recurrent episode, moderat e (HCCode) 07/19/2019 Illness anxiety disorder 07/19/2019 Insulin dependent type 2 diabetes mellitus (HCCode) 05/02/2019 Cirrhosis (HCCode) 05/02/2019 Flexor tenosynovitis of finger 01/31/2018 Osteophyte of hand 01/31/2018 documented as of this encounter (statuses as of 11/21/2019) Immunizations Name Administration Dates Next Due Influenza [...] Oxygen Concentration 117.5 kg (259 lb) 11/21/2019 10:46 AM ELECTRONIC IMAGER Weight 167.6 cm (5' 6") 11/21/2019 10:46 AM ELECTRONIC IMAGER Height 41.8 11/21/2019 10:46 AM ELECTRONIC IMAGER Body Mass Index documented in this encounter Progress Notes * Mavis Islas FNP - 11/21/2019 11:30 AM ELECTRONIC IMAGER History of Present Illness Erinn Pate is here for follow up of right ring finger DIP joint pain. She was seen in clinic about two months ago after s he hurt her finger when it got caught in a garbage bag tie. She reports it has n ot gotten better and now she has pain if she bumps it. She has not been using th e doloers loops provided at the last visit and has instead gone back to a home alu mifoam splint and immobilization. She denies further injury to the area. She als o reports she cannot move the dip joint. She is scheduled to see her rheumatolog ist next week. Past Medical History has a past medical [...] HX Colon surgery. Medicines: Current Outpatient Medications: atorvastatin (LIPITOR) 40 MG tablet, Take 40 mg by mouth daily., Disp: , Rf l: carvedilol (COREG) 6.25 MG tablet, Take 6.25 mg by mouth 2 times daily (wit h meals)., Disp: , Rfl: Ergocalciferol 1.25 MG (00709 UT) CAPS, , Disp: , Rfl: escitalopram [...] every Wednesday, Wednesday, Wednesday., Disp: , Rfl: Allergies: Allergies Allergen Reactions [...] Last attempt to quit: 11/2014 Years since quittin.0 Smokeless tobacco: Never Used Substance Use Topics Alcohol use: Not Currently Alcohol/week: 1.0 standard drinks Types: 1 Glasses of wine per week Frequency: Never Comment: hasn't had a drink since 2013 Drug use: No Family History: Family History Problem Relation Name [...] in no acute distress. Vital Signs: Stable Examination: Right upper extremity General: Unremarkable, without swelling or scars. Shoulder: Full active range of motion without tenderness. 2+ brachial artery. Elbow: There is full active range of motion without tenderness. No swelling, cr epitus or epicondylar tenderness. 2+ brachial artery pulse. Biceps and triceps are 5/5. Forearm: There is full pronation and supination without pain. Wrist: There is full active range of motion without tenderness, crepitus or ins tability. Hand: No triggering. Sensation intact to light touch. Capillary refill less th an 2 seconds. The thenar and hypothenar muscles are functioning at 5/5. There is full active range of motion in all digits. There is no CMC grind in the thum b. Ring finger DIP joint ttp. There is limited rom due to stiffness and pain. Lacks about 10 degrees of full flexion to make a full composite fist about the r ing finger. There is no laxity. X-Ray Right ring finger 3 views There is degenerative changes about the DIP join t. Impression: Right ring finger dip joint arthritis. Joint stiffness. Recommendations and Plan: Discussed diagnosis and treatment plan and all questions answered to the patient 's satisfaction. I highly recommended she stop using the alumifoam split and ag gressively work on ROM for this finger. She is very tearful in clinic today wit h any palpation or rom during the exam. She has not had any formal therapy on t his hand. I recommended she follow up with a CHT for rom. She was provided wit h an order for a facility near her home and we discussed options in the area. S he will call them to make an appt. I urged her to call if she is unable to find CHT near her home and not to wait. I recommended she start mobilization at jody e especially when her hand is warm such as in the shower and she verbalized unde rstanding. She is to follow up this office if she does not improve over the next several months. TRONIC IMAGER documented in this encounter Plan of Treatment Care Team Description Date Type Specialty Carmenza Barnes, PhD [address] [facility] 9th Floor [place], [place] [phone] 11/29/2019 Office Visit Neuropsychology Carol Chopra MD [address] [place], [place] [phone] 12/05/2019 Office Visit Rheumatology Franki Lugo MD [address] [place] [address] 12/05/2019 Office Visit Psychiatry 12/05/2019 Appointment Psychiatry Roque Sierra MD [address] [facility] [address] [place], [place] [phone] 12/11/2019 Office Visit Gastroenterology Franki Lugo MD [address] [place] [address] 01/02/2020 Office Visit Psychiatry 01/02/2020 Appointment Psychiatry Order Schedule Name Type Priority Associated Diag noses Ordered: 11/21/2019 ORT - XR FINGER RIGHT 2V FL Charge Routine Finge r pain, right ( CHARGE ONLY) Flexor tenosynovitis of finger Order Schedule Name Type Priority Associated Diag noses Ordered: 11/21/2019 AMB REF TO OCC THERAPY Outpatient Routine Finger pain, right EXTERNAL Referral Health Maintenance Due Date Last Done Comments [...] 11/18/2018 documented as of this encounter Results * XR FINGER RIGHT < 2 VW (11/21/2019 11:04 AM ELECTRONIC IMAGER) Specimen Narrative Performed At For result, please reference physician' s note on the corresponding date. documented in this encounter Visit Diagnoses Diagnosis Finger pain, right - Primary Pain in limb Flexor tenosynovitis of finger Other tenosynovitis of hand and wrist documented in this encounter Insurance Type Payer Benefit Subscriber ID Effective Phone Address Plan / Dates Group [facility] xxxxxxxxxx 2018-P [address] [place] [facility] [place] [address] [place] [address] [phone] [facility] [facility] [place] [address] documented as of this encounter
--- OUTSIDE RECORDS SUMMARY | 2020-03-24 22:26 | XMS REPORT | Clinical Summary ---
Author Author [facility] Organization [facility] Address Unknown Phone Unavailable Care Team Providers [facility] Name Role Phone Mulu Flanagan PCP Allergies Comments Active Allergy Reactions Severity Noted Date Adhesive Tape "makes me sick" Cephalexin Other (See Low 08/29/2009 Comments) Hydromorphone Hcl Doxycycline Low 07/21/2018 " makes me sick" Doxycycline Hyclate 05/06/2018 Dapagliflozin Itching, Rash 11/30/2018 Became very violent Other reaction(s): Other (See Comments) hallucination hallucination Hydromorphone Other (See High 05/06/2018 Comments), Hallucination s Medications End Date Status Medication Sig Dispensed [...] 600mg Neuropathy Active Ergocalciferol 1.25 MG 0 (26437 UT) CAPS 9 09/19/2020 Active furosemide (LASIX) [...] 1 Unit Inject into 0 08/21 Dial, (TOUJEO SOLOSTAR) the skin. 9 300 UNIT/ML SOPN 02/19/2020 Active famotidine (PEPCID) 20 MG Take 1 Tab by 90 Tab 0 tablet mouth daily 0 for 90 days. 02/19/2020 Active dicyclomine (BENTYL) 10 Take 1 Cap by 90 Cap 1 MG capsule mouth 2 times 0 daily as needed (abdominal pain/cramping ) for up to 90 days. Active Ascorbic Acid (VITAMIN C Take by 0 OR) mouth. 01/04/2020 Active Diclofenac Sodium 1 % Place 1 2 Tube 1 11/18 GELIndications: Percent onto 0 Osteoarthritis, the skin 2 unspecified times daily osteoarthritis type, as needed for unspecified site, up to 30 Encounter for long-term days. (current) use of high-risk medication 12/05/2019 Discontinued (Other) pantoprazole (PROTONIX) at bedtime. 0 40 MG tabletIndications: 8 Finger pain, left 12/05/2019 Discontinued (Other) rosuvastatin (CRESTOR) 20 0 MG tabletIndications: 8 Finger pain, left 11/21/2019 Discontinued (Patient's Pref erence) ascorbic acid 500 MG Take 500 mg 0 tablet by mouth daily. 11/21/2019 Discontinued (*Alternate the rapy) hyoscyamine (LEVBID) hyoscyamine 0 0.375 MG CR tablet ER 0.375 mg tablet,extend ed release,12 hr 11/21/2019 Discontinued (Patient's Pref erence) polyethylene glycol Take 17 g by 1 Bottle 2 06/27 (GLYCOLAX) powder mouth daily. 9 11/21/2019 Discontinued (Dose adjustmen t) trazodone (DESYREL) 50 MG Take 50 mg by 0 tabletIndications: Major mouth nightly depressive disorder, as needed. recurrent episode, moderate (HCCode), Illness anxiety disorder 11/20/2019 Discontinued promethazine (PHENERGAN) Take 1 Tab by 30 Tab 1 12.5 MG tablet mouth every 6 9 hours as needed for Nausea. 11/21/2019 Discontinued (Patient's Pref erence) albuterol (PROAIR HFA) ProAir HFA 90 0 108 (90 base) mcg/act mcg/actuation inhaler aerosol inhaler 11/21/2019 Discontinued (Patient's Pref erence) benzonatate (TESSALON) benzonatate 0 200 mg capsule 200 mg capsule 11/21/2019 Discontinued (Patient's Pref erence) Exenatide (BYETTA 10 MCG Byetta 10 0 PEN) 10 MCG/0.04ML SOPN mcg/dose(250 mcg/mL)2.4 mL subcutaneous pen injector 11/21/2019 Discontinued (Patient's Pref erence) pioglitazone (ACTOS) 30 pioglitazone 0 MG tablet 30 mg tablet 11/21/2019 Discontinued (Dose adjustmen t) escitalopram (LEXAPRO) 10 Take 1 Tab by 30 Tab 1 MG tabletIndications: mouth daily. 0 Major depressive disorder, recurrent episode, moderate (HCCode), Illness anxiety disorder 11/21/2019 Discontinued (Patient's Pref erence) PILOCARPINE HCL, ORAL, 5 TAKE 1 TABLET 90 Each 1 MG TABSIndications: BY MOUTH 0 Sicca, unspecified type THREE TIMES A (HCCode) DAY - REPLACING CEVILAMINE Active Problems Problem Noted Date Major depressive disorder, recurrent episode, moderat e (HCCode) 07/19/2019 Illness anxiety disorder 07/19/2019 Insulin dependent type 2 diabetes mellitus (HCCode) 05/02/2019 Cirrhosis (HCCode) 05/02/2019 Flexor tenosynovitis of finger 01/31/2018 Osteophyte of hand 01/31/2018 Encounters Care Team Description Date Type Specialty Carol Chopra MD Disease Management 12/05/2019 Office Visit Rheumatology Roque Sierra MD Gastro Procedure (prep instructions via email ) 12/05/2019 Telephone Gastroenterology Roque Sierra MD Gastro Procedure 12/04/2019 Telephone Gastroenterology Fidencio Sumner MD 11/27/2019 Orders Only Hepatology Kristal Erwin PA-C 11/22/2019 Orders Only Hepatology Roque Sierra MD Medical Concern (pt wants to speak to nu rse about results from [facility] chris) 11/22/2019 Telephone Gastroenterology Fidencio Sumner MD 11/22/2019 Orders Only Hepatology Roque Sierra MD Pain (Abdominal ); Diarrhea; Constipatio n 11/21/2019 Office Visit Gastroenterology Mavis Islas FNP Follow Up (right ring finger) 11/21/2019 Office Visit Orthopedic Surgery Roque Sierra MD Refill 11/18/2019 Refill Gastroenterology Roque Sierra MD Other (PRIORITY message, see notes) 11/17/2019 Telephone Gastroenterology Roque Sierra MD Abdominal Pain (please see attached note s) 11/13/2019 Telephone Gastroenterology Roque Sierra MD Results 11/10/2019 Telephone Gastroenterology Roque Sierra MD Labs Only (c. Difficile labs added per Nasreen Sierra) 10/30/2019 Telephone Gastroenterology Carol Chopra MD Refill 10/26/2019 Refill Rheumatology Angela Zaman MD Diabetic Eye Exam 10/24/2019 Office Visit Ophthalmology Roque Sierra MD Test Orders (Upper GI Small Bowel); Test Orders 10/19/2019 Telephone Gastroenterology Carol Chopra MD INSURANCE ISSUE (mri denied by insurance company) 10/04/2019 Telephone Rheumatology Carol Chopra MD Results 10/03/2019 Telephone Rheumatology Mirian Pearson DO Leg Numbness (Left leg) 09/27/2019 Clinical Electromyography & Nerve Support Conduction Studies Carol Chopra MD Return Patient Call 09/26/2019 Telephone Rheumatology Carol Chopra MD Prior Authorization; Prior Authorization (Please call back to advise. ); Prior Authorization; Prior Authorization 09/25/2019 Telephone Rheumatology Mavis Islas FNP Hand Injury 09/22/2019 Office Visit Orthopedic Surgery Leonard Galvan MD Memory Loss (short term; started after hospitalization); Confusion 09/19/2019 Office Visit Neurology Carol Chopra MD Medical Concern (speak with clinical ) 09/19/2019 Telephone Rheumatology [facility], Prelude EMG Test 09/12/2019 Telephone Electromyography & Nerve Conduction Studies Carol Chopra MD Medication Question 09/08/2019 Telephone Rheumatology Carol Chopra MD Disease Management 09/06/2019 Office Visit Rheumatology Sergey Redmond MD 09/06/2019 Abstract Vascular Surgery Sergey Redmond MD 09/06/2019 Abstract Vascular Surgery Roque Sierra MD Schedule For Test/Appt (Capsule Endoscop y) 09/06/2019 Telephone Gastroenterology from Last 3 Months Immunizations Name Administration Dates Next Due Influenza (whole) 08/18/2019 Influenza Quad-PF 07/27/2019 Pneumococcal 05/04/2019 Polysaccharide Zoster Live 05/04/2019 Zoster Recombinant 08/12/2019 Family History Medical History Relation Name Comments [...] at Date Recorded Female 12/05/2019 4:11 PM CRYPTOLOGIC LINGUIST Industry Job Start Date Occupation Not on file Not on file Not on file Travel End Travel History Travel Start No recent travel history available. Last Filed Vital Signs Reading Time Taken Comments Vital Sign 122/69 12/05/2019 11:21 AM CRYPTOLOGIC LINGUIST Blood Pressure 78 12/05/2019 11:21 AM CRYPTOLOGIC LINGUIST Pulse 36.5 C (97.7 F) 12/05/2019 9:25 AM CRYPTOLOGIC LINGUIST Temperature 16 12/05/2019 11:21 AM CRYPTOLOGIC LINGUIST Respiratory Rate 96% 12/05/2019 9:25 AM CRYPTOLOGIC LINGUIST Oxygen Saturation - - Inhaled Oxygen Concentration 117 kg (258 lb) 12/05/2019 11:21 AM CRYPTOLOGIC LINGUIST Weight 167.6 cm (5' 6") 12/05/2019 11:21 AM CRYPTOLOGIC LINGUIST Height 41.64 12/05/2019 11:21 AM CRYPTOLOGIC LINGUIST Body Mass Index Plan of Treatment Care Team Description Date Type Specialty Roque Sierra MD [address] [place] [address] 12/08/2019 Procedure visit Gastroenterology Roque Sierra MD [address] [place], [place] [id number] 12/11/2019 Office Visit Gastroenterology Carol Chopra MD [address] [place], [place] [id number] [phone] 04/17/2020 Office Visit Rheumatology Health Maintenance Due Date Last Done Comments [...] > 6 MONTHS Completed 08/18/2019, 07/2019, 11/18/2018 Procedures Comments Procedure Name Priority Date/Time Associated Diag nosis US ABDOMEN COMPLETE Routine 11/27/2019 1:15 PM CRYPTOLOGIC LINGUIST HEPATITIS B VIRAL DNA Routine 11/22/2019 QUANT PCR 2:06 PM CRYPTOLOGIC LINGUIST HEPATITIS B SURFACE AB Routine 11/22/2019 QUAL 2:06 PM CRYPTOLOGIC LINGUIST AFP TUMOR MARKER Routine 11/22/2019 2:06 PM CRYPTOLOGIC LINGUIST HEPATITIS B SURFACE Routine 11/22/2019 ANTIGEN 2:06 PM CRYPTOLOGIC LINGUIST BASIC METABOLIC PANEL Routine 11/22/2019 2:06 PM CRYPTOLOGIC LINGUIST HEPATIC FUNCTION PANEL Routine 11/22/2019 2:06 PM CRYPTOLOGIC LINGUIST PROTIME-INR Routine 11/22/2019 2:06 PM CRYPTOLOGIC LINGUIST XR FINGER RIGHT < 2 VW Routine 11/21/2019 Finger pain, right 11:04 AM CRYPTOLOGIC LINGUIST Flexor tenosynovitis of finger CLOSTRIDIUM DIFFICILE Routine 11/10/2019 Abdomina l distention TOXIN/GDH WITH REFLEX TO 12:22 PM CRYPTOLOGIC LINGUIST Positive aut oantibody PCR screening for celiac disease Nausea and vomiting, intractability of vomiting not specified, unspecified vomiting type Alternating constipation and diarrhea Elevated C-reactive protein (SCN) SCANNED ORDER 11/09/2019 12:00 AM CRYPTOLOGIC LINGUIST OCT, RETINA - OU - BOTH Routine 10/24/2019 Diabet es mellitus type 2 EYES 3:17 PM CRYPTOLOGIC LINGUIST in obese (HCCode) XR FINGER RIGHT < 2 VW Routine 09/22/2019 Finger pain, right 10:40 AM CRYPTOLOGIC LINGUIST C-REACTIVE PROTEIN Routine 09/06/2019 10:47 AM CRYPTOLOGIC LINGUIST CK Routine 09/06/2019 Neuropathy 10:47 AM CRYPTOLOGIC LINGUIST Myalgia COMPREHENSIVE METABOLIC Routine 09/06/2019 Osteoa rthritis, PANEL 10:47 AM CRYPTOLOGIC LINGUIST unspecified osteoarthritis type, unspecified site Vitamin D deficiency Cirrhosis of liver without ascites, unspecified hepatic cirrhosis type (HCCode) Neuropathy ANTI NEUTROPHIL Routine 09/06/2019 Osteoarthritis , CYTOPLASMIC ANTIBODY 10:47 AM CRYPTOLOGIC LINGUIST unspecified osteoarthritis type, unspecified site Vitamin D deficiency Cirrhosis of liver without ascites, unspecified hepatic cirrhosis type (HCCode) Neuropathy COMPLEMENT C3 AND C4 Routine 09/06/2019 Osteoarth ritis, 10:47 AM CRYPTOLOGIC LINGUIST unspecified osteoarthritis type, unspecified site Vitamin D deficiency Cirrhosis of liver without ascites, unspecified hepatic cirrhosis type (HCCode) Neuropathy SEDIMENTATION RATE Routine 09/06/2019 Osteoarthri tis, MODIFIED WESTERGREN 10:47 AM CRYPTOLOGIC LINGUIST unspecified osteoarthritis type, unspecified site Vitamin D deficiency Cirrhosis of liver without ascites, unspecified hepatic cirrhosis type (HCCode) Neuropathy CBC W/AUTO DIFF WITH Routine 09/06/2019 Osteoarth ritis, PLATELETS 10:47 AM CRYPTOLOGIC LINGUIST unspecified osteoarthritis type, unspecified site Vitamin D deficiency Cirrhosis of liver without ascites, unspecified hepatic cirrhosis type (HCCode) Neuropathy CRYOGLOBULIN Routine 09/06/2019 Osteoarthritis, 10:47 AM CRYPTOLOGIC LINGUIST unspecified osteoarthritis type, unspecified site Vitamin D deficiency Cirrhosis of liver without ascites, unspecified hepatic cirrhosis type (HCCode) Neuropathy from Last 3 Months Results * US ABDOMEN COMPLETE (11/27/2019 1:15 PM CRYPTOLOGIC LINGUIST) Specimen Impressions Performed At IMPRESSION: [facility] Fatty cirrhotic liver with portal hyper tension and trace ascites. No focal liver lesion. Signed: Ilya Larson MD Report Verified Date/Time: 11/27/2019 16:16:10 Reading Location: [address] Rad[address] Reading Room Narrative Performed At FINAL REPORT [facility] TECHNIQUE: Grayscale ultrasound of the abdomen. INDICATION: [...] No sonographically evident solid mass lesi on. Procedure Note Hang, Rad Results In - 11/27/2019 4:18 PM CRYPTOLOGIC LINGUIST FINAL REPORT TECHNIQUE: Grayscale ultrasound of the [...] ascites. No focal liver lesion. Signed: Ilya Larson MD Report Verified Date/Time: 11/27/2019 16:16:10 Reading Location: [address] Radiology Reading Room Performing Organization Address [facility] one Number [facility] [address] [place] [address]. [place] [address] * HEPATITIS B SURFACE AB QUAL (11/22/2019 2:06 PM CRYPTOLOGIC LINGUIST) Pathologist [facility] HEP BS ANTIBODY 1,064.1 (H) <8.0 mIU/mL [facility] Specimen Narrative Performed At Supervisor [employer] ID - DB [facility] Performing Organization Address [facility] one Number [facility] * HEPATITIS B VIRAL DNA QUANT PCR (11/22/2019 2:06 PM CRYPTOLOGIC LINGUIST) Pathologist [facility] RESULT/COMMENT HBV DNA not detected HBV DNA not detected [facility] Specimen Narrative Performed At This test uses a Real-Time Polymerase Chain Reaction (RT-PCR) methodology and [facility] was performed using [employer] AmpliPrep/C TAMERA TaqMan HBV Test, v2.0 ([employer]jamín [employer] Reportable range for this assay is 20 - 170,000,000 IU per mL (1.30 - 8.23 Log IU/mL). Performing Organization Address [facility] one Number [facility] * AFP TUMOR MARKER (11/22/2019 2:06 PM CRYPTOLOGIC LINGUIST) Pathologist [facility] AFP 5.6 <10.0 ng/mL [facility] Specimen Narrative Performed At Supervisor [employer] ID - DB [facility] Performing Organization Address [facility] one Number [facility] * HEPATITIS B SURFACE ANTIGEN (11/22/2019 2:06 PM CRYPTOLOGIC LINGUIST) HEP B SURFACE Nonreactive Nonreactive [facility] ANTIGEN (REFL) Specimen Narrative Performed At Supervisor [employer] ID - DB [facility] Performing Organization Address [facility] one Number [facility] * PROTIME-INR (11/22/2019 2:06 PM CRYPTOLOGIC LINGUIST) PROTIME 16.5 (H) 11.9 - 14.[address] [facility] INR 1.[address] [facility] Specimen Narrative Performed At Effective 03/15/2019: PT Reference Range Change [facility] New: 11.9-14.2 Previous: 11.7-14.7 RECOMMENDED COUMADIN/WARFARIN INR THERA PY RANGES STANDARD DOSE: 2.0-3.0 Includes: PROP HYLAXIS for venous thrombosis, systemic embolization; TREATMENT for venous thro mbosis and/or pulmonary embolus. HIGH RISK: Target INR is 2.5-3.5 for pa tients wiht mechanical heart valves. Performing Organization Address [facility] one Number [facility] * HEPATIC FUNCTION PANEL (11/22/2019 2:06 PM CRYPTOLOGIC LINGUIST) TOTAL PROTEIN 8.3 6.0 - 8.3 gm/dL [facility] ALBUMIN 4.0 3.5 - 5.0 g/dL [facility] BILIRUBIN TOTAL 1.4 (H) 0.2 - 1.2 mg/dL [facility] BILIRUBIN 0.7 (H) 0.1 - 0.5 mg/dL [facility] DIRECT ALKALINE 111 40 - 150 U/L [facility] PHOSPHATASE AST (SGOT) 38 (H) 5 - 34 U/L [facility] ALT (SGPT) 36 6 - 55 U/L [facility] Specimen Narrative Performed At Supervisor [employer] ID - BS [facility] Performing Organization Address [facility] one Number [facility] * BASIC METABOLIC PANEL (11/22/2019 2:06 PM CRYPTOLOGIC LINGUIST) SODIUM 136 136 - 145 meq/L [facility] POTASSIUM 4.1 3.5 - 5.1 meq/L [facility] CHLORIDE 102 98 - 107 meq/L [facility] CO2 26 22 - 29 meq/L [facility] BLOOD UREA 10 7 - 21 mg/dL [facility] NITROGEN CREATININE 0.76 0.57 - 1.25 mg/dL [facility] GLUCOSE 341 (H) 70 - 105 mg/dL [facility] CALCIUM 9.7 8.4 - 10.2 mg/dL [facility] EGFR 79Comment: ESTIMATED GFR IS mL/min/1.73 sq m [facility] NOT ACCURATE CREATININE CLEARANCE IN PREDICTING GLOMERULAR FILTRATION RATE. ESTIMATED GFR IS NOT APPLICABLE FOR DIALYSIS PATIENTS. Specimen Narrative Performed At Supervisor [employer] ID - BS [facility] Performing Organization Address [facility] Number [facility] * XR FINGER RIGHT < 2 VW (11/21/2019 11:04 AM CRYPTOLOGIC LINGUIST) Only the most recent of 2 results within the time period is included. Specimen Narrative Performed At For result, please reference physician' s note on the corresponding date. * CLOSTRIDIUM DIFFICILE TOXIN/GDH WITH REFLEX TO PCR (11/10/2019 12:22 PM CRYPTOLOGIC LINGUIST) GDH NEGATIVE NEGATIVE CPL Comment: INTERPRETATION: C. difficile not present. C. Diff Toxin by PCR not indicated. Unless Otherwise Indicated, All Testing Performed At: [facility], [address] [place] [address] [employer] Supervisor: Edward Escobar M.D. CLIA Number [id number] [place]. [id number] Specimen Stool Performing Organization Address [facility] Number [address] [address] * (SCN) SCANNED ORDER (11/09/2019 12:00 AM CRYPTOLOGIC LINGUIST) Specimen Narrative Performed At This result has an attachment that is n ot available. * OCT, RETINA - OU - BOTH EYES (10/24/2019 3:17 PM CRYPTOLOGIC LINGUIST) Specimen Narrative Performed At This result has an attachment that is n ot available. OD: 240, no fluid OS: 238, no fluid * COMPLEMENT C3 AND C4 (09/06/2019 10:47 AM CRYPTOLOGIC LINGUIST) Pathologist [facility] C3 COMPLEMENT 127 90 - 180 MG/DL CPL C4 COMPLEMENT 18 10 - 40 MG/DL CPL Comment: Unless Otherwise Indicated, All Testing Performed At: [facility], [address] [place] [address] [employer] Supervisor: Edward Escobar M.D. CLIA Number [id number] [place]. [id number] Specimen Performing Organization Address [facility] one Number [facility] [address] [place] [address] [phone] * CRYOGLOBULIN (09/06/2019 10:47 AM CRYPTOLOGIC LINGUIST) [facility] CRYOGLOBULIN NEGATIVE NEGATIVE CPL Comment: Preliminary result is negative for Cryoglobulins; further reports will not be generated until the study is completed at 7 days. FINAL REPORT NEGATIVE NEGATIVE CPL Comment: Unless Otherwise Indicated, All Testing Performed At: [facility], [address] [place] [address] [employer] Supervisor: Edward Escobar M.D. CLIA Number [id number] [place]. [id number] Specimen Blood Performing Organization Address [facility] one Number [facility] [address] [place] [address] * ANTI NEUTROPHIL CYTOPLASMIC ANTIBODY (09/06/2019 10:47 AM CRYPTOLOGIC LINGUIST) [facility] NEUTROPHIL <1:10 <1:10 CPL CYTOPLASMIC ANTIBODIES INTERPRETATION (NOTE) CPL Comment: Negative ANCA test excludes cytoplasmic (C-ANCA) and perinuclear (P-ANCA). Serine protease 3 (PR3) [...] All Testing Performed At: [facility], [address] [place] [address] [employer] Supervisor: Edward Escobar M.D. CLIA Number [id number] [place]. [id number] Specimen Blood Performing Organization Address [facility] one Number [facility] [address] [place] [address] * SEDIMENTATION RATE MODIFIED WESTERGREN (09/06/2019 10:47 AM CRYPTOLOGIC LINGUIST) Pathologist [facility] ERYTHROCYTE 36 (H) 0 - 20 MM/HOUR CPL SEDIMENTATION Comment: RATE Unless Otherwise Indicated, All Testing Performed At: [facility], [address] [place] [address] [employer] Supervisor: Edward Escobar M.D. CLIA Number [id number] [place]. [id number] Specimen Blood Performing Organization Address [facility] one Number [facility] [address] [place] [address] * CBC W/AUTO DIFF WITH PLATELETS (09/06/2019 10:47 AM CRYPTOLOGIC LINGUIST) Pathologist [facility] WHITE BLOOD 6.3 4.0 - 11.0 K/UL CPL CELL COUNT RED BLOOD CELL 4.83 3.80 - 5.10 M/UL CPL COUNT HEMOGLOBIN 13.7 11.5 - 15.5 G/DL CPL HEMATOCRIT 40.2 34.0 - 45.0 % CPL MEAN 83.2 80.0 - 100.0 fL CPL CORPUSCULAR VOLUME MEAN 28.4 27.0 - 34.0 PG CPL CORPUSCULAR HEMOGLOBIN MEAN 34.1 32.0 - 35.5 G/DL CPL CORPUSCULAR HEMOGLOBIN CONC RED CELL 14.4 11.0 - 15.0 % CPL DISTRIBUTION WIDTH NEUTROPHILS % 67.7 40.0 - 74.0 % CPL LYMPHOCYTES % 22.8 19.0 - 48.0 % CPL MONOCYTES % 6.5 4.0 - 13.0 % CPL EOSINOPHILS % 2.4 0.0 - 7.0 % CPL BASOPHILS % 0.6 0.0 - 2.0 % CPL PLATELET COUNT 141 130 - 400 K/UL CPL Comment: Unless Otherwise Indicated, All Testing Performed At: [facility], [address] [place] [address] [employer] Supervisor: Edward Escobar M.D. CLIA Number [id number] [place]. [id number] Specimen Blood Performing Organization Address [facility] one Number [address] [address] * C-REACTIVE PROTEIN (09/06/2019 10:47 AM CRYPTOLOGIC LINGUIST) Pathologist [facility] C-REACTIVE 1.1 (H) <0.5 MG/DL CPL PROTEIN Comment: Unless Otherwise Indicated, All Testing Performed At: [facility], [address] [place] [address] [employer] Supervisor: Edward Escobar M.D. CLIA Number [id number] [place]. [id number] Specimen Performing Organization Address [facility] one Number [address] [address] * CK (09/06/2019 10:47 AM CRYPTOLOGIC LINGUIST) Pathologist [facility] CREATINE KINASE 60 28 - 176 U/L [facility] TOTAL Comment: Unless Otherwise Indicated, All Testing Performed At: [facility], [address] [place] [address] [employer] Supervisor: Edward Escobar M.D. CLIA Number [id number] [place]. [id number] Specimen Blood Performing Organization Address [facility] one Number [address] [address] * COMPREHENSIVE METABOLIC PANEL (09/06/2019 10:47 AM CRYPTOLOGIC LINGUIST) Pathologist [facility] GLUCOSE 305 (H) 70 - 99 MG/DL CPL BLOOD UREA 9 6 - 20 MG/DL CPL NITROGEN CREATININE 0.62 0.60 - 1.30 MG/DL CPL EGFR AA 118 >60 ML/MIN/1.73 CPL EGFR 102 >60 ML/MIN/1.73 CPL BUN/CREAT RATIO 15 6 - 28 RATIO CPL SODIUM 136 133 - 146 MEQ/L CPL POTASSIUM 4.2 3.5 - 5.4 MEQ/L CPL CHLORIDE 100 95 - 107 MEQ/L CPL CO2 25 19 - 31 MEQ/L CPL CALCIUM 9.3 8.5 - 10.5 MG/DL CPL PROTEIN TOTAL 8.0 6.1 - 8.3 G/DL CPL ALBUMIN 4.1 3.5 - 5.2 G/DL CPL GLOBULINS, 3.9 (H) 1.9 - 3.7 G/DL CPL SERUM, TOTAL A/G RATIO 1.1 1.0 - 2.6 RATIO CPL BILIRUBIN TOTAL 1.3 (H) <=1.2 MG/DL CPL ALKALINE 93 40 - 133 U/L C[facility] PHOSPHATASE AST (SGOT) 27 9 - 40 U/L CPL ALT (SGPT) 24 5 - 40 U/L CPL Comment: Unless Otherwise Indicated, All Testing Performed At: [facility], [address] [place] [address] [employer] Supervisor: Edward Escobar M.D. CLIA Number [id number] [place]. [id number] Specimen Blood Performing Organization Address [facility] one Number [facility] [address] [place] [phone] from Last 3 Months Insurance Type Payer Benefit Subscriber ID Effective Phone Address Plan / Dates Group [facility] xxxxxxxxxx 2018-P [place] [facility] resent [id number] [place] [phone] Erinn Pate Personal/F Self [id number] am[address] (Home) [place] [address]
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
--- OUTSIDE RECORDS SUMMARY | 2020-03-24 22:26 | XMS REPORT | Summary of Care ---
Author Author [facility] Organization [facility] Address Unknown Phone Unavailable Care Team Providers Care Pharmacy Resident Name Role Phone Mulu Flanagan PCP Reason for Visit * Reason Comments Disease Management Follow up Encounter Details Care Team Description Date Type Department Carol Chopra MD [facility] [place] [address] Disease Management (Follow up ) 02/20/2020 Office Visit [facility] Rheumatology [address] [facility] [address] [facility], [address] [place] [address] Allergies Comments Active Allergy Reactions Severity Noted Date Adhesive Tape "makes me sick" Cephalexin Other (See Low 08/29/2009 Comments) Hydromorphone Hcl Doxycycline Low 07/21/2018 " makes me sick" Doxycycline Hyclate 05/06/2018 Dapagliflozin Itching, Rash 11/30/2018 Became very violent Other reaction(s): Other (See Comments) hallucination hallucination Hydromorphone Other (See High 05/06/2018 Comments), Hallucination s documented as of this encounter (statuses as of 02/20/2020) Medications End Date Status Medication Sig Dispensed [...] 600mg Neuropathy Active Ergocalciferol 1.25 MG 0 (74624 UT) CAPS 9 09/19/2020 Active furosemide (LASIX) [...] Nausea. vomiting not specified, unspecified vomiting type 02/20/2020 Discontinued nystatin (NYSTOP) powder Nystop 0 100,000 unit/gram topical powder 02/20/2020 Discontinued sucralfate (CARAFATE) 1 g sucralfate 1 0 tablet gram tablet Status Hospital, Clinic, or Ordered Dose Route Frequency Start End Date Other Facility Date Administered Medication Active triamcinolone acetonide IX ONCE 02/20/20 0 (KENALOG-40) 40 mg/mL 40 20 0 mg, lidocaine 1% (10 mg/mL) 2 mLIndications: Finger pain, right, Osteoarthritis, unspecified osteoarthritis type, unspecified site documented as of this encounter (statuses as of 02/20/2020) Active Problems Problem Noted Date Major depressive disorder, recurrent episode, moderat e (HCCode) 07/19/2019 Illness anxiety disorder 07/19/2019 Insulin dependent type 2 diabetes mellitus (HCCode) 05/02/2019 Cirrhosis (HCCode) 05/02/2019 Flexor tenosynovitis of finger 01/31/2018 Osteophyte of hand 01/31/2018 documented as of this encounter (statuses as of 02/20/2020) Immunizations Name Administration Dates Next Due Influenza [...] at Date Recorded 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 Date Recorded COVID-19 Exposure Response 02/20/2020 11:39 AM CDT In the last month, have you been in contact with No / Unsure someone who was confirmed or suspected to have Coronavirus / COVID-19? documented as of this encounter Last Filed Vital Signs Reading Time Taken Comments Vital Sign 132/77 02/20/2020 11:44 AM CDT Blood Pressure 91 02/20/2020 11:44 AM CDT Pulse 36.4 C (97.6 F) 02/20/2020 11:44 AM CDT Temperature 16 02/20/2020 11:44 AM CDT Respiratory Rate 93% 02/20/2020 11:44 AM CDT Oxygen Saturation - - Inhaled Oxygen Concentration 116.3 kg (256 lb 6.4 oz) 02/20/2020 11:44 AM CDT Weight 167.6 cm (5' 6") 02/20/2020 11:44 AM CDT Height 41.38 02/20/2020 11:44 AM CDT Body Mass Index documented in this encounter Patient Instructions * Patient Instructions* Carol Chopra MD - 02/20/2020 11:45 AM CDT Rest finger Continue diclofenac as tolerated Advise schedule hand surgery appointment as well Can consider using salon pas ( mostly lidocaine patch ) to small area of finger We have injected your ring finger - knuckle joint with kenalog ( steroid 40mg ) and lidocaine 1 percent If any redness happens or increased swelling get to ED or call us Schedule appointment with hand surgery as well - ( orthopedic ) Thank you Carol Chopra MD T documented in this encounter Progress Notes * Carol Chopra MD - 02/20/2020 11:45 AM CDT HISTORY OF PRESENT ILLNESS: Erinn Pate is a 55 y.o. year old female who presents for Follow up of her joints pains. She has been following hepatology for concerns with her liver , and has been told she has cirrhosis with ascites , and she has been started on rifaximin as well as diuretics She has had a " finger injury " around last and has seen orthopedic [place] and followed advise and did ok but states has increased pain in right hand ri ng finger over past 2 weeks And she sent a My Point...Exactly message saying she wants to cut it off We advised her to come to clinic today for eval Past disease course Pain and swelling of [...] with blood supply to her digits in [facility] and this was operate d and opened [...] times daily (with meals). Ergocalciferol 1.25 MG (81211 UT) CAPS escitalopram (LEXAPRO) 20 MG tablet [...] prior to visit. ALLERGIES Allergies as of 02/20/2020 - Reviewed 02/20/2020 Allergen Reaction Noted Hydromorphone Other (See Comments) [...] 2013 Drug use: No PHYSICAL EXAM BP 132/77 (BP Location: left arm, Patient Position: Sitting, Cuff Size: regular) | Pulse 91 | Temp 97.6 F (36.4 C) (Oral) | Resp 16 | Ht 5' 6" (1.676 m) | Wt 256 lb 6.4 oz (116.3 kg) | SpO2 93% | BMI 41.38 kg/m GENERAL: NAD, pleasant, healthy appearing HEENT: sclera anicteric, OP clear, PERRL NECK: supple no LAD, no TM, FROM ABD: soft NT ND BS+ no HSM [...] squeeze, no synovitis or effusion, carpometacarpal tenderness Right 4 th rd mcp ttp , no evidence of flexor or extensor tender injury WRIST - FROM to palmar and dorsi [...] External Ris In - 11/17/2018 1:25 PM CAMPAIGN SPECIALIST FINAL REPORT Exam: Right and left hand [...] External Ris In - 11/17/2018 1:25 PM CAMPAIGN SPECIALIST FINAL REPORT Exam: Right and left hand [...] requesting her to have - topical nsaids 4. Right hand 4 th finger pain , mcp ttp no redness Given severity of pain advised inject With After consent was obtained, using sterile technique the right hand 4th mcp dorsa l approach was prepped and plain Lidocaine 1% was used as local anesthetic. alireza alberto Steroid 40mg and 2.0 ml plain Lidocaine was then injected and the needle w ithdrawn. The procedure was well tolerated. The patient is asked to continue t o rest the joint for a few more days before resuming regular activities. It may be more painful for the first 1-2 days. Watch for fever, or increased swelling or persistent pain in the joint. Call or return to clinic prn if such symptoms occur or there is failure to improve as anticipated. T documented in this encounter Plan of Treatment Care Team Description Date Type Specialty Ramón Gomes, PhD [address] [address] 02/27/2020 Office Visit Gastroenterology Michael Keller MD [address] 7[address] [place] [address] 02/28/2020 Office Visit Gynecology Oncology Roque Sierra MD [address] [address] [phone] 03/04/2020 Clinical Gastroenterology Support Sly Upton MD [address] [address] 03/06/2020 Office Visit Hematology and Onco logy Carol Chopra MD [facility] [place] [address] 04/17/2020 Office Visit Rheumatology Hazel Nava, RD [address] [address] [phone] 04/30/2020 Office Visit Gastroenterology Health Maintenance Due Date Last Done Comments [...] filedocumented in this encounter Visit Diagnoses Diagnosis Finger pain, right - Primary Pain in limb Osteoarthritis, unspecified osteoarthri tis type, unspecified site documented in this encounter Insurance Type Payer Benefit Subscriber ID Effective Phone Address Plan / Dates Group [facility] xxxxxxxxxx 2018-P [address] [place] [facility] resent [address] [place] [address] [phone] [id number] [address] (Home) [place] [address] documented as of this encounter
--- OUTSIDE RECORDS SUMMARY | 2020-03-24 22:26 | XMS REPORT | Clinical Summary ---
Author Author [facility] Organization [facility] Address Unknown Phone Unavailable Care Team Providers Care File System Installer Name Role Phone Mulu Flanagan PCP Allergies [...] 2 06/27 (GLYCOLAX) powder mouth daily. 9 Active trazodone (DESYREL) 50 MG Take 50 mg by 0 tabletIndications: Major mouth nightly depressive disorder, as needed. recurrent episode, moderate (HCCode), Illness anxiety disorder Active promethazine (PHENERGAN) Take 1 Tab by 30 Tab 1 12.5 MG tablet mouth every 6 9 hours as needed for Nausea. Active NOVOLOG FLEXPEN 100 Inject 35-40 15 [...] pm - 9 capsuleIndications: 600mg Neuropathy Active albuterol (PROAIR HFA) ProAir HFA 90 0 108 (90 base) mcg/act mcg/actuation inhaler aerosol inhaler Active benzonatate (TESSALON) benzonatate 0 200 mg capsule 200 mg capsule Active Ergocalciferol 1.25 MG 0 (33290 UT) CAPS 9 Active Exenatide (BYETTA 10 MCG Byetta 10 0 PEN) 10 MCG/0.04ML SOPN mcg/dose(250 mcg/mL)2.4 mL subcutaneous pen injector 09/19/2020 Active furosemide (LASIX) 20 MG Take 20 mg by 0 09/20 tablet mouth. 9 Active TRUE METRIX BLOOD GLUCOSE USE 3 08/19 TEST DIRECTED 3 9 TIMES A DAY Active nystatin (NYSTOP) powder Nystop 0 100,000 unit/gram topical powder Active ondansetron (ZOFRAN) 4 MG ondansetron 0 tablet HCl 4 mg tablet Active pioglitazone (ACTOS) 30 pioglitazone 0 MG tablet 30 mg tablet 08/21/2020 Active spironolactone Take 50 mg by 0 (ALDACTONE) 50 MG tablet mouth. 9 Active sucralfate (CARAFATE) 1 g sucralfate 1 0 tablet gram tablet Active Ursodiol 500 MG TABS TAKE 1 TABLET 9 BY MOUTH 9 TWICE A DAY Active escitalopram (LEXAPRO) 10 Take 1 Tab by 30 Tab 1 MG tabletIndications: mouth daily. 0 Major depressive disorder, recurrent episode, moderate (HCCode), Illness anxiety disorder Active PILOCARPINE HCL, ORAL, 5 TAKE 1 TABLET 90 Each 1 MG TABSIndications: BY MOUTH 0 Sicca, unspecified type THREE TIMES A (HCCode) DAY - REPLACING CEVILAMINE 10/20/2019 Discontinued (Reorder) escitalopram (LEXAPRO) 10 Take 1 Tab by 30 Tab 2 MG tabletIndications: mouth daily. 9 Major depressive disorder, recurrent episode, moderate (HCCode), Illness anxiety disorder 10/20/2019 Discontinued sertraline (ZOLOFT) 100 sertraline 0 MG tablet 100 mg tablet Active Problems Problem Noted Date Major depressive disorder, recurrent episode, moderat e (HCCode) 07/19/2019 Illness anxiety disorder 07/19/2019 Insulin dependent type 2 diabetes mellitus (HCCode) 05/02/2019 Cirrhosis (HCCode) 05/02/2019 Flexor tenosynovitis of finger 01/31/2018 Osteophyte of hand 01/31/2018 Encounters Care Team Description Date Type Specialty Roque Sierra MD Other (PRIORITY message, see notes) 11/17/2019 Telephone Gastroenterology Roque Sierra MD Abdominal Pain (please see attached note s) 11/13/2019 Telephone Gastroenterology Roque Sierra MD Results 11/10/2019 Telephone GastroenterRoque House MD Labs Only (c. Difficile labs added [...] MD Disease Management 09/06/2019 Office Visit Rheumatology Jazmine Wong MD 09/06/2019 Abstract Vascular Surgery Jazmine Wong MD 09/06/2019 Abstract Vascular Surgery Roque Sierra MD Schedule For Test/Appt (Capsule Endoscop y) 09/06/2019 Telephone Gastroenterology Carlo Chopra MD 09/01/2019 Orders Only Rheumatology Carol Chopra MD Question about appointment 08/31/2019 Telephone Rheumatology Jazmine Wong MD Leg Pain (Left leg, thigh) 08/24/2019 Office Visit Vascular Surgery 08/24/2019 Ancillary Vascular Surgery Procedure Jazmine Wong MD 08/24/2019 Abstract Vascular Surgery Jazmine Wong MD 08/24/2019 Abstract Vascular Surgery Jazmine Wong MD 08/24/2019 Abstract Vascular Surgery Jazmine Wong MD 08/23/2019 Orders Only Vascular Surgery Sekou Soria MD Follow-up Visit - Diabetes 08/21/2019 Office Visit Endocrinology Carol Chopra MD Refill 08/19/2019 Refill Rheumatology Jazmine Wong MD Other 08/17/2019 Telephone Vascular Surgery from Last 3 Months Immunizations Name Administration [...] Signs Reading Time Taken Comments Vital Sign 134/79 09/27/2019 10:40 AM MANAGER AGRICULTURAL Blood Pressure 93 09/27/2019 10:40 AM MANAGER AGRICULTURAL Pulse 36.8 C (98.3 F) 06/27/2019 1:54 PM CDT Temperature 16 09/06/2019 10:00 AM MANAGER AGRICULTURAL Respiratory Rate 97% 09/06/2019 10:00 AM MANAGER AGRICULTURAL Oxygen Saturation - - Inhaled Oxygen Concentration 122.9 kg (271 lb) 09/22/2019 9:31 AM MANAGER AGRICULTURAL Weight 167.6 cm (5' 6") 09/22/2019 9:31 AM MANAGER AGRICULTURAL Height 43.74 09/22/2019 9:31 AM MANAGER AGRICULTURAL Body Mass Index Plan of Treatment Care Team Description Date Type Specialty Mavis Islas FNP [address] [facility] [address] [place] [address] [phone] 11/21/2019 Office Visit Orthopedic Surgery Carol Chopra MD [address] [place], [place] [id number] 12/05/2019 Office Visit Rheumatology Roque Sierra MD [address] [facility] [address] [place], [place] [phone] 12/11/2019 Office Visit Gastroenterology Health Maintenance Due Date [...] Procedure Name Priority Date/Time Associated Diag nosis CLOSTRIDIUM DIFFICILE Routine 11/10/2019 Abdomina l distention TOXIN/GDH WITH REFLEX TO 12:22 PM MANAGER AGRICULTURAL Positive aut oantibody PCR screening for celiac disease Nausea and vomiting, intractability of vomiting not specified, unspecified vomiting type Alternating constipation and diarrhea Elevated C-reactive protein (SCN) SCANNED ORDER 11/09/2019 12:00 AM MANAGER AGRICULTURAL OCT, RETINA - OU - BOTH Routine 10/24/2019 Diabet es mellitus type 2 EYES 3:17 PM MANAGER AGRICULTURAL in obese (HCCode) XR FINGER RIGHT < 2 VW Routine 09/22/2019 Finger pain, right 10:40 AM MANAGER AGRICULTURAL C-REACTIVE PROTEIN Routine 09/06/2019 10:47 AM MANAGER AGRICULTURAL CK Routine 09/06/2019 Neuropathy 10:47 AM MANAGER AGRICULTURAL Myalgia COMPREHENSIVE METABOLIC Routine 09/06/2019 Osteoa rthritis, PANEL 10:47 AM MANAGER AGRICULTURAL unspecified osteoarthritis type, unspecified site Vitamin D deficiency Cirrhosis of liver without ascites, unspecified hepatic cirrhosis type (HCCode) Neuropathy ANTI NEUTROPHIL Routine 09/06/2019 Osteoarthritis , CYTOPLASMIC ANTIBODY 10:47 AM MANAGER AGRICULTURAL unspecified osteoarthritis type, unspecified site Vitamin D deficiency Cirrhosis of liver without ascites, unspecified hepatic cirrhosis type (HCCode) Neuropathy COMPLEMENT C3 AND C4 Routine 09/06/2019 Osteoarth ritis, 10:47 AM MANAGER AGRICULTURAL unspecified osteoarthritis type, unspecified site Vitamin D deficiency Cirrhosis of liver without ascites, unspecified hepatic cirrhosis type (HCCode) Neuropathy SEDIMENTATION RATE Routine 09/06/2019 Osteoarthri tis, MODIFIED WESTERGREN 10:47 AM MANAGER AGRICULTURAL unspecified osteoarthritis type, unspecified site Vitamin D deficiency Cirrhosis of liver without ascites, unspecified hepatic cirrhosis type (HCCode) Neuropathy CBC W/AUTO DIFF WITH Routine 09/06/2019 Osteoarth ritis, PLATELETS 10:47 AM MANAGER AGRICULTURAL unspecified osteoarthritis type, unspecified site Vitamin D deficiency Cirrhosis of liver without ascites, unspecified hepatic cirrhosis type (HCCode) Neuropathy CRYOGLOBULIN Routine 09/06/2019 Osteoarthritis, 10:47 AM MANAGER AGRICULTURAL unspecified osteoarthritis type, unspecified site Vitamin D deficiency Cirrhosis of liver without ascites, unspecified hepatic cirrhosis type (HCCode) Neuropathy US ANK/BRAC INDICES, Routine 08/24/2019 PAD (ashley pheral artery SINGLE BILAT 10:30 AM MANAGER AGRICULTURAL disease) (HCCode) Left leg pain Numbness and tingling of both feet MICROALBUMIN/CREAT URINE Routine 08/22/2019 Insul in dependent type 2 RATIO 10:00 AM MANAGER AGRICULTURAL diabetes mellitus (HCCode) LIPID PANEL Routine 08/22/2019 Insulin depende nt type 2 10:00 AM MANAGER AGRICULTURAL diabetes mellitus (HCCode) POCT HEMOGLOBIN A1C Routine 08/21/2019 Insulin de pendent type 2 2:50 PM MANAGER AGRICULTURAL diabetes mellitus (HCCode) from Last 3 Months Results * CLOSTRIDIUM DIFFICILE TOXIN/GDH WITH REFLEX TO PCR (11/10/2019 12:22 PM MANAGER AGRICULTURAL) Pathologist [facility] GDH NEGATIVE NEGATIVE CPL Comment: INTERPRETATION: C. difficile not present. C. Diff Toxin by PCR not indicated. Unless Otherwise Indicated, All Testing Performed At: [facility], [address] [place] [address] Haulage Boss: Edward Escobar M.D. CLIA Number [id number] [place]. [id number] Specimen Stool Performing Organization Address [facility] one Number [address] [address] * (SCN) SCANNED ORDER (11/09/2019 12:00 AM MANAGER AGRICULTURAL) Specimen Narrative Performed At This result has an attachment that is n ot available. * OCT, RETINA - OU - BOTH EYES (10/24/2019 3:17 PM MANAGER AGRICULTURAL) Specimen Narrative Performed At This result has an attachment that is n ot available. OD: 240, no fluid OS: 238, no fluid * XR FINGER RIGHT < 2 VW (09/22/2019 10:40 AM MANAGER AGRICULTURAL) Specimen Narrative Performed At For result, please reference physician' s note on the corresponding date. * COMPLEMENT C3 AND C4 (09/06/2019 10:47 AM MANAGER AGRICULTURAL) Pathologist [facility] C3 COMPLEMENT 127 90 - 180 MG/DL CPL C4 COMPLEMENT 18 10 - 40 MG/DL CPL Comment: Unless Otherwise Indicated, All Testing Performed At: [facility], [address] [place] [address] Haulage Boss: Edward Escobar M.D. CLIA Number [id number] [place]. [id number] Specimen Performing Organization Address [facility] one Number [address] [address] * CRYOGLOBULIN (09/06/2019 10:47 AM MANAGER AGRICULTURAL) Pathologist [facility] CRYOGLOBULIN NEGATIVE NEGATIVE CPL Comment: Preliminary result is negative for Cryoglobulins; further reports will not be generated until the study is completed at 7 days. FINAL REPORT NEGATIVE NEGATIVE CPL Comment: Unless Otherwise Indicated, All Testing Performed At: [facility], [address] [place] [address] Haulage Boss: Edward Escobar M.D. CLIA Number [id number] [place]. [id number] Specimen Blood Performing Organization Address [facility] one Number CPL [address] [place] [address] [phone] * ANTI NEUTROPHIL CYTOPLASMIC ANTIBODY (09/06/2019 10:47 AM MANAGER AGRICULTURAL) [facility] NEUTROPHIL <1:10 <1:10 CPL CYTOPLASMIC ANTIBODIES INTERPRETATION [...] All Testing Performed At: [facility], [address] [place] [address] Haulage Boss: Edward Escobar M.D. CLIA Number [id number] [place]. [id number] Specimen Blood Performing Organization Address [facility] one Number CPL [address] [place] [address] * SEDIMENTATION RATE MODIFIED WESTERGREN (09/06/2019 10:47 AM MANAGER AGRICULTURAL) Pathologist [facility] ERYTHROCYTE 36 (H) 0 - 20 MM/HOUR CPL SEDIMENTATION Comment: RATE Unless Otherwise Indicated, All Testing Performed At: [facility], [address] [place] [address] Haulage Boss: Edward Escobar M.D. CLIA Number [id number] [place]. [id number] Specimen Blood Performing Organization Address [facility] one Number CPL [address] [place] [phone] * CBC W/AUTO DIFF WITH PLATELETS (09/06/2019 10:47 AM MANAGER AGRICULTURAL) [facility] WHITE BLOOD 6.3 4.0 - 11.0 K/UL [...] All Testing Performed At: [facility], [address] [place], [place] [address] Haulage Boss: Edward Escobar M.D. CLIA Number [id number] [place]. [id number] Specimen Blood Performing Organization Address [facility] one Number [address] [address] * C-REACTIVE PROTEIN (09/06/2019 10:47 AM MANAGER AGRICULTURAL) [facility] C-REACTIVE 1.1 (H) <0.5 MG/DL CPL PROTEIN Comment: Unless Otherwise Indicated, All Testing Performed At: [facility], [address] [place] [address] Haulage Boss: Edward Escobar M.D. CLIA Number [id number] [place]. [id number] Specimen Performing Organization Address [facility] one Number [address] [address] [phone] * CK (09/06/2019 10:47 AM MANAGER AGRICULTURAL) [facility] CREATINE KINASE 60 28 - 176 U/L CPL TOTAL Comment: Unless Otherwise Indicated, All Testing Performed At: [facility], [address] [place] [address] Haulage Boss: Edward Escobar M.D. CLIA Number [id number] [place]. [id number] Specimen Blood Performing Organization Address [facility] one Number [address] [address] * COMPREHENSIVE METABOLIC PANEL (09/06/2019 10:47 AM MANAGER AGRICULTURAL) GLUCOSE 305 (H) 70 - 99 MG/DL [...] All Testing Performed At: [facility], [address] [place] [address] Haulage Boss: Edward Escobar M.D. CLIA Number [id number] [place]. [id number] Specimen Blood Performing Organization Address [facility] one Number [address] [address] * US ANK/BRAC INDICES, SINGLE BILAT (08/24/2019 10:30 AM MANAGER AGRICULTURAL) Specimen Narrative Performed At [facility] LAB DON Study Report Name: ANDREZ PATE 534 Accession/Encounter No:[id number] : 1965-01 Age: 54 Gender: F Study Date: Aug 24 Study Time: 09:58 AM Reading Group: Claudio shaikh MD Referring Group: Unassbrent CADENA Ordering Phys: Courtney WONG MD Inside Sales Consultant: Cassy Shields T Location: Vascular Lab Study Quality: Excellent Diagnosis Code: (I73.9) Peripheral vasc ular disease, unspecified (M79.605) Left leg pain (R20.0, R20.2) Numbness and tingling of both feet Procedure Code: 98727 Limited bilateral noninvasive physiologic studies of upper or lower extremity. Indications: Focal stabbing pain t o the left distal lateral lower leg, which has resolved and now has sim ilar pain on the left lateral upper thigh. Numbness and tingling of t oes of left foot and mild in the right great toe. DON: Right Post Post Post Rest 1 min 1 min Immed. Waveform Pressure (mmHg) (mmHg) ( mmHg) (mmHg) Brachial 130 Post Tibial Triphasic 164 Dors Pedis Triphasic 154 DON 1.17 Toe Pressure 105 TBI 0.75 Left Post Post Post Rest 1 min 1 min Immed. Waveform Pressure (mmHg) (mmHg) ( mmHg) (mmHg) Brachial 140 Post Tibial Triphasic 162 Dors Pedis Triphasic 158 DON 1.16 Toe Pressure 144 TBI 1.03 Findings: Triphasic Doppler signals in the bilate ral dorsalis pedis and distal ANDREZ BRUNO 2019-08-24 Page 1 of 2 Studycast - HIT [facility] DON Study Report posterior tibial arteries. Normal bilateral great toe waveforms. IMPRESSION: Normal Bilateral ankle brachial indices . Normal Bilateral Toe brachial indices. Approved By: Claudio Davalos Approved at: August 31, 2019 07:40 PM EST Electronically Signed on Studycast ANDREZ BRUNO 2019-08-24 Page 2 of 2 Studycast - [facility]HS[facility] Procedure Note David Mauricio In [employer] - 08/31/2019 6:41 PM MANAGER AGRICULTURAL [facility] DON Study Report Name: ANDREZ PATE Accession/Encounter No:[id number] : 1965 Age: 54 Gender: F Study Date: Aug 24, 2019 Study Time: 09:58 AM Reading Group: Claudio Davalos MD Referring Group: Unassigned [facility] Ordering Phys: JAZMINE WONG MD Inside Sales Consultant: Iram Shields RVKathleen Location: Vascular Lab Study Quality: Excellent Diagnosis Code: (I73.9) Peripheral vascular disease, unspecified (M79.605) Left leg pain (R20.0, R20.2) Numbness and tingling of both feet Procedure Code: 98784 Limited bilateral noninvasive physiologic studies of upper [...] the bilateral dorsalis pedis and distal ANDREZ PATE 2019-08-24 Page 1 of 2 Studycast - [facility] DON Study Report posterior tibial arteries. Normal bilateral great toe waveforms. IMPRESSION: Normal Bilateral ankle brachial indices. Normal Bilateral Toe brachial indices. Approved By: Claudio Davalos Approved at: August 31, 2019 07:40 PM EST Electronically Signed on Studycast ANDREZ PATE 2019-08-24 Page 2 of 2 Studycast - [facility] Performing Organization Address City/State/Zipcode Ph one Number [facility] [address] [facility] [place] [address] * MICROALBUMIN/CREAT URINE RATIO (08/22/2019 10:00 AM MANAGER AGRICULTURAL) CREATININE 184 20 - 275 mg/dL [facility] MICROALBUMIN 1.3 mg/dL [facility] Comment: Reference Range Not established MICROALBUMIN/CR 7 <30 mcg/mg creat [facility] EATININE RATIO Comment: The ADA defines abnormalities in albumin excretion as follows: Category Result (mcg/mg creatinine) Normal <30 Microalbuminuria 30-299 Clinical albuminuria > OR = 300 The ADA recommends that at least two of three specimens collected within a 3-6 month period be abnormal before considering a patient to be within a diagnostic category. REPORT COMMENT: FASTING:YES Performed at: [facility] [address] [address] MARS GEORGE MD Specimen Urine (substance) Resulting Agency Comment Performing Organization Information: Site ID: [facility] Name: [facility] CASTELLANO [facility] Address: [address] [place] [phone] Director: MARS GEORGE MD Performing Organization Address [facility] one Number [facility] [address] [place] [address] [phone] * LIPID PANEL (08/22/2019 10:00 AM MANAGER AGRICULTURAL) CHOLESTEROL 157 <200 mg/dL [facility] HDL 39 (L) >50 mg/dL [facility] TRIGLYCERIDES 162 (H) <150 mg/dL [facility] LDL CHOLESTEROL 91 mg/dL (calc) [facility] CALCULATED Comment: Reference range: <100 Desirable range <100 mg/dL for primary prevention; <70 mg/dL for patients with CHD or diabetic patients with > or = 2 CHD risk factors. LDL-C is now calculated using the Phillip-Letty calculation, which is a validated novel method providing better accuracy than the Friedewald equation in the estimation of LDL-C. Phillip SS et al. MANJULA. 2013;310(19): 3537-7663 (http://education.Deep Driver.Zenogen/faq/ZBB586) CHOLESTEROL/HDL 4.0 <5.0 (calc) [facility] RATIO NON HDL 118 <130 mg/dL (calc) [facility] CHOLESTEROL Comment: For patients with diabetes plus 1 major ASCVD risk factor, treating to a non-HDL-C goal of <100 mg/dL (LDL-C of <70 mg/dL) is considered a therapeutic option. Performed at: [facility] [address] [address] MARS GEORGE MD Specimen Serum specimen (specimen) Resulting Agency Comment Performing Organization Information: Site ID: [facility] Name: [facility] Address: [address] [place] [phone] Director: MARS GEORGE MD Performing Organization Address [facility] Ph one Number [facility] [address] [place] [address] * POCT HEMOGLOBIN A1C (08/21/2019 2:50 PM MANAGER AGRICULTURAL) HEMOGLOBIN A1C 9.8 (A) 4.0 - 5.6 % Specimen Blood from Last 3 Months Insurance Type Payer Benefit Subscriber ID Effective Phone Address Plan / Dates Group [facility] xxxxxxxxxx 2018-P [place] PLAN [facility] [address] [place] [phone] Andrez Pate Personal/F Self 1965 [id number] amily (Home) [place] [address]
--- OUTSIDE RECORDS SUMMARY | 2020-03-24 22:27 | XMS REPORT | Clinical Summary ---
Author Author [facility] Organization [facility] Address Unknown Phone Unavailable Care Team Providers Care Pbx Wire Chief Name Role Phone Mulu Flanagan PCP Allergies [...] 600mg Neuropathy Active Ergocalciferol 1.25 MG 0 (99371 UT) CAPS 9 09/19/2020 Active furosemide (LASIX) [...] for up to 90 days. 11/21/2019 Discontinued (Patient's Pref erence) ascorbic acid [...] Encounters Care Team Description Date Type Specialty Kristal Erwin PA-C 11/22/2019 Orders Only Hepatology Roque Sierra MD Medical Concern (pt wants to speak to nu rse about results from [facility]) 11/22/2019 Telephone Gastroenterology Fidencio Sumner MD 11/22/2019 [...] Hand Injury 09/22/2019 Office Visit Orthopedic Surgery Loenard Galvan MD Memory Loss (short term; started [...] Test/Appt (Capsule Endoscop y) 09/06/2019 Telephone Gastroenterology Carol Chopra MD 09/01/2019 Orders Only Rheumatology Carol Chopra MD Question about appointment 08/31/2019 Telephone Rheumatology Jazmine Wong MD Leg Pain (Left leg, thigh) 08/24/2019 Office Visit Vascular Surgery 08/24/2019 Ancillary Vascular Surgery Procedure Jazmine Wong MD 08/24/2019 Abstract Vascular Surgery Jazmine Wong MD 08/24/2019 Abstract Vascular Surgery Jazmine Wong MD 08/24/2019 Abstract Vascular Surgery Jazmine Wong MD 08/23/2019 Orders Only Vascular Surgery from Last 3 Months Immunizations [...] Comments Vital Sign 159/69 11/21/2019 12:58 PM MANAGER PATHOLOGY Blood Pressure 96 11/21/2019 12:58 PM MANAGER PATHOLOGY Pulse 36.5 C (97.7 F) 11/21/2019 12:58 PM MANAGER PATHOLOGY Temperature 16 11/21/2019 12:58 PM MANAGER PATHOLOGY Respiratory Rate 97% 09/06/2019 10:00 AM MANAGER PATHOLOGY Oxygen Saturation - - Inhaled Oxygen Concentration 117.5 kg (259 lb) 11/21/2019 12:58 PM MANAGER PATHOLOGY Weight 167.6 cm (5' 6") 11/21/2019 12:58 PM MANAGER PATHOLOGY Height 41.8 11/21/2019 12:58 PM MANAGER PATHOLOGY Body Mass Index Plan of Treatment Care Team Description Date Type Specialty Carol Chopra MD [address] [place] [address] 12/05/2019 Office Visit Rheumatology Roque Sierra MD [address] [facility] [address] [place] [address] [phone] 12/11/2019 Office Visit Gastroenterology Health Maintenance Due [...] Procedure Name Priority Date/Time Associated Diag nosis HEPATITIS B SURFACE AB Routine 11/22/2019 QUAL 2:06 PM MANAGER PATHOLOGY AFP TUMOR MARKER Routine 11/22/2019 2:06 PM MANAGER PATHOLOGY HEPATITIS B SURFACE Routine 11/22/2019 ANTIGEN 2:06 PM MANAGER PATHOLOGY BASIC METABOLIC PANEL Routine 11/22/2019 2:06 PM MANAGER PATHOLOGY HEPATIC FUNCTION PANEL Routine 11/22/2019 2:06 PM MANAGER PATHOLOGY PROTIME-INR Routine 11/22/2019 2:06 PM MANAGER PATHOLOGY XR FINGER RIGHT < 2 VW Routine 11/21/2019 Finger pain, right 11:04 AM MANAGER PATHOLOGY Flexor tenosynovitis of finger CLOSTRIDIUM DIFFICILE Routine 11/10/2019 Abdomina l distention TOXIN/GDH WITH REFLEX TO 12:22 PM MANAGER PATHOLOGY Positive aut oantibody PCR screening for celiac disease Nausea and vomiting, intractability of vomiting not specified, unspecified vomiting type Alternating constipation and diarrhea Elevated C-reactive protein (SCN) SCANNED ORDER 11/09/2019 12:00 AM MANAGER PATHOLOGY OCT, RETINA - OU - BOTH Routine 10/24/2019 Diabet es mellitus type 2 EYES 3:17 PM MANAGER PATHOLOGY in obese (HCCode) XR FINGER RIGHT < 2 VW Routine 09/22/2019 Finger pain, right 10:40 AM MANAGER PATHOLOGY C-REACTIVE PROTEIN Routine 09/06/2019 10:47 AM MANAGER PATHOLOGY CK Routine 09/06/2019 Neuropathy 10:47 AM MANAGER PATHOLOGY Myalgia COMPREHENSIVE METABOLIC Routine 09/06/2019 Osteoa rthritis, PANEL 10:47 AM MANAGER PATHOLOGY unspecified osteoarthritis type, unspecified site Vitamin D deficiency Cirrhosis of liver without ascites, unspecified hepatic cirrhosis type (HCCode) Neuropathy ANTI NEUTROPHIL Routine 09/06/2019 Osteoarthritis , CYTOPLASMIC ANTIBODY 10:47 AM MANAGER PATHOLOGY unspecified osteoarthritis type, unspecified site Vitamin D deficiency Cirrhosis of liver without ascites, unspecified hepatic cirrhosis type (HCCode) Neuropathy COMPLEMENT C3 AND C4 Routine 09/06/2019 Osteoarth ritis, 10:47 AM MANAGER PATHOLOGY unspecified osteoarthritis type, unspecified site Vitamin D deficiency Cirrhosis of liver without ascites, unspecified hepatic cirrhosis type (HCCode) Neuropathy SEDIMENTATION RATE Routine 09/06/2019 Osteoarthri tis, MODIFIED WESTERGREN 10:47 AM MANAGER PATHOLOGY unspecified osteoarthritis type, unspecified site Vitamin D deficiency Cirrhosis of liver without ascites, unspecified hepatic cirrhosis type (HCCode) Neuropathy CBC W/AUTO DIFF WITH Routine 09/06/2019 Osteoarth ritis, PLATELETS 10:47 AM MANAGER PATHOLOGY unspecified osteoarthritis type, unspecified site Vitamin D deficiency Cirrhosis of liver without ascites, unspecified hepatic cirrhosis type (HCCode) Neuropathy CRYOGLOBULIN Routine 09/06/2019 Osteoarthritis, 10:47 AM MANAGER PATHOLOGY unspecified osteoarthritis type, unspecified site Vitamin D deficiency Cirrhosis of liver without ascites, unspecified hepatic cirrhosis type (HCCode) Neuropathy US ANK/BRAC INDICES, Routine 08/24/2019 PAD (ashley pheral artery SINGLE BILAT 10:30 AM MANAGER PATHOLOGY disease) (HCCode) Left leg pain Numbness and tingling of both feet from Last 3 Months Results * HEPATITIS B SURFACE AB QUAL (11/22/2019 2:06 PM MANAGER PATHOLOGY) HEP BS ANTIBODY 1,064.1 (H) <8.0 mIU/mL [facility] Specimen Narrative Performed At [place] [facility] Performing Organization Address [facility] one Number [facility] * AFP TUMOR MARKER (11/22/2019 2:06 PM MANAGER PATHOLOGY) AFP 5.6 <10.0 ng/mL [facility] Specimen Narrative Performed At [place] [facility] - DB [facility] Performing Organization Address [facility] one Number [facility] * HEPATITIS B SURFACE ANTIGEN (11/22/2019 2:06 PM MANAGER PATHOLOGY) HEP B SURFACE Nonreactive Nonreactive [facility] ANTIGEN (REFL) Specimen Narrative Performed At [place] [facility] - [facility] Performing Organization Address [facility] one Number [facility] * PROTIME-INR (11/22/2019 2:06 PM MANAGER PATHOLOGY) Pathologist [facility] PROTIME 16.5 (H) 11.9 - 14.2 seconds [facility] INR 1.4 <=5.9 [facility] Specimen Narrative Performed At Effective 03/15/2019: PT Reference Range Change [facility] New: 11.9-14.2 Previous: 11.7-14.7 RECOMMENDED COUMADIN/WARFARIN INR THERA PY RANGES STANDARD DOSE: 2.0-3.0 Includes: PROP HYLAXIS for venous thrombosis, systemic embolization; TREATMENT for venous thro mbosis and/or pulmonary embolus. HIGH RISK: Target INR is 2.5-3.5 for pa tients wiht mechanical heart valves. Performing Organization Address [facility] one Number [facility] * HEPATIC FUNCTION PANEL (11/22/2019 2:06 PM MANAGER PATHOLOGY) Pathologist [facility] TOTAL PROTEIN 8.3 6.0 - 8.3 gm/dL [facility] ALBUMIN 4.0 3.5 - 5.0 g/dL [facility] BILIRUBIN TOTAL 1.4 (H) 0.2 - 1.2 mg/dL [facility] BILIRUBIN 0.7 (H) 0.1 - 0.5 mg/dL [facility] DIRECT ALKALINE 111 40 - 150 U/L [facility] PHOSPHATASE AST (SGOT) 38 (H) 5 - 34 U/L [facility] ALT (SGPT) 36 6 - 55 U/L . [facility] Specimen Narrative Performed At [place] [facility] - BS [facility] Performing Organization Address [facility] one Number [facility] * BASIC METABOLIC PANEL (11/22/2019 2:06 PM MANAGER PATHOLOGY) Pathologist [facility] SODIUM 136 136 - 145 meq/L [facility] POTASSIUM 4.1 3.5 - 5.1 meq/L [facility] CHLORIDE 102 98 - 107 meq/L [facility] CO2 26 22 - 29 meq/L [facility] BLOOD UREA 10 7 - 21 mg/dL [facility] NITROGEN CREATININE 0.76 0.57 - 1.25 mg/dL [facility] GLUCOSE 341 (H) 70 - 105 mg/dL . [facility] CALCIUM 9.7 8.4 - 10.2 mg/dL [facility] EGFR 79Comment: ESTIMATED GFR IS mL/min/1.[address] [facility] NOT ACCURATE CREATININE CLEARANCE IN PREDICTING GLOMERULAR FILTRATION RATE. ESTIMATED GFR IS NOT APPLICABLE FOR DIALYSIS PATIENTS. Specimen Narrative Performed At [place] [facility] Performing Organization Address [facility] one Number [facility] * XR FINGER RIGHT < 2 VW (11/21/2019 11:04 AM MANAGER PATHOLOGY) Only the most recent of 2 results within the time period is included. Specimen Narrative Performed At For result, please reference physician' s note on the corresponding date. * CLOSTRIDIUM DIFFICILE TOXIN/GDH WITH REFLEX TO PCR (11/10/2019 12:22 PM MANAGER PATHOLOGY) GDH NEGATIVE NEGATIVE CPL Comment: INTERPRETATION: C. difficile not present. C. Diff Toxin by PCR not indicated. Unless Otherwise Indicated, All Testing Performed At: [facility], [address] [place] [address] Certified Personal Chef: Edward Escobar M.D. CLIA Number [id number] [place]. [id number] Specimen Stool Performing Organization Address [facility] one Number [address] [address] [phone] * (SCN) SCANNED ORDER (11/09/2019 12:00 AM MANAGER PATHOLOGY) Specimen Narrative Performed At This result has an attachment that is n ot available. * OCT, RETINA - OU - BOTH EYES (10/24/2019 3:17 PM MANAGER PATHOLOGY) Specimen Narrative Performed At This result has an attachment that is n ot available. OD: 240, no fluid OS: 238, no fluid * COMPLEMENT C3 AND C4 (09/06/2019 10:47 AM MANAGER PATHOLOGY) C3 COMPLEMENT 127 90 - 180 MG/DL CPL C4 COMPLEMENT 18 10 - 40 MG/DL CPL Comment: Unless Otherwise Indicated, All Testing Performed At: [facility], [address] [place] [address] Certified Personal Chef: Edward Escobar M.D. CLIA Number [id number] [place]. [id number] Specimen Performing Organization Address [facility] one Number [address] [address] [phone] * CRYOGLOBULIN (09/06/2019 10:47 AM MANAGER PATHOLOGY) CRYOGLOBULIN NEGATIVE NEGATIVE CPL Comment: Preliminary result is negative for Cryoglobulins; further reports will not be generated until the study is completed at 7 days. FINAL REPORT NEGATIVE NEGATIVE CPL Comment: Unless Otherwise Indicated, All Testing Performed At: [facility], [address] [place] [address] Certified Personal Chef: Edward Escobar M.D. CLIA Number [id number] [place]. [id number] Specimen Blood Performing Organization Address [facility] one Number [address] [address] * ANTI NEUTROPHIL CYTOPLASMIC ANTIBODY (09/06/2019 10:47 AM MANAGER PATHOLOGY) NEUTROPHIL <1:10 <1:10 CPL CYTOPLASMIC ANTIBODIES INTERPRETATION [...] All Testing Performed At: [facility], [address] [place], [place] [address] Certified Personal Chef: Edward Escobar M.D. CLIA Number [id number] [facility] [place]. [id number] Specimen Blood Performing Organization Address [facility] one Number [address] [address] * SEDIMENTATION RATE MODIFIED WESTERGREN (09/06/2019 10:47 AM MANAGER PATHOLOGY) Pathologist [facility] ERYTHROCYTE 36 (H) 0 - 20 MM/HOUR CPL SEDIMENTATION Comment: RATE Unless Otherwise Indicated, All Testing Performed At: [facility], [address] [place] [address] Certified Personal Chef: Edward Escobar M.D. CLIA Number [id number] [place] [id number] Specimen Blood Performing Organization Address [facility] one Number [address] [address] * CBC W/AUTO DIFF WITH PLATELETS (09/06/2019 10:47 AM MANAGER PATHOLOGY) Pathologist [facility] WHITE BLOOD 6.3 4.0 - 11.0 K/UL [...] Testing Performed At: [facility], [address] [place] [address] Certified Personal Chef: Edward Escobar M.D. CLIA Number [id number] [place]. [id number] Specimen Blood Performing Organization Address [facility] one Number [address] [address] * C-REACTIVE PROTEIN (09/06/2019 10:47 AM MANAGER PATHOLOGY) Pathologist [facility] C-REACTIVE 1.1 (H) <0.5 MG/DL CPL PROTEIN Comment: Unless Otherwise Indicated, All Testing Performed At: [facility], [address] [place] [address] Certified Personal Chef: Edward Escobar M.D. CLIA Number [id number] [place]. [id number] Specimen Performing Organization Address [facility] one Number [address] [address] * CK (09/06/2019 10:47 AM MANAGER PATHOLOGY) Pathologist [facility] CREATINE KINASE 60 28 - 176 U/L [facility] TOTAL Comment: Unless Otherwise Indicated, All Testing Performed At: [facility], [address] [place] [address] Certified Personal Chef: Edward Escobar M.D. CLIA Number [id number] [place]. [id number] Specimen Blood Performing Organization Address [facility] one Number [address] [address] * COMPREHENSIVE METABOLIC PANEL (09/06/2019 10:47 AM MANAGER PATHOLOGY) GLUCOSE 305 (H) 70 - 99 MG/DL [...] All Testing Performed At: [facility], [address] [place] [address] Certified Personal Chef: Edward Escobar M.D. CLIA Number [id number] [place]. [id number] Specimen Blood Performing Organization Address City/State/Zipcode Ph one Number [address] [address] [phone] * US ANK/BRAC INDICES, SINGLE BILAT (08/24/2019 10:30 AM MANAGER PATHOLOGY) Specimen Narrative Performed At [facility] DON Study Report Name: ANDREZ PATE 534 Accession/Encounter No:[id number] : 1965-01 Age: 54 Gender: F Study Date: Aug 24 Study Time: 09:58 AM Reading Group: Claudio shaikh MD Referring Group: Unassigned LAUREN CADENA Ordering Phys: Courtney WONG MD Court Crier: Cassy Shields RVT Location: Vascular Lab Study Quality: Excellent Diagnosis Code: (I73.9) Peripheral vasc ular disease, unspecified (M79.605) Left leg pain (R20.0, R20.2) Numbness and tingling of both feet Procedure Code: 81868 Limited bilateral noninvasive physiologic studies of upper [...] bilate ral dorsalis pedis and distal ANDREZ RIO 2019-08-24 Page 1 of 2 Studycast - [email or web address] [facility] DON Study Report posterior tibial arteries. Normal bilateral great toe waveforms. IMPRESSION: Normal Bilateral ankle brachial indices . Normal Bilateral Toe brachial indices. Approved By: Claudio Davalos Approved at: August 31, 2019 07:40 PM EST Electronically Signed on Studycast ANDREZ PATE 2019-08-24 Page 2 of 2 Studycast - [email or web address] Procedure Note David Mauricio In [employer] - 08/31/2019 6:41 PM [facility] DON Study Report Name: ANDREZ PATE Accession/Encounter No:[id number] : 1965 Age: 54 Gender: F Study Date: Aug 24, 2019 Study Time: 09:58 AM Reading Group: Claudio Davalos MD Referring Group: Unassigned [facility] Phys: JAZMINE WONG MD Court Crier: Iram Shields RVT Location: Vascular Lab Study Quality: Excellent Diagnosis Code: (I73.9) Peripheral vascular disease, unspecified (M79.605) Left leg pain (R20.0, R20.2) Numbness and tingling of both feet Procedure Code: 19132 Limited bilateral noninvasive physiologic studies of upper [...] the bilateral dorsalis pedis and distal ANDREZ RIO 2019-08-24 Page 1 of 2 Studycast - [email or web address] [facility] DON Study Report posterior tibial arteries. Normal bilateral great toe waveforms. IMPRESSION: Normal Bilateral ankle brachial indices. Normal Bilateral Toe brachial indices. Approved By: Claudio Davalos Approved at: August 31, 2019 07:40 PM EST Electronically Signed on Studycast ANDREZ RIO 2019-08-24 Page 2 of 2 Studycast - [email or web address] Performing Organization Address City/State/Zipcode Ph one Number [facility] [address] [facility] [place] [address] from Last 3 Months Insurance Type Payer Benefit Subscriber ID Effective Phone Address Plan / Dates Group [facility] xxxxxxxxxx 2018-P [place] [facility] [address] [place] [address] [id number] amily (Home) [place] [address] Andrez Pate Personal/F Self 1965 [phone] amily (Home) [place] [address]
--- OUTSIDE RECORDS SUMMARY | 2020-03-24 22:28 | XMS REPORT | Continuity of Care Document ---
Author Author [facility] t Organization [facility] Address [address] [place] [address] Phone Unavailable Care Team Providers [employer] Person Name Role Phone JOJO HUIKATEY PCP Naila Fry MD Attphys Magda Fry Attphys Marianela Alvarez DO Attphys MAGDA FRY Attphys Unavailable Frandy CROSS, Y Mely Attphys Unavailable Alexsandra SCHREIBER, Sly Attphys Krishna SCHREIBER, Nancy Rodriguez Attphys [phone] Nav SCHREIBER, Az Medina Attphys [phone] Taisha SCHREIBER, Lizbet Nicolas Attphys Cathy Arechiga Attphys Messi CROSS, Shannon Attphys Unavailable Mami Anne Attphys Unavailable Lizbet JACKSON Attphys Unavailable Sheikh CANDIE, Petty Nevarez Attphys Janel MACHINE FORMER, Mavis Attphys Bunny GONZALEZ Attphys Unavailable Ealr Us Attphys Unavailable TAI, T MARSHALL Attphys Unavailable Ruy SCHREIBER, Vance Rincon Attphys [phone] Nash CROSS, Haleigh Attphys Unavailable Marshall SCHREIBER, Sekou Attphys Jenny VALDIVIAP, Bunny. Tanmayi Attphys Sheikh CANDIE, Petty Nevarez Attphys Robert Torres PA-C Attphys [phone] Cr Cabezas CRNA Attphys [phone] Charly CROSS, Opal Attphys Unavailable VANCE PHILLIPS Attphys Unavailable Alan SCHREIBER, Vance Alvarez Attphys [phone] Margarita SCHREIBER, Saad Dunbar Attphys [phone] Rodriguez SCHREIBER, Rico Yung Attphys Tracee SCHREIBER, Thai Henderson Attphys Jasson Benítez Attphys Unavailable Mir Bailey Myah Attphys Unavailable Bunny CRAFT Attphys Unavailable Venancio SCHREIBER, Bunny Mcclain Attphys Mayank SCHREIBER, Lynnette Attphys Luba SCHREIBER, Jessica Fitzgeraldith Attphys [phone] CHOU, NIKOLAY Attphys Unavailable MANEENAVNEETE, Shelby NUÑEZ Attphys Unavailable ROWAN, S CASIAZALIA Attphys Unavailable Kathleen BARCLAY Attphys Unavailable MAGDA FRY Admphys Unavailable Lizbet JACKSON Admphys Unavailable VANCE PHILLIPS Admphys Unavailable LUBA, JESSICA ROSAS Admphys Unavailable Payers Payer Name Policy Type Policy Number Effective Date Expiration Date Pennie vinson [facility]x xx x[facility]xxx [facility] [id number] 2019 00:00:00 00:00:00 [facility] [id number] [facility] [phone] [facility] Problems Condition Name Condition Details Condition Category Status Onset Date Resolution Date Last Treatment Date Treating Clinician Comments Source 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 Disease Active 2020-03-14 00:00:00 [facility] Abdominal bloating Abdo dominic bloating Active 02/28/2020 02/29/2020 [facility] Condition Active 2020-02-28 00: 00:00 2020-02-29 18:32:22 Mickey Qiu Positive autoantibody screening for celiac disease Positive autoantibody screening for celiac disease Active 02/28/2020 02/29/2020 [facility] Condition Active 2020-02-28 00:00:00 2020-02-29 18:32:22 Mickey Qiu Alternating constipation and diarrhea Alternating constipation and diarrhea Active 02/28/2020 02/29/2020 [facility] Condition Active 2020-02-28 00:00:00 2020-02-29 18:32:22 Mickey Qiu Elevated C-reactive protein (CRP) Elevated C-reactive protein (CRP) Active 02/28/2020 02/29/2020 [facility] Condition Active 2020-02-28 00:00:00 2020-02-29 18:32:22 Mickey Qiu Elevated anti-tissue transglutaminase (tTG) IgA level Elevated anti-tissue transglutaminase (tTG) IgA level Active 02/28/2020 02/29/2020 [facility] Condition Active 2020-02-28 00:00:00 2020-02-29 18:32:22 Mickey Qiu Elevated sed rate (elev SR) El evated sed rate (elev SR) Active 02/28/2020 02/29/2020 [facility] Condition Active 2020-02-28 00:00:00 2020-02-29 18:32:22 [facility] L[facility] Other fecal abnormalities Othe r fecal abnormalities Active 02/28/2020 02/29/2020 [facility] Condition Active 2020-02-28 00:00:00 2020-02-29 18:32:22 Mickey Qiu Encounter for long-term (current) use of high-risk med ication Encounter for long-term (current) use of high-risk medication Active 02/28/2020 02/29/2020 [facility] Condition Active 2020-02-28 00: 00:00 2020-02-29 18:32:22 Mickey Qiu History of gastrointestinal procedure History of gastrointestinal procedure Active 02/28/2020 02/29/2020 [facility] Condition Active 2020-02-28 00:00:00 2020-02-29 18:32:22 Mickey Qiu Abdominal distention Abdo dominic distention Active 02/28/2020 02/29/2020 [facility] Condition Active 2020-02-28 00: 00:00 2020-02-29 18:32:22 [facility] Epigastric pain Epig astric pain Active 02/28/2020 02/29/2020 [facility] Condition Active 2020-02-28 00:00:00 2020-02-29 18:32:22 [facility] History of DVT (deep vein thrombosis) History of DVT (deep vein thrombosis) Active 02/28/2020 02/29/2020 [facility] Condition Active 2020-02-28 00:00:00 2020-02-29 18:32:22 Mickey Qiu Age-related nuclear cataract of both eyes Age-related nuclear cataract of both eyes Active 02/28/2020 02/29/2020 [facility] Condition Active 2020-02-28 00:00:00 2020-02-29 18:32:22 Mickey Qiu Refractive error Refr active error Active 02/28/2020 02/29/2020 [facility] Condition Active 2020-02-28 00:00:00 2020-02-29 18:32:22 Mickey Qiu 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 Active 02/28/2020 02/29/2020 [facility] Condition Active 2020-02-28 00:00:00 2020-02-29 18:32:22 Mickey Qiu Hereditary and idiopathic peripheral neuropathy Hereditary and idiopathic peripheral neuropathy Active 02/28/2020 02/29/2020 [facility] Condition Active 2020-02-28 00:00:00 2020-02-29 18:32:22 Mickey Qiu Numbness and tingling in left hand Numbness and tingling in left hand Active 02/28/2020 02/29/2020 [facility] Condition Active 2020-02-28 00:00:00 2020-02-29 18:32:22 Mickey Qiu Myalgia Myal dilia Active 02/28/2020 02/29/2020 [facility] Condition Active 2020-02-28 00:00:00 2020-02-29 18:32:22 Mickey Qiu PAD (peripheral artery disease) (HCCode) PAD (peripheral artery disease) (HCCode) Active 02/28/2020 02/29/2020 [facility] Condition Active 2020-02-28 00:00:00 2020-02-29 18:32:22 Mickey Qiu Left leg pain Left leg pain Active 02/28/2020 02/29/2020 [facility] Condition Active 2020-02-28 00:00:00 2020-02-29 18:32:22 Mickey Qiu Numbness and tingling of both feet Numbness and tingling of both feet Active 02/28/2020 02/29/2020 [facility] Condition Active 2020-02-28 00:00:00 2020-02-29 18:32:22 Mickey Qiu Back pain Back pain Active 02/28/2020 02/29/2020 [facility] Condition Active 2020-02-28 00:00:00 2020-02-29 18:32:22 [facility] Nausea and vomiting Naus ea and vomiting Active 02/28/2020 02/29/2020 [facility] Condition Active 2020-02-28 00: 00:00 2020-02-29 18:32:22 [facility] Osteoarthritis Oste oarthritis Active 02/28/2020 02/29/2020 [facility] Condition Active 2020-02-28 00:00:00 2020-02-29 18:32:22 [facility] Sicca (HCCode) Sicc a (HCCode) Active 02/28/2020 02/29/2020 [facility] Condition Active 2020-02-28 00:00:00 2020-02-29 18:32:22 [facility] Arthritis of finger of right hand Arthritis of finger of right hand Active 02/28/2020 02/29/2020 [facility] Condition Active 2020-02-28 00:00:00 2020-02-29 18:32:22 Mickey Qiu Hepatic encephalopathy Hepatic encephalopathy Disease Active 2019-11-23 00:00:00 [facility] Hepatitis B core antibody positive Hepatitis B core antibody pos itive Disease Active 2019-11-23 00:00:00 [facility] Major depressive disorder, recurrent episode, moderate (HCCode) Major depressive disorder, recurrent episode, moderate (HCCode) Active 07/19/2019 02/29/2020 [facility] Condition Active 2019-07-19 00:00:00 2020-02-29 18:32:[address] [facility] Illness anxiety disorder Illn ess anxiety disorder Active 07/19/2019 02/29/2020 [facility] Condition Active 2019-07-19 00:00:00 2020-02-29 18:32:22 [facility] UGIB (upper gastrointestinal bleed) UGIB (upper gastrointestinal bleed) Disease Active 2019-06-02 00:00:00 [facility] Insulin dependent type 2 diabetes mellitus (HCCode) Insulin dependent type 2 diabetes mellitus (HCCode) Active 05/02/2019 02/29/2020 [facility] Condition Active 2019-05-02 00:00:00 2020-02-29 18:32:22 [facility] Cirrhosis (HCCode) Cirr hosis (HCCode) Active 05/02/2019 02/29/2020 [facility] Condition Active 2019-05-02 00: 00:00 2020-02-29 18:32:22 [facility] Obesity, Class III, BMI 40-49.9 (morbid obesity) Obesi ty, Class III, BMI 40-49.9 (morbid obesity) Disease Active 2019-04-19 00:00:00 [facility] Abdominal pain Abdominal pain Disease Active 2019-04-18 00:00:00 [facility] Portal hypertension Portal hypertension Disease Active 2018-12-02 00:00 :00 [facility] Fatty liver Fatty liver Disease Active 2018-12-02 00:00:00 [facility] Metabolic syndrome Metabolic syndrome Disease Active 2018-12-02 00:00:0 0 [facility] Abnormal liver enzymes Abnormal liver enzymes Disease Active 2018-05-06 00:00:00 Last Assessment & Plan: Known to have abnormal liver enzymes for last 6 months, AST/ ALT > 2 ULN, comprehensive workup was negative for chronic viral hepatitis, autoimmune liver disease and normal ceruloplasmin and iron studies. Abnormal liver enzyme appears to be related to nonalcoholic fatty liver disease and she has multiple risk factors for that [facility] Class 3 severe obesity in adult Class 3 severe obesity in adult Dis ease Active 2018-05-06 00:00:00 Last Assessm ent & Plan: The patient's current BMI is 40. Obesity is an established risk factor for vascular complications (ie coronary artery disease, cerebrovascular disease, peripheral vascular disease), osteoarthritis, pulmonary disease, as well as the development of non-alcoholic fatty liver disease and the risk for non-alcoholic steatohepatitis. We have recommended a structured weight loss program (10% body weight initially), along with dietary modifications and regular exercise for overall good health and to minimize the risk of obesity -related complications. The assessment of a dieti jesus or head bone grinder may be beneficial.I discussed the following weight loss techniques:(1) Decreasing portion size. (2) Avoid eating in front of television or computers. Eat at a dining room table instead. (3) Start exercising. Start at 15 minutes every day and increase by 2 minutes every 2 weeks. Your goal is to exercise 30-45 minutes most days of the week. Time yourself every time you exercise and do not go over your alloted time for the day. You can try fast walking or swimming. [facility] Cirrhosis of liver without ascites Cirrhosis of liver without as cites Disease Active 2018-05-06 00:00:00 Last Ass essment & Plan: Compensated cirrhosis, diagnosed by constellation of symptoms/examination/labs/imaging. There is not any evidence of acute decompensation. This is complicated by portal hyp ertension manifested by thrombocytopenia and cirrhosis appears to be related to nonalcoholic fatty liver disease, related to diabetes obesity and hyperlipidemia [facility] Screening for cancer Screening for cancer Disease Active 00:00:00 Last Assessment & Plan: Cirr hosis, regardless of etiology, is a risk factor for hepatocellular carcinoma (HCC), with an annual incidence of 1.5-7%. We recommend surveillance for HCC with abdominal imaging and alphafetoprotein every 6 months. [facility] Pulmonary embolism Pulmonary embolism Disease Active 2018-05-06 00:00:0 0 Last Assessment & Plan: Patient has known history of deep vein thrombosis and pulmonary embolism , S/p IVC Filter and on warfarin [facility] Flexor tenosynovitis of finger Flexor tenosynovitis of finger Active 01/31/2018 02/29/2020 [facility] Condition Active 2018-01-31 00:00:00 2020-02-29 18:32:22 M amrik Qiu Osteophyte of hand Oste ophyte of hand Active 01/31/2018 02/29/2020 [facility] Condition Active 2018-01-31 00: 00:00 2020-02-29 18:32:22 [facility] Qiu Diarrhea, unspecified type Paulette rrhea, unspecified type Active 07/19/2019 [facility] Diagnosis Active 2019-07-19 05:17:46 Mickey Qiu Chronic anticoagulation [facility] mario anticoagulation Active 12/06/2019 [facility] Diagnosis Active 2019-12-06 23:04:54 Mickey Qiu Finger pain, right Fing er pain, right Active 02/29/2020 [facility] Diagnosis Active 2020-02-29 18:32: 22 Mickey Qiu Diabetes mellitus type 2 in obese (HCCode) Diabetes mellitus type 2 in obese (HCCode) Active 12/06/2019 [facility] Diagnosis Active 2019-12-06 23:04:54 Mickey Qiu Numbness of left foot Numb ness of left foot Active 12/06/2019 [facility] Diagnosis Active 2019-12-06 23: 04:54 [facility] Memory loss Sesar ry loss Active 12/06/2019 [facility] Diagnosis Active 2019-12-06 23:04:54 [facility] Vitamin D deficiency Adilene min D deficiency Active 12/06/2019 [facility] Diagnosis Active 2019-12-06 23:04: 54 [facility] Neuropathy Neur opathy Active 12/06/2019 [facility] Diagnosis Active 2019-12-06 23:04:54 [facility] [place] Vaginal itching Vagi nal itching Active 02/28/2020 [facility] Diagnosis Active 2020-02-28 17:19: 25 [facility] Arthritis of finger Arth ritis of finger Active 02/29/2020 [facility] Diagnosis Active 2020-02-29 18:32: 22 [facility] Allergies, Adverse Reactions, Alerts Allergy Name Allergy Type Status Severity Reaction(s) Onset Date Inacti ve Date Treating Clinician Comments Source hydromorphone DA Active SV 2019-08-16 00:00:00 [facility] Adhesive Propensity to adverse reactions Active Rash 2019-01 00:00:00 [facility] Fluconazole Drug Allergy Active Rash 2019-01-17 00:00:00 [facility] Dapagliflozin Dapagliflozin Active OTH Itching, Rash 2018-11-30 00:00: 00 [facility] Cephalexin Allergy to Substance Active Mild 2018-07-21 00:00:00 [facility] Hydromorphone Allergy to Substance Active Mild HALLUCINATIO NS 2018-07-21 00:00:00 [facility] Cephalexin Cephalexin Active 2018-05-06 00:00:00 [facility] Doxycycline Hyclate Doxycycline Hyclate Active 2018-05-06 0 0:00:00 [facility] Hydromorphone (Bulk) Propensity to adverse reactions Active Other (See Comments) 2018-05-06 00:00:00 hallucination [facility] Doxycycline Hyclate Propensity to adverse reactions Active Nausea And Vomiting 2018-05-06 00:00:00 [facility] Cephalexin Propensity to adverse reactions Active Naus ea And Vomiting 2018-05-06 00:00:00 [facility] Cephalexin Monohydrate DA Active [place] 2009-08-29 00:00:00 [facility] doxycycline DA Active [place] 2009-08-29 00:00:00 [facility] adhesive tape DA Active [place] 2009-08-29 00:00:00 [facility] Adhesive Tape Adhesive Tape Active [facility] Hydromorphone Hcl Hydromorphone Hcl Active [facility] Doxycycline Doxycycline Active [facility] Family History Family Member Diagnosis Comments Start Date Stop Date Source Natural father Cancer [facility] Natural father Diabetes [facility] Maternal grandfather Alzheimer's disease [facility] Maternal grandfather Other [facility] Maternal grandmother Anuerysm [facility] Maternal grandmother Stroke [facility] Natural mother Heart disease [facility] Paternal grandmother Cancer [facility] Social History Social Habit Start Date Stop Date Quantity Comments Source History of tobacco use Current smoker [facility] History SDOH Alcohol Std Drinks [facility] History SDOH Alcohol Binge [facility] Sex Assigned At F [facility] Tobacco Comment 2019-03-21 00:00:00 2019-03-21 00:00:00 quit 2015 [facility] History SDOH Alcohol Frequency 2019-01-11 00:00:00 2019-01-11 00:00:0 0 1 [facility] Smoking Status Start Date Stop Date Source Former smoker 2020-03-14 00:00:00 2020-03-14 00:00:00 [facility] Medications Ordered Medication Name Filled Medication Name Start Date Stop Da te Current Medication? Ordering Clinician Indication Dosage Frequency Signature (SIG) Comments Components Source escitalopram oxalate (LEXAPRO) 20 MG tablet 2020-03-12 10:28:23 Yes 20mg QD Take 20 mg by mouth daily. [facility] insulin detemir U-100 (LEVEMIR) 100 unit/mL injection 2020-03-12 10:28:23 Yes QD Inject subcutaneously nightly. [facility] omeprazole (PRILOSEC) 40 MG capsule 2020-03-12 10:28:23 Yes 40mg QD Take 40 mg by mouth daily. [facility] ondansetron (ZOFRAN) 4 MG tablet 2020-03-12 10:28:23 Yes 4mg Take 4 mg by mouth 2 (two) times daily as needed for Nausea. [facility] traMADoL (ULTRAM) 50 mg tablet 2020-03-12 10:28:23 Yes 50mg Take 50 mg by mouth every 6 (six) hours as needed for Pain. [facility] dicyclomine (BENTYL) 10 MG capsule 2020-03-12 10:28:22 Yes 10mg Take 10 mg by mouth 4 (four) times daily before meals and nightly. [facility] ergocalciferol (VITAMIN D2) 1,250 mcg (50,000 unit) capsule 2020-03-12 10:26:09 Yes [id number] Q7D Take 50,000 Units by mouth on ce a week . [facility] sucralfate (CARAFATE) 1 gram tablet 2020-03-12 10:25:5 0 2020-03-12 00:00:00 No 1g Q.5D Take 1 g by mouth 2 (two) times daily . [facility] nystatin-triamcinolone (MYCOLOG II) 100,000-0.1 unit/g-% cre am 2020-03-12 10:24:36 2020-03-12 00:00:00 No Apply topically 2 (two) times daily as needed. [facility] ascorbic acid, vitamin C, (ASCORBIC ACID WITH LYNSEY HIPS) 500 MG tablet 2020-03-12 10:22:31 2020-03-12 00:00:00 No 500mg QD Take 500 mg by mouth daily. [facility] carvedilol (COREG) 6.25 MG tablet 2020-02-29 18:32:22 Yes Take 6.25 mg by mouth 2 times daily (with meals). [facility] atorvastatin (LIPITOR) 40 MG tablet 2020-02-29 18:32:22 Yes Take 40 mg by mouth daily. [facility] ferrous sulfate 325 (65 Fe) MG tablet 2020-02-29 18:32:22 Y es ferrous sulfate 325 mg (65 mg iron) tablet [facility] ondansetron (ZOFRAN) 4 MG tablet 2020-02-29 18:32:22 Yes ondansetron HCl 4 mg tablet [facility] Ascorbic Acid (VITAMIN C OR) 2020-02-29 18:32:22 Yes Take by mouth. [facility] famotidine (PEPCID) 40 MG tablet 2020-02-28 00:00:00 Yes Take 1 Tab by mouth daily. [facility] dicyclomine (BENTYL) 10 MG capsule 2020-02-25 00:00:00 Yes [facility] XIFAXAN 550 MG TABS 2020-02-25 00:00:00 Yes [facility] triamcinolone acetonide (KENALOG-40) 40 mg/mL 40 mg, lidocaine 1% (10 mg/mL) 2 mL 2020-02-20 16:30:00 Yes [facility] nystatin (NYSTOP) powder 2020-02-20 00:00:00 No Nystop 100,000 unit/gram topical powder [facility] n sucralfate (CARAFATE) 1 g tablet 2020-02-20 00:00:00 No sucralfate 1 gram tablet [facility] promethazine (PHENERGAN) 12.5 MG tablet 2020-02-15 00:00:00 Yes Take 1 Tab by mouth every 6 hours as needed for Nausea. [facility] ursodiol (ACTIGALL) 500 MG tablet 2020-02-12 09:58:47 2019 00:00:00 No 500mg Q.5D Take 500 mg by mouth 2 (two) times daily . [facility] ursodioL (ACTIGALL) 500 MG tablet 2020-02-12 00:00:00 2020 23:59:00 Yes 500mg Q.5D Take 1 tablet (500 mg total) by mouth 2 (two) times daily. [facility] ondansetron (ZOFRAN-ODT) 4 mg disintegrating tablet 01-29 00:00:00 Yes Take 1 Tab by mouth every 8 hours as nee ded for Nausea. [facility] PILOCARPINE HCL, ORAL, 5 MG TABS 2020-01-17 00:00:00 Yes [facility] tramadol (ULTRAM) 50 MG tablet 2020-01-15 00:00:00 Yes TAKE 1 TABLET BY MOUTH EVERY 6 HOURS NEEDED FOR PAIN Mickey Qiu trazodone (DESYREL) 50 MG tablet 2020-01-12 00:00:00 Yes Take half- tablet to full tablet as needed for insomnia or anxiety Mickey Qiu pantoprazole (PROTONIX) 40 MG tablet 2020-01-10 00:00:00 Yes [facility] Qiu Insulin Detemir (LEVEMIR FLEXTOUCH) 100 UNIT/ML SOPN 2 00:00:00 Yes Inject 40 Units into the skin two times daily for 90 days. Mickey Qiu Insulin Pen Needle (LITETOUCH PEN NEEDLES) 32G X 4 MM MISC 2020-01-02 00:00:00 Yes Use with i nsulin 5x daily; Dx E11.65; Please make axel with Dr. Marshall Qiu ONDANSETRON OR 2019-12-06 23:04:54 Yes Take 4 mg by mouth. Mickey Qiu nystatin (NYSTOP) powder 2019-12-06 23:04:54 Yes Nystop 100,000 unit/gram topical powder [facility] Cobos n sucralfate (CARAFATE) 1 g tablet 2019-12-06 23:04:54 Yes sucralfate 1 gram tablet [facility] Qiu Diclofenac Sodium 1 % GEL 2019-12-05 00:00:[address] 1 Percent onto the skin 2 times daily as needed for up to 30 days. Mickey Qiu rifAXIMin (XIFAXAN) 550 mg Tab 2019-11-28 00:00:00 Yes Hepatic encephalopathy (HCC) 550mg Q.5D Take 1 tablet (550 mg total) by mouth 2 (two) times daily. [facility] hyoscyamine (LEVBID) 0.375 MG CR tablet 2019-11-21 19:54:30 Yes hyoscyamine ER 0.375 mg tablet,extended release,12 hr Mickey Qiu hyoscyamine (LEVBID) 0.375 MG CR tablet 2019-11-21 00:00:00 No hyoscyamine ER 0.375 mg tablet,extended release,12 hr Mickey Qiu escitalopram (LEXAPRO) 20 MG tablet 2019-11-21 00:00:00 Yes Take 1 Tab by mouth daily. [facility] Qiu trazodone (DESYREL) 50 MG tablet 2019-11-21 00:00:00 No Take 50 mg by mouth nightly as needed. [facility] famotidine (PEPCID) 20 MG tablet 2019-11-21 00:00:00 Yes Take 1 Tab by mouth daily for 90 days. [facility] dicyclomine (BENTYL) 10 MG capsule 2019-11-21 00:00:00 Yes Take 1 Cap by mouth 2 times daily as needed (abdominal pain/cramping) for up to 90 days. Mickey Qiu ascorbic acid 500 MG tablet 2019-11-21 00:00:00 No Take 500 mg by mouth daily. [facility]iu albuterol (PROAIR HFA) 108 (90 base) mcg/act inhaler 11-21 00:00:00 No ProAir HFA 90 mcg/actuation aerosol inha ler Mickey Qiu benzonatate (TESSALON) 200 mg capsule 2019-11-21 00:00:00 N o benzonatate 200 mg capsule [facility] James bocanegra Exenatide (BYETTA 10 MCG PEN) 10 MCG/0.04ML SOPN 2019-11-21 00:0 0:00 No Byetta 10 mcg/dose(250 mcg/mL)2.4 mL subcutaneous pen injector Mickey Qiu pioglitazone (ACTOS) 30 MG tablet 2019-11-21 00:00:00 No pioglitazone 30 mg tablet Mickey Kumar nn promethazine (PHENERGAN) 12.5 MG tablet 2019-11-20 00:00:00 Yes Take 1 Tab by mouth every 6 hours as needed for Nausea. Mickey Qiu ascorbic acid 500 MG tablet 2019-11-17 20:31:26 Yes Take 500 mg by mouth daily. [facility] Qiu trazodone (DESYREL) 50 MG tablet 2019-11-17 20:31:26 Yes Take 50 mg by mouth nightly as needed. [facility] [facility] albuterol (PROAIR HFA) 108 (90 base) mcg/act inhaler 2 20:31:26 Yes ProAir HFA 90 mcg/actuation aerosol inha ler Mickey Qiu benzonatate (TESSALON) 200 mg capsule 2019-11-17 20:31:26 Y es benzonatate 200 mg [address] [facility] James bocanegra Exenatide (BYETTA 10 MCG PEN) 10 MCG/0.04ML SOPN 2019-11-17 20:31:26 Yes Byetta 10 mcg/dose(250 mcg/mL)2.4 mL subcutaneo us pen injector Mickey Qiu pioglitazone (ACTOS) 30 MG tablet 2019-11-17 20:31:26 Yes pioglitazone 30 mg tablet Mickey Kumar nn Acetaminophen With Codeine (Tylenol With Codeine #3 Ta blet) 1 Each Tablet Acetaminophen With Codeine (Tylenol With Codeine #3 Tablet) 1 Each Tablet 2019-11-13 00:00:00 Yes Shikha Gonzalez Md Every 6 Hours for Pain [facility] furosemide (LASIX) 20 MG tablet 2019-11-08 00:00:00 23:59:00 No Cirrhosis of liver with ascites, unspecified hepatic cirrhosis type (HCC) 20mg Q.5D Take 1 tablet (20 mg total) by mouth 2 (two) times daily for 210 days. [facility] PILOCARPINE HCL, ORAL, 5 MG TABS 2019-10-30 00:00:00 No TAKE 1 TABLET BY MOUTH THREE TIMES A DAY - REPLACING CEVILAMINE [facility] sertraline (ZOLOFT) 100 MG tablet 2019-10-20 00:00:00 No sertraline 100 mg tablet [facility] escitalopram (LEXAPRO) 10 MG tablet 2019-10-20 00:00:00 No Take 1 Tab by mouth daily. [facility] furosemide (LASIX) 20 MG tablet 2019-09-20 00:00:00 Yes Take 20 mg by mouth. [facility] furosemide (LASIX) 20 MG tablet 2019-09-20 00:00:00 00:00:00 No 20mg Q.5D Take 1 tablet (20 mg total) by mouth 2 (two) ti mes daily. [facility] Ergocalciferol 1.25 MG (85378 UT) CAPS 2019-09-16 00:00:00 Yes Mickey Qiu TRUE METRIX BLOOD GLUCOSE TEST 2019-09-09 00:00:00 Yes USE DIRECTED 3 TIMES A DAY Mickey Qiu Ursodiol 500 MG TABS 2019-09-07 00:00:00 Yes TAKE 1 TABLET BY MOUTH TWICE A DAY [facility] gabapentin (NEURONTIN) 300 MG capsule 2019-09-06 00:00:00 Y es Am and noon - 300mg , pm - 600mg Mickey Stacy alva sucralfate (CARAFATE) 1 GM/10ML suspension 2019-08-24 18:25:22 Yes Take 1 g by mouth four times daily. Sesar landamir [facility] spironolactone (ALDACTONE) 50 MG tablet 2019-08-22 00:00:00 Yes Take 50 mg by mouth. [facility] spironolactone (ALDACTONE) 50 MG tablet 00:00:00 2020-08-21 23:59:00 No 50mg QD Take 1 tablet (50 mg total) by mouth daily. [facility] PILOCARPINE HCL, ORAL, 5 MG TABS 2019-08-21 00:00:00 Yes TAKE 1 TABLET BY MOUTH THREE TIMES A DAY - REPLACING CEVILAMINE [facility] NOVOLOG FLEXPEN 100 UNIT/ML SOPN 2019-08-21 00:00:00 Yes Inject 35- 40 Units into the skin 3 times daily (with meals). [facility] Insulin Glargine, 1 Unit Dial, 300 UNIT/ML [facility] 2019-08-21 00:00 :00 Yes Inject 40 Units into the skin two times daily. [facility] Insulin Glargine, 1 Unit Dial, 300 UNIT/ML SOPN 2019-08-21 00:00 :00 Yes Inject 40 Units into the skin two times daily. [facility] Insulin Glargine, 1 Unit Dial, (TOUJEO SOLOSTAR) 300 UNIT/ML SOPN 2019-08-21 00:00:00 Yes Inject into the skin. [facility] Insulin Glargine, 1 Unit Dial, (TOUJEO SOLOSTAR) 300 UNIT/ML SOPN 2019-08-21 00:00:00 Yes Inject into the skin. [facility] promethazine (PHENERGAN) 12.5 MG tablet 2019-08-14 00:00:00 No Take 1 Tab by mouth every 6 hours as needed for Nausea. [facility] furosemide (LASIX) 20 MG tablet 2019-07-24 00:00:00 00:00:00 No TAKE 1 TABLET BY MOUTH EVERY DAY [facility] spironolactone (ALDACTONE) 50 MG tablet 00:00:00 2019-08-22 00:00:00 No TAKE 1 TABLET BY MOUTH EVERY DA Y [facility] furosemide (LASIX) 20 MG tablet 2019-07-24 00:00:00 00:00:00 No TAKE 1 TABLET BY MOUTH EVERY DAY [facility] promethazine (PHENERGAN) 12.5 MG tablet 2019-07-19 05:17:46 Yes Take 12.5 mg by mouth every 6 hours as needed for Nausea. [facility] escitalopram (LEXAPRO) 10 MG tablet 2019-07-18 00:00:00 No Take 1 Tab by mouth daily. [facility] gabapentin (NEURONTIN) 300 MG capsule 2019-07-14 00:00:00 Y es TAKE 1 CAPSULE BY MOUTH THREE TIMES A DAY Belkis Qiu enoxaparin (LOVENOX) 80 mg/0.8 mL Syrg 2019-06-29 10:07:39 Yes Q.5D Inject subcutaneously 2 (two) times daily . [facility] enoxaparin sodium (LOVENOX SUBQ) 2019-06-27 20:01:14 2019-06 00:00:00 No Inject subcutaneously. [facility] traZODone (DESYREL) 50 MG tablet 2019-06-27 19:45:13 Yes 50mg QD Take 50 mg by mouth nightly. [facility] polyethylene glycol (GLYCOLAX) powder 2019-06-27 00:00:00 N o Take 17 g by mouth daily. [facility] PEG 9363-ftuuekcekbat-wyeyneh C (MOVIPREP) 100-7.5-2.691 gra m PwPk packet 2019-06-21 00:00:00 2019-06-27 00:00:00 No Colon cancer screeni ng Between 4-6 pm the day before mix 1 packet of ea A & B drink 1 section q 15 min, mix and drink other A & B 6-8 hrs before appt.. [facility] gabapentin (NEURONTIN) 300 MG capsule 2019-06-15 00:00:00 N o TAKE 1 CAPSULE BY MOUTH THREE TIMES A DAY Memsepideh Qiu Continuous Blood Gluc Sensor (FREESTYLE KATHERINE 14 DAY SENSOR) MISC 2019-06-13 00:00:00 Yes 1 Each every 14 days. [facility] Continuous Blood Gluc Fine Sander (FREESTYLE KATHERINE 14 DAY READE R) LYRIC 2019-06-13 00:00:00 Yes 1 Each daily. Kathryn Qiu tramadol (ULTRAM) 50 MG tablet 2019-06-08 00:00:00 Yes Take 1 Tab by mouth every 6 hours as needed for Pain. [facility] pantoprazole (PROTONIX) 40 MG tablet 2019-06-03 14:57: 05 2019-06-03 00:00:00 No 40mg Take 40 mg by mouth once . [facility] pantoprazole (PROTONIX) 40 MG tablet 2019-06-03 00:00: 00 2020-03-12 00:00:00 No 40mg QD Take 1 tablet (40 mg total) by mouth de ly. [facility] insulin aspart U-100 (NOVOLOG) 100 unit/mL (3 mL) InPn 2019-05-09 15:52:08 Yes Inject subcutan eously 3 (three) times daily before meals 12 units before meals with sliding scale. [facility] warfarin (COUMADIN) 3 MG tablet 2019-05-09 15:51:15 Yes 3mg QD Take 3 mg by mouth daily 3MG on Wednesday, Wednesday, and Wednesday. . [facility] NOVOLOG FLEXPEN 100 UNIT/ML [facility] 2019-05-02 00:00:00 No Inject 30 Units into the skin 3 times daily (with meals). [facility] Insulin Glargine 300 UNIT/ML [facility] 2019-05-02 00:00:00 No Inject 35 Units into the skin two times daily. Lucia Qiu warfarin (COUMADIN) 4 MG tablet 2019-04-20 11:40:24 00:00:00 No 4mg Take 4 mg by mouth every other day Alternate wi th 3mg. [facility] warfarin (COUMADIN) 3 MG tablet 2019-04-20 11:40:24 00:00:00 No 3mg Take 3 mg by mouth every other day Alternate wi th 4mg. . [facility] enoxaparin (LOVENOX) 80 mg/0.8 mL Syrg 4 11:40:24 2019-04-20 00:00:00 No Inject subcutaneously every 12 ( twelve) hours. [facility] warfarin (COUMADIN) 4 MG tablet 2019-04-20 00:00:00 Yes 4mg QD Take 1 tablet (4 mg total) by mouth daily Alternate with 3mg. [facility] promethazine (PHENERGAN) 12.5 MG tablet 2019-04-18 06:10:20 Yes 12.5mg Take 12.5 mg by mouth every 12 (twelve) hours as needed for Naus ea . [facility] pilocarpine (SALAGEN) 5 MG tablet 2019-04-18 06:10:20 Yes 5mg Take 5 mg by mouth once. [facility] Cephalexin Monohydrate (Keflex) 500 Mg Capsule, 500 Mg Oral Cephalexin Monohydrate (Keflex) 500 Mg Capsule, 500 Mg Oral 2019-03-22 00:00:00 03-22 00:00:00 No Ambica Sandhir Do 500 Every 6 Hours [facility] PILOCARPINE HCL, ORAL, 5 MG TABS 2019-03-02 00:00:00 No Take 5 mg by mouth daily. [facility] U-300 INSULIN 300 unit[facility]5 [facility]:00:00 Yes INJECT 35 UNITS SUBCUTANEOUSL Y TWICE DAILY [facility] furosemide (LASIX) 20 MG tablet 2019-02-03 00:00:00 23:59:00 No Cirrhosis of liver with ascites, unspecified hepatic cirrhosis type (HCC) 20mg QD Take 1 tablet (20 mg total) by mouth daily for 120 days. [facility] spironolactone (ALDACTONE) 50 MG tablet 00:00:00 2019-06-03 23:59:00 No Cirrhosis of liver w ith ascites, unspecified hepatic cirrhosis type (HCC) 50mg QD Take 1 tablet (50 mg total) by mouth daily for 120 days. [facility] gabapentin (NEURONTIN) 300 MG capsule 2019-01-17 07:10:26 Y es 300mg Take 300 mg by mouth 3 (three) times daily as needed. [facility] ferrous sulfate 325 (65 FE) MG tablet 2019-01-17 07:10:26 Yes 325mg Q.5D Take 325 mg by mouth 2 (two) times daily. [facility] hyoscyamine (LEVBID) 0.375 mg 12 hr tablet 2019-01-17 07:06:07 Yes .75mg Q.5D Take 0.75 mg by mouth 2 (two) times daily 2 tablet of 0.375 twice day. [facility] atorvastatin (LIPITOR) 40 MG tablet 2019-01-17 07:06:07 Yes 40mg QD Take 40 mg by mouth daily. [facility] DULoxetine (CYMBALTA) 60 MG capsule 2019-01-11 09:02:09 Yes 60mg QD Take 60 mg by mouth nightly. [facility] traMADol (ULTRAM) 50 mg tablet 2018-11-30 00:00:00 2019-06-27 00 :00:00 No 50mg 50 mg every 6 (six) hours as needed . [facility] Diclofenac Sodium 1 % GEL 2018-11-17 00:00:00 No Apply 2g tid to the [facility] Propranolol Hcl 10 Mg Tablet, 10 Mg Oral Propranolol H cl 10 Mg Tablet, 10 Mg Oral 2018-07-21 00:00:00 2019-03-22 00:00:00 No Ambica Sandhir Do 10 Four Times Daily [facility] Tramadol Hcl (Ultram) 50 Mg Tablet, 50 Mg Oral Tramado l Hcl (Ultram) 50 Mg Tablet, 50 Mg Oral 2018-07-21 00:00:00 2019-03-22 00:00:00 No Ambica S andhir Do 50 Every 6 Hours as needed for Pain [facility] ondansetron (ZOFRAN-ODT) 4 MG disintegrating tablet 05-06 11:46:37 Yes 4mg Take 4 mg by mouth every 8 (eight) hours as needed for Nausea. [facility] carvedilol (COREG) 6.25 MG tablet 2018-05-06 11:46:36 Yes 6.25mg Take 6.25 mg by mouth 2 (two) times daily with breakfast and dinner. [facility] levothyroxine (SYNTHROID, LEVOTHROID) 125 MCG tablet 2 11:46:36 Yes 125ug Take 125 mcg by mouth Every morning on a n empty stomach. [facility] warfarin (COUMADIN) 3 MG tablet 2018-01-18 00:00:00 Yes Tues,Thurs,Sat,Sun [facility] warfarin (COUMADIN) 4 MG tablet 2018-01-18 00:00:00 Yes every Wednesday, Wednesday, Wednesday. [facility] pantoprazole (PROTONIX) 40 MG tablet 2018-01-15 00:00:00 Ye s at bedtime. [facility] rosuvastatin (CRESTOR) 20 MG tablet 2018-01-15 00:00:00 No [facility] levothyroxine (SYNTHROID) 125 MCG tablet 2017-12-14 00:00:00 Y es [facility] Carvedilol , 12.5 Mg Oral Carvedilol , 12.5 Mg Oral 00:00:00 No 12.5 Twice A Day [facility] Cholestyramine (With Sugar) (Questran Packet) 4 Gm Pac ket, 4 Gm Oral Cholestyramine (With Sugar) (Questran Packet) 4 Gm Packet, 4 Gm Oral 2019-03-22 00:00:00 No 4 Daily [facility] Exenatide (Byetta) 5 Mcg/0.02 Ml Pen.injctr, Sub-Q E xenatide (Byetta) 5 Mcg/0.02 Ml Pen.injctr, Sub-Q 2019-03-22 00:00:00 No Twice A Day [facility] Hyoscyamine Sulfate (Levsin) 0.125 Mg Tablet, Mg Oral Hyoscyamine Sulfate (Levsin) 0.125 Mg Tablet, Mg Oral 2019-03-22 00:00:00 No Four Times Daily [facility] Levothyroxine Sodium (Synthroid) 125 Mcg Tab, 125 Mcg Oral Levothyroxine Sodium (Synthroid) 125 Mcg Tab, 125 Mcg Oral 2019-03-22 00:00:00 No 125 Today At 6:30AM [facility] Lovenox , 80 Mg Sub-Q Lovenox , 80 Mg Sub-Q 2019-03-22 00:00:00 No 80 Twice A Day [facility] Meclizine Hcl 12.5 Mg Tablet, 12.5 Mg Oral Meclizine H cl 12.5 Mg Tablet, 12.5 Mg Oral 2019-03-22 00:00:00 No 12.5 As Needed [facility] Ondansetron (Zofran Odt) 4 Mg Tab.rapdis, 4 Mg Oral On dansetron (Zofran Odt) 4 Mg Tab.rapdis, 4 Mg Oral 2019-03-22 00:00:00 No 4 As Needed [facility] Pantoprazole Sodium (Protonix) 40 Mg Tablet., 40 Mg Oral Pantoprazole Sodium (Protonix) 40 Mg Tablet.dr, 40 Mg Oral 2019-03-22 00:00:00 No 40 [facility] Promethazine Hcl 25 Mg Tablet, 12.5 Mg Oral Promethazi ne Hcl 25 Mg Tablet, 12.5 Mg Oral 2019-03-22 00:00:00 No 12.5 As Needed [facility] Rosuvastatin Calcium (Crestor) 20 Mg Tablet, 20 Mg Ora l Rosuvastatin Calcium (Crestor) 20 Mg Tablet, 20 Mg Oral 2019-03-22 00:00:00 No 2 0 Daily [facility] Sertraline Hcl 100 Mg Tablet, 100 Mg Oral Sertraline H cl 100 Mg Tablet, 100 Mg Oral 2019-03-22 00:00:00 No 100 Bedtime [facility] Sucralfate 1 Gm Tablet, 1 Gm Oral Sucralfate 1 Gm Tablet, 1 Gm O ral 2019-03-22 00:00:00 No 1 Twice A Day [facility] Warfarin Sodium 2 Mg Tablet, 4 Mg Oral Warfarin Sodium 2 Mg Tabl et, 4 Mg Oral 2019-03-22 00:00:00 No 4 Daily [facility] Duloxetine Hcl (Cymbalta) 60 Mg Capsule., 60 Mg Oral Duloxetine Hcl (Cymbalta) 60 Mg Capsule., 60 Mg Oral 2018-05-12 00:00:00 No 60 Daily [facility] Folic Acid 0.8 Mg Tablet, Folic Acid 0.8 Mg Tablet, 00:00:00 No [facility] Glimepiride 4 Mg Tablet, 4 Mg Oral Glimepiride 4 Mg Tablet, 4 Mg Oral 2018-05-12 00:00:00 No 4 Daily [facility] Lisinopril 5 Mg Tablet, 5 Mg Oral Lisinopril 5 Mg Tablet, 5 Mg O ral 2018-05-12 00:00:00 No 5 Daily [facility] Pravastatin Sodium 40 Mg Tablet, 20 Mg Oral Pravastati n Sodium 40 Mg Tablet, 20 Mg Oral 2018-05-12 00:00:00 No 20 Daily [facility] Thyroid ([place]yenne Thyroid) 90 Mg Tablet, 90 Mg Oral Thyr oid ([place] Thyroid) 90 Mg Tablet, 90 Mg Oral 2018-05-12 00:00:00 No 90 Daily [facility] Enoxaparin Sodium (Lovenox) 120 Mg/0.8 Ml Disp.syrin, 40 Mg Sub-Q Enoxaparin Sodium (Lovenox) 120 Mg/0.8 Ml Disp.syrin, 40 Mg Sub-Q 2012-08-18 00:00:00 No 40 Daily [facility] , 2012-03-21 00:00:00 No [facility] Vital Signs Vital Name Observation Time Observation Value Comments Source Systolic blood pressure 2020-03-14 12:45:00 98 mm[Hg] [facility] Diastolic blood pressure 2020-03-14 12:45:00 59 mm[Hg] [facility] Heart rate 2020-03-14 12:45:00 66 /min [facility] Body temperature 2020-03-14 12:45:00 36.44 Rocio [facility] Respiratory rate 2020-03-14 12:45:00 9 /min [facility] Oxygen saturation in Arterial blood by Pulse oximetry 03-14 12:45:00 95 /min [facility] Body height 2020-03-14 09:45:00 175.3 cm [facility] Body weight Measured 2020-03-14 09:45:00 115.7 kg [facility] BMI 2020-03-14 09:45:00 37.67 kg/m2 [facility] Height 2020-02-28 19:15:[address] [facility] Weight 2020-02-28 19:15:00 [facility] Systolic (mm Hg) 2020-02-28 16:06:00 [facility] Diastolic (mm Hg) 2020-02-28 16:06:00 [facility] [place] Heart Rate 2020-02-28 16:06:00 [facility] Temperature Oral (F) 2020-02-28 16:06:00 36.61 Rocio [facility] Height 2020-02-28 16:06:00 167.6 cm [facility] Weight 2020-02-28 16:06:00 [facility] [place] Systolic (mm Hg) 2020-02-20 16:44:00 [facility] Diastolic (mm Hg) 2020-02-20 16:44:00 [facility] [place] Heart Rate 2020-02-20 16:44:00 [facility] Temperature Oral (F) 2020-02-20 16:44:00 36.44 Rocio [facility] Respitory Rate 2020-02-20 16:44:00 [facility] Height 2020-02-20 16:44:00 167.6 cm [facility] Weight 2020-02-20 16:44:00 [facility] [place] Systolic (mm Hg) 2019-12-05 17:21:00 [facility] [place] Diastolic (mm Hg) 2019-12-05 17:21:00 [facility] Heart Rate 2019-12-05 17:21:00 [facility] Respitory Rate 2019-12-05 17:21:00 [facility] Height 2019-12-05 17:21:00 167.6 cm [facility] [place] Weight 2019-12-05 17:21:00 [facility] Systolic (mm Hg) 2019-12-05 15:25:00 Sesar [facility] Diastolic (mm Hg) 2019-12-05 15:25:00 [facility] [place] Heart Rate 2019-12-05 15:25:00 [facility] [place] Temperature Oral (F) 2019-12-05 15:25:00 36.5 Rocio [facility] Respitory Rate 2019-12-05 15:25:00 [facility] [place] Height 2019-12-05 15:25:00 167.6 cm [facility] Weight 2019-12-05 15:25:00 [facility] [place] Systolic (mm Hg) 2019-11-21 18:58:00 [facility] [place] Diastolic (mm Hg) 2019-11-21 18:58:00 [facility] [place] Heart Rate 2019-11-21 18:58:00 [facility] Temperature Oral (F) 2019-11-21 18:58:00 36.5 Rocio [facility] [place] Respitory Rate 2019-11-21 18:58:00 [facility] Height 2019-11-21 18:58:00 167.6 cm [facility] Weight 2019-11-21 18:58:00 [facility] [place] Height 2019-11-21 16:46:00 167.6 cm [facility] Weight 2019-11-21 16:46:00 [facility] Systolic (mm Hg) 2019-09-27 16:40:00 Sesar [facility] Diastolic (mm Hg) 2019-09-27 16:40:00 [facility] [place] Heart Rate 2019-09-27 16:40:00 [facility] Height 2019-09-22 15:31:00 167.6 cm [facility] [place] Weight 2019-09-22 15:31:00 [facility] Respitory Rate 2019-09-06 16:00:00 [facility] [place] Systolic (mm Hg) 2019-08-24 17:38:00 [facility] [place] Diastolic (mm Hg) 2019-08-24 17:38:00 [facility] [place] Heart Rate 2019-08-24 17:38:00 [facility] [place] Height 2019-08-24 17:38:00 167.6 cm [facility] Weight 2019-08-24 17:38:00 [facility] [place] Systolic (mm Hg) 2019-08-21 20:10:00 Sesar [facility] Diastolic (mm Hg) 2019-08-21 20:10:00 [facility] [place] Heart Rate 2019-08-21 20:10:00 [facility] [place] Height 2019-08-21 20:10:00 167.6 cm [facility] Weight 2019-08-21 20:10:00 [facility] Systolic (mm Hg) 2019-07-18 14:41:00 Sesar [facility] Diastolic (mm Hg) 2019-07-18 14:41:00 [facility] Heart Rate 2019-07-18 14:41:00 [facility] [place] Respitory Rate 2019-07-18 14:41:00 [facility] [place] Height 2019-07-18 14:41:00 167.6 cm [facility] Weight 2019-07-18 14:41:00 [facility] Systolic (mm Hg) 2019-06-27 18:54:00 [facility] Diastolic (mm Hg) 2019-06-27 18:54:00 [facility] Temperature Oral (F) 2019-06-27 18:54:00 36.83 Rocio [facility] Height 2019-06-27 18:54:00 170.2 cm [facility] Weight 2019-06-27 18:54:00 [facility] Procedures Procedure Date / Time Performed Performing Clinician [facility] e RHYTHM STRIP - SCAN 2020-03-18 08:20:42 Provider, Maria Esther washington [facility] POCT-GLUCOSE METER 2020-03-14 12:03:00 Lee Fry [facility] FL FLUORO NON-SPECIFIC UP TO 1 HOUR 2020-03-14 11:45:00 Radha Fry [facility] ARTHRODESIS,FINGER 2020-03-14 11:00:00 Lee Fry [facility] POCT-GLUCOSE METER 2020-03-14 09:36:00 Lee Fry [facility] PT/APTT 2020-03-14 09:28:00 Capo Multani [facility] PROTHROMBIN TIME/INR 2020-02-09 12:34:00 Kristal Erwin [facility] CBC W/PLT COUNT & AUTO DIFFERENTIAL 2020-02-09 12:34:00 Miguelina Erwin [facility] HEPATIC FUNCTION PANEL 2020-02-09 12:34:00 Kristal Erwin [facility] BASIC METABOLIC PANEL (7) 2020-02-09 12:34:00 Kristal Erwin [facility] US ABDOMEN COMPLETE 2019-11-28 01:15:00 Taisha, Fidencio Huang [facility] US ABDOMEN COMPLETE 2019-11-27 13:15:00 Taisha, Fidencio Somers [facility] PROTIME-INR 2019-11-23 02:06:00 Taisha, Fidencio Arevalo [facility] HEPATIC FUNCTION PANEL 2019-11-23 02:06:00 Taisha, Fidencio Tamayo [facility] [place] BASIC METABOLIC PANEL 2019-11-23 02:06:00 Taisha, Fidencio Huang [facility] [place] AFP TUMOR MARKER 2019-11-23 02:06:00 Taisha, Fidencio Arevalo [facility] HEPATITIS B SURFACE ANTIGEN 2019-11-23 02:06:00 Kristal Erwin Ma [facility] HEPATITIS B SURFACE AB QUAL 2019-11-23 02:06:00 Kristal Erwin Ma [facility] BASIC METABOLIC PANEL (7) 2019-11-22 14:06:00 Taisha, Fidencio Somers [facility] HEPATIC FUNCTION PANEL 2019-11-22 14:06:00 TaishaFidencio carrero [facility] PROTHROMBIN TIME/INR 2019-11-22 14:06:00 TaishaFidencio carrero [facility] ALPHA FETOPROTEIN (AFP), TUMOR MARKER 2019-11-22 14:06:00 Fidencio Jackson [facility] HEPATITIS B PCR, QUANTITATIVE 2019-11-22 14:06:00 TaishaFidencio carrero [facility] HEPATITIS B SURFACE ANTIGEN 2019-11-22 14:06:00 Kristal Erwin Ma [facility] HEPATITIS B SURFACE ANTIBODY 2019-11-22 14:06:00 Kristal Erwin [facility] CBC W/PLT COUNT & AUTO DIFFERENTIAL 2019-11-22 14:06:00 TaishaKalia carrero [facility] CLOSTRIDIUM DIFFICILE TOXIN/GDH WITH REFLEX TO PCR 2019-10-19 00:22:00 Roque Sierra [facility] ([facility]) SCANNED ORDER 2019-11-09 12:00:00 Roque Sierra [facility], RETINA - OU - BOTH EYES 2019-10-25 03:17:04 Angela Zaman [facility] X[facility] FINGER RIGHT < 2 VW 2019-09-22 22:40:51 Mavis Islas [facility] [place] APPLICATION OF FINGER SPLINT 2019-09-18 00:00:00 MARSHALL LUJAN [facility] SEDIMENTATION RATE MODIFIED WESTERGREN 2019-09-06 22:47:00 B Carol kang [facility] C-REACTIVE PROTEIN 2019-09-06 22:47:00 Carol Chopra [facility] CBC W/AUTO DIFF WITH PLATELETS 2019-09-06 22:47:00 Carol Chopra [facility] CRYOGLOBULIN 2019-09-06 22:47:00 Carol Chopra [facility] COMPLEMENT C3 AND C4 2019-09-06 22:47:00 Carol Chopra [facility] ANTI NEUTROPHIL CYTOPLASMIC ANTIBODY 2019-09-06 22:47:00 Carol Cheema [facility] COMPREHENSIVE METABOLIC PANEL 2019-09-06 22:47:00 Carol Chopra [facility] CK 2019-09-06 22:47:00 Carol Chopra [facility] US ANK/BRAC INDICES, SINGLE BILAT 2019-08-24 22:30:00 Sergey Redmond [facility] LIPID PANEL 2019-08-22 22:00:00 Sekou Soria [facility] jerri MICROALBUMIN/CREAT URINE RATIO 2019-08-22 22:00:00 Sekou Soria [facility] POCT HEMOGLOBIN A1C 2019-08-22 02:50:00 Sekou Soria [facility] NM GASTRIC EMPTYING STUDY SOLID 2019-08-01 11:41:00 Coy Sierra [facility] CELIAC DISEASE COMPREHENSIVE([facility]) 2019-07-10 22:20 :00 Roque Sierra [facility] POCT GLUCOSE 2019-06-29 19:54:00 Fidencio Jackson [facility] REPORT OF PROCEDURE - ENDOSCOPY URL 2019-06-29 11:26:23 Kalia Jackson [facility] TISSUE EXAM 2019-06-29 11:04:00 Fidencio Jackson [facility] REPORT OF PROCEDURE - ENDOSCOPY URL 2019-06-29 10:55:43 Kalia Jackson [facility] UPPER ENDOSCOPY 2019-06-29 10:00:00 Fidencio Jackson [facility] COLONOSCOPY,BIOPSY 2019-06-29 10:00:00 Fidencio Jackson [facility] POCT-GLUCOSE METER 2019-06-29 09:54:00 Fidencio Jackson [facility] PROTHROMBIN TIME/INR 2019-06-29 09:46:00 Fidencio Jackson [facility] BASIC METABOLIC PROFILE + E-GFR 2019-06-20 19:51:00 Estelle Erwin PROTHROMBIN TIME/INR 2019-06-20 09:51:00 Kristal Erwin [facility] CBC W/PLT COUNT & AUTO DIFFERENTIAL 2019-06-20 09:51:00 Miguelina Erwin Cathy [facility] HEPATIC FUNCTION PANEL 2019-06-20 09:51:00 Kristal Erwin [facility] BASIC METABOLIC PANEL (7) 2019-06-20 09:51:00 Kristal Erwin [facility] RHYTHM STRIP - SCAN 2019-06-06 09:00:37 Provider, Maria Esther washington [facility] POCT-GLUCOSE METER 2019-06-03 13:30:00 Manjinder Avila [facility] CBC (HEMOGRAM ONLY) 2019-06-03 12:22:00 Manjinder Avila [facility] COMPREHENSIVE METABOLIC PANEL 2019-06-03 12:22:00 Guzman Avila [facility] PROTHROMBIN TIME/INR 2019-06-03 12:22:00 Manjinder Avila [facility] HIV-1 ANTIGEN WITH HIV-1/2 ANTIBODY 2019-06-03 04:26:00 Sandy Arroyo [facility] CT CHEST WITHOUT IV CONTRAST 2019-06-03 03:37:00 [facility] ABDOMEN & PELVIS - RENAL STONE EVALUATION WITHOUT/W ITH IV CONTRAST 2019-06-03 03:37:00 Manjinder Avila [facility] nter PATHOLOGY TISSUE 2019-06-02 22:15:00 [facility] POCT-GLUCOSE METER 2019-06-02 21:26:00 Manjinder Avila [facility] URINALYSIS W/ REFLEX URINE CULTURE 2019-06-02 17:12:00 Manjinder De Santiago [facility] POCT-GLUCOSE METER 2019-06-02 16:58:00 Manjinder Avila [facility] POCT-GLUCOSE METER 2019-06-02 12:44:00 Manjinder Avila [facility] REPORT OF PROCEDURE - ENDOSCOPY URL 2019-06-02 12:43:06 Santiago Easley [facility] TISSUE EXAM 2019-06-02 12:15:00 Tracee Silver [place] Andre [facility] UPPER ENDOSCOPY,POLYPECTOMY 2019-06-02 12:00:00 Santiago Easley [facility] POCT-GLUCOSE METER 2019-06-02 11:58:00 Manjinder Avila [facility] POCT-GLUCOSE METER 2019-06-02 07:29:00 Manjinder Avila [facility] BASIC METABOLIC PANEL (7) 2019-06-02 05:40:00 Antonio Phillips [facility] HEPATIC FUNCTION PANEL 2019-06-02 05:40:00 Antonio Phillips [facility] PROTHROMBIN TIME/INR 2019-06-02 05:40:00 Antonio Phillips [facility] CBC W/PLT COUNT & AUTO DIFFERENTIAL 2019-06-02 05:40:00 Antonio Hill [facility] (SCN) GI PROCEDURE 2019-06-02 00:00:00 Provider, Historical Sesar edna Qiu BASIC METABOLIC PANEL (7) 2019-05-09 16:10:00 Myah Torres [facility] HEPATIC FUNCTION PANEL 2019-05-09 16:10:00 Myah Torres [facility] PROTHROMBIN TIME/INR 2019-05-09 16:10:00 Myah Torres Robert [facility] ALPHA FETOPROTEIN (AFP), TUMOR MARKER 2019-05-09 16:10:00 [facility] AUTO DIFFERENTIAL 2019-05-09 16:10:00 Myah Torres [facility] REPORT OF PROCEDURE - ENDOSCOPY SCAN 2019-04-20 15:10:44 Pro vider, Default Scanning [facility] POCT-GLUCOSE METER 2019-04-20 12:00:00 Mayank [facility] POCT-GLUCOSE METER 2019-04-20 07:52:00 Mayank [facility] BASIC METABOLIC PANEL (7) 2019-04-20 03:32:00 Lynnette Talley I [facility] HEPATIC FUNCTION PANEL 2019-04-20 03:32:00 Lynnette Talley [facility] PROTHROMBIN TIME/INR 2019-04-20 03:32:00 Alex Hampton [facility] CBC W/PLT COUNT & AUTO DIFFERENTIAL 2019-04-20 03:32:00 Mayank [facility] POCT-GLUCOSE METER 2019-04-19 20:55:00 Mayank [facility] POCT-GLUCOSE METER 2019-04-19 16:36:00 Mayank [facility] POCT-GLUCOSE METER 2019-04-19 12:08:00 Mayank [facility] POCT-GLUCOSE METER 2019-04-19 07:13:00 Mayank [facility] PROTHROMBIN TIME/INR 2019-04-19 04:42:00 Joceline Verduzco [facility] HEMOGLOBIN A1C 2019-04-19 04:42:00 Mayank [facility] BASIC METABOLIC PANEL (7) 2019-04-19 04:42:00 Lynnette Talley I [facility] HEPATIC FUNCTION PANEL 2019-04-19 04:42:00 Mayank [facility] CBC W/PLT COUNT & AUTO DIFFERENTIAL 2019-04-19 04:42:00 Mayank [facility] POCT-GLUCOSE METER 2019-04-18 22:11:00 Mayank [facility] PERIPHERAL VASCULAR REPORT - SCAN 2019-04-18 21:12:17 Provid er, Default Scanning [facility] POCT-GLUCOSE METER 2019-04-18 18:21:00 Mayank [facility] RAPID DRUG SCREEN, URINE 2019-04-18 13:14:00 Mayank [facility] POCT-GLUCOSE METER 2019-04-18 12:16:00 Mayank [facility] POCT-GLUCOSE METER 2019-04-18 07:22:00 Mayank [facility] CBC W/PLT COUNT & AUTO DIFFERENTIAL 2019-04-18 06:23:00 Joceline Diaz [facility] CT ABDOMEN/PELVIS WITH IV CONTRAST 2019-04-18 02:01:00 Johny Craft [facility] VENOUS DOPPLER LEGS BILATERAL 2019-04-18 00:35:00 Caroline Craft A [facility] ECG 12-LEAD 2019-04-17 22:09:04 Unknown, Hl7 Doctor [facility] XR CHEST 2 VIEWS 2019-04-17 21:42:00 Johny Craft [facility] COMPREHENSIVE METABOLIC PANEL 2019-04-17 21:39:00 Caroline Craft A [facility] LIPASE 2019-04-17 21:39:00 Venancio Johny [facility] PT/APTT 2019-04-17 21:39:00 Johny Craft [facility] CBC W/PLT COUNT & AUTO DIFFERENTIAL 2019-04-17 21:39:00 Venancio Johny A [facility] URINALYSIS W/ REFLEX URINE CULTURE 2019-04-17 21:31:00 Johny Craft [facility] Plan of Care Planned Activity Planned Date Details Comments Source Future Scheduled Test 2029-06-29 00:00:00 Plan of Care [code = 1877 6-5] [facility] Scheduled Test 2029-06-29 00:00:00 COLON CANCER SCREE INES COLONOSCOPY [code = COLON CANCER SCREENING COLONOSCOPY] [facility] Future Scheduled Test 2028-05-12 00:00:00 Plan of Care [code = 1877 6-5] [facility] Scheduled Test 2020-12-25 00:00:00 NM GASTRIC EMPTYIN G SOLID [code = 83996] [facility] Scheduled Test 2020-10-24 00:00:00 Plan of Care [code = 1877 6-5] [facility] Scheduled Test 2020-05-18 00:00:00 Plan of Care [code = 1877 6-5] [facility] Scheduled Test 2020-02-28 20:02:17 Plan of Care [code = 1877 6-5] [facility] Scheduled Test 2020-02-28 20:02:17 ORT - XR FINGER RI GHT 2V ( CHARGE ONLY) [code = 75137] [facility] Scheduled Test 2020-02-28 16:50:49 Plan of Care [code = 1877 6-5] [facility] Scheduled Test 2020-02-28 16:50:49 PAP SMEAR - IMAGE GUIDED - NON MEDICARE [code = NOCPT] [facility] Scheduled Test 2020-02-28 16:50:49 HPV HIGH RISK W GE NOTYPE,TP [code = NOCPT] [facility] Scheduled Test 2020-02-28 16:50:49 WET PREP W/ TRICH CULT REFLEX [code = NOCPT] [facility] Scheduled Test 2020-02-28 16:50:49 VAGINAL PATHOGEN D NA PANEL [code = NOCPT] [facility] Scheduled Test 2020-02-20 21:54:27 Plan of Care [code = 1877 6-5] [facility] Scheduled Test 2020-02-19 00:00:00 Plan of Care [code = 1877 6-5] [facility] Scheduled Test 2019-12-06 00:00:00 Plan of Care [code = 1877 6-5] [facility] Scheduled Test 2019-12-05 16:27:37 Plan of Care [code = 1877 6-5] [facility] Scheduled Test 2019-12-05 16:27:37 HANDICAPPED PLACARD [code = NOCPT] [facility] Scheduled Test 2019-11-23 00:00:00 Plan of Care [code = 1877 6-5] [facility] Scheduled Test 2019-11-21 23:12:58 Plan of Care [code = 1877 6-5] [facility] Scheduled Test 2019-11-21 18:39:23 Plan of Care [code = 1877 6-5] [facility] Scheduled Test 2019-11-21 18:39:23 ORT - XR FINGER RI GHT 2V ( CHARGE ONLY) [code = 23041] [facility] Scheduled Test 2019-11-17 00:00:00 Plan of Care [code = 1877 6-5] [facility] Scheduled Test 2019-08-24 16:03:52 Plan of Care [code = 1877 6-5] [facility] Scheduled Test 2019-08-21 20:35:04 Plan of Care [code = 1877 6-5] [facility] Scheduled Test 2019-08-21 20:35:04 LIPID PANEL [code = 25663 -1] [facility] Scheduled Test 2019-08-21 20:35:04 MICROALBUMIN/CREAT URINE RATIO [code = 9318-7] [facility] Scheduled Test 2019-07-20 00:00:00 HEMOGLOBIN A1C [co de = HEMOGLOBIN A1C] [facility] Scheduled Test 2019-07-19 00:00:00 Plan of Care [code = 1877 6-5] [facility] Scheduled Test 2019-07-19 00:00:00 Plan of Care [code = 1877 6-5] [facility] Scheduled Test 2019-06-27 19:17:25 Plan of Care [code = 1877 6-5] [facility] Scheduled Test 2019-06-27 19:17:25 CELIAC DISEASE PANEL [ code = 47657-9] [facility] Scheduled Test 2019-06-27 19:17:25 IGA [code = 2458-8] [facility] Scheduled Test 2019-06-27 19:17:25 C-REACTIVE PROTEIN [code = 1988-5] [facility] Scheduled Test 2019-06-27 19:17:25 SEDIMENTATION RATE MODIFIED WESTERGREN [code = 4537-7] [facility] Scheduled Test 2019-06-27 19:17:25 CALPROTECTIN, FECAL [c ode = 41897-4] [facility] Scheduled Test 2019-06-27 19:17:25 PANCREATIC ELASTAS E - FECAL [code = 68001-1] [facility] Scheduled Test 2019-05-18 00:00:00 Plan of Care [code = 1877 6-5] [facility] Scheduled Test 1985-01-20 00:00:00 Plan of Care [code = 1877 6-5] [facility] Scheduled Test 1985-01-20 00:00:00 Screening for rajinder gnant neoplasm of cervix (procedure) [code = 806046157] [facility] Scheduled Test 1982-01-20 00:00:00 Diabetic foot exam ination (regime/therapy) [code = 482149671] [facility] Scheduled Test 1982-01-20 00:00:00 Plan of Care [code = 1877 6-5] [facility] Scheduled Test 1979-01-20 00:00:00 Plan of Care [code = 1877 6-5] [facility] Scheduled Test 1974-01-20 00:00:00 DIABETIC EYE EXAM [code = DIABETIC EYE EXAM] [facility] Scheduled Test 1964 00:00:00 Plan of Care [code = 1877 6-5] [facility] Scheduled Test 1964 00:00:00 BREAST CANCER SCRE ENING [code = BREAST CANCER SCREENING] [facility] Encounters Start Date/Time End Date/Time Encounter Type Admission Type Attendi [facility] Care Department Encounter ID Source 2020-03-20 13:38:35 2020-03-20 14:39:07 Office Visit Lee Fry [facility] [id number] 2020-03-06 08:51:29 2020-03-06 09:44:15 Office Visit Sly Upton [facility]alo [id number] 2020-02-28 12:58:22 2020-02-28 15:02:17 Office Visit Lee Fry [facility] [id number] 2020-02-28 12:58:22 2020-02-28 15:02:17 Office Visit Lee Fry [facility] [id number] 2020-02-28 10:50:49 2020-02-28 11:50:49 Office Visit Torres Kelleradezeferino FinleyNancy [facility] [id number] 2020-02-28 10:50:49 2020-02-28 11:50:49 Office Visit Michael Kellerhelle [facility] [id number] 2020-02-20 11:39:39 2020-02-20 16:54:27 Office Visit Carol Martin [facility] [id number] 2020-02-20 11:39:39 2020-02-20 16:54:27 Office Visit B Carol kang [facility] [id number] 2019-12-05 08:52:33 2019-12-05 10:27:37 Office Visit B Carol kang [facility] [id number] 2019-11-21 12:52:40 2019-11-21 17:12:58 Office Visit Roque Guardado [facility] [id number] 2019-11-21 10:37:21 2019-11-21 12:39:23 Office Visit Mavis Islas [facility] [id number] 2019-11-13 18:13:00 2019-11-13 21:25:00 Departed Emergency Room 1 SHIKHA GONZALEZ [facility] [id number] [facility] 2019-11-08 07:45:00 2019-11-08 07:45:00 Outpatient [facility] [address] [place] [address] 2019-09-18 18:07:00 2019-09-18 18:55:00 Departed Emergency Room 1 TAIMARSHALL Parekh [facility] [id number] [facility] 2019-08-24 09:33:52 2019-08-24 10:03:52 Office Visit Sergey Hsieh [facility] [id number] 2019-08-21 14:05:04 2019-08-21 14:35:04 Office Visit Sekou Hutchison [facility] [id number] 2019-06-27 13:47:25 2019-06-27 14:17:25 Office Visit Roque Guardado [facility] [id number] 2019-04-16 23:57:00 2019-04-17 02:08:00 Departed Emergency Room 1 NIKOLAY CHOU [facility] [id number] [facility] 2019-03-22 14:32:00 2019-03-22 19:04:00 Departed Emergency Room [facility] [id number] [facility] 2018-10-04 19:25:00 2018-10-04 23:02:00 Departed Emergency Room 1 SAVANNAH RUFF [facility] [id number] [facility] 2018-07-21 13:09:00 2018-07-21 19:04:00 Departed Emergency Room 1 ALLISON DONAHUE [facility] [id number] [facility] 2018-05-12 05:03:00 2018-05-12 05:03:00 Registered Surgical Day Care [facility] [id number] [facility] 2018-04-03 18:28:00 2018-04-03 22:32:00 Departed Emergency Room 1 STELLA BARCLAY [facility] [id number] [facility] Results Test Description Test Time Test Comments Results Result Comments Source FL, FLUORO, NON-SPECIFIC, UP TO 1 HOUR 2020-03-14 14:34:00 Naila eferring: Rolando Anaya for exam:->ORIF right ring finger FINAL REPORT TECHNIQUE: Fluoroscopic images from orthopedic procedure. INDICATION: Surgery. COMPARISON: None. IMPRESSION:Fluoroscopic images from orthopedic procedure, not obtained by the undersigned. Please refer to operative note for more details of the procedure and findings. Fluoroscopy time: 150 secondsNumber of images: Two Signed: Armida Headjanis Verified Date/Time: 03/14/2020 14:34:58 fluoro non-specific up to 1 hour 2020-03-14 14:34:00 Interface, External Ris In - 03/14/2020 2:37 PM CDTFINAL REPORT TECHNIQUE: Fluoroscopic images from orthopedic procedure. INDICATION: Surgery. COMPARISON: None. IMPRESSION:Fluoroscopic images from orthopedic procedure, not obtained by the undersigned. Please refer to operative note for more details of the procedure and findings. Fluoroscopy time: 150 secondsNumber of images: Two Signed: Armida Haed Verified Date/Time: 03/14/2020 14:34:58 [facility] POC-Glucose meter 2020-03-14 12:14:00 Test Item POC-Glucose Meter (test code = 1538) 221 mg/dL 70-110 H : Notified RN/MD: TESTED AT [place] [address]: Electric Engine Mechanic/Journeyman Lineman ID = [id number] for Chadwick Shannon Lab Interpretation (test code = 97517-0) [facility] [id number] 12:14:00* Test Item Value Reference Range Interpretation Comments POC-GLUCOSE METER (BEAKER) (test code = 1538) 221 mg/dL 70-110 H : Notified RN/MD: TESTED AT [place] [id number]: Electric Engine Mechanic/Journeyman Lineman ID = [id number] for Shannon Genao PT/[id number] 10:10:00* Test Item Value Reference Range Interpretation Comments Protime (test code = 5902-2) <10.0 9.8- 12.0 sec INR (test code = 6301-6) 1.0 <=5.9 INR PTT (test code = 76305-0) 25.4 25.8- 34.5 sec L LEANDRO (test code = LEANDRO) RECOMMENDED COUMADIN/WARFARI N INR THERAPY RANGESSTANDARD DOSE: 2.0 - 3.0 Includes: PROPHYLAXIS for venous thrombosis, systemic embolization; TREATMENT for venous thrombosis and/or pulmonary embolus.HIGH RISK: Target INR is 2.5-3.5 for patients with mechanical heart valves. Lab Interpretation (test code = 23223-7) [id number] 10:10:00* Test Item Value Reference Range Interpretation Comments PROTIME (BEAKER) (test code = 759) < sec 9.8-12.0 INR (BEAKER) (test code = 370) 1.0 INR <=5.9 PARTIAL THROMBOPLASTIN TIME (BEAKER) (test code = 760) 25.4 sec 25.8-34.5 L RECOMMENDED COUMADIN/WARFARIN INR THERAPY RANGESSTANDARD DOSE: 2.0 - 3.0 Inclu jered: PROPHYLAXIS for venous thrombosis, systemic embolization; TREATMENT for cristhian ous thrombosis and/or pulmonary embolus.HIGH RISK: Target INR is 2.5-3.5 for pat ients with mechanical heart valves.POCT-GLUCOSE [id number] 09:49:00* Test Item Value Reference Range Interpretation Comments POC-GLUCOSE METER (BEAKER) (test code = 1538) 227 mg/dL 70-110 H : TESTED AT [address] [address]: Electric Engine Mechanic/Journeyman Lineman ID = [id number] for Michael Stevens Basic Metabolic [id number] 02:01:00* Test Item Value Reference Range Interpretation Comments Glucose (test code = 7108966) 295 mg/dL 65-99 H Fasting reference interval For someone without known diabetes, a glucosevalue >125 mg/dL indicates that they may havediabetes and this should be confirmed with afollow-up test. BUN (test code = 9248219) 13 mg/dL 7-25 Creatinine (test code = 8359899) 0.65 mg/dL 0.5-1.05 For patients >49 years of age, the reference limitfor Creatinine is approximately 13% higher for peopleidentified as -Bahraini. eGFR If NonAfricn Am (test code = 3819158) 99 > OR = 60 m L/min/1.73m2 eGFR If Africn Am (test code = 8333060) 115 > OR = 60 mL/m in/1.73m2 BUN/Creatinine Ratio (test code = 6787274) NOT APPLICABLE 6- 22 (ca lc) Sodium (test code = 2713056) 136 mmol/L 135-146 Potassium, Serum (test code = 1724373) 4.2 mmol/L 3.5-5.3 Chloride (test code = 1514159) 101 mmol/L 98-110 Carbon Dioxide, Total (test code = 9895197) 27 mmol/L 20-32 Calcium, Serum (test code = 3893961) 9.3 mg/dL 8.6-10.4 LEANDRO (test code = LEANDRO) FASTING:YESFASTING: YES RAC (test code = RAC) Performing Organization Info rmation: Site ID: RGA Name: [facility] Lab Address: [address] [place] [phone] Director: Bill Humphreys Lab Interpretation (test code = 44619-3) Abnormal [facility] [id number] 02:01:00* Test Item Value Reference Range Interpretation Comments Protein, Total, Serum (test code = 9776137) 7.7 g/dL 6.1-8.1 Albumin (test code = 9120664) 3.9 g/dL 3.6-5.1 GLOBULIN (QUEST) (test code = 3144568) 3.8 1.9- 3.7 g/dL ( calc) H Albumin Globulin Ratio (test code = 1759-0) 1.0 1.0- 2.5 ( calc) Bilirubin, Total (test code = 0831889) 1.1 mg/dL 0.2-1.2 Bilirubin, Direct (test code = 4873906) 0.3 mg/dL < OR = 0.2 H Bilirubin, Indirect (test code = 0325539) 0.8 0.2- 1.2 mg/ dL (calc) Alkaline Phosphatase, S (test code = 6768-6) 90 U/L 37-153 AST (SGOT) (test code = 5740643) 23 U/L 10-35 ALT (SGPT) (test code = 0030792) 24 U/L 6-29 LEANDRO (test code = LEANDRO) FASTING:YESFASTING: YES RAC (test code = RAC) Performing Organization Info rmation: Site ID: RGA Name: [facility] Lab Address: [address] [place] [id number] Director: Bill Humphreys Lab Interpretation (test code = 05852-5) Abnormal [facility] with platelet count + automated [id number] 02:01:00* Test Item Value Reference Range Interpretation Comments WBC (test code = ) 5.9 3.8- 10.8 Thousand/uL RBC (test code = 789-8) 5.18 3.80- 5.10 Million/uL H Hemoglobin (test code = ) 14.3 g/dL 11.7-15.5 Hematocrit (test code = ) 44.4 % 35-45 MCV (test code = ) 85.7 fL 80-100 MCH (test code = ) 27.6 pg 27-33 MCHC (test code = ) 32.2 g/dL 32-36 RDW (test code = 7171208) 14.3 % 11-15 Platelets (test code = 4378707) 121 140- 400 Thousand/uL L MPV (test code = 1529324) 12.1 fL 7.5-12.5 # Neutros (test code = 9119302) 3888 1,500 - 7,800 cells/uL # Lymphs (test code = 731-0) 1463 850- 3,900 cells/uL # Monos (test code = 0598185) 384 200- 950 cells/uL # Eos (test code = 711-2) 124 15- 500 cells/uL # Baso (test code = 704-7) 41 0- 200 cells/uL % Neutros (test code = 5896281) 65.9 % % Lymphs (test code = 3606114) 24.8 % % Monos (test code = 2858631) 6.5 % % Eos (test code = 0900208) 2.1 % % Baso (test code = 8544975) 0.7 % LEANDRO (test code = LEANDRO) FASTING:YESFASTING: YES RAC (test code = RAC) Performing Organization Info rmation: Site ID: [id number] Name: [facility] Lab Address: [address] [place] [phone] Director: Bill Humphreys Lab Interpretation (test code = 63561-3) [facility]normal [facility][id number] 02:01:00* Test Item Value Reference Range Interpretation Comments INR (test code = 3999411) 1.4 H Re ference Range 0.9-1.1Moderate-intensity Warfarin Therapy 2.0-3.0Higher-intensity Warfarin Therapy 3.0-4.0 PT (test code = 3688375) 14.4 9.0- 11.5 sec H F or more information on this test, go to:http://education.[employer]/faq/JBS872 LEANDRO (test code = LEANDRO) FASTING:YESFASTING: YES RAC (test code = RAC) Performing Organization Info rmation: Site ID: RGA Name: [facility] Lab Address: [address] [place] [id number] Director: Bill Humphreys Lab Interpretation (test code = 57891-7) [facility]normal [facility], [facility], [id number] 16:16:00 Referring: CRISTIAN AnayaCCirrhosis assess for HCCReason for Exam:-> CirrhosisFINAL REPORT TECHNIQUE: Grayscale ultrasound of the abdomen. [...] with subtle nodular contour. No focal lesions. BILIARY:Gallbladder: Prior cholecystectomy.Common bile duct measures 0.7 cm, within normal limits. No intrahepatic biliary ductal dilatation. PANCREAS: The pancreas is not clearly visualized due to overlying bowel gas. SPLEEN: The spleen is prominent and measures 16.3 cm. PERITONEUM: Trace ascites. KIDNEYS: Both kidneys are normal in size. No hydronephrosis. No sonographically evident solid mass lesion. IMPRESSION:Fatty cirrhotic liver with portal hypertension and trace ascites. No focal liver lesion. Signed: Ilya Berumen MDReport Verified Date/Time: 11/27/2019 16:16:10 Reading Location: [address] Radiology Reading Room abdomen [id number] 16:16:00Interface, External Ris In - 11/27/2019 4:18 PM CSTFINAL REPORT TECHNIQUE: Grayscale ultrasound of the abdomen. INDICATION: 54-year-old woman with cirrhosis. COMPARISON: Chest, abdomen, and pelvis CT 06/03/2019; abdomen ultrasound 12/14/2018. FINDINGS: MIDLINE VASCULATURE: The visualized inferior vena cava is patent. Portal vein is patent and prominent, measuring 1.4 cm in d iameter. The maximum visualized aortic diameter is 2.4 cm. LIVER: The liver is p rominent and measures 21.1 cm. The liver is increased in echogenicity with subtl e nodular contour. No focal lesions. BILIARY:Gallbladder: Prior cholecystectomy. Common bile duct measures 0.7 cm, within normal limits. No intrahepatic biliary ductal dilatation. PANCREAS: The pancreas is not clearly visualized due to overl irene bowel gas. SPLEEN: The spleen is prominent and measures 16.3 cm. PERITONEUM : Trace ascites. KIDNEYS: Both kidneys are normal in size. No hydronephrosis. No sonographically evident solid mass lesion. IMPRESSION:Fatty cirrhotic liver wi th portal hypertension and trace ascites. No focal liver lesion. Signed: Ilya Berumen MDReport Verified Date/Time: 11/27/2019 16:16:10 Reading Location: [address] Radiology Reading Room [facility], [id number] 13:54:00* Test Item Value Reference Range Interpretation Comments HBV PCR, Quantitative (test code = 44047-9) HBV DNA not dete cted HBV DNA not detected LEANDRO (test code = LEANDRO) This test uses a Real-Time P olymerase Chain Reaction (RT- PCR) methodology and was performed using [employer] AmpliPrep/[employer] TaqMan HBV Test, v2.0 ([employer] Reportable range for this assay is 20 - 170,000,000 IU per mL (1.30 - 8.23 Log IU/mL). Lab Interpretation (test code = 90324-6) Normal [facility] PCR, ZMVNDEJHZIFP0016-04-57 13:54:00* Test Item Value Reference Range Interpretation Comments HBV RESULT COMPONENT (BEAKER) (test code = 2701) HBV DNA not detected HBV DNA not detected This test uses a Real-Time Polymerase Chain Reaction (RT-PCR) methodology and wa s performed using MELBA AmpliPrep/MELBA TaqMan HBV Test, v2.0 ([employer]Reportable range for this assay is 20 - 170,000,000 IU per mL ( 1.30 - 8.23 Log IU/mL).HEPATITIS B SURFACE AB [id number] 04:20:579258.1 [facility] TUMOR HJYXPG0395-56-75 04:18:005.6[facility]annHepatitis B surface pekgxszy8892-00-68 22:20:00* Test Item Value Reference Range Interpretation Comments Hep B S Ab (test code = 18680-0) 1064.1 <8.0 mIU/mL H LEANDRO (test code = LEANDRO) Electric Engine Mechanic ID - DB Lab Interpretation (test code = 59014-3) [facility]normal [facility] [id number] 22:20:00* Test Item Value Reference Range Interpretation Comments HEPATITIS B SURFACE ANTIBODY (BEAKER) (test code = 647) 1064.1 mIU/ mL <8.0 H Electric Engine Mechanic ID - DBHepatitis B surface xeeptzn7545-89-46 22:18:00* Test Item Value Reference Range Interpretation Comments HBsAg Screen (test code = 5195-3) Nonreactive Nonreactive LEANDRO (test code = LEANDRO) Electric Engine Mechanic ID - DB Lab Interpretation (test code = 54585-4) Normal [facility] fetoprotein (AFP), tumor wvnhob0768-20-09 22:18:00* Test Item Value Reference Range Interpretation Comments Alpha-Fetoprotein (test code = 1834-1) 5.6 ng/mL <10.0 LEANDRO (test code = LEANDRO) Electric Engine Mechanic ID - DB Lab Interpretation (test code = 18443-4) Normal [facility] QKDXSSZ1717-29-91 22:18:00* Test Item Value Reference Range Interpretation Comments HEPATITIS B SURFACE ANTIGEN (2) (GEOVANI) (test code = 2585) Nonreactive Nonreactive Electric Engine Mechanic ID - DBALPHA FETOPROTEIN (AFP), TUMOR KDQHXX6608-63-05 22:18:00* Test Item Value Reference Range Interpretation Comments ALPHA-FETOPROTEIN (GEOVANI) (test code = 1094) 5.6 ng/mL <10.0 Electric Engine Mechanic ID - DBBASIC METABOLIC DBXOD4149-11-37 21:50:97457Hlprjycw HermannBASIC METABOLIC ALIGG8459-29-11 21:50:004.1[facility]annBASIC METABOLIC PANEL 2019-11-22 21:50:42592Eyzbnqww HermannBASIC METABOLIC ZCTKE9047-42-35 21:50:0026 [facility]annBASIC METABOLIC JCJLU1355-92-35 21:50:0010[facility] HermannBASIC METABOLIC GEQGI5153-09-59 21:50:000.76[facility]annBASIC METABOLIC PANEL 2019-11-22 21:50:86323Pgnwalup HermannBASIC METABOLIC TFKTQ5452-60-67 21:50:00 9.7[facility]annBASIC METABOLIC MNZSR0741-06-73 21:50:0079[facility] HEPATIC FUNCTION GYOHP4001-46-30 21:50:008.3[facility] HermannHEPATIC FUNCTION INAVH6427-10-44 21:50:004.0[facility] HermannHEPATIC FUNCTION BNDHR6836-71-16 21:50:001.4[facility] HermannHEPATIC FUNCTION NSGFX2514-48-35 21:50:000.7[facility] HermannHEPATIC FUNCTION HXQUK9277-12-93 21:50:40577Lkucyrna HermannHEPATIC FUNCTION NGZOS1019-94-11 21:50:0038[facility] HermannHEPATIC FUNCTION PANEL 2019-11-22 21:50:0036[facility] XyphclyYURWHXQ-PQU6360-02-05 21:33:0016.5[facility] SsfoqsgUNXFCNY-EAR3958-57-05 21:33:001.4[facility] HermannHEPATIC FUNCTION PANEL 2019-11-22 15:50:00* Test Item Value Reference Range Interpretation Comments TOTAL PROTEIN (BEAKER) (test code = 770) 8.3 gm/dL 6.0-8.3 ALBUMIN (BEAKER) (test code = 1145) 4.0 g/dL 3.5-5.0 BILIRUBIN TOTAL (BEAKER) (test code = 377) 1.4 mg/dL 0.2-1.2 H BILIRUBIN DIRECT (BEAKER) (test code = 706) 0.7 mg/dL 0.1-0.5 H ALKALINE PHOSPHATASE (BEAKER) (test code = 346) 111 U/L 40-150 AST (SGOT) (BEAKER) (test code = 353) 38 U/L 5-34 H ALT (SGPT) (BEAKER) (test code = 347) 36 U/L 6-55 Electric Engine Mechanic ID - BSBASIC METABOLIC OUMOQ6279-72-69 15:50:00* Test Item Value Reference Range Interpretation Comments SODIUM (BEAKER) (test code = 381) 136 meq/L 136-145 POTASSIUM (BEAKER) (test code = 379) 4.1 meq/L 3.5-5.1 CHLORIDE (BEAKER) (test code = 382) 102 meq/L 98-107 CO2 (BEAKER) (test code = 355) 26 meq/L 22-29 BLOOD UREA NITROGEN (BEAKER) (test code = 354) 10 mg/dL 7-21 CREATININE (BEAKER) (test code = 358) 0.76 mg/dL 0.57-1.25 GLUCOSE RANDOM (BEAKER) (test code = 652) 341 mg/dL 70-105 H CALCIUM (BEAKER) (test code = 697) 9.7 mg/dL 8.4-10.2 EGFR (BEAKER) (test code = 1092) 79 mL/min/1.73 sq m ESTIMATED GFR IS NOT ACCURATE CREATININE CLEARANCE IN PREDICTING GLOMERULAR FILTRATION RATE. ESTIMATED GFR IS NOT APPLICABLE FOR DIALYSIS PATIENTS. Electric Engine Mechanic ID - BSPROTHROMBIN TIME/HGE4054-49-07 15:33:00* Test Item Value Reference Range Interpretation Comments PROTIME (BEAKER) (test code = 759) 16.5 seconds 11.9-14.2 H INR (BEAKER) (test code = 370) 1.4 <=5.9 Effective 03/15/2019: PT Reference Range ChangeNew: 11.9-14.2 Previous: 11.7-14. 7RECOMMENDED COUMADIN/WARFARIN INR THERAPY RANGESSTANDARD DOSE: 2.0-3.0 Include s: PROPHYLAXIS for venous thrombosis, systemic embolization; TREATMENT for venou s thrombosis and/or pulmonary embolus.HIGH RISK: Target INR is 2.5-3.5 for patie nts wiht mechanical heart valves.CBC with platelet count + automated diff 2019-11-22 15:04:00* Test Item Value Reference Range Interpretation Comments WBC (test code = 6690-2) 6.6 3.5- 10.5 K/L RBC (test code = 789-8) 5.03 3.93- 5.22 M/L MCHC (test code = 786-4) 33.0 32.2- 35.5 GM/DL Hematocrit (test code = 4544-3) 42.7 % 34.1-44.9 MCV (test code = 787-2) 84.9 fL 79.4-94.8 MCH (test code = 785-6) 28.0 pg 25.6-32.2 RDW (test code = 788-0) 15.3 % 11.7-14.4 H Platelets (test code = 777-3) 121 150- 450 K/CU MM L MPV (test code = 55116-3) 12.1 fL 9.4-12.3 nRBC (test code = 413) 0 0- 0 /100 WBC % Neutros (test code = 429) 73 % % Lymphs (test code = 430) 18 % % Monos (test code = 431) 6 % % Eos (test code = 432) 2 % % Baso (test code = 437) 1 % # Neutros (test code = 670) 4.83 1.56- 6.13 K/L # Lymphs (test code = 414) 1.21 1.18- 3.74 K/L # Monos (test code = 415) 0.36 0.24- 0.36 K/L # Eos (test code = 416) 0.11 0.04- 0.36 K/L # Baso (test code = 417) 0.05 0.01- 0.08 K/L Immature Granulocytes-Relative (test code = 2801) 0 % 0-1 Lab Interpretation (test code = 40604-3) Abnormal [facility] W/PLT COUNT & AUTO [id number] 15:04:00* Test Item Value Reference Range Interpretation Comments WHITE BLOOD CELL COUNT (BEAKER) (test code = 775) 6.6 K/ L 3.5- 10.5 RED BLOOD CELL COUNT (BEAKER) (test code = 761) 5.03 M/ L 3.93-5 .22 HEMOGLOBIN (BEAKER) (test code = 410) 14.1 GM/DL 11.2-15.7 HEMATOCRIT (BEAKER) (test code = 411) 42.7 % 34.1-44.9 MEAN CORPUSCULAR VOLUME (BEAKER) (test code = 753) 84.9 fL 79. 4-94.8 MEAN CORPUSCULAR HEMOGLOBIN (BEAKER) (test code = 751) 28.0 pg 25.6-32.2 MEAN CORPUSCULAR HEMOGLOBIN CONC (BEAKER) (test code = 752) 33.0 GM/DL 32.2-35.5 RED CELL DISTRIBUTION WIDTH (BEAKER) (test code = 412) 15.3 % 11.7-14.4 H PLATELET COUNT (BEAKER) (test code = 756) 121 K/CU MM 150-450 L MEAN PLATELET VOLUME (BEAKER) (test code = 754) 12.1 fL 9.4-12 .3 NUCLEATED RED BLOOD CELLS (BEAKER) (test code = 413) 0 /100 WBC 0 -0 NEUTROPHILS RELATIVE PERCENT (BEAKER) (test code = 429) 73 % LYMPHOCYTES RELATIVE PERCENT (BEAKER) (test code = 430) 18 % MONOCYTES RELATIVE PERCENT (BEAKER) (test code = 431) 6 % EOSINOPHILS RELATIVE PERCENT (BEAKER) (test code = 432) 2 % BASOPHILS RELATIVE PERCENT (BEAKER) (test code = 437) 1 % NEUTROPHILS ABSOLUTE COUNT (BEAKER) (test code = 670) 4.83 K/ L 1.56-6.13 LYMPHOCYTES ABSOLUTE COUNT (BEAKER) (test code = 414) 1.21 K/ L 1.18-3.74 MONOCYTES ABSOLUTE COUNT (BEAKER) (test code = 415) 0.36 K/ L 0. 24-0.36 EOSINOPHILS ABSOLUTE COUNT (BEAKER) (test code = 416) 0.11 K/ L 0.04-0.36 BASOPHILS ABSOLUTE COUNT (BEAKER) (test code = 417) 0.05 K/ L 0. 01-0.08 IMMATURE GRANULOCYTES-RELATIVE PERCENT (BEAKER) (test code = 2801) 0 % 0-1 CT ABD/PEL WITH LJLJOGIJ-LQID6839-99-27 20:20:00 [place] [address] Patient Name: ANDREZ CARR MR #: [id number] : 1965 Age/Sex: 54/F Req #: [id number] Adm Physician: Ordered by: SHIKHA GONZALEZ MD Report #: [id number] Location: [facility] Room/Bed: Procedure: HOPD/CT ABD/PEL WITH CONTRAST-HOPD Exam Date: 11/13/19 Exam Time: 1958 REPORT STATUS: Signed EXAMINATION: CT of the abdomen and pelvis with contrast. TECHNI QUE: Helical CT images of the abdomen and pelvis were performed from the lung bases to the lesser trochanters after the intravenous administration of 100 cc of Isovue 300 and the oral administration of none. Coronal and sagittal r eformatted images were obtained.Dose modulation, iterative reconstruction, and /or weight based adjustment of the mA/kV was utilized to reduce the radiation dose to as low as reasonably achievable. COMPARISON: April 17, 2019 CLI NICAL HISTORY:Abdominal pain DISCUSSION: ABDOMEN/PELVIS: LOW ER THORAX:Unremarkable. HEPATOBILIARY: Cirrhotic morphology. No intra-or e xtrahepatic biliary ductal dilation. Cholecystectomy. SPLEEN: No spleno megaly. PANCREAS: No focal masses or ductal dilatation. ADRENALS: No adrenal nodules. KIDNEYS/URETERS: No obstruction. Punctate left renal calcu eran. PELVIC ORGANS/BLADDER: Bladder is unremarkable. Hysterectomy. PER ITONEUM/RETROPERITONEUM: No free air or fluid. LYMPH NODES: No intra-abdomi nal, retroperitoneal, pelvic or inguinal lymphadenopathy. VESSELS: Vascul ar calcifications. IVC filter. GI TRACT: No obstruction. Postsurgical schafer e to the bowel. BONES AND SOFT TISSUE: No bony destructive lesions. Silvia or hernia repair. IMPRESSION: No acute CT finding. Cirrhotic christa er. Punctate left renal calculus. Signed by: Dr. Armida Head M.D. on 11/13/2019 8:23 PM Dictated By: ARMIDA HEAD MD Electronically Sig tomas By: ARMIDA HEAD MD on 11/13/192022 Transcribed By: CHERYL on 2022 COPY TO: SHIKHA GONZALEZ MD FINGER RT - [id number] 18:59:00 [place] [address] Patient Name: ANDREZ CARR MR #: [id number] : 1965 Age/Sex: 54/F Req #: [id number] Adm Physician: Ordered by: MARSHALL LUJAN MD Report #: [id number] Location: [facility] Room/Bed: Procedure: [id number] HOPD/FINGER RT - HOPD Exam Date: 09/18/19 Exam Time: 1839 REPORT STATUS: Signed EXAM: FINGER RT - HOPD DATE: 09/18/2019 12:00 AM INDICATION: Injury [id number] COMPARISON: None FINDINGS: 3 views of the r ight fourth finger show no displaced fracture or dislocation. Bones are modera tely demineralized. Degenerative changes are seen at the DIP joints. There is mild deformity of the third, fourth and fifth proximal phalanges that may be r elated to previous injury. Soft tissues unremarkable. IMPRESSION: No acut e bony abnormality. Signed by: Dr. Stella Gutierrez M.D. on 09/18/2019 7:02 PM Dictated By: STELLA GUTIERREZ MD 01 Transcribed By: CHERYL on 09/18/191901 COPY TO: MARSHALL PAULSON MD SEDIMENTATION RATE MODIFIED ILHGMWFKGB1905-23-49 11:01:14 36[facility]annC-REACTIVE FMFJKVH9136-69-54 09:43:001.1[facility] HermannCK 2019-09-07 09:43:0060[facility] HermannCOMPLEMENT C3 AND [id number] 09:43:59598 [facility]annCOMPLEMENT C3 AND [id number] 09:43:0018[facility] COMPREHENSIVE METABOLIC KOBRM6110-75-00 09:34:21292Ewolgquh HermannCOMPREHENSIVE METABOLIC BFADY3733-73-90 09:34:209[facility] HermannCOMPREHENSIVE METABOLIC PANEL 2019-09-07 09:34:200.62[facility] HermannCOMPREHENSIVE METABOLIC MUJCB4089-39-32 09:34:49265Vesnhpqm HermannCOMPREHENSIVE METABOLIC QFPHV0068-83-79 09:34:17335 [facility] HermannCOMPREHENSIVE METABOLIC GUJSF5259-13-14 09:34:2015[facility] HermannCOMPREHENSIVE METABOLIC NEUMH1216-01-87 09:34:06493Upbtjxbb [place] COMPREHENSIVE METABOLIC ZQFKU7196-08-95 09:34:204.2[facility] HermannCOMPREHENSIVE METABOLIC LOQYP3839-25-90 09:34:13842Qkbvgjap HermannCOMPREHENSIVE METABOLIC BIFMV7147-41-50 09:34:2025[facility] HermannCOMPREHENSIVE METABOLIC PANEL 2019-09-07 09:34:209.3[facility] HermannCOMPREHENSIVE METABOLIC TRTGO4960-01-50 09:34:208.0[facility] HermannCOMPREHENSIVE METABOLIC HJMEH0985-18-62 09:34:204.1 [facility] HermannCOMPREHENSIVE METABOLIC DPZJT1579-40-21 09:34:203.9[facility] HermannCOMPREHENSIVE METABOLIC TFVNO0559-36-60 09:34:201.1[facility] COMPREHENSIVE METABOLIC GIOJT3356-20-82 09:34:201.3[facility] HermannCOMPREHENSIVE METABOLIC OTHPK6769-12-92 09:34:3[facility] HermannCOMPREHENSIVE METABOLIC NYCBR9843-56-88 09:34:2026[facility] HermannCOMPREHENSIVE METABOLIC PANEL 2019-09-07 09:34:4[facility] HermannCBC W/AUTO DIFF WITH ADODDYCPX0434-14-72 09:32:516.3[facility] HermannCBC W/AUTO DIFF WITH SZKQXBTNQ3206-29-75 09:32:514.83 [facility] HermannCBC W/AUTO DIFF WITH VKURCUPYR3659-91-91 09:32:5113.7[facility] HermannCBC W/AUTO DIFF WITH MJSATELZV6573-57-65 09:32:5140.2[facility] HermannCBC W/AUTO DIFF WITH YUCROQBTV5726-44-35 09:32:5183.2[facility] HermannCBC W/AUTO DIFF WITH DIUFHNIGQ5254-02-04 09:32:5128.4[facility] HermannCBC W/AUTO DIFF WITH IEMFYJJYE5345-16-32 09:32:5134.1[facility] HermannCBC W/AUTO DIFF WITH PLATELETS 2019-09-07 09:32:5114.4[facility] HermannCBC W/AUTO DIFF WITH YLIIRBSKP3714-62-71 09:32:5167.7[facility] HermannCBC W/AUTO DIFF WITH YIVOBIBNP4667-03-01 09:32:51 22.8[facility] HermannCBC W/AUTO DIFF WITH VZICBUMNX5628-42-49 09:32:516.5[facility] HermannCBC W/AUTO DIFF WITH NODNLGMPP6247-78-80 09:32:512.4[facility] HermannCBC W/AUTO DIFF WITH PIXVPVXFX1645-94-88 09:32:510.6[facility] HermannCBC W/AUTO DIFF WITH YLECTTVXL4355-72-79 09:32:78412Rgnffdkm HermannLIPID CQEBA1039-30-69 21:00:83341Ifakdnze HermannLIPID KTNZN7445-03-36 21:00:0039Mem[facility] HermannLIPID LHCCY9720-46-52 21:00:02318Ixmktppe HermannLIPID UFQGF3738-09-77 21:00:0091 [facility] HermannLIPID UWSQA7640-92-40 21:00:004[facility] HermannLIPID PANEL 2019-08-23 21:00:42993Dnmtvjil HermannMICROALBUMIN/CREAT URINE FAUPC3081-29-62 21:00:68979Qkdxezpo HermannMICROALBUMIN/CREAT URINE MJQET5920-33-90 21:00:001.3 [facility] HermannMICROALBUMIN/CREAT URINE HRWYN9638-12-32 21:00:007[facility] HermannPOCT HEMOGLOBIN [id number] 20:50:009.8[facility]- DUP VEIN UNI/GET1568-14-68 21:15:00 Name: ANDREZ CARR [facility] : 1965 Age/S: 54 / F [address] [place] [address] Unit #: [id number] Loc: [place] [address] 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 History of deep venous thrombosis. COMPARISON: March 2012 TECHNIQUE: Sonographic evaluation of the left lower extremity veins was performed using high resolution B-mode, pulse and color Doppler imaging. FINDINGS: The common femoral, femoral, popliteal and visualized calf veins are patent. Normal venous waveforms throughout. The patient was unable to tolerate compression images through the mid and distal femoral vein. These vessels demonstrate complete filling with color Doppler without evidence for thrombus. The saphenofemoral junction is unremarkable. IMPRESSION: No deep venous thrombosis. SL: JOHN at 2115 Reported and signed by: Karson Kumari M.D. CC: Jane Barker NP Technologist: Stephenie Romero RDMS(AB) Trnscb Date/Time: 08/16 (2114) t.PAUL Orig Print D/T: S: 08/16/2019 () Probe: PAGE 1 Signed Report PROTHROMBIN [id number] 21:11:00* Test Item Value Reference Range Interpretation Comments PROTHROMBIN TIME PATIENT (test code = PTP) 15.5 SECONDS 9.3-12.9 H INTERNATIONAL NORMAL RATIO (test code = INR) 1.4 0.8-1.2 H TARGET INR BY INDICATION Indication INR1. Prophylaxis of venous thrombosis 2.0 - 3.0 (orthopedic surgery), Prophylaxis of venous thrombosis (other than high-risk surgery), Treatment of Deep Vein Thrombosis/Pulmonary Embolism, Prevention of systemic embolism - Tissue heart valves, Acute Myocardial Infarction (to prevent systemic embolism), Valvular heart disease, Atrial Fibrillation, Bileaflet mechanical valve in aortic position.2. Mechanical prosthetic valves (high risk), 2.5 - 3.5 Presence of Lupus Anticoagulant or Antiphospholipid Antibodies, Prevention of systemic embolism - Acute Myocardial Infarction (to prevent recurrent infarct). THROMBOPLASTIN TIME [id number] 20:22:00* Test Item Value Reference Range Interpretation Comments THROMBOPLASTIN TIME PARTIAL (test code = PTT) 36.3 Seconds 25.0-39. 5 N Therapeutic Range: 50.4 - 88.3 Seconds Effective 01/31/2019 GASTRIC EMPTYING STUDY, [id number] 17:20:00Referring: CRISTIAN Anaya for Exam:->R11.2FINAL REPORT PROCEDURE: GASTRIC EMPTYING STUDY with Solids CPT CODE: 29498 INDICATION: Intractable vomiting PROTOCOL: 0.54 mCi of Tc-99m sulfur colloid was administered orally in the equivalent of 2 scrambled egg whites. Serial images of the upper abdomen were obtained in the WOLOF projection for 90 minutes. Gastric emptying was calculated by the power exponential fit method. FINDINGS: There is progressive emptying of gastric contents into the small bowel. The half-emptying time was calculated to be 63 minutes. Gastroesophageal reflux was not noted. IMPRESSION: 1. Normal gastric emptying of a solid meal.2. No gastroesophageal reflux was seen during the course of this study. Signed: Venancio Luque Verified Date/Time: 08/01/2019 17:20:46 Reading Location: [address] Med Reading Room gastric emptying study [id number] 17:20:00Interface, External Ris In - 08/01/2019 5:22 PM CDTFINAL REPORT PROCEDURE: GASTRIC EMPTYING STUDY with Solids CPT CODE: 35650 INDICATION: Intractable vomiting PROTOCOL: 0.54 mCi of Tc-99m sulfur colloid was administered orally in the equivalent of 2 scrambled egg whites. Serial images of the upper abdomen were obtained in the WOLOF projection for 90 minutes. Gastric emptying was calculated by the power exponential fit method. FINDINGS: There is progressive emptying of gastric contents into the small bowel. The half-emptying time was calculated to be 63 minutes. Gastroesophageal reflux was not noted. IMPRESSION: 1. Normal gastric emptying of a solid meal.2. No gastroesophageal reflux was seen during the course of this study. Signed: Venancio Luque Verified Date/Time: 08/01/2019 17:20:46 Reading Location: [address] Med Reading Room [facility] MIZKJLQ4994-80-48 03:00:0015.9[facility] HermannCELIAC DISEASE COMPREHENSIVE([facility])2019-07-17 03:00:006[facility] HermannCELIAC DISEASE COMPREHENSIVE([facility])2019-07-17 03:00:30700Crhhlkfa HermannSEDIMENTATION RATE MODIFIED [id number] 03:00:0056Memorial HermannTissue Ielq3961-02-20 15:43:00* Test Item Value Reference Range Interpretation Comments Case Report (test code = 104) Surgical Pathology Repor t Case: [id number] Authorizing Provider: Fidencio Jackson MD Collected: 06/29/2019 1104 Ordering Location: [facility] Endoscopy Received: 06/29/2019 1535 Services Pathologist: Jocy Evans MD Specimens: A) - Duodenum, BX B) - Cecum, BX C) - Colon Biopsy, Random DIAGNOSIS (test code = 3220) [file] LDGsML7MAGHMGCfKC8DUFXHqUOqRMXRLGEbQInmaDYBrARKfDBPOYW5WSFOiFBZQORWLZPWMRYMRB3Xm KSoUC9GDBPSPPP2rJSDWIWTNB41KPN5RTQhxVEBazJWeLQQgYQHLSD3BILPDEM3UM22pSwgCTYMJDHQi wxyyUXTkODOeDGyvKSNjKAXxBxNrlNjrgX2aPvAcZh DmUGusHE5kQWHaF5bcgRNkKVWdFWRiK7duCbExgY7ukAzvRLqpusJxSY4mEDDhCv9cBGiSZ15FW2VHWs GIEIYPPlNMMY4ZABPlcoCbQEAsEQ2IEPWWDXWDCsSLGY8CTP8YM2QQJ7GAWAdSTDREVAyERWOlxVZqPY Njwi04TDI6XwBex6L6OIN8EQMsMIVhl0ghNURneBNd OaUfHhVgBfKfPcnbcEAnINMrEpSvc7mzd140nFNua5jqKMYjGeE6pWFvXBQksVHkP071FEFcVZqhh4rr c4SgXXMmyQSvm3P5UUXRomskuSf7cHxtZ28ev3W9QhvgZ3akNZWpWOPbT4UaTY5pXKDgWnc5REW0HXC5 CSFhAEXlI4HtCB0qTFMnmWPdNKw8k5nxjLexTYFvVM R2u2fpKSoedwYqIN6kfo9izUc8n4sdzsXoCWUeGTEyzTZNLBNwA2MazKzjYi5ymGo2nDgiDospRUP6Hr b0UP0sqr09hjs0cWpoVQJjumfjMfE1JDktYAJwijylATb6PFsySEYyyJA4LQVuoSYgU5JmIAOlAJ0ijy f7VRW8USbvPBHjLuX1BTQxlMBsPBUxyYwzPYwtl501 KFQ1OuCbBR5fE2Dpq9F2fQ0xgDRbCEIypXDsPpPqBAJzrs1eiUBxOJksu5QuZMQ1yvM4fSCciPJcDJBe HyZ0INzmSN5dxk43HDRoNMI3qi5tkGPpwXlvbkTeyJQgKJbcA6JkBMLws563KJXmU3QjMVQhj0Y3qqMh DqGfDUFzoEW7zpZ2VKIuOV3idixau7waJFhlBGomUH NovuX6qhD5TJApwDEiJ3FcdZ8lYGTlAQ5ytneyx5ppBQN6BApaTYJwHFT1PtYkAAJgn3Bqijy2MlKcs6 ZmcGFwJKwsR57uw089FAJtxfOxW5iphUGqeeifgPBsetqvWDkunkF1AXVmNSjsdmebZPGnZHfxD5ckTx SvSIEdkDkiVXmvw3MzGRToPBUhNoZvtMMfQHGvLax3 WFFgvXGwRIQdZmGwY5odszahXqXTVLEfq8qeP1zbiBOWoKRlE6XnDYtspdElIOrnGRtqCJM5ZEW9Gt61 BfM3YSRjzc29 COMMENT (test code = 3359) r2ojiJNeXJKepKEbGuXrSKRtUXGtc8tjQPAheHGjMjQdKjKbRpEySurowKNgAENnZdXfi1atm148pYPc d2ulWLKiPoZ5kQRnKVIcpFYxJ901RMCoMCfly3gbj4BwSLSrzPVup9G4BUZThsudtFl9pYnqV80mk2Q9 HkjnV7mdWTWhMNZnN8YqIH2kZUBvAue8AKX7YVY9OJ PbNCIkW5JnJG0eWDTfhNWmTYh6j8ibaIkjTXCkUHI4x8xqTJhbdwVdYZ7bmo7irUs4r7naknUkEJVuSN IojDHTTFBdG8FbyFblZz9xpVr0zUcvNedxXMR1Qan0GP5cmp34arm7tQdrPLKrvqslQxY1OCmcWEPppy alVLf9FYmbADLaoJvlWImpCCKxrkwkCBbrCKRisSvb ADlwIYVsVkemAGqzYTEzTVK3FQnjm760AAQ8FNbpn9nyl4gijMWcOwq7RVJlGsHwSuavUSykq3Dap7vv XAVngd0zPQN6oJJjvGuos3W6pSYcACDckDHodwUpWIFzQjX9DCopWZ7ewl94QSAlUQH7pv7vaJRguTch gwUhuQZqPNbdZ9HvFSMba346AXQrM0YlQNRst4H9pu CyMyYfSSIdjOK5yoO4LJRwBGx9eLLizdQ0qnPotVCaP6tyxP01UfCnbZDgW5QzfM69ZvLseFDyM5HcgO 04LsZypHDpM3QwkL76MsKrlVVrJGQtiUAnJv9zmEBmcYEio9ObfJGlCGobW96ho165HEUgpzGsA0ljeN CmrknftFBklhniBWqqayH7KKQrSFBsFYuaOWEsKKBc ZaNcwPLqFnTlEjPukDnvzApqJMnoYfHsHTRmILhzG7cxVqCaJqOrZCPZFcHFZEMoltrqyVnrkNSnJGAv TRNat5EdAUJquW3gQCX4uDXziQUxnZMxz2DcerNdaxHwBNFkMVapbGwgJQYrag7wmzfoQ0O3Hl90B66k PD6rSTRoaTsqjNeuYF1hxd0duAPkfCFhXzzoqJBzaW H8TIKeEYEbhwIgv0SpvXffSYkkkB8xFVBsm8WzZVLasuCsr6WotMytLWiclV9mKWBmxo5= CPT Code(s) (test code = 3357) s3elyQBfJFVerVNiZdVvBGGqWPVsn2utGLKrtZYqQwDdXuObKmVcZixguEApOJVqKxPdp7nyt345pDTm o5npFBHeRgQ5uYAoJMFnwRHfX165l6ujo4rzlbEvsWX4JRXbIOP1JQcfsbApigH8DBhiuSLbWxS1FWxf gcEnXKfhbaQseyBdJyo6IJUyY159GXH8lAplv0ygJG G1KLUvTUIdYvHpDw5iwSEmC000NHRaDKVZTGMbjSp9HZMmvjHiwiRkdEASg087J122r2xlLVFkjkEwyJ jRfeyhw1lwJ687AQRaaZNzseSrWwBcNXJbyDQurRN5VBHkVQ5qyrvrUiJvVV1qmlogBkZiIY9ltup3Ma LlTH9ykzzgWmQhHWgxFXPfzlzpWWUly3BzaijcAN9d A1Vkd1S4nN0leTObGLBrxBJuTtGyJRMtgk3dzNHnIEhwn3RkRKK3zjT7xXWnnXJyYLZrDY66Xurxz8Pd UcadEUI3IVHsglIbd3Giu7agUhHosgYoN1zhX5EtQTEfRXHyFZPoAcBoivVsi2Vtr0BrgRMmnAm4t0zm BIVkFQOizWnvh3trJHV0DNZgO9D2lMOcy2izHHenPV GxtKO1eqjtWLctOMDowtL1kdxwZLxkWWIrrLX1jrwvFStgCEChRaR3yirsFNsdWUBvMDV6NZrdt166WJ G8VRnwQevzXXiaILVpsuDogdZwmWbnIGMmUFHnWDlhNUJiDUkiYQXvORJwFwAcqSkzdFavyL4sNnKhYe IoZYhyZA3aYJEqD9ruxZSvAXCmYQQkW0tuInDfuU6gdJxrHHvpzmSpNLh0QiW2NEaoI1amMOZ9 CLINICAL HISTORY (test code = 3356) t1hwcELtBFNduHSlSqNaMOIrGTZzz4grHPAgnNQaUlGlHuRjQmQnCwifxQLqUYXuOgHkh3ryz735oZJy b9zeCBZoCvN3oFJbPJBseDQsJ544QDPiEZjxa5itc6EtIETysPYju6B4NGTCdmltlTt9yGvcV68vc7V9 HjgeA7bsVQIqEEQaS4IhNJ9wVDJuAws1CNK4PGT0EV GsZSPyB1KhBE6uXLQxdGDeFDf7j5uxoYxfLWVnMPJ7r9joGZusalYdYX9idc8rlQp5w2giskRvOONcDA TvvKKJKKYcU7ZipKbwLu0ebTr9lOwrYqrrIBD9Gqt2CR6yrd99qct4qMetSXMqqircLkL7VAbgQMVmzl vqKGp8WWjgONHrbIceYQjdIJJclwifBFzuLPUapEfq AZvkMOKqRrvtIXdeKWGzNDX1AZqqz516WRY3EPjvi5qkd2jwtQEyFrk5QLOxTtTsDarhRXsrt5Ugc0zz UIRhtl4eIRY1oNMxiKmpw7V7fZKeWOBsoYDauuUwOIZuIeR6RPsoHW2vfu45UZSsEIJ4oj8njDPwoJpl hpMtvPCzJGftD8UhSXHkz656ZZYwG4EpNBKpn6G2jz QkElNaHJRfgBE4vdI0NQCfKKa9mUNqpdH9hvWjePOrV7oayY61ImHrmBHcT5KysK09JfJmwBUlU1QjtY 65FqPnxCZbS5RljQ80PiBmnTPtCMGnyLRqVq3hzNSfbLHzk5EulUYlSVdvX38ry726PVUskvBrB2khlD CrjvmbsSNfqewaJArxszN9JTBrYMWuPOvmRHJhZWLy CkGkiNEkNnEbDuWviOehaBxpUHhlDiIfEWKwXOxsZ2dcOwEiBcQxEKBJfVFroN7gzKOcw4OfnKl4SDPl g5c6xK06hSLcz3CjdXGlZMQpHNVkV8ZuDF1qbvloUx0nMGVitW5iYKHnxrIwlrRxgEXazV== SPECIMEN SOURCE (test code = 3377) w5qrvMMiKYFheBMqDjSdEPMvTEMzm2duMZDqlNWyJdUzKwTnMcSpUsmddXMvFIHdWlYej9pmc505bBZi e6jpBGNeXoL2uAHhNMXvzUHuM979w2erg2bfphYpyGB3CVYyYOK9JXmsziJrysH4STnuqXYzWwK4BYuj jjSxOVcsyoZcuwImStz0AIUzS512SXW9nCqjq2zvSJ D5UWUuNPFoFuOhZa1cxMKiM732MEDeKKWCPITplIz3LCMmufStmmCajRENy686N141h3fpCHRjszTzsB xKfxhkf6eiG137HNYclKFpohJqLlOqVPHtpYKimQX6UJAlLV5ivdjlJhToDY9kdsihHlBhCG7etru5La UfOC0ssrosFhZtJOgmRJMfrdtuBCRex5WjiwllJE2c H2Kni5T4iO0cqLAkSWMcaWJoRnBrCZXlfh6vaJZnVEnmw4KxCJO5taQ9lLKjwDIhNWHrXT89Ugkjf0Cw MkinEXL8IINlqzVgx2Abi6leDdTwmyBzP9swP6LfINEyTJIhFUFvWcLjqpEpy3Kcz1VdnWYwxPz5z5gl BLVyQQTspYlex7kuFHG1NFCxO6P2qJYdq3vcDXypJW BbyWG5sgufOWhoTVXnoaN6eehaIDbuHUAbuST3wgemVHppTQHfQpF0xdywRYgdHLOyAMT8BJcss787CE C1CPkrGmfrOEsyPPVhcoUsipTlbKohSAIfBFLoRTydMMAoKBbcAWFbASHyVkQfrEjwpGpvqT3qSmIlFv MyXAllFJ8yVCXoN5iylUEfLDOcJBGqH0udDsOtvY3p gRtmLTzuodDjQALgAEA8k2ZoyxOyYPDyu4KmuQ9uHt7aG9IiqD0zSazfuQT7JgWPKzHVEH5yz28tV21f t26pBcyhpPY6YCxlJHR2 GROSS DESCRIPTION (test code = 3366) [file] UNEkBNCtuhFlzIWlwOR5CVEgrV2peZ96dnJarkEpWICpBHU1XQTZQnKRFK5grfQrqHHqaX== MICROSCOPIC DESCRIPTION (test code = 3371) y5ngsXRkORWjuEJgFhVwJXLhVDNro6bnYIDapDTpGoTfDsNqJeLoBitfdENcMEMuEdWdf5fgq033vLCi w4rdEATnAqN9eOPiSYOlwGEiK997d7uwg8gkrmBewSD3PTNtSRC1MSuvezGxjtC6DPlipLTqYcX3GQnv jpRxYFhdijBxlpWbYff6WTXqB103GWJ7qWeer9zoHJ B2ESJpDIQjAcVyVc1ceQRqY002PQAgNQPPWRQkxMa7EIMnceEiggChfSYGw975V309o7lzKDPgknIjpM xZbpllk1krG106WDSjrIHmzfWtEqMmJUNgbMRbmLC2KWJqZP0avvozHiVqIH9xjannYrBkKA7rlam3Yt MrQX6ctsipUkVmZCxzWZUmbphfIYDph3BvivilQA2o L0Ths6R5xL4ndAMwSYZtoUIeOiRcWBAusz8kdEGeHRvge7UjCWJ8pxR4wIUimDUoFPFmNX33Tgwfr7Rf KtgqUHH9CJBrdtFmi3Aea5ulQdRsmnVtV0nfE7SeXKJiFYBwNFEwGvJjweZqe5Wmf3TvyNXikQc1e9bx WBQmSNJqxHxds6qxJCA6FCGoA2B6dKXsf1haBDceJJ OblHG4jjuuYVyvYFZpmdR7mfpyINijYRZeiRV6qywbOZfuOCPdMxC1wnblWKyhXXMxNGT7UFwif328PO G6VAcfEorqSEiiGBGsydPrxoRnwYstCSKuHBZpEZgpJUDiSItyNBCkZHBwSwIwuSzchMvfyU7tFeZbQf JtHHglVQ6lMQGeF0togUBfUVEhLWDiR5jvXpZqlE5vkInoCPqykwXtHGQqumZlgm0jZR8bfGEkpV== Gross assessment was performed at (test code = 2777) [facility], Department of Pathology, [address] [place], [place] [id number], Technical component was performed at (test code = 2778 ) [facility], Department of Pathology, [address] [place] [address], Professional component was performed at (test code = 2 779) [facility], Department of Pathology, [address] [place] [address], [facility] [id number] 15:43:00Surgical Pathology Report Case: [id number] Authorizing Provider: Fidencio Jackson MD Collected: 06/29/2019 1104 Ordering Location: [facility] Endoscopy Received: 06/29/2019 1535 Services Pathologist: Jocy Evans MD Specimens: A) - Duodenum, BX B) - Cecum, BX C) - Colon Biopsy, Random A.DUODENUM BIOPSY- NO DIAGNOSTIC ALTERATIONB. COLON, CECUM, BIOPSY- NO DIAGNOSTIC ALTERATION- MINUTE MATURE ADIPOSE TISSUE SEEN (SEE COMMENT)C. COLON, RANDOM BIOPSY- NO DIAGNOSTIC ALTERATION- NO EVIDENCE OF MICROSCOPIC COLITIS Signing Pa thologist Direct Phone Line: [phone] signed by Jocy Evans MD on 07/01/2019 at 3:43 PMB. A very minute area of adipose tissue is seen in deep lamina propria/submucosa. Although non-specific, it may be part of the lip param noted endoscopically. [address] X 3Cirrhosis of liver without ascites and screen ing for colon cancer A. Duodenum biopsy. B. Cecum biopsy. C. Random colon biopsy This case is received in three parts. All parts are labeled correctly with the patient's name and date of .Part A. Received in formalin labeled "duodenum" consists of a 0.5 x 0.4 x 0.3 cm rockwell-brown irregular tissue. The specimen is fi ltered and is submitted in toto in cassette A.Part B. Received in formalin label ed "cecum" consists of a 0.6 x 0.4 x 0.3 cm rockwell-brown irregular tissue. The spec imen is filtered and is submitted in toto in cassette B.Part C. Received in form magdy labeled "random colon biopsy" consists of two irregular fragments of rockwell-br own tissue aggregating to 0.8 x 0.3 x 0.2 cm. The specimen is filtered and is rodríguez bmitted in toto in cassette C. AH/ew Performed.[facility], Department of Pathology, [address] [place] [address], [facility], [address] [place] [address], [facility], Departmen t of Pathology, [address] [place] [address], [id number] 15:28:0014.5[facility] OmujqoeIVIEOFA-[id number] 15:28:00 1.2[facility] HermannPOCT [id number] 15:00:98847Dswjubyt HermannPROTHROMBIN TIME/[id number] 10:28:00* Test Item Value Reference Range Interpretation Comments PROTIME (BEAKER) (test code = 759) 14.5 seconds 11.9-14.2 H INR (BEAKER) (test code = 370) 1.2 <=5.9 Effective 03/15/2019: PT Reference Range ChangeNew: 11.9-14.2 Previous: 11.7-14. 7RECOMMENDED COUMADIN/WARFARIN INR THERAPY RANGESSTANDARD DOSE: 2.0-3.0 Include s: PROPHYLAXIS for venous thrombosis, systemic embolization; TREATMENT for venou s thrombosis and/or pulmonary embolus.HIGH RISK: Target INR is 2.5-3.5 for patie nts wiht mechanical heart valves.POCT-GLUCOSE [id number] 10:00:00* Test Item Value Reference Range Interpretation Comments POC-GLUCOSE METER (BEAKER) (test code = 1538) 140 mg/dL 70-110 H TESTED AT [address] [address] BASIC METABOLIC PROFILE + [id number] 09:00:45237Pcenokua HermannBASIC METABOLIC PROFILE + [id number] 09:00:0013[facility] HermannBASIC METABOLIC PROFILE + [id number] 09:00:000.73[facility] HermannBASIC METABOLIC PROFILE + [id number] 09:00:0093[facility] HermannBASIC METABOLIC PROFILE + E-GFR 2019-06-21 09:00:84697Omolbqjc HermannBASIC METABOLIC PROFILE + [id number] 09:00:51354Jvonucwe HermannBASIC METABOLIC PROFILE + Z-[id number] 09:00:004.2 [facility]annBASIC METABOLIC PROFILE + [id number] 09:00:08835Uugdwicg HermannBASIC METABOLIC PROFILE + [id number] 09:00:0030[facility] HermannBASIC METABOLIC PROFILE + [id number] 09:00:009.7[facility] HermannCBC W/AUTO DIFF WITH [id number] 09:00:008.1[facility] HermannCBC W/AUTO DIFF WITH [id number] 09:00:004.78[facility] HermannCBC W/AUTO DIFF WITH PLATELETS 2019-06-21 09:00:0013.6[facility] HermannCBC W/AUTO DIFF WITH [id number] 09:00:0040.0[facility] HermannCBC W/AUTO DIFF WITH [id number] 09:00:00 83.7[facility] HermannCBC W/AUTO DIFF WITH [id number] 09:00:00* Test Item Value Reference Range Interpretation Comments <td ID="[id number]">MEAN CO RPUSCULAR HEMOGLOBIN</td><td>28.5</td><td>27.0 - 33.0 pg</td><td>QUEST</td><td ID="[id number]"/> (test code = <td ID="[id number]">MEAN CORPUSCULAR HEMOGLOBIN</td><td>28.5</td><td>27.0 - 33.0 pg</td><td>QUEST</td><td ID="[id number]"/>) 28.5 pg 27-33 [facility]annCBC W/AUTO DIFF WITH [id number] 09:00:0034.0[facility]annCBC W/AUTO DIFF WITH [id number] 09:00:0015.0[facility]annCBC W/AUTO DIFF WITH [id number] 09:00:12998Iqbcaqkj HermannCBC W/AUTO DIFF WITH [id number] 09:00:0012.3[facility]annCBC W/AUTO DIFF WITH [id number] 09:00:611338Vomvlwry HermannCBC W/AUTO DIFF WITH PLATELETS 2019-06-21 09:00:175115Pvmiywva HermannCBC W/AUTO DIFF WITH [id number] 09:00:46013Vlpcorpa HermannCBC W/AUTO DIFF WITH [id number] 09:00:19028 [facility]annCBC W/AUTO DIFF WITH [id number] 09:00:0057[facility]annCBC W/AUTO DIFF WITH [id number] 09:00:0071.7[facility]annCBC W/AUTO DIFF WITH [id number] 09:00:0019.3[facility] HermannCBC W/AUTO DIFF WITH [id number] 09:00:005.8[facility]annCBC W/AUTO DIFF WITH [id number] 09:00:002.5[facility] HermannCBC W/AUTO DIFF WITH PLATELETS 2019-06-21 09:00:000.7[facility] HermannHEPATIC FUNCTION [id number] 09:00:00 8.2[facility] HermannHEPATIC FUNCTION [id number] 09:00:004[facility]PATIC FUNCTION [id number] 09:00:004.2[facility] HermannHEPATIC FUNCTION [id number] 09:00:001[facility] HermannHEPATIC FUNCTION [id number] 09:00:001.1[facility] HermannHEPATIC FUNCTION [id number] 09:00:000.3[facility] HermannHEPATIC FUNCTION [id number] 09:00:000.8[facility] HermannHEPATIC FUNCTION [id number] 09:00:0095[facility] HermannHEPATIC FUNCTION PANEL 2019-06-21 09:00:0020[facility] HermannHEPATIC FUNCTION [id number] 09:00:0017 [facility] [id number] 10:33:00Surgical Pathology Report Case: [id number] Authorizing Provider: Santiago Easley MD Collected: 06/02/2019 1215 Ordering Location: [address] Received: 06/05/2019 0818 Service Pathologist: Radha Kinney MD Specimen: Polyp, Gastric, Cardia Polyp STOMACH, CARDIA, POLYPECTOMY: - POLYPOID MUCOSA WITH HYPERPLASTIC FEATURES (SEE COMMENT) Signing Pathologist Direct Phone Line: [phone] signed by Radha Kinney MD on 06/08/2019 at 10:33 A MSections show relatively small superficial fragment of polypoid gastric mucosa with hyperplastic features. In the appropriate clinical/endoscopic setting, this could represent hyperplastic polyp. Clinical/endoscopic correlation is recommen ded. Additionally, adjacent food particles are seen.[id number] performed: up per endoscopy, polypectomy Preoperative and postoperative diagnoses are the same : GI bleedingPolyp, gastric, cardia polyp The case is received in one part. The specimen received in formalin labeled with the patient's name, accession number and "polyp, gastric" is a 0.6 x 0.5 x 0.4 cm piece of rockwell-patterson mucosal-covered t issue. Also included are two fragments of green-yellow organic matter measuring 0.2 x 0.1 x 0.1 cm and 0.3 x 0.2 x 0.2 cm. The specimen is submitted in toto fol lowing filtration in cassette A1. SS/ewPerformed.POCT-GLUCOSE [id number] 13:49:00* Test Item Value Reference Range Interpretation Comments POC-GLUCOSE METER (BEAKER) (test code = 1538) 220 mg/dL 70-110 H TESTED AT [facility] [address] [facility] [address] Comprehensive metabolic [id number] 13:07:00* Test Item Value Reference Range Interpretation Comments Protein, Total (test code = 2885-2) 7.8 6.0- 8.3 gm/dL Albumin (test code = 33039-9) 3.5 g/dL 3.5-5 Alkaline Phosphatase (test code = 6768-6) 84 U/L 40-150 Total Bilirubin (test code = 1975-2) 2.2 mg/dL 0.2-1.2 H Sodium (test code = 2951-2) 133 meq/L 136-145 L Potassium (test code = 2823-3) 3.5 meq/L 3.5-5.1 Chloride (test code = 5-0) 101 meq/L 98-107 CO2 (test code = 8-9) 25 meq/L 22-29 BUN (test code = 3094-0) 8 mg/dL 7-21 Creatinine (test code = 2160-0) 0.69 mg/dL 0.57-1.25 Glucose (test code = 2345-7) 228 mg/dL 70-105 H Calcium (test code = 60093-4) 8.4 mg/dL 8.4-10.2 AST (test code = 1920-8) 23 U/L 5-34 ALT (test code = 1742-6) 20 U/L 6-55 EGFR (test code = 13948-9) 88 mL/min/1.73 sq m ESTIMATED GFR IS NOT ACCURATE CREATININE CLEARANCE IN PREDICTING GLOMERULAR FILTRATION RATE. ESTIMATED GFR IS NOT APPLICABLE FOR DIALYSIS PATIENTS. LEANDRO (test code = LEANDRO) Specimen slightly icteric Lab Interpretation (test code = 52369-6) [facility] [id number] 13:07:00* Test Item Value Reference Range Interpretation Comments TOTAL PROTEIN (BEAKER) (test code = 770) 7.8 gm/dL 6.0-8.3 ALBUMIN (BEAKER) (test code = 1145) 3.5 g/dL 3.5-5.0 ALKALINE PHOSPHATASE (BEAKER) (test code = 346) 84 U/L 40-150 BILIRUBIN TOTAL (BEAKER) (test code = 377) 2.2 mg/dL 0.2-1.2 H SODIUM (BEAKER) (test code = 381) 133 meq/L 136-145 L POTASSIUM (BEAKER) (test code = 379) 3.5 meq/L 3.5-5.1 CHLORIDE (BEAKER) (test code = 382) 101 meq/L 98-107 CO2 (BEAKER) (test code = 355) 25 meq/L 22-29 BLOOD UREA NITROGEN (BEAKER) (test code = 354) 8 mg/dL 7-21 CREATININE (BEAKER) (test code = 358) 0.69 mg/dL 0.57-1.25 GLUCOSE RANDOM (BEAKER) (test code = 652) 228 mg/dL 70-105 H CALCIUM (BEAKER) (test code = 697) 8.4 mg/dL 8.4-10.2 AST (SGOT) (BEAKER) (test code = 353) 23 U/L 5-34 ALT (SGPT) (BEAKER) (test code = 347) 20 U/L 6-55 EGFR (BEAKER) (test code = 1092) 88 mL/min/1.73 sq m ESTIMATED GFR IS NOT ACCURATE CREATININE CLEARANCE IN PREDICTING GLOMERULAR FILTRATION RATE. ESTIMATED GFR IS NOT APPLICABLE FOR DIALYSIS PATIENTS. Specimen slightly ictericPROTHROMBIN TIME/[id number] 12:52:00* Test Item Value Reference Range Interpretation Comments PROTIME (BEAKER) (test code = 759) 18.6 seconds 11.9-14.2 H INR (BEAKER) (test code = 370) 1.6 <=5.9 Effective 03/15/2019: PT Reference Range ChangeNew: 11.9-14.2 Previous: 11.7-14. 7RECOMMENDED COUMADIN/WARFARIN INR THERAPY RANGESSTANDARD DOSE: 2.0-3.0 Include s: PROPHYLAXIS for venous thrombosis, systemic embolization; TREATMENT for venou s thrombosis and/or pulmonary embolus.HIGH RISK: Target INR is 2.5-3.5 for patie nts wiht mechanical heart valves.CBC (Hemogram only)2019-06-03 12:44:00* Test Item Value Reference Range Interpretation Comments WBC (test code = 6690-2) 7.8 3.5- 10.5 K/L RBC (test code = 789-8) 4.55 3.93- 5.22 M/L MCHC (test code = 786-4) 32.7 32.2- 35.5 GM/DL Hematocrit (test code = 4544-3) 39.2 % 34.1-44.9 MCV (test code = 787-2) 86.2 fL 79.4-94.8 MCH (test code = 785-6) 28.1 pg 25.6-32.2 RDW (test code = 788-0) 16.4 % 11.7-14.4 H Platelets (test code = 777-3) 98 150- 450 K/CU MM L MPV (test code = 75653-5) 11.5 fL 9.4-12.3 nRBC (test code = 413) 0 0- 0 /100 WBC Lab Interpretation (test code = 85733-5) Abnormal [facility] (HEMOGRAM ONLY)2019-06-03 12:44:00* Test Item Value Reference Range Interpretation Comments WHITE BLOOD CELL COUNT (BEAKER) (test code = 775) 7.8 K/ L 3.5- 10.5 RED BLOOD CELL COUNT (BEAKER) (test code = 761) 4.55 M/ L 3.93-5 .22 HEMOGLOBIN (BEAKER) (test code = 410) 12.8 GM/DL 11.2-15.7 HEMATOCRIT (BEAKER) (test code = 411) 39.2 % 34.1-44.9 MEAN CORPUSCULAR VOLUME (BEAKER) (test code = 753) 86.2 fL 79. 4-94.8 MEAN CORPUSCULAR HEMOGLOBIN (BEAKER) (test code = 751) 28.1 pg 25.6-32.2 MEAN CORPUSCULAR HEMOGLOBIN CONC (BEAKER) (test code = 752) 32.7 GM/DL 32.2-35.5 RED CELL DISTRIBUTION WIDTH (BEAKER) (test code = 412) 16.4 % 11.7-14.4 H PLATELET COUNT (BEAKER) (test code = 756) 98 K/CU MM 150-450 L MEAN PLATELET VOLUME (BEAKER) (test code = 754) 11.5 fL 9.4-12 .3 NUCLEATED RED BLOOD CELLS (BEAKER) (test code = 413) 0 /100 WBC 0 -0 HIV-1 Antigen with HIV-1/2 [id number] 06:14:00* Test Item Value Reference Range Interpretation Comments HIV-1 Antigen with HIV 1&2 Antibody (test code = 26288-8) No nreactive Nonreactive Lab Interpretation (test code = 06892-6) Normal [facility] ANTIGEN WITH HIV-1/2 [id number] 06:14:00* Test Item Value Reference Range Interpretation Comments HIV-1 ANTIGEN WITH HIV 1\\T\\2 ANTIBODY (2) (BEAKER) ( st code = 2586) Nonreactive Nonreactive CT, CHEST, WITHOUT [id number] 04:17:00Referring: Katlyn Tinajero PA-C FINAL REPORT CT, ABDOMEN AND PELVIS, RENAL STONE EVAL, WI THOUT / WITH IV CONTRAST, CT, CHEST, WITHOUT CONTRAST INDICATION: abdominal pain , nephrolithiasis COMPARISON: None TECHNIQUE: Noncontrast axially oriented tang ges were obtained from the thoracic inlet through the pelvis. Postcontrast and d elayed phase imaging through the abdomen and pelvis. Coronal and sagittal reform ats were provided. DOSE REDUCTION: Dose modulation, iterative reconstruction, an d/or weight-based adjustment of the mA/kV was utilized to reduce the radiation d ose to as low as reasonably achievable. FINDINGS: Chest:Lungs and Pleura: Clear lungs. No effusion or pneumothorax.Central airways: Patent.Mediastinum: No adeno kaushik. Visualized thyroid gland is unremarkable. The esophagus is normal in anitha olivia.Heart and pericardium: Normal. Moderate coronary artery calcifications.Great vessels: Normal calibers.Soft tissues: Surgical clips in the bilateral breasts. Retroareolar soft tissue nodule on the right measuring up to 1.3 cm, is unchang ed since 2018.Regional skeletal structures: Mild multilevel degenerative changes of the thoracolumbar spine. No aggressive osseous lesion or acute fracture.. Ab domen and Pelvis:Liver: No parenchymal abnormality. Mild hepatomegaly with the l iver measuring up to 18 cm in the midclavicular line. Nodular contour of the christa er.Gallbladder and biliary tree: Postsurgical changes of a cholecystectomy. No i ntra or extrahepatic biliary ductal dilatation..Pancreas: No acute findings.Sple en: No acute findings.Adrenal Glands: No acute findings.Kidneys and ureters: No hydronephrosis or hydroureter. No contour deforming renal lesions. Punctate nono bstructing left lower pole nephrolithiasis.Bladder and reproductive organs: Post surgical changes of a hysterectomy. No suspicious adnexal masses. The bladder is relatively decompressed..Stomach and Duodenum: Metallic clips in the gastric amy dy may represent endoscopy clips, correlate clinically. Duodenum is unremarkable ..Small and large intestine: The small and large bowel are normal in caliber wit h postsurgical changes with sigmoid resection and small bowel resection. Again s een are multiple patulous anastomosis in the right lower quadrant. Unchanged tet gregg of multiple small bowel loops to the anterior abdominal wall with surroun ding inflammatory stranding and misting mesentery. However there is limited eval uation for bowel pathology given lack of p.o. contrast material. Appendix: Not i dentified.Major vascular structures: Normal aortic caliber with scattered athero sclerotic calcifications. Infrarenal IVC filter is present..Peritoneum and retro peritoneum: No pneumoperitoneum. No drainable fluid collections. Mesenteric stra nding in vascular congestion within the lower abdomen is again seen, mildly incr eased in the interval. No pathologically enlarged intra-abdominal lymph nodes. I nferior abdominal wall hernia containing a loop of small bowel, unchanged in the interval. Additional Findings: Scarring over the anterior abdominal wall. IMPRESSION: No acute intrathoracic abnormality. Moderate coronary artery calcifi cations are advanced for age. Retroareolar soft tissue nodule on the right measu ring up to 1.3 cm, is unchanged since 2018.However correlate with mammogram. Hep atomegaly with nodular contour suggesting hepatocellular dysfunction. Postsurgic al changes of cholecystectomy sigmoidectomy and hysterectomy. Unchanged tetherin g of multiple loops of bowel along the anterior abdominal wall. Nonobstructing l eft lower pole nephrolithiasis. No hydronephrosis or hydroureter. No obstructing urolithiasis. Inferior anterior abdominal wall hernia, likely incisional contai ines a loop small bowel however no findings to suggest bowel obstruction. Wanda d: Tiff Mijares MDRy[facility] Verified Date/Time: 06/03/2019 04:17:26 Elect ronically signed by: TIFF MIJARES MD on 06/03/2019 04:[address], ABDOMEN AND PELVIS, RENAL STONE EVAL, WITHOUT / WITH IV [id number] 04:17:00Referring: Rolando Anaya for exam:->abdominal pain, nephrolithiasisFINAL REPORT CT, ABDOMEN AND PELVIS, RENAL STONE [...] to as low as reasonably achievable. FINDINGS: Chest:Lungs and Pleura: Clear lungs. No effusion or pneumothorax.Central airways: Patent.Mediastinum: No adenopathy. Visualized thyroid gland is unremarkable. The esophagus is normal in caliber.Heart and pericardium: Normal. Moderate coronary artery calcifications.Great vessels: Normal calibers.Soft tissues: Surgical clips in the bilateral breasts. Retroareolar soft tissue nodule on the right measuring up to 1.3 cm, is unchang ed since 2018.Regional skeletal structures: Mild multilevel degenerative changes of the thoracolumbar spine. No aggressive osseous lesion or acute fracture.. Ab domen and Pelvis:Liver: No parenchymal abnormality. Mild hepatomegaly with the l iver measuring up to 18 cm in the midclavicular line. Nodular contour of the christa er.Gallbladder and biliary tree: Postsurgical changes of a cholecystectomy. No i ntra or extrahepatic biliary ductal dilatation..Pancreas: No acute findings.Sple en: No acute findings.Adrenal Glands: No acute findings.Kidneys and ureters: No hydronephrosis or hydroureter. No contour deforming renal lesions. Punctate nono bstructing left lower pole nephrolithiasis.Bladder and reproductive organs: Post surgical changes of a hysterectomy. No suspicious adnexal masses. The bladder is relatively decompressed..Stomach and Duodenum: Metallic clips in the gastric amy dy may represent endoscopy clips, correlate clinically. Duodenum is unremarkable ..Small and large intestine: The small and large bowel are normal in caliber wit h postsurgical changes with sigmoid resection and small bowel resection. Again s een are multiple patulous anastomosis in the right lower quadrant. Unchanged tet gregg of multiple small bowel loops to the anterior abdominal wall with surroun ding inflammatory stranding and misting mesentery. However there is limited eval uation for bowel pathology given lack of p.o. contrast material. Appendix: Not i dentified.Major vascular structures: Normal aortic caliber with scattered athero sclerotic calcifications. Infrarenal IVC filter is present..Peritoneum and retro peritoneum: No pneumoperitoneum. No drainable fluid collections. Mesenteric stra nding in vascular congestion within the lower abdomen is again seen, mildly incr eased in the interval. No pathologically enlarged intra-abdominal lymph nodes. I nferior abdominal wall hernia containing a loop of small bowel, unchanged in the interval. Additional Findings: Scarring over the anterior abdominal wall. IMPRESSION: No acute intrathoracic abnormality. Moderate coronary artery calcifi cations are advanced for age. Retroareolar soft tissue nodule on the right measu ring up to 1.3 cm, is unchanged since 2018.However correlate with mammogram. Hep atomegaly with nodular contour suggesting hepatocellular dysfunction. Postsurgic al changes of cholecystectomy sigmoidectomy and hysterectomy. Unchanged tetherin g of multiple loops of bowel along the anterior abdominal wall. Nonobstructing l eft lower pole nephrolithiasis. No hydronephrosis or hydroureter. No obstructing urolithiasis. Inferior anterior abdominal wall hernia, likely incisional contai ines a loop small bowel however no findings to suggest bowel obstruction. Wanda d: Tiff Mijares MDReport Verified Date/Time: 06/03/2019 04:17:26 Elect ronically signed by: TIFF MIJARES MD on 06/03/2019 04:[address] chest without IV [id number] 04:17:00Interface, External Ris In - 06/03/2019 4:[address], ABDOMEN AND PELVIS, RENAL STONE [...] to as low as reasonably achievable. FINDINGS: Chest:Lungs and Pleura: Clear lungs. No effusion or pneumo thorax.Central airways: Patent.Mediastinum: No adenopathy. Visualized thyroid gl and is unremarkable. The esophagus is normal in caliber.Heart and pericardium: N ormal. Moderate coronary artery calcifications.Great vessels: Normal calibers.So ft tissues: Surgical clips in the bilateral breasts. Retroareolar soft tissue no dule on the right measuring up to 1.3 cm, is unchanged since 2018.Regional skele ned structures: Mild multilevel degenerative changes of the thoracolumbar spine. No aggressive osseous lesion or acute fracture.. Abdomen and Pelvis:Liver: No p arenchymal abnormality. Mild hepatomegaly with the liver measuring up to 18 cm i n the midclavicular line. Nodular contour of the liver.Gallbladder and biliary t ree: Postsurgical changes of a cholecystectomy. No intra or extrahepatic biliary ductal dilatation..Pancreas: No acute findings.Spleen: No acute findings.Adrenal Glands: No acute findings.Kidneys and ureters: No hydronephrosis or hydroureter. No contour deforming renal lesions. Punctate nonobstructing left lower pole n ephrolithiasis.Bladder and reproductive organs: Postsurgical changes of a hyster ectomy. No suspicious adnexal masses. The bladder is relatively decompressed..St omach and Duodenum: Metallic clips in the gastric body may represent endoscopy c lips, correlate clinically. Duodenum is unremarkable..Small and large intestine: The small and large bowel are normal in caliber with postsurgical changes with sigmoid resection and small bowel resection. Again seen are multiple patulous an astomosis in the right lower quadrant. Unchanged tethering of multiple small bow el loops to the anterior abdominal wall with surrounding inflammatory stranding and misting mesentery. However there is limited evaluation for bowel pathology g iven lack of p.o. contrast material. Appendix: Not identified.Major vascular str uctures: Normal aortic caliber with scattered atherosclerotic calcifications. In frarenal IVC filter is present..Peritoneum and retroperitoneum: No pneumoperiton eum. No drainable fluid collections. Mesenteric stranding in vascular congestion within the lower abdomen is again seen, mildly increased in the interval. No pa thologically enlarged intra-abdominal lymph nodes. Inferior abdominal wall herni a containing a loop of small bowel, unchanged in the interval. Additional Fi ndings: Scarring over the anterior abdominal wall. IMPRESSION: No acute intrath oracic abnormality. Moderate coronary artery calcifications are advanced for age . Retroareolar soft tissue nodule on the right measuring up to 1.3 cm, is unchan ged since 2018.However correlate with mammogram. Hepatomegaly with nodular conto ur suggesting hepatocellular dysfunction. Postsurgical changes of cholecystectom y sigmoidectomy and hysterectomy. Unchanged tethering of multiple loops of bowel along the anterior abdominal wall. Nonobstructing left lower pole nephrolithias is. No hydronephrosis or hydroureter. No obstructing urolithiasis. Inferior ante rior abdominal wall hernia, likely incisional containing a loop small bowel sanderson sylvia no findings to suggest bowel obstruction. Signed: Tiff Mijares MDRep ort Verified Date/Time: 06/03/2019 04:17:26 [facility] stone evaluation without/with iv [id number] 04:17:00Interface, External Ris In - 06/03/2019 4:[address], ABDOMEN AND PELVIS, RENAL STONE [...] to as low as reasonably achievable. FINDINGS: Chest:Lungs and Pleura: Clear lungs. No effusion or pneumothorax.Central airways: Patent.Mediastinum: No adenopathy. Visualized thyroid gland is unremarkable. The esophagus is normal in caliber.Heart and pericardium: Normal. Moderate coronary artery calcifications.Great vessels: Normal calibers.Soft tissues: Surgical clips in the bilateral breasts. Retroareolar soft tissue no dule on the right measuring up to 1.3 cm, is unchanged since 2018.Regional skele ned structures: Mild multilevel degenerative changes of the thoracolumbar spine. No aggressive osseous lesion or acute fracture.. Abdomen and Pelvis:Liver: No p arenchymal abnormality. Mild hepatomegaly with the liver measuring up to 18 cm i n the midclavicular line. Nodular contour of the liver.Gallbladder and biliary t ree: Postsurgical changes of a cholecystectomy. No intra or extrahepatic biliary ductal dilatation..Pancreas: No acute findings.Spleen: No acute findings.Adrenal Glands: No acute findings.Kidneys and ureters: No hydronephrosis or hydroureter. No contour deforming renal lesions. Punctate nonobstructing left lower pole n ephrolithiasis.Bladder and reproductive organs: Postsurgical changes of a hyster ectomy. No suspicious adnexal masses. The bladder is relatively decompressed..St omach and Duodenum: Metallic clips in the gastric body may represent endoscopy c lips, correlate clinically. Duodenum is unremarkable..Small and large intestine: The small and large bowel are normal in caliber with postsurgical changes with sigmoid resection and small bowel resection. Again seen are multiple patulous an astomosis in the right lower quadrant. Unchanged tethering of multiple small bow el loops to the anterior abdominal wall with surrounding inflammatory stranding and misting mesentery. However there is limited evaluation for bowel pathology g iven lack of p.o. contrast material. Appendix: Not identified.Major vascular str uctures: Normal aortic caliber with scattered atherosclerotic calcifications. In frarenal IVC filter is present..Peritoneum and retroperitoneum: No pneumoperiton eum. No drainable fluid collections. Mesenteric stranding in vascular congestion within the lower abdomen is again seen, mildly increased in the interval. No pa thologically enlarged intra-abdominal lymph nodes. Inferior abdominal wall herni a containing a loop of small bowel, unchanged in the interval. Additional Fi ndings: Scarring over the anterior abdominal wall. IMPRESSION: No acute intrath oracic abnormality. Moderate coronary artery calcifications are advanced for age . Retroareolar soft tissue nodule on the right measuring up to 1.3 cm, is unchan ged since 2018.However correlate with mammogram. Hepatomegaly with nodular conto ur suggesting hepatocellular dysfunction. Postsurgical changes of cholecystectom y sigmoidectomy and hysterectomy. Unchanged tethering of multiple loops of bowel along the anterior abdominal wall. Nonobstructing left lower pole nephrolithias is. No hydronephrosis or hydroureter. No obstructing urolithiasis. Inferior ante rior abdominal wall hernia, likely incisional containing a loop small bowel sanderson sylvia no findings to suggest bowel obstruction. Signed: Tiff Mijares MDRep ort Verified Date/Time: 06/03/2019 04:17:26 [facility] [id number] 21:27:00* Test Item Value Reference Range Interpretation Comments POC-GLUCOSE METER (BEAKER) (test code = 1538) 273 mg/dL 70-110 H TESTED AT [facility] [address] [facility] [address] Urinalysis w/Microscopic + Reflex to [id number] 17:31:00* Test Item Value Reference Range Interpretation Comments Color, UA (test code = 5778-6) Yellow Clarity, UA (test code = 5767-9) Clear Specific [place], UA (test code = 5811-5) 1.032 1.001-1.035 pH, UA (test code = 5803-2) 6.0 5.0-8.0 Protein, UA (test code = 37120-5) 30 mg/dL Negative A Glucose, UA (test code = 365) Negative Negative Ketones, UA (test code = 2514-8) Negative Negative Bilirubin, UA (test code = 19438-4) Negative Negative Blood, UA (test code = 11046-1) Negative Negative Nitrite, UA (test code = 5802-4) Negative Negative Leukocytes, UA (test code = 5799-2) Negative Negative Urobilinogen, UA (test code = 65684-5) 4.0 mg/dL 0.2-1 H RBC, UA (test code = 38231-8) 0 /HPF WBC, UA (test code = 5821-4) 1 /HPF Bacteria, UA (test code = 38323-5) Rare Mucus (test code = 8247-9) Rare Squam Epithel, UA (test code = 81605-4) <1 /HPF Specimen Source (test code = 2795) Lab Interpretation (test code = 57802-6) [facility]normal [facility]FLEX URINE [id number] 17:31:00* Test Item Value Reference Range Interpretation Comments COLOR (BEAKER) (test code = 470) Yellow CLARITY (BEAKER) (test code = 469) Clear SPECIFIC GRAVITY UA (BEAKER) (test code = 468) 1.032 1.001-1 .035 PH UA (BEAKER) (test code = 467) 6.0 5.0-8.0 PROTEIN UA (BEAKER) (test code = 464) 30 mg/dL Negative A GLUCOSE UA (BEAKER) (test code = 365) Negative Negative KETONES UA (BEAKER) (test code = 371) Negative Negative BILIRUBIN UA (BEAKER) (test code = 462) Negative Negative BLOOD UA (BEAKER) (test code = 461) Negative Negative NITRITE UA (BEAKER) (test code = 465) Negative Negative LEUKOCYTE ESTERASE UA (BEAKER) (test code = 466) Negative Negat vesta UROBILINOGEN UA (BEAKER) (test code = 463) 4.0 mg/dL 0.2-1.0 H RBC UA (BEAKER) (test code = 519) 0 /HPF WBC UA (BEAKER) (test code = 520) 1 /HPF BACTERIA (BEAKER) (test code = 517) Rare MUCUS (BEAKER) (test code = 1574) Rare SQUAMOUS EPITHELIAL (BEAKER) (test code = 516) < /HPF SOURCE(BEAKER) (test code = 2795) POCT-GLUCOSE [id number] 17:11:00* Test Item Value Reference Range Interpretation Comments POC-GLUCOSE METER (BEAKER) (test code = 1538) 199 mg/dL 70-110 H TESTED AT [facility] [address] [facility] [address] POCT-GLUCOSE [id number] 12:46:00* Test Item Value Reference Range Interpretation Comments POC-GLUCOSE METER (BEAKER) (test code = 1538) 224 mg/dL 70-110 H TESTED AT [facility] [address] [facility] [address] POCT-GLUCOSE [id number] 12:00:00* Test Item Value Reference Range Interpretation Comments POC-GLUCOSE METER (BEAKER) (test code = 1538) 226 mg/dL 70-110 H TESTED AT [facility] [address] [facility] [address] Abdomen Pelvis W [id number] 10:04:00[facility] [place] [address] RADIOLOGY SERVICES REPORT Name: ANDREZ CARR Acct Number: [id number] :1965 Age:54 Sex:F Ord Phys: Jasson Benítez MD Unit Number: [id number] [facility] Dr: ERUM Status: DEP ER ER Exam Date: 06/01/19 EXAM DESCRIPTION: CT - Abdomen Pelvis W Contrast - 06/02/2019 3:27 am CLINICAL HISTORY: The patient is 54 years old and is Female; ABD PAIN TECHNIQUE: Axial computed tomography images of the abdomen and pelvis with intravenous contrast. Sagittal and coronal reformatted images were created and reviewed. This CT exam was performed using one or more of the following dose reduction techniques: automated exposure control, adjustment of the mA and/or kV according to patient size, and/or use of iterative reconstruction technique. COMPARISON: No relevant prior studies available. FINDINGS: LUNG BASES: Unremarkable. No mass. No consolidation. ABDOMEN: LIVER: There is a diffuse decrease in hepatic parenchymal density, consistent with fatty infiltration. The liver has a sligh tly nodular contour. GALLBLADDER AND BILE DUCTS: Surgical clips are prese nt in the right upper quadrant, consistent with previous cholecystectomy. P ANCREAS: The pancreas is atrophic. SPLEEN: Unremarkable. ADRENALS: Unremarkable. No mass. KIDNEYS AND URETERS: Punctate left intrarenal calcification is present. The kidneys enhance symmetrically. No obstructing dinorah al or ureteral calculus is seen. STOMACH AND BOWEL: Postsurgical change o f the sigmoid colon is present. The stomach is not well distended. The proximal small bowel is decompressed. Multiple dilated fluid-filled small bowel loops wit h air-fluid levels within the right abdomen are present at the site of prior daron stomosis. Stool is present throughout the colon. PELVIS: APPENDIX: The appendix is surgically absent. BLADDER: The bladder is nearly empty. REPRODUCTIVE: The patient is status post hysterectomy. ABDOMEN and PELVIS: INTRAPERITONEAL SPACE: Unremarkable. No free air. No significant fluid collection. BONES/JOINTS: No acute fracture. SOFT TISSUES: The s oft tissues are normal. VASCULATURE: An infrarenal IVC filter is in place . No abdominal aortic aneurysm. LYMPH NODES: Unremarkable. No enlarged lymph nodes. IMPRESSION: 1. Findings suggestive of small bowel ileus/de veloping obstruction at the site of the anastomosis within the right lower quadr ant. 2. Cirrhosis. Electronically signed by: Caron De Guzman MD 019 12:56 AM CDT Due to temporary technical issu es with the PACS/Fluency reporting system, reports are being signed by the in ho use radiologist as a courtesy to ensure prompt reporting. The interpreting radio logist is fully responsible for the content of the report. Signed By: Aleksey Roper MD Signed AT: 06/02/19 1004 HEPATIC FUNCTION PANEL 2019-06-02 08:20:00* Test Item Value Reference Range Interpretation Comments TOTAL PROTEIN (BEAKER) (test code = 770) 7.9 gm/dL 6.0-8.3 ALBUMIN (BEAKER) (test code = 1145) 3.6 g/dL 3.5-5.0 BILIRUBIN TOTAL (BEAKER) (test code = 377) 1.3 mg/dL 0.2-1.2 H BILIRUBIN DIRECT (BEAKER) (test code = 706) 0.6 mg/dL 0.1-0.5 H ALKALINE PHOSPHATASE (BEAKER) (test code = 346) 85 U/L 40-150 AST (SGOT) (BEAKER) (test code = 353) 21 U/L 5-34 ALT (SGPT) (BEAKER) (test code = 347) 18 U/L 6-55 BASIC METABOLIC [id number] 08:20:00* Test Item Value Reference Range Interpretation Comments SODIUM (BEAKER) (test code = 381) 134 meq/L 136-145 L POTASSIUM (BEAKER) (test code = 379) 4.0 meq/L 3.5-5.1 CHLORIDE (BEAKER) (test code = 382) 99 meq/L 98-107 CO2 (BEAKER) (test code = 355) 25 meq/L 22-29 BLOOD UREA NITROGEN (BEAKER) (test code = 354) 14 mg/dL 7-21 CREATININE (BEAKER) (test code = 358) 0.74 mg/dL 0.57-1.25 GLUCOSE RANDOM (BEAKER) (test code = 652) 214 mg/dL 70-105 H CALCIUM (BEAKER) (test code = 697) 8.8 mg/dL 8.4-10.2 EGFR (BEAKER) (test code = 1092) 81 mL/min/1.73 sq m ESTIMATED GFR IS NOT ACCURATE CREATININE CLEARANCE IN PREDICTING GLOMERULAR FILTRATION RATE. ESTIMATED GFR IS NOT APPLICABLE FOR DIALYSIS PATIENTS. POCT-GLUCOSE [id number] 07:31:00* Test Item Value Reference Range Interpretation Comments POC-GLUCOSE METER (BEAKER) (test code = 1538) 199 mg/dL 70-110 H TESTED AT [facility] [address] [facility] [address] CBC W/PLT COUNT & AUTO [id number] 07:02:00* Test Item Value Reference Range Interpretation Comments WHITE BLOOD CELL COUNT (BEAKER) (test code = 775) 11.3 K/ L 3.5- 10.5 H RED BLOOD CELL COUNT (BEAKER) (test code = 761) 4.64 M/ L 3.93-5 .22 HEMOGLOBIN (BEAKER) (test code = 410) 12.9 GM/DL 11.2-15.7 HEMATOCRIT (BEAKER) (test code = 411) 40.5 % 34.1-44.9 MEAN CORPUSCULAR VOLUME (BEAKER) (test code = 753) 87.3 fL 79. 4-94.8 MEAN CORPUSCULAR HEMOGLOBIN (BEAKER) (test code = 751) 27.8 pg 25.6-32.2 MEAN CORPUSCULAR HEMOGLOBIN CONC (BEAKER) (test code = 752) 31.9 GM/DL 32.2-35.5 L RED CELL DISTRIBUTION WIDTH (BEAKER) (test code = 412) 15.9 % 11.7-14.4 H PLATELET COUNT (BEAKER) (test code = 756) 157 K/CU MM 150-450 MEAN PLATELET VOLUME (BEAKER) (test code = 754) 11.5 fL 9.4-12 .3 NUCLEATED RED BLOOD CELLS (BEAKER) (test code = 413) 0 /100 WBC 0 -0 NEUTROPHILS RELATIVE PERCENT (BEAKER) (test code = 429) 78 % LYMPHOCYTES RELATIVE PERCENT (BEAKER) (test code = 430) 14 % MONOCYTES RELATIVE PERCENT (BEAKER) (test code = 431) 5 % EOSINOPHILS RELATIVE PERCENT (BEAKER) (test code = 432) 2 % BASOPHILS RELATIVE PERCENT (BEAKER) (test code = 437) 0 % NEUTROPHILS ABSOLUTE COUNT (BEAKER) (test code = 670) 8.87 K/ L 1.56-6.13 H LYMPHOCYTES ABSOLUTE COUNT (BEAKER) (test code = 414) 1.63 K/ L 1.18-3.74 MONOCYTES ABSOLUTE COUNT (BEAKER) (test code = 415) 0.56 K/ L 0. 24-0.36 H EOSINOPHILS ABSOLUTE COUNT (BEAKER) (test code = 416) 0.17 K/ L 0.04-0.36 BASOPHILS ABSOLUTE COUNT (BEAKER) (test code = 417) 0.04 K/ L 0. 01-0.08 IMMATURE GRANULOCYTES-RELATIVE PERCENT (BEAKER) (test code = 2801) 1 % 0-1 PROTHROMBIN TIME/[id number] 07:00:00* Test Item Value Reference Range Interpretation Comments PROTIME (BEAKER) (test code = 759) 24.2 seconds 11.9-14.2 H INR (BEAKER) (test code = 370) 2.3 <=5.9 Effective 03/15/2019: PT Reference Range ChangeNew: 11.9-14.2 Previous: 11.7-14. 7RECOMMENDED COUMADIN/WARFARIN INR THERAPY RANGESSTANDARD DOSE: 2.0-3.0 Include s: PROPHYLAXIS for venous thrombosis, systemic embolization; TREATMENT for venou s thrombosis and/or pulmonary embolus.HIGH RISK: Target INR is 2.5-3.5 for patie nts wiht mechanical heart valves.Microscopic examination of [id number] 00:28:00* Test Item Value Reference Range Interpretation Comments Urine WBC (test code = UWBC) <5 <5 Urine sediment erythrocyte count by micr oscopy (number/high power field) (test code = 71471-9) NONE SEEN NONE SEEN Bacteria detection in urine sediment by light microsco py (test code = 00542-8) <20 <20 Sqamous Epithelial (test code = SQEP) <5 NONE SEEN Urinalysis with reflex to culture (test code = 92177-5) NOT NEEDED Culture is not indicated. Comment Bed:23Urine test at point of [id number] 00:26:00* Test Item Value Reference Range Interpretation Comments Urine Test (test code = UPG) NEG NEG Urine specific gravity measurement (test code = 2965-2) >1.030 1.005-1.030 AA Tested by: lmt BLOOD: NEG GLUCOSE: NEG KETONES: NEG LEUKOCYTES: NEG NITRITE: NEG PH: 5.5 PROTEIN: NEG lmt NEG lmt NEG NEG NEG NEG NEG 5.5 NEG Y >1.030Urine dipstick testing at [id number] 00:26:00* Test Item Value Reference Range Interpretation Comments Urine glucose detection (test code = 2349-9) Negative NEG Urine Ketones (test code = UKET) NEGATIVE NEG Urine blood detection (test code = 44906-6) Negative NEG Urine pH (test code = 2756-5) 5.5 5.0-7.0 Urinalysis with microscopy (test code = 79065-5) NEGATIVE NEG Urine Nitrate (test code = UNIT) NEGATIVE NEG Urine Leukocyte Esterase (test code = UESTR) NEGATIVE NEG Tested by: lmt BLOOD: NEG GLUCOSE: NEG KETONES: NEG LEUKOCYTES: NEG NITRITE: NEG PH: 5.5 PROTEIN: NEG lmt NEG lmt NEG NEG NEG NEG NEG 5.5 NEG Y >1.030Basic Metabolic [id number] 23:50:00* Test Item Value Reference Range Interpretation Comments Serum or plasma sodium measurement (moles/volume) (cuca t code = 2951-2) 137 mmol/L 136-145 Potassium [Moles/volume] in Serum or Plasma (test code = 282 3-3) 4.5 mmol/L 3.5-5.1 Chloride [Moles/volume] in Serum or Plasma (test code = 2075 -0) 100 mmol/L 98-107 Carbon dioxide, total [Moles/volume] in Serum or Plasm a (test code = 2027-) 30 mmol/L 21-32 Glucose [Mass/volume] in Serum or Plasma (test code = 2345-7) 22 1 mg/dL 74-106 H Urea nitrogen [Mass/volume] in Serum or Plasma (test code = 3094-0) 15 mg/dL 7-18 Creatinine [Mass/volume] in Serum or Plasma (test code = 216 0-0) 0.85 mg/dL 0.55-1.3 Glomerular Filtration Rate (test code = GFR) 69 mL =/>90 L FOR CHRONIC KIDNEY DISEASE: GFR STAGE DESCRIPTION =/>90 STAGE 1 NORMAL--OR-- MINIMAL KIDNEY DAMAGE WITH NORMAL GFR 60-89 STAGE 2 MILD DECREASE IN GFR 30-59 STAGE 3 MODERATE DECREASE IN GFR 15-29 STAGE 4 SEVERE DECREASE IN GFR <15 STAGE 5 KIDNEY FAILURE The Glomerular Filtration Rate (GFR) has been calculated using the IDMS- Traceable MDRD Study Equation. Calcium [Mass/volume] in Serum or Plasma (test code = 41071- 6) 9.2 mg/dL 8.5-10.1 Liver (Hepatic) [id number] 23:50:00* Test Item Value Reference Range Interpretation Comments Aspartate aminotransferase [Enzymatic ac tivity/volume] in Serum or Plasma by With P-5 (test code = 26294-2) 24 U/L 15-37 Alanine aminotransferase [Enzymatic acti vity/volume] in Serum or Plasma by With P-5'- (test code = 1743-4) 26 U/L 12-78 Alkaline phosphatase [Enzymatic activity /volume] in Serum or Plasma (test code = 6768-6) 103 U/L 45-117 Bilirubin.total [Mass/volume] in Serum or Plasma (test code = 1975-2) 1.1 mg/dL 0.2-1.0 H Bilirubin.direct [Mass/volume] in Serum or Plasma (cuca t code = 1968-7) 0.3 mg/dL 0-0.2 H Protein [Mass/volume] in Serum or Plasma (test code = 2885-2) 8. 8 g/dL 6.4-8.2 H Albumin [Mass/volume] in Serum or Plasma by Bromocresol purple (BCP) dye binding meth (test code = 51881-5) 3.6 g/dL 3.4-5.0 Globulin (test code = GLOB) 5.2 g/dL 2.3-3.5 H Albumin/Globulin Ratio (test code = A/G) 0.7 1.1-1.8 L Lipase [Enzymatic activity/volume] in Serum or [id number] 23:50:00* Test Item Value Reference Range Interpretation Comments Lipase [Enzymatic activity/volume] in Serum or Plasma (test code = 3040-3) 122 U/L 73-393 Creatinine [Mass/volume] in Serum or [id number] 23:48:00* Test Item Value Reference Range Interpretation Comments Creatinine [Mass/volume] in Serum or Plasma (test code = 216 0-0) 0.82 mg/dL 0.55-1.3 Glomerular Filtration Rate (test code = GFRT) 72 mL >60 FOR CHRONIC KIDNEY DISEASE: GFR STAGE >60 1 or 2 30-59 3 15-29 4 <15(or dialysis) 5 The Glomerular Filtration Rate (GFR) has been calculated using the IDMS-Traceable MDRD Study Equation. Complete blood count (CBC) with automated white blood cell (WBC) differential 2019-06-01 23:43:00* Test Item Value Reference Range Interpretation Comments White blood cell count (test code = VFS7450) 10.6 4.3-10.9 Blood erythrocytes count (number/volume) (test code = 51111- 1) 4.95 M/ul 3.86-4.86 H Hemoglobin measurement (test code = IBS0884) 14.2 g/dL 12.0-15.0 Blood hematocrit (volume fraction) (test code = 57750-8) 41.8 % 36.0-45.0 MCV (test code = SCO9045) 84.3 fL 80-100 28 .7 MCHC (test code = MCHC) 34.1 g/dL 32.0-36.0 Platelets (test code = PLT) 157 152-406 Red Cell Distribution Width (test code = RDW) 16.5 % 12.1-15. 2 H Blood platelet mean volume (test code = 80017-2) 9.8 fL 7.6-1 1.3 Neutrophils % (test code = MANUELITO%) 73.7 % 41.7-73.7 Lymphocytes/leuk NFr Bld (test code = 95424-3) 18.1 % 15.3-44 .8 Monocyte percentage (test code = GVL8372) 5.3 % 3.3-12.3 2.0 Basophil % (test code = 57862-8) 0.9 % 0-1.3 Absolute neutrophil count (test code = DID1058) 7.8 1.8-8. 0 Absolute lymphocyte count (test code = 49351-4) 1.9 0.7-4. 9 Absolute monocyte count (test code = MWM8063) 0.6 0.1-1.3 Absolute Eosinophils (test code = EOA) 0.2 0-0.5 Absolute Basophils (test code = BASA) 0.1 0-0.5 AFP TUMOR [id number] 00:01:[facility] 2019-05-09 21:59:59405Vqzzueic HermannBASIC METABOLIC [id number] 21:59:00 4.1[facility] [id number] 21:59:25936Sslwyuvj [place] BASIC METABOLIC [id number] 21:59:0026[facility] PANEL 2019-05-09 21:59:009[facility] [id number] 21:59:000.79 [facility] [id number] 21:59:06286Krcbpxlf HermannBASIC METABOLIC [id number] 21:59:009.5[facility]OL[facility] PANEL 2019-05-09 21:59:0076[facility] HermannALPHA FETOPROTEIN (AFP), TUMOR MARKER 2019-05-09 19:01:00* Test Item Value Reference Range Interpretation Comments ALPHA-FETOPROTEIN (BEAKER) (test code = 1094) 4.3 ng/mL <10.0 HEPATIC FUNCTION [id number] 16:59:00* Test Item Value Reference Range Interpretation Comments TOTAL PROTEIN (BEAKER) (test code = 770) 8.4 gm/dL 6.0-8.3 H ALBUMIN (BEAKER) (test code = 1145) 3.8 g/dL 3.5-5.0 BILIRUBIN TOTAL (BEAKER) (test code = 377) 1.2 mg/dL 0.2-1.2 BILIRUBIN DIRECT (BEAKER) (test code = 706) 0.5 mg/dL 0.1-0.5 ALKALINE PHOSPHATASE (BEAKER) (test code = 346) 96 U/L 40-150 AST (SGOT) (BEAKER) (test code = 353) 33 U/L 5-34 ALT (SGPT) (BEAKER) (test code = 347) 24 U/L 6-55 BASIC METABOLIC [id number] 16:59:00* Test Item Value Reference Range Interpretation Comments SODIUM (BEAKER) (test code = 381) 137 meq/L 136-145 POTASSIUM (BEAKER) (test code = 379) 4.1 meq/L 3.5-5.1 CHLORIDE (BEAKER) (test code = 382) 102 meq/L 98-107 CO2 (BEAKER) (test code = 355) 26 meq/L 22-29 BLOOD UREA NITROGEN (BEAKER) (test code = 354) 9 mg/dL 7-21 CREATININE (BEAKER) (test code = 358) 0.79 mg/dL 0.57-1.25 GLUCOSE RANDOM (BEAKER) (test code = 652) 251 mg/dL 70-105 H CALCIUM (BEAKER) (test code = 697) 9.5 mg/dL 8.4-10.2 EGFR (BEAKER) (test code = 1092) 76 mL/min/1.73 sq m ESTIMATED GFR IS NOT ACCURATE CREATININE CLEARANCE IN PREDICTING GLOMERULAR FILTRATION RATE. ESTIMATED GFR IS NOT APPLICABLE FOR DIALYSIS PATIENTS. PROTHROMBIN TIME/[id number] 16:46:00* Test Item Value Reference Range Interpretation Comments PROTIME (BEAKER) (test code = 759) 23.8 seconds 11.9-14.2 H INR (BEAKER) (test code = 370) 2.2 <=5.9 Effective 03/15/2019: PT Reference Range ChangeNew: 11.9-14.2 Previous: 11.7-14. 7RECOMMENDED COUMADIN/WARFARIN INR THERAPY RANGESSTANDARD DOSE: 2.0-3.0 Include s: PROPHYLAXIS for venous thrombosis, systemic embolization; TREATMENT for venou s thrombosis and/or pulmonary embolus.HIGH RISK: Target INR is 2.5-3.5 for patie nts wiht mechanical heart valves.CBC W/PLT COUNT & AUTO [id number] 16:35:00* Test Item Value Reference Range Interpretation Comments WHITE BLOOD CELL COUNT (BEAKER) (test code = 775) 8.8 K/ L 3.5- 10.5 RED BLOOD CELL COUNT (BEAKER) (test code = 761) 4.75 M/ L 3.93-5 .22 HEMOGLOBIN (BEAKER) (test code = 410) 13.4 GM/DL 11.2-15.7 HEMATOCRIT (BEAKER) (test code = 411) 41.1 % 34.1-44.9 MEAN CORPUSCULAR VOLUME (BEAKER) (test code = 753) 86.5 fL 79. 4-94.8 MEAN CORPUSCULAR HEMOGLOBIN (BEAKER) (test code = 751) 28.2 pg 25.6-32.2 MEAN CORPUSCULAR HEMOGLOBIN CONC (BEAKER) (test code = 752) 32.6 GM/DL 32.2-35.5 RED CELL DISTRIBUTION WIDTH (BEAKER) (test code = 412) 15.2 % 11.7-14.4 H PLATELET COUNT (BEAKER) (test code = 756) 165 K/CU MM 150-450 MEAN PLATELET VOLUME (BEAKER) (test code = 754) 11.8 fL 9.4-12 .3 NUCLEATED RED BLOOD CELLS (BEAKER) (test code = 413) 0 /100 WBC 0 -0 NEUTROPHILS RELATIVE PERCENT (BEAKER) (test code = 429) 74 % LYMPHOCYTES RELATIVE PERCENT (BEAKER) (test code = 430) 17 % MONOCYTES RELATIVE PERCENT (BEAKER) (test code = 431) 6 % EOSINOPHILS RELATIVE PERCENT (BEAKER) (test code = 432) 3 % BASOPHILS RELATIVE PERCENT (BEAKER) (test code = 437) 1 % NEUTROPHILS ABSOLUTE COUNT (BEAKER) (test code = 670) 6.44 K/ L 1.56-6.13 H LYMPHOCYTES ABSOLUTE COUNT (BEAKER) (test code = 414) 1.46 K/ L 1.18-3.74 MONOCYTES ABSOLUTE COUNT (BEAKER) (test code = 415) 0.52 K/ L 0. 24-0.36 H EOSINOPHILS ABSOLUTE COUNT (BEAKER) (test code = 416) 0.23 K/ L 0.04-0.36 BASOPHILS ABSOLUTE COUNT (BEAKER) (test code = 417) 0.06 K/ L 0. 01-0.08 IMMATURE GRANULOCYTES-RELATIVE PERCENT (BEAKER) (test code = 2801) 1 % 0-1 Hemoglobin [id number] 06:40:00* Test Item Value Reference Range Interpretation Comments Hemoglobin A1C (test code = 4548-4) 11.3 % 4.3-6.1 H Lab Interpretation (test code = 01986-2) [id number]* Test Item Value Reference Range Interpretation Comments HEMOGLOBIN A1C (BEAKER) (test code = 368) 11.3 % 4.3-6.1 H POCT-GLUCOSE [id number] 12:05:00* Test Item Value Reference Range Interpretation Comments POC-GLUCOSE METER (BEAKER) (test code = 1538) 314 mg/dL 70-110 H TESTED AT [facility] [address] [facility] [address] POCT-GLUCOSE [id number] 08:02:00* Test Item Value Reference Range Interpretation Comments POC-GLUCOSE METER (BEAKER) (test code = 1538) 216 mg/dL 70-110 H TESTED AT [place] [id number] [facility] [address] HEPATIC FUNCTION [id number] 04:42:00* Test Item Value Reference Range Interpretation Comments TOTAL PROTEIN (BEAKER) (test code = 770) 7.3 gm/dL 6.0-8.3 ALBUMIN (BEAKER) (test code = 1145) 3.4 g/dL 3.5-5.0 L BILIRUBIN TOTAL (BEAKER) (test code = 377) 1.7 mg/dL 0.2-1.2 H BILIRUBIN DIRECT (BEAKER) (test code = 706) 0.8 mg/dL 0.1-0.5 H ALKALINE PHOSPHATASE (BEAKER) (test code = 346) 83 U/L 40-150 AST (SGOT) (BEAKER) (test code = 353) 29 U/L 5-34 ALT (SGPT) (BEAKER) (test code = 347) 28 U/L 6-55 BASIC METABOLIC [id number] 04:42:00* Test Item Value Reference Range Interpretation Comments SODIUM (BEAKER) (test code = 381) 137 meq/L 136-145 POTASSIUM (BEAKER) (test code = 379) 3.9 meq/L 3.5-5.1 CHLORIDE (BEAKER) (test code = 382) 104 meq/L 98-107 CO2 (BEAKER) (test code = 355) 26 meq/L 22-29 BLOOD UREA NITROGEN (BEAKER) (test code = 354) 10 mg/dL 7-21 CREATININE (BEAKER) (test code = 358) 0.76 mg/dL 0.57-1.25 GLUCOSE RANDOM (BEAKER) (test code = 652) 247 mg/dL 70-105 H CALCIUM (BEAKER) (test code = 697) 8.8 mg/dL 8.4-10.2 EGFR (BEAKER) (test code = 1092) 79 mL/min/1.73 sq m ESTIMATED GFR IS NOT ACCURATE CREATININE CLEARANCE IN PREDICTING GLOMERULAR FILTRATION RATE. ESTIMATED GFR IS NOT APPLICABLE FOR DIALYSIS PATIENTS. PROTHROMBIN TIME/[id number] 04:14:00* Test Item Value Reference Range Interpretation Comments PROTIME (BEAKER) (test code = 759) 16.6 seconds 11.9-14.2 H INR (BEAKER) (test code = 370) 1.4 <=5.9 Effective 03/15/2019: PT Reference Range ChangeNew: 11.9-14.2 Previous: 11.7-14. 7RECOMMENDED COUMADIN/WARFARIN INR THERAPY RANGESSTANDARD DOSE: 2.0-3.0 Include s: PROPHYLAXIS for venous thrombosis, systemic embolization; TREATMENT for venou s thrombosis and/or pulmonary embolus.HIGH RISK: Target INR is 2.5-3.5 for patie nts wiht mechanical heart valves.While on warfarin.CBC W/PLT COUNT & AUTO [id number] 04:05:00* Test Item Value Reference Range Interpretation Comments WHITE BLOOD CELL COUNT (BEAKER) (test code = 775) 6.2 K/ L 3.5- 10.5 RED BLOOD CELL COUNT (BEAKER) (test code = 761) 4.38 M/ L 3.93-5 .22 HEMOGLOBIN (BEAKER) (test code = 410) 12.3 GM/DL 11.2-15.7 HEMATOCRIT (BEAKER) (test code = 411) 38.3 % 34.1-44.9 MEAN CORPUSCULAR VOLUME (BEAKER) (test code = 753) 87.4 fL 79. 4-94.8 MEAN CORPUSCULAR HEMOGLOBIN (BEAKER) (test code = 751) 28.1 pg 25.6-32.2 MEAN CORPUSCULAR HEMOGLOBIN CONC (BEAKER) (test code = 752) 32.1 GM/DL 32.2-35.5 L RED CELL DISTRIBUTION WIDTH (BEAKER) (test code = 412) 15.9 % 11.7-14.4 H PLATELET COUNT (BEAKER) (test code = 756) 114 K/CU MM 150-450 L MEAN PLATELET VOLUME (BEAKER) (test code = 754) 11.4 fL 9.4-12 .3 NUCLEATED RED BLOOD CELLS (BEAKER) (test code = 413) 0 /100 WBC 0 -0 NEUTROPHILS RELATIVE PERCENT (BEAKER) (test code = 429) 65 % LYMPHOCYTES RELATIVE PERCENT (BEAKER) (test code = 430) 25 % MONOCYTES RELATIVE PERCENT (BEAKER) (test code = 431) 7 % EOSINOPHILS RELATIVE PERCENT (BEAKER) (test code = 432) 3 % BASOPHILS RELATIVE PERCENT (BEAKER) (test code = 437) 1 % NEUTROPHILS ABSOLUTE COUNT (BEAKER) (test code = 670) 4.03 K/ L 1.56-6.13 LYMPHOCYTES ABSOLUTE COUNT (BEAKER) (test code = 414) 1.54 K/ L 1.18-3.74 MONOCYTES ABSOLUTE COUNT (BEAKER) (test code = 415) 0.43 K/ L 0. 24-0.36 H EOSINOPHILS ABSOLUTE COUNT (BEAKER) (test code = 416) 0.16 K/ L 0.04-0.36 BASOPHILS ABSOLUTE COUNT (BEAKER) (test code = 417) 0.05 K/ L 0. 01-0.08 IMMATURE GRANULOCYTES-RELATIVE PERCENT (BEAKER) (test code = 2801) 1 % 0-1 POCT-GLUCOSE [id number] 20:57:00* Test Item Value Reference Range Interpretation Comments POC-GLUCOSE METER (BEAKER) (test code = 1538) 257 mg/dL 70-110 H TESTED AT [address] [address] POCT-GLUCOSE [id number] 16:42:00* Test Item Value Reference Range Interpretation Comments POC-GLUCOSE METER (BEAKER) (test code = 1538) 384 mg/dL 70-110 H TESTED AT [address] [address] POCT-GLUCOSE [id number] 12:13:00* Test Item Value Reference Range Interpretation Comments POC-GLUCOSE METER (BEAKER) (test code = 1538) 306 mg/dL 70-110 H TESTED AT [address] [address] POCT-GLUCOSE [id number] 07:56:00* Test Item Value Reference Range Interpretation Comments POC-GLUCOSE METER (BEAKER) (test code = 1538) 325 mg/dL 70-110 H TESTED AT [address] [place] [address] BASIC METABOLIC [id number] 05:42:00* Test Item Value Reference Range Interpretation Comments SODIUM (BEAKER) (test code = 381) 138 meq/L 136-145 POTASSIUM (BEAKER) (test code = 379) 4.2 meq/L 3.5-5.1 CHLORIDE (BEAKER) (test code = 382) 105 meq/L 98-107 CO2 (BEAKER) (test code = 355) 26 meq/L 22-29 BLOOD UREA NITROGEN (BEAKER) (test code = 354) 7 mg/dL 7-21 CREATININE (BEAKER) (test code = 358) 0.70 mg/dL 0.57-1.25 GLUCOSE RANDOM (BEAKER) (test code = 652) 226 mg/dL 70-105 H CALCIUM (BEAKER) (test code = 697) 8.9 mg/dL 8.4-10.2 EGFR (BEAKER) (test code = 1092) 87 mL/min/1.73 sq m ESTIMATED GFR IS NOT ACCURATE CREATININE CLEARANCE IN PREDICTING GLOMERULAR FILTRATION RATE. ESTIMATED GFR IS NOT APPLICABLE FOR DIALYSIS PATIENTS. Specimen slightly ictericHEPATIC FUNCTION [id number] 05:42:00* Test Item Value Reference Range Interpretation Comments TOTAL PROTEIN (BEAKER) (test code = 770) 7.7 gm/dL 6.0-8.3 ALBUMIN (BEAKER) (test code = 1145) 3.5 g/dL 3.5-5.0 BILIRUBIN TOTAL (BEAKER) (test code = 377) 2.2 mg/dL 0.2-1.2 H BILIRUBIN DIRECT (BEAKER) (test code = 706) 1.0 mg/dL 0.1-0.5 H ALKALINE PHOSPHATASE (BEAKER) (test code = 346) 89 U/L 40-150 AST (SGOT) (BEAKER) (test code = 353) 36 U/L 5-34 H ALT (SGPT) (BEAKER) (test code = 347) 32 U/L 6-55 Specimen slightly ictericPROTHROMBIN TIME/[id number] 05:30:00* Test Item Value Reference Range Interpretation Comments PROTIME (BEAKER) (test code = 759) 15.7 seconds 11.9-14.2 H INR (BEAKER) (test code = 370) 1.3 <=5.9 Effective 03/15/2019: PT Reference Range ChangeNew: 11.9-14.2 Previous: 11.7-14. 7RECOMMENDED COUMADIN/WARFARIN INR THERAPY RANGESSTANDARD DOSE: 2.0-3.0 Include s: PROPHYLAXIS for venous thrombosis, systemic embolization; TREATMENT for venou s thrombosis and/or pulmonary embolus.HIGH RISK: Target INR is 2.5-3.5 for patie nts wiht mechanical heart valves.CBC W/PLT COUNT & AUTO [id number] 05:19:00* Test Item Value Reference Range Interpretation Comments WHITE BLOOD CELL COUNT (BEAKER) (test code = 775) 5.4 K/ L 3.5- 10.5 RED BLOOD CELL COUNT (BEAKER) (test code = 761) 4.74 M/ L 3.93-5 .22 HEMOGLOBIN (BEAKER) (test code = 410) 13.2 GM/DL 11.2-15.7 HEMATOCRIT (BEAKER) (test code = 411) 41.5 % 34.1-44.9 MEAN CORPUSCULAR VOLUME (BEAKER) (test code = 753) 87.6 fL 79. 4-94.8 MEAN CORPUSCULAR HEMOGLOBIN (BEAKER) (test code = 751) 27.8 pg 25.6-32.2 MEAN CORPUSCULAR HEMOGLOBIN CONC (BEAKER) (test code = 752) 31.8 GM/DL 32.2-35.5 L RED CELL DISTRIBUTION WIDTH (BEAKER) (test code = 412) 15.9 % 11.7-14.4 H PLATELET COUNT (BEAKER) (test code = 756) 130 K/CU MM 150-450 L MEAN PLATELET VOLUME (BEAKER) (test code = 754) 11.2 fL 9.4-12 .3 NUCLEATED RED BLOOD CELLS (BEAKER) (test code = 413) 0 /100 WBC 0 -0 NEUTROPHILS RELATIVE PERCENT (BEAKER) (test code = 429) 65 % LYMPHOCYTES RELATIVE PERCENT (BEAKER) (test code = 430) 26 % MONOCYTES RELATIVE PERCENT (BEAKER) (test code = 431) 5 % EOSINOPHILS RELATIVE PERCENT (BEAKER) (test code = 432) 2 % BASOPHILS RELATIVE PERCENT (BEAKER) (test code = 437) 1 % NEUTROPHILS ABSOLUTE COUNT (BEAKER) (test code = 670) 3.52 K/ L 1.56-6.13 LYMPHOCYTES ABSOLUTE COUNT (BEAKER) (test code = 414) 1.41 K/ L 1.18-3.74 MONOCYTES ABSOLUTE COUNT (BEAKER) (test code = 415) 0.29 K/ L 0. 24-0.36 EOSINOPHILS ABSOLUTE COUNT (BEAKER) (test code = 416) 0.13 K/ L 0.04-0.36 BASOPHILS ABSOLUTE COUNT (BEAKER) (test code = 417) 0.04 K/ L 0. 01-0.08 IMMATURE GRANULOCYTES-RELATIVE PERCENT (BEAKER) (test code = 2801) 1 % 0-1 POCT-GLUCOSE [id number] 22:31:00* Test Item Value Reference Range Interpretation Comments POC-GLUCOSE METER (BEAKER) (test code = 1538) 225 mg/dL 70-110 H TESTED AT [facility] [address] [facility] [address] POCT-GLUCOSE [id number] 18:24:00* Test Item Value Reference Range Interpretation Comments POC-GLUCOSE METER (BEAKER) (test code = 1538) 257 mg/dL 70-110 H TESTED AT [place] [id number] [facility] [address] Rapid drug screen, [id number] 14:23:00* Test Item Value Reference Range Interpretation Comments Barbiturate Screen (test code = 79929-4) Negative Negative Benzodiazepine Screen (test code = 18291-8) Negative Negative Cocaine (Metab.) Screen (test code = 3397-7) Negative Negative Methadone Screen (test code = 24617-7) Negative Negative Opiate Screen (test code = 23562-6) Positive Negative A Cannabinoid Screen (test code = 79981-9) Negative Negative Amph/Methamph Screen (test code = 95097-7) Negative Negative Phencyclidine Screen (test code = 63665-7) Negative Negative LEANDRO (test code = LEANDRO) DRUG CUTOFF C ONC.Cocaine 300 ng/mL Cannabinoid 50 ng/mLBenzodiazepine 200 ng/mLBarbiturate 200 ng/mLPhencyclidine 25 ng/mLOpiate 300 ng/mLMethadone 300 ng/mLAmphetamine/ 1000 ng/mL Methamphetamine This assay provides an unconfirmed qualitative test result for the clinical management of patients in emergency situations. Chain of custody not maintained. Some lgzl-nnm-plfyrwu medications, as well as adulterants, may cause inaccurate results. Clinical correlation should be applied. A more comprehensive drug screen or confirmation of a detected drug may be performed upon request. Lab Interpretation (test code = 16680-3) [facility]normal [facility], [id number] 14:23:00* Test Item Value Reference Range Interpretation Comments BARBITURATE URINE (BEAKER) (test code = 725) Negative Negative BENZODIAZEPINE SCREEN URINE (BEAKER) (test code = 726) Negative Negative COCAINE (METAB.) SCREEN (BEAKER) (test code = 1164) Negative Ne gative METHADONE SCREEN (BEAKER) (test code = 1436) Negative Negative OPIATE SCREEN URINE (BEAKER) (test code = 734) Positive Negativ e A CANNABINOID SCREEN URINE (BEAKER) (test code = 727) Negative Ne gative AMPH/METHAMPH SCREEN (BEAKER) (test code = 1438) Negative Negat vesta PHENCYCLIDINE SCREEN URINE (BEAKER) (test code = 608) Negative Negative DRUG CUTOFF CONC.Cocaine 300 ng/mL Cannabinoid 50 ng/mLBenzodiazepine 200 ng/mLBarbiturate 200 ng/mLPh encyclidine 25 ng/mLOpiate 300 ng/mLMethadone 300 ng/mLAmphetamine/ 1000 ng/mL MethamphetamineThis assay provides a n unconfirmed qualitative test result for the clinical management of patients in emergency situations. Chain of custody not maintained. Some ikmm-czm-okhbmmj me dications, as well as adulterants, may cause inaccurate results. Clinical correl ation should be applied. A more comprehensive drug screen or confirmation of a d etected drug may be performed upon request.POCT-GLUCOSE [id number] 12:23:00 * Test Item Value Reference Range Interpretation Comments POC-GLUCOSE METER (BEAKER) (test code = 1538) 242 mg/dL 70-110 H TESTED AT [facility] [address] [facility] [address] POCT-GLUCOSE [id number] 07:27:00* Test Item Value Reference Range Interpretation Comments POC-GLUCOSE METER (BEAKER) (test code = 1538) 198 mg/dL 70-110 H TESTED AT [facility] [address] [facility] [address] Venous doppler legs [id number] 06:59:49Ejection FractionSLEH ECHO HEARTLAB MKCKESSON CPACSRight Impression1. There is no deep venous obstruction in the common femoral, profundafemoral, femoral, popliteal, posterior tibial or peroneal veins wherevisualized.2. There is no superficial venous obstruction in the great saphenous veinwhere visualized.Left Impression1. There is no deep venous obstruction in the common femoral, profundafemoral, femoral, popliteal, posterior tibial or peroneal veins wherevisualized.2. There is no superficial venous obstruction in the great saphenous veinwhere visualized. Conclusions Summary Venous duplex imaging and compression of the bilateral lower extremities were performed. The veins were technically difficult to visualize due to edema and patient body habitus. The bilateral venous systems were patent and compressible with no evidence of thrombus where visualized. The venous Doppler waveforms were phasic with respiration. Signature Velocities are measured in cm/s ; Diameter s are measured in cm Interface, External Ris In - 04/18/2019 7:00 AM CDTPV LAB - Lower Extremities DVT Study Demographics Patient Name ANDREZ CARR Date of Study 04/17/2019 DOMINIC 010 Age 54 Visit Number [id number] Thaddeus r Female Accession Number [id number] Date of 1965 Referring JOHNY CRAFT Room Number ED17 Physic buddy Customer Account Representative Ari Payne Interpreting Manuel Brantley MD Physician ProcedureType of Study: Veins: Low er Extremities DVT Study, VENOUS DOPPLER LEG, BILATERAL. Indications for Study:A bdominal pain.Patient Status:TODAY.Study Location:Portable.Technical Quality:Giles hnically Difficult.Risk FactorsHistory of Disease+ +----+-------- +!Diagnosis !Date!Comments !+ +----+ +!History/Risk ! !Morbid Obesity, H/o Cirrhosis, H/o PE, H/o DVT !!Factors: ! 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 There is no deep venous o bstruction in the common femoral, profundafemoral, femoral, popliteal, posterior tibial or peroneal veins wherevisualized.2. There is no superficial venous obst ruction in the great saphenous veinwhere visualized.Left Impression1. There is n o deep venous obstruction in the common femoral, profundafemoral, femoral, popli teal, posterior tibial or peroneal veins wherevisualized.2. There is no superfic ial venous obstruction in the great saphenous veinwhere visualized. Conclusions Summary Venous duplex imaging and compression of the bilateral lower extremiti es were performed. The veins were technically difficult to visualize due to alysha a and patient body habitus. The bilateral venous systems were patent and laurita sible with no evidence of thrombus where visualized. The venous Doppler waveform s were phasic with respiration. Signature Velocities are measured in cm/s ; Diameters are measured i [facility] W/PLT COUNT & AUTO [id number] 06:41:00* Test Item Value Reference Range Interpretation Comments WHITE BLOOD CELL COUNT (BEAKER) (test code = 775) 6.5 K/ L 3.5- 10.5 RED BLOOD CELL COUNT (BEAKER) (test code = 761) 4.40 M/ L 3.93-5 .22 HEMOGLOBIN (BEAKER) (test code = 410) 12.6 GM/DL 11.2-15.7 HEMATOCRIT (BEAKER) (test code = 411) 38.3 % 34.1-44.9 MEAN CORPUSCULAR VOLUME (BEAKER) (test code = 753) 87.0 fL 79. 4-94.8 MEAN CORPUSCULAR HEMOGLOBIN (BEAKER) (test code = 751) 28.6 pg 25.6-32.2 MEAN CORPUSCULAR HEMOGLOBIN CONC (BEAKER) (test code = 752) 32.9 GM/DL 32.2-35.5 RED CELL DISTRIBUTION WIDTH (BEAKER) (test code = 412) 15.6 % 11.7-14.4 H PLATELET COUNT (BEAKER) (test code = 756) 123 K/CU MM 150-450 L MEAN PLATELET VOLUME (BEAKER) (test code = 754) 12.0 fL 9.4-12 .3 NUCLEATED RED BLOOD CELLS (BEAKER) (test code = 413) 0 /100 WBC 0 -0 NEUTROPHILS RELATIVE PERCENT (BEAKER) (test code = 429) 69 % LYMPHOCYTES RELATIVE PERCENT (BEAKER) (test code = 430) 22 % MONOCYTES RELATIVE PERCENT (BEAKER) (test code = 431) 6 % EOSINOPHILS RELATIVE PERCENT (BEAKER) (test code = 432) 2 % BASOPHILS RELATIVE PERCENT (BEAKER) (test code = 437) 1 % NEUTROPHILS ABSOLUTE COUNT (BEAKER) (test code = 670) 4.50 K/ L 1.56-6.13 LYMPHOCYTES ABSOLUTE COUNT (BEAKER) (test code = 414) 1.44 K/ L 1.18-3.74 MONOCYTES ABSOLUTE COUNT (BEAKER) (test code = 415) 0.37 K/ L 0. 24-0.36 H EOSINOPHILS ABSOLUTE COUNT (BEAKER) (test code = 416) 0.12 K/ L 0.04-0.36 BASOPHILS ABSOLUTE COUNT (BEAKER) (test code = 417) 0.04 K/ L 0. 01-0.08 IMMATURE GRANULOCYTES-RELATIVE PERCENT (BEAKER) (test code = 2801) 1 % 0-1 ECG 12 [id number] 06:38:42Interface, External Ris In - 04/18/2019 6:38 AM CDTVentricular Rate 85 BPMAtrial Rate 85 BPMP-R Interval 142 msQRS Duration 72 msQ-T Interval 406 msQTC Calculation(Bazett) 483 msP [place] 36 degreesR [place] 81 degreesT [place] 63 degreesNormal sinus rhythmProlonged QTAbnormal ECGNo previous ECGs availableConfirmed by MD WHIT, BESSIE Jean-Baptiste ([id number]) on 04/18/2019 6:38:40 AM [facility], [id number] 02:31:00Referring: MIGUELINA Anaya-CFINAL REPORT EXAM: CT of the abdomen and [...] COMPARISON: None FINDINGS: LOWER CHEST: Within normal limits.LIVER: Mild nodular contour of the liver suggesting cirrhosis. Hepatomegaly.BILE DUCTS: Within normal limits.GALL BLADDER: Status post cholecystectomy.PANCREAS: Within normal limits.SPLEEN: Mild splenomegaly.ADRENALS: Within normal limits.KIDNEYS/URETERS: Punctate non obstructing stone in the left lower renal pole. Unremarkable right kidney. No hydroureteronephrosis or perinephric stranding. URINARY BLADDER: Underdistended otherwise unremarkable.REPRODUCTIVE ORGANS: Status post hysterectomy. No adnexal masses. BOWEL/MESENTERY: Status post sigmoid resection. Status post small bowel resection with multiple patulous anastomoses in the right mid to lower abdomen. Tethering of small bowel loops to the lower anterior abdominal wall. Diffuse mesenteric congestion, nonspecific. No bowel obstruction or abnormal wall thickening. Nonvisualization of the appendix but no secondary changes to suggest acute appendicitis. PERITON EUM/RETROPERITONEUM: Trace lower abdominal and pelvic free fluid, nonspecific. N o free air or fluid collection. VESSELS: Infrarenal IVC filter. Atherosclerotic calcifications of the aorta and branches. LYMPH NODES: No abdominal or pelvic ly mphadenopathy.SOFT TISSUES: Midline abdominal scar. BONES: Lower lumbar facet ar thropathy. No suspicious osseous lesions. IMPRESSION:Status post small bowel a nd sigmoid resection. Status post cholecystectomy and hysterectomy.No bowel obst ruction, free air or fluid collection. Punctate nonobstructing left renal stone. No hydroureteronephrosis.Cirrhosis. Hepatosplenomegaly. Signed: Ollie Galicia Verified Date/Time: 04/18/2019 02:31:06 abdomen/pelvis with IV [id number] 02:31:00Interface, External Ris In - 04/18/2019 2:33 AM CDTFINAL REPORT EXAM: CT of the abdomen and [...] COMPARISON: None FINDINGS: LOWER CHEST: Within normal limits.LIVER: Mild nodular contour of the liver suggesting cirrhosis. Hepatomegaly.BILE DUCTS: Within normal limits.GALL BLADDER: Status post cholecystectomy.PANCREAS: Within normal limits.SPLEEN: Mild splenomegaly.ADRENALS: Within normal limits.KIDNEYS/URETERS: Punctate non obstructing stone in the left lower renal pole. Unremarkable right kidney. No hydroureteronephrosis or perinephric stranding. URINARY BLADDER: Underdistended otherwise unremarkable.REPRODUCTIVE ORGANS: Status post hysterectomy. No adnexal masses. BOWEL/MESENTERY: Status post sigmoid resection. Status post small bowel resection with multiple patulous anastomoses in the right mid to lower abdomen. Tethering of small bowel loops to the lower anterior abdominal wall. Diffuse mesenteric congestion, nonspecific. No bowel obstr uction or abnormal wall thickening. Nonvisualization of the appendix but no seco ndary changes to suggest acute appendicitis. PERITONEUM/RETROPERITONEUM: Trace l ower abdominal and pelvic free fluid, nonspecific. No free air or fluid collecti on. VESSELS: Infrarenal IVC filter. Atherosclerotic calcifications of the aorta and branches. LYMPH NODES: No abdominal or pelvic lymphadenopathy.SOFT TISSUES: Midline abdominal scar. BONES: Lower lumbar facet arthropathy. No suspicious os seous lesions. IMPRESSION:Status post small bowel and sigmoid resection. Status post cholecystectomy and hysterectomy.No bowel obstruction, free air or fluid c ollection. Punctate nonobstructing left renal stone. No hydroureteronephrosis.Ci rrhosis. Hepatosplenomegaly. Signed: Ollie Galicia MDReport Verified Date/Time: 04/18/2019 02:31:06 Electronically signed by: OLLIE GALICIA MD on 0 04/18/2019 02:31 AM [facility]/ REFLEX URINE [id number] 22:19:00* Test Item Value Reference Range Interpretation Comments COLOR (BEAKER) (test code = 470) Yellow CLARITY (BEAKER) (test code = 469) Clear SPECIFIC GRAVITY UA (BEAKER) (test code = 468) 1.034 1.001-1 .035 PH UA (BEAKER) (test code = 467) 7.0 5.0-8.0 PROTEIN UA (BEAKER) (test code = 464) Negative Negative GLUCOSE UA (BEAKER) (test code = 365) >1000 mg/dL Negative A KETONES UA (BEAKER) (test code = 371) Negative Negative BILIRUBIN UA (BEAKER) (test code = 462) Negative Negative BLOOD UA (BEAKER) (test code = 461) Negative Negative NITRITE UA (BEAKER) (test code = 465) Negative Negative LEUKOCYTE ESTERASE UA (BEAKER) (test code = 466) Negative Negat vesta UROBILINOGEN UA (BEAKER) (test code = 463) 12.0 mg/dL 0.2-1.0 H RBC UA (BEAKER) (test code = 519) 1 /HPF WBC UA (BEAKER) (test code = 520) < /HPF SQUAMOUS EPITHELIAL (BEAKER) (test code = 516) 1 /HPF SOURCE(BEAKER) (test code = 2795) RAD, CHEST, 2 [id number] 22:13:00Referring: Rolando Anaya for exam:->ABDOMINAL PAINFINAL REPORT Exam: Chest x-ray, PA and lateral [...] Impression: No focal pulmonary consolidation. Signed: Ollie Galicia Verified Date/Time: 04/17/2019 22:13:40 chest 2 views 2019-04-17 22:13:00Interface, External Ris In - 04/17/2019 10:47 PM CDTFINAL REPORT Exam: Chest x-ray, PA and lateral [...] Impression: No focal pulmonary consolidation. Signed: Ollie Galicia Verified Date/Time: 04/17/2019 22:13:40 [facility] 22:06:00* Test Item Value Reference Range Interpretation Comments Lipase (test code = 3040-3) 17 U/L 8-78 LEANDRO (test code = LEANDRO) Specimen slightly icteric Lab Interpretation (test code = 23561-8) Normal [facility] [id number] 22:06:00* Test Item Value Reference Range Interpretation Comments TOTAL PROTEIN (BEAKER) (test code = 770) 7.5 gm/dL 6.0-8.3 ALBUMIN (BEAKER) (test code = 1145) 3.5 g/dL 3.5-5.0 ALKALINE PHOSPHATASE (BEAKER) (test code = 346) 99 U/L 40-150 BILIRUBIN TOTAL (BEAKER) (test code = 377) 1.7 mg/dL 0.2-1.2 H SODIUM (BEAKER) (test code = 381) 136 meq/L 136-145 POTASSIUM (BEAKER) (test code = 379) 4.1 meq/L 3.5-5.1 CHLORIDE (BEAKER) (test code = 382) 102 meq/L 98-107 CO2 (BEAKER) (test code = 355) 27 meq/L 22-29 BLOOD UREA NITROGEN (BEAKER) (test code = 354) 10 mg/dL 7-21 CREATININE (BEAKER) (test code = 358) 0.75 mg/dL 0.57-1.25 GLUCOSE RANDOM (BEAKER) (test code = 652) 232 mg/dL 70-105 H CALCIUM (BEAKER) (test code = 697) 9.3 mg/dL 8.4-10.2 AST (SGOT) (BEAKER) (test code = 353) 30 U/L 5-34 ALT (SGPT) (BEAKER) (test code = 347) 29 U/L 6-55 EGFR (BEAKER) (test code = 1092) 80 mL/min/1.73 sq m ESTIMATED GFR IS NOT ACCURATE CREATININE CLEARANCE IN PREDICTING GLOMERULAR FILTRATION RATE. ESTIMATED GFR IS NOT APPLICABLE FOR DIALYSIS PATIENTS. Specimen slightly [id number] 22:06:00* Test Item Value Reference Range Interpretation Comments LIPASE (BEAKER) (test code = 749) 17 U/L 8-78 Specimen slightly ictericPT/[id number] 22:02:00* Test Item Value Reference Range Interpretation Comments PROTIME (BEAKER) (test code = 759) 18.6 seconds 11.9-14.2 H INR (BEAKER) (test code = 370) 1.6 <=5.9 PARTIAL THROMBOPLASTIN TIME (BEAKER) (test code = 760) 37.1 seconds 22.5-36.0 H Effective 03/15/2019: PT Reference Range ChangeNew: 11.9-14.2 Previous: 11.7-14. 7RECOMMENDED COUMADIN/WARFARIN INR THERAPY RANGESSTANDARD DOSE: 2.0-3.0 Include s: PROPHYLAXIS for venous thrombosis, systemic embolization; TREATMENT for venou s thrombosis and/or pulmonary embolus.HIGH RISK: Target INR is 2.5-3.5 for patie nts wiht mechanical heart valves.CBC W/PLT COUNT & AUTO [id number] 21:50:00* Test Item Value Reference Range Interpretation Comments WHITE BLOOD CELL COUNT (BEAKER) (test code = 775) 6.2 K/ L 3.5- 10.5 RED BLOOD CELL COUNT (BEAKER) (test code = 761) 4.53 M/ L 3.93-5 .22 HEMOGLOBIN (BEAKER) (test code = 410) 12.8 GM/DL 11.2-15.7 HEMATOCRIT (BEAKER) (test code = 411) 39.3 % 34.1-44.9 MEAN CORPUSCULAR VOLUME (BEAKER) (test code = 753) 86.8 fL 79. 4-94.8 MEAN CORPUSCULAR HEMOGLOBIN (BEAKER) (test code = 751) 28.3 pg 25.6-32.2 MEAN CORPUSCULAR HEMOGLOBIN CONC (BEAKER) (test code = 752) 32.6 GM/DL 32.2-35.5 RED CELL DISTRIBUTION WIDTH (BEAKER) (test code = 412) 15.8 % 11.7-14.4 H PLATELET COUNT (BEAKER) (test code = 756) 130 K/CU MM 150-450 L MEAN PLATELET VOLUME (BEAKER) (test code = 754) 11.2 fL 9.4-12 .3 NUCLEATED RED BLOOD CELLS (BEAKER) (test code = 413) 0 /100 WBC 0 -0 NEUTROPHILS RELATIVE PERCENT (BEAKER) (test code = 429) 66 % LYMPHOCYTES RELATIVE PERCENT (BEAKER) (test code = 430) 24 % MONOCYTES RELATIVE PERCENT (BEAKER) (test code = 431) 6 % EOSINOPHILS RELATIVE PERCENT (BEAKER) (test code = 432) 2 % BASOPHILS RELATIVE PERCENT (BEAKER) (test code = 437) 1 % NEUTROPHILS ABSOLUTE COUNT (BEAKER) (test code = 670) 4.10 K/ L 1.56-6.13 LYMPHOCYTES ABSOLUTE COUNT (BEAKER) (test code = 414) 1.50 K/ L 1.18-3.74 MONOCYTES ABSOLUTE COUNT (BEAKER) (test code = 415) 0.39 K/ L 0. 24-0.36 H EOSINOPHILS ABSOLUTE COUNT (BEAKER) (test code = 416) 0.12 K/ L 0.04-0.36 BASOPHILS ABSOLUTE COUNT (BEAKER) (test code = 417) 0.04 K/ L 0. 01-0.08 IMMATURE GRANULOCYTES-RELATIVE PERCENT (BEAKER) (test code = 2801) 1 % 0-1 CT ABD/PEL WITH MWDRLLFX-FALQ0807-06-01 01:31:00 [place] [address] Patient Name: ANDREZ CARR MR #: [id number] : 1965 Age/Sex: 54/F Req #: [id number] Adm Physician: Ordered by: NIKOLAY CHOU DO Report #: [id number] Location: [facility] Room/Bed: Procedure: HOP D/CT ABD/PEL WITH CONTRAST-HOPD Exam Date: 04/17/19 Exam Time: 0102 REPORT STATUS: Sign ed EXAMINATION: CT of the abdomen and pelvis with contrast. TECHNIQUE: Helical CT images of the abdomen and pelvis were performed from the lung bases to the lesser trochanters after the intravenous administration of 100 cc of Omnipaque 300 and the oral administration of none. Coronal and sagittal refo rmatted images were obtained.Dose modulation, iterative reconstruction, and/or weight based adjustment of the mA/kV was utilized to reduce the radiation dos e to as low as reasonably achievable. COMPARISON: None. CLINICAL HIS TORY:Abdominal pain DISCUSSION: ABDOMEN/PELVIS: LOWER THORAX :Unremarkable. HEPATOBILIARY: Cirrhotic morphology. No intra-or extrahepat ic biliary ductal dilation. Cholecystectomy. SPLEEN: No splenomegaly. PANCREAS: No focal masses or ductal dilatation. ADRENALS: No adrenal n odules. KIDNEYS/URETERS: No obstruction. Punctate left renal calculus. PELVIC ORGANS/BLADDER: Bladder is decompressed. Hysterectomy. PERITONEUM/R ETROPERITONEUM: No free air or fluid. LYMPH NODES: No intra-abdominal, retr operitoneal, pelvic or inguinal lymphadenopathy. VESSELS: Vascular calcif ications. IVC filter. GI TRACT: No obstruction. Postsurgical change to the bowel. BONES AND SOFT TISSUE: No bony destructive lesions. Prior hernia repair. IMPRESSION: No acute CT finding. Cirrhotic liver. Punctate left renal calculus. Signed by: Dr. Armida Head M.D. on 04/17/20 1:39 AM Dictated By: ARMIDA HEAD MD 8 Transcribed By: CHERYL on 04/17/19138 COPY TO: NIKOLAY CHOU DO Bedside Aviqasw5142-61-33 09:42:00* Test Item Value Reference Range Interpretation Comments Bedside Glucose (test code = 20887-6) 352 70-120 H Meter [facility]: [id number] 2019-03-23 09:42:00* Test Item Value Reference Range Interpretation Comments Bedside Glucose (test code = 18579-4) 352 70-120 H Meter ID: [id number] [facility] Glucose 2019-03-23 09:42:00* Test Item Value Reference Range Interpretation Comments Bedside Glucose (test code = 67258-7) 352 70-120 H Meter ID: [id number] Mountain Medical Centerodium Level 2019-03-22 16:14:00* Test Item Value Reference Range Interpretation Comments Sodium Level (test code = 2951-2) 131 136-145 L [facility] CenterPotassium Vdggh5978-02-64 16:14:00* Test Item Value Reference Range Interpretation Comments Potassium Level (test code = 2823-3) 3.9 3.5-5.1 [facility] CenterChloride Gamnl7007-29-69 16:14:00* Test Item Value Reference Range Interpretation Comments Chloride Level (test code = 2075-0) 97 98-107 L [facility] CenterCarbon Dioxide Cgpvc0130-50-10 16:14:00* Test Item Value Reference Range Interpretation Comments Carbon Dioxide Level (test code = 2028-9) 28 22-29 [facility] CenterAnion Jpn9436-89-80 16:14:00* Test Item Value Reference Range Interpretation Comments Anion Gap (test code = 77913-2) 9.9 8-16 [facility] CenterBlood Urea Zfvkbgpi9871-92-15 16:14:00* Test Item Value Reference Range Interpretation Comments Blood Urea Nitrogen (test code = 3094-0) 8 7-26 [facility] CenterCreatinine2019-06-05 16:14:00* Test Item Value Reference Range Interpretation Comments Creatinine (test code = 2160-0) 0.82 0.57-1.11 [facility] CenterBUN/Creatinine Cbhog5494-23-97 16:14:00* Test Item Value Reference Range Interpretation Comments BUN/Creatinine Ratio (test code = 3097-3) 10 6-25 [facility] CenterEstimat Glomerular Filtration Rate 2019-03-22 16:14:00* Test Item Value Reference Range Interpretation Comments Estimat Glomerular Filtration Rate (test code = 007793215) > 60 >60 Ranges were taken from the National Kidney Disease Education Program and the [facility] Foundation literature.Reference ranges:60 or greater: Xndlne97-72 ( for 3 consecutive months): Chronic kidney disease 15 or less: Kidney failureMatagorda Regional Medical CenterGlucose Brzfc0070-59-78 16:14:00* Test Item Value Reference Range Interpretation Comments Glucose Level (test code = QJE7001) 346 74-118 H [facility] CenterCalcium Rliti8038-70-50 16:14:00* Test Item Value Reference Range Interpretation Comments Calcium Level (test code = 02564-4) 9.7 8.4-10.2 [facility] CenterTotal Lokgfaukt7331-19-59 16:14:00* Test Item Value Reference Range Interpretation Comments Total Bilirubin (test code = 1975-2) 1.9 0.2-1.2 H [facility] CenterAspartate Amino Transf (AST/SGOT) 2019-03-22 16:14:00* Test Item Value Reference Range Interpretation Comments Aspartate Amino Transf (AST/SGOT) (test code = Aspartate Amino Transf (AST/SGOT)) 32 5-34 [facility] CenterAlanine Aminotransferase (ALT/SGPT) 2019-03-22 16:14:00* Test Item Value Reference Range Interpretation Comments Alanine Aminotransferase (ALT/SGPT) (test code = 1742-6) 35 0-55 [facility] CenterTotal Fnwsrgc5340-14-09 16:14:00* Test Item Value Reference Range Interpretation Comments Total Protein (test code = 2885-2) 8.0 6.5-8.1 [facility] CenterAlbumin2019-06-05 16:14:00* Test Item Value Reference Range Interpretation Comments Albumin (test code = 1751-7) 3.4 3.5-5.0 L [facility] CenterGlobulin2019-06-05 16:14:00* Test Item Value Reference Range Interpretation Comments Globulin (test code = 89052-6) 4.6 2.3-3.5 H [facility] CenterAlbumin/Globulin Gommw8503-33-78 16:14:00 * Test Item Value Reference Range Interpretation Comments Albumin/Globulin Ratio (test code = 1759-0) 0.7 0.8-2.0 L [facility] CenterAlkaline Sxndzopechn4497-14-31 16:14:00* Test Item Value Reference Range Interpretation Comments Alkaline Phosphatase (test code = 6768-6) 100 40-150 [facility]odium Edlgr7166-71-52 16:14:00* Test Item Value Reference Range Interpretation Comments Sodium Level (test code = 2951-2) 131 136-145 L [facility] CenterPotassium Cuwol2415-44-29 16:14:00* Test Item Value Reference Range Interpretation Comments Potassium Level (test code = 2823-3) 3.9 3.5-5.1 [facility] CenterChloride Zbpfn3054-35-62 16:14:00* Test Item Value Reference Range Interpretation Comments Chloride Level (test code = 2075-0) 97 98-107 L [facility] CenterCarbon Dioxide Kcjvs1460-13-07 16:14:00* Test Item Value Reference Range Interpretation Comments Carbon Dioxide Level (test code = 2028-9) 28 22-29 [facility] CenterAnion Yom3449-38-61 16:14:00* Test Item Value Reference Range Interpretation Comments Anion Gap (test code = 15051-2) 9.9 8-16 [facility] CenterBlood Urea Oetwsdgj5286-82-92 16:14:00* Test Item Value Reference Range Interpretation Comments Blood Urea Nitrogen (test code = 3094-0) 8 7-26 [facility] CenterCreatinine2019-06-05 16:14:00* Test Item Value Reference Range Interpretation Comments Creatinine (test code = 2160-0) 0.82 0.57-1.11 [facility] CenterBUN/Creatinine Idgbj4877-54-76 16:14:00* Test Item Value Reference Range Interpretation Comments BUN/Creatinine Ratio (test code = 3097-3) 10 6-25 [facility] CenterEstimat Glomerular Filtration Rate 2019-03-22 16:14:00* Test Item Value Reference Range Interpretation Comments Estimat Glomerular Filtration Rate (test code = 369089927) > 60 >60 Ranges were taken from the National Kidney Disease Education Program and the [facility] Foundation literature.Reference ranges:60 or greater: Qxxiud56-85 ( for 3 consecutive months): Chronic kidney disease 15 or less: Kidney failureMatagorda Regional Medical CenterGlucose Dggnh5552-23-71 16:14:00* Test Item Value Reference Range Interpretation Comments Glucose Level (test code = EBB7584) 346 74-118 H [facility] CenterCalcium Nvumi2155-16-43 16:14:00* Test Item Value Reference Range Interpretation Comments Calcium Level (test code = 40326-1) 9.7 8.4-10.2 [facility] CenterTotal Onosoobxy3602-38-61 16:14:00* Test Item Value Reference Range Interpretation Comments Total Bilirubin (test code = 1975-2) 1.9 0.2-1.2 H [facility] CenterAspartate Amino Transf (AST/SGOT) 2019-03-22 16:14:00* Test Item Value Reference Range Interpretation Comments Aspartate Amino Transf (AST/SGOT) (test code = Aspartate Amino Transf (AST/SGOT)) 32 5-34 [facility] CenterAlanine Aminotransferase (ALT/SGPT) 2019-03-22 16:14:00* Test Item Value Reference Range Interpretation Comments Alanine Aminotransferase (ALT/SGPT) (test code = 1742-6) 35 0-55 [facility] CenterTotal Kwlsvis2440-62-27 16:14:00* Test Item Value Reference Range Interpretation Comments Total Protein (test code = 2885-2) 8.0 6.5-8.1 [facility] CenterAlbumin2019-06-05 16:14:00* Test Item Value Reference Range Interpretation Comments Albumin (test code = 1751-7) 3.4 3.5-5.0 L [facility] CenterGlobulin2019-06-05 16:14:00* Test Item Value Reference Range Interpretation Comments Globulin (test code = 07163-9) 4.6 2.3-3.5 H [facility] CenterAlbumin/Globulin Fugyz3154-57-46 16:14:00 * Test Item Value Reference Range Interpretation Comments Albumin/Globulin Ratio (test code = 1759-0) 0.7 0.8-2.0 L [facility] CenterAlkaline Lptwdjocftg2143-21-16 16:14:00* Test Item Value Reference Range Interpretation Comments Alkaline Phosphatase (test code = 6768-6) 100 40-150 [facility] Centerodium Kmyry0343-28-13 16:14:00* Test Item Value Reference Range Interpretation Comments Sodium Level (test code = 2951-2) 131 136-145 L [facility] CenterPotassium Enzmg6456-01-73 16:14:00* Test Item Value Reference Range Interpretation Comments Potassium Level (test code = 2823-3) 3.9 3.5-5.1 [facility] CenterChloride Cphba6002-89-23 16:14:00* Test Item Value Reference Range Interpretation Comments Chloride Level (test code = 2075-0) 97 98-107 L [facility] CenterCarbon Dioxide Gaejl3419-26-82 16:14:00* Test Item Value Reference Range Interpretation Comments Carbon Dioxide Level (test code = 2028-9) 28 22-29 [facility] CenterAnion Lfw2992-80-26 16:14:00* Test Item Value Reference Range Interpretation Comments Anion Gap (test code = 07850-9) 9.9 8-16 [facility] CenterBlood Urea Dbduudkr6453-33-15 16:14:00* Test Item Value Reference Range Interpretation Comments Blood Urea Nitrogen (test code = 3094-0) 8 7-26 [facility] CenterCreatinine2019-06-05 16:14:00* Test Item Value Reference Range Interpretation Comments Creatinine (test code = 2160-0) 0.82 0.57-1.11 [facility] CenterBUN/Creatinine Vfosb0678-56-48 16:14:00* Test Item Value Reference Range Interpretation Comments BUN/Creatinine Ratio (test code = 3097-3) 10 6-25 [facility] CenterEstimat Glomerular Filtration Rate 2019-03-22 16:14:00* Test Item Value Reference Range Interpretation Comments Estimat Glomerular Filtration Rate (test code = 801257360) > 60 >60 Ranges were taken from the National Kidney Disease Education Program and the [facility] Foundation literature.Reference ranges:60 or greater: Rliswz41-82 ( for 3 consecutive months): Chronic kidney disease 15 or less: Kidney failureMatagorda Regional Medical CenterGlucose Pxiio0019-34-19 16:14:00* Test Item Value Reference Range Interpretation Comments Glucose Level (test code = KOI2321) 346 74-118 H [facility] CenterCalcium Vrakc8797-51-18 16:14:00* Test Item Value Reference Range Interpretation Comments Calcium Level (test code = 00425-7) 9.7 8.4-10.2 [facility] CenterTotal Fknffoujr0114-13-15 16:14:00* Test Item Value Reference Range Interpretation Comments Total Bilirubin (test code = 1975-2) 1.9 0.2-1.2 H [facility] CenterAspartate Amino Transf (AST/SGOT) 2019-03-22 16:14:00* Test Item Value Reference Range Interpretation Comments Aspartate Amino Transf (AST/SGOT) (test code = Aspartate Amino Transf (AST/SGOT)) 32 5-34 [facility] CenterAlanine Aminotransferase (ALT/SGPT) 2019-03-22 16:14:00* Test Item Value Reference Range Interpretation Comments Alanine Aminotransferase (ALT/SGPT) (test code = 1742-6) 35 0-55 [facility] CenterTotal Tszdqbw4466-51-42 16:14:00* Test Item Value Reference Range Interpretation Comments Total Protein (test code = 2885-2) 8.0 6.5-8.1 [facility] CenterAlbumin2019-06-05 16:14:00* Test Item Value Reference Range Interpretation Comments Albumin (test code = 1751-7) 3.4 3.5-5.0 L [facility] CenterGlobulin2019-06-05 16:14:00* Test Item Value Reference Range Interpretation Comments Globulin (test code = 81678-8) 4.6 2.3-3.5 H [facility] CenterAlbumin/Globulin Zofyh3605-70-28 16:14:00 * Test Item Value Reference Range Interpretation Comments Albumin/Globulin Ratio (test code = 1759-0) 0.7 0.8-2.0 L [facility] CenterAlkaline Rnhghwezxay5712-18-83 16:14:00* Test Item Value Reference Range Interpretation Comments Alkaline Phosphatase (test code = 6768-6) 100 40-150 [facility] Centerodium Paquw8757-35-07 16:14:00* Test Item Value Reference Range Interpretation Comments Sodium Level (test code = 2951-2) 131 136-145 L [facility] CenterPotassium Bcqnk0117-08-32 16:14:00* Test Item Value Reference Range Interpretation Comments Potassium Level (test code = 2823-3) 3.9 3.5-5.1 [facility] CenterChloride Rrwhe3863-72-94 16:14:00* Test Item Value Reference Range Interpretation Comments Chloride Level (test code = 2075-0) 97 98-107 L [facility] CenterCarbon Dioxide Criut2703-80-01 16:14:00* Test Item Value Reference Range Interpretation Comments Carbon Dioxide Level (test code = 2028-9) 28 22-29 [facility] CenterAnion Aga7431-29-33 16:14:00* Test Item Value Reference Range Interpretation Comments Anion Gap (test code = 87306-7) 9.9 8-16 [facility] CenterBlood Urea Xvhggigu6395-47-51 16:14:00* Test Item Value Reference Range Interpretation Comments Blood Urea Nitrogen (test code = 3094-0) 8 7-26 [facility] CenterCreatinine2019-06-05 16:14:00* Test Item Value Reference Range Interpretation Comments Creatinine (test code = 2160-0) 0.82 0.57-1.11 [facility] CenterBUN/Creatinine Wlwio3978-22-27 16:14:00* Test Item Value Reference Range Interpretation Comments BUN/Creatinine Ratio (test code = 3097-3) 10 6-25 [facility] CenterEstimat Glomerular Filtration Rate 2019-03-22 16:14:00* Test Item Value Reference Range Interpretation Comments Estimat Glomerular Filtration Rate (test code = 479067677) > 60 >60 Ranges were taken from the National Kidney Disease Education Program and the [facility] Foundation literature.Reference ranges:60 or greater: Egimuv76-20 ( for 3 consecutive months): Chronic kidney disease 15 or less: Kidney failureMatagorda Regional Medical CenterGlucose Ryyge3978-27-85 16:14:00* Test Item Value Reference Range Interpretation Comments Glucose Level (test code = OXG8030) 346 74-118 H [facility] CenterCalcium Lroun2811-81-43 16:14:00* Test Item Value Reference Range Interpretation Comments Calcium Level (test code = 47973-9) 9.7 8.4-10.2 [facility] CenterTotal Nowltiioh7874-27-48 16:14:00* Test Item Value Reference Range Interpretation Comments Total Bilirubin (test code = 1975-2) 1.9 0.2-1.2 H [facility] CenterAspartate Amino Transf (AST/SGOT) 2019-03-22 16:14:00* Test Item Value Reference Range Interpretation Comments Aspartate Amino Transf (AST/SGOT) (test code = Aspartate Amino Transf (AST/SGOT)) 32 5-34 [facility] CenterAlanine Aminotransferase (ALT/SGPT) 2019-03-22 16:14:00* Test Item Value Reference Range Interpretation Comments Alanine Aminotransferase (ALT/SGPT) (test code = 1742-6) 35 0-55 [facility] CenterTotal Hfwzqkn4963-47-50 16:14:00* Test Item Value Reference Range Interpretation Comments Total Protein (test code = 2885-2) 8.0 6.5-8.1 [facility] CenterAlbumin2019-06-05 16:14:00* Test Item Value Reference Range Interpretation Comments Albumin (test code = 1751-7) 3.4 3.5-5.0 L [facility] CenterGlobulin2019-06-05 16:14:00* Test Item Value Reference Range Interpretation Comments Globulin (test code = 09156-7) 4.6 2.3-3.5 H [facility] CenterAlbumin/Globulin Ypnki6673-74-79 16:14:00 * Test Item Value Reference Range Interpretation Comments Albumin/Globulin Ratio (test code = 1759-0) 0.7 0.8-2.0 L [facility] CenterAlkaline Tgjfkfjmudh8033-51-25 16:14:00* Test Item Value Reference Range Interpretation Comments Alkaline Phosphatase (test code = 6768-6) 100 40-150 [facility] CenterUrine IMV3630-00-18 16:10:00* Test Item Value Reference Range Interpretation Comments Urine WBC (test code = 5821-4) 0-5 0-5 [facility] CenterUrine HJV7697-59-66 16:10:00* Test Item Value Reference Range Interpretation Comments Urine RBC (test code = 73879-7) 0-5 0-5 [facility] CenterUrine Jrqcakcc6421-36-52 16:10:00* Test Item Value Reference Range Interpretation Comments Urine Bacteria (test code = 30666-4) MODERATE NONE H [facility] CenterUrine Epithelial Tgpmk5038-78-59 16:10:00 * Test Item Value Reference Range Interpretation Comments Urine Epithelial Cells (test code = 71933-6) MODERATE NONE [facility] CenterUrine AGE8033-12-60 16:10:00* Test Item Value Reference Range Interpretation Comments Urine WBC (test code = 5821-4) 0-5 0-5 [facility] CenterUrine ZCY2763-92-21 16:10:00* Test Item Value Reference Range Interpretation Comments Urine RBC (test code = 29667-7) 0-5 0-5 [facility] CenterUrine Auiwedpc5408-18-21 16:10:00* Test Item Value Reference Range Interpretation Comments Urine Bacteria (test code = 81090-5) MODERATE NONE H [facility] CenterUrine Epithelial Bljxz7652-29-46 16:10:00 * Test Item Value Reference Range Interpretation Comments Urine Epithelial Cells (test code = 37377-0) MODERATE NONE [facility] CenterUrine KPN6951-68-93 16:10:00* Test Item Value Reference Range Interpretation Comments Urine WBC (test code = 5821-4) 0-5 0-5 [facility] CenterUrine COK6020-40-95 16:10:00* Test Item Value Reference Range Interpretation Comments Urine RBC (test code = 04392-3) 0-5 0-5 [facility] Kdeeyirg7772-93-89 16:10:00* Test Item Value Reference Range Interpretation Comments Urine Bacteria (test code = 00926-2) MODERATE NONE H [facility] CenterUrine Epithelial Zprbh2969-62-83 16:10:00 * Test Item Value Reference Range Interpretation Comments Urine Epithelial Cells (test code = 54303-9) MODERATE NONE [facility] CenterUrine TWE9595-22-70 16:10:00* Test Item Value Reference Range Interpretation Comments Urine WBC (test code = 5821-4) 0-5 0-5 [facility] CenterUrine KTT9770-76-13 16:10:00* Test Item Value Reference Range Interpretation Comments Urine RBC (test code = 52807-4) 0-5 0-5 [facility] CenterUrine Whviogne0811-50-45 16:10:00* Test Item Value Reference Range Interpretation Comments Urine Bacteria (test code = 96407-7) MODERATE NONE H [facility] CenterUrine Epithelial Exflc1930-67-04 16:10:00 * Test Item Value Reference Range Interpretation Comments Urine Epithelial Cells (test code = 93361-5) MODERATE NONE [facility] CenterWhite Blood Etvnw7786-03-79 15:56:00* Test Item Value Reference Range Interpretation Comments White Blood Count (test code = 6690-2) 6.10 4.8-10.8 [facility] CenterRed Blood Stpws8748-40-79 15:56:00* Test Item Value Reference Range Interpretation Comments Red Blood Count (test code = 789-8) 4.55 3.6-5.1 [facility] CenterHemoglobin2019-06-05 15:56:00* Test Item Value Reference Range Interpretation Comments Hemoglobin (test code = 13006-7) 12.8 12.0-16.0 [facility] CenterHematocrit2019-06-05 15:56:00* Test Item Value Reference Range Interpretation Comments Hematocrit (test code = 4544-3) 38.5 34.2-44.1 [facility] CenterMean Corpuscular Pionpt4492-62-97 15:56:00* Test Item Value Reference Range Interpretation Comments Mean Corpuscular Volume (test code = 787-2) 84.6 81-99 [facility] CenterMean Corpuscular Pnslmbgajw1693-61-74 15:56:00* Test Item Value Reference Range Interpretation Comments Mean Corpuscular Hemoglobin (test code = 785-6) 28.1 28-32 [facility] CenterMean Corpuscular Hemoglobin Concent 2019-03-22 15:56:00* Test Item Value Reference Range Interpretation Comments Mean Corpuscular Hemoglobin Concent (test code = 786-4) 33.2 31-35 [facility] CenterRed Cell Distribution Jtexx7844-41-76 15:56:00* Test Item Value Reference Range Interpretation Comments Red Cell Distribution Width (test code = 58871-9) 15.6 11.7 -14.4 H [facility] CenterPlatelet Wggry1779-00-41 15:56:00* Test Item Value Reference Range Interpretation Comments Platelet Count (test code = 777-3) 115 140-360 L [facility] CenterNeutrophils (%) (Auto)2019-03-22 15:56:00 * Test Item Value Reference Range Interpretation Comments Neutrophils (%) (Auto) (test code = 01671-2) 64.2 38.7-80.0 [facility] CenterLymphocytes (%) (Auto)2019-03-22 15:56:00 * Test Item Value Reference Range Interpretation Comments Lymphocytes (%) (Auto) (test code = 736-9) 25.7 18.0-39.1 [facility] CenterMonocytes (%) (Auto)2019-03-22 15:56:00* Test Item Value Reference Range Interpretation Comments Monocytes (%) (Auto) (test code = 5905-5) 7.0 4.4-11.3 [facility] CenterEosinophils (%) (Auto)2019-03-22 15:56:00 * Test Item Value Reference Range Interpretation Comments Eosinophils (%) (Auto) (test code = 713-8) 2.1 0.0-6.0 [facility] CenterBasophils (%) (Auto)2019-03-22 15:56:00* Test Item Value Reference Range Interpretation Comments Basophils (%) (Auto) (test code = 706-2) 0.7 0.0-1.0 [facility] CenterIM GRANULOCYTES %2019-03-22 15:56:00* Test Item Value Reference Range Interpretation Comments IM GRANULOCYTES % (test code = IM GRANULOCYTES %) 0.3 0.0- 1.0 [facility] CenterNeutrophils # (Auto)2019-03-22 15:56:00* Test Item Value Reference Range Interpretation Comments Neutrophils # (Auto) (test code = 751-8) 3.9 2.1-6.9 [facility] CenterLymphocytes # (Auto)2019-03-22 15:56:00* Test Item Value Reference Range Interpretation Comments Lymphocytes # (Auto) (test code = 80628-2) 1.6 1.0-3.2 [facility] CenterMonocytes # (Auto)2019-03-22 15:56:00* Test Item Value Reference Range Interpretation Comments Monocytes # (Auto) (test code = 742-7) 0.4 0.2-0.8 [facility] CenterEosinophils # (Auto)2019-03-22 15:56:00* Test Item Value Reference Range Interpretation Comments Eosinophils # (Auto) (test code = 711-2) 0.1 0.0-0.4 [facility] CenterBasophils # (Auto)2019-03-22 15:56:00* Test Item Value Reference Range Interpretation Comments Basophils # (Auto) (test code = 704-7) 0.0 0.0-0.1 [facility] CenterAbsolute Immature Granulocyte (auto 2019-03-22 15:56:00* Test Item Value Reference Range Interpretation Comments Absolute Immature Granulocyte (auto (cuca t code = Absolute Immature Granulocyte (auto) 0.02 0-0.1 [facility] CenterUrine Drfmg3853-79-27 15:56:00* Test Item Value Reference Range Interpretation Comments Urine Color (test code = 5778-6) YELLOW YELLOW [facility] CenterUrine Dpdqnyl3949-20-66 15:56:00* Test Item Value Reference Range Interpretation Comments Urine Clarity (test code = 68238-7) HAZY CLEAR [facility] CenterUrine Specific Xvesrdh0456-24-33 15:56:00 * Test Item Value Reference Range Interpretation Comments Urine Specific [place] (test code = 5811-5) 1.010 1.010-1.02 5 [facility] CenterUrine aP8910-26-47 15:56:00* Test Item Value Reference Range Interpretation Comments Urine pH (test code = 17162-4) 8 5-7 [facility] CenterU[facility] Leukocyte Leovqrnc5328-60-99 15:56:00* Test Item Value Reference Range Interpretation Comments Urine Leukocyte Esterase (test code = 71960-0) NEGATIVE NEGATIV E [facility] CenterU[facility] Lvuugtr8797-37-31 15:56:00* Test Item Value Reference Range Interpretation Comments Urine Nitrite (test code = 06054-8) NEGATIVE NEGATIVE [facility] CenterUrine Fqqusdy9140-25-41 15:56:00* Test Item Value Reference Range Interpretation Comments Urine Protein (test code = 75440-1) NEGATIVE NEGATIVE [facility] CenterUrine Glucose (UA)2019-03-22 15:56:00* Test Item Value Reference Range Interpretation Comments Urine Glucose (UA) (test code = 37900-1) 3+ NEGATIVE [facility] CenterUrine Yxipqjo8183-63-17 15:56:00* Test Item Value Reference Range Interpretation Comments Urine Ketones (test code = 58623-5) NEGATIVE NEGATIVE [facility] CenterUrine Jhtylrsbqhse9477-75-52 15:56:00* Test Item Value Reference Range Interpretation Comments Urine Urobilinogen (test code = 18156-4) 4 0.2-1 [facility] CenterU[facility] Vmkfvrvhh7324-72-62 15:56:00* Test Item Value Reference Range Interpretation Comments Urine Bilirubin (test code = 1977-8) NEGATIVE NEGATIVE [facility] CenterU[facility] Jdexq8325-23-59 15:56:00* Test Item Value Reference Range Interpretation Comments Urine Blood (test code = 93558-8) TRACE NEGATIVE [facility] CenterWhite Blood Yqgie8384-38-62 15:56:00* Test Item Value Reference Range Interpretation Comments White Blood Count (test code = 6690-2) 6.10 4.8-10.8 [facility] CenterRed Blood Kbcxi8894-19-14 15:56:00* Test Item Value Reference Range Interpretation Comments Red Blood Count (test code = 789-8) 4.55 3.6-5.1 [facility] CenterHemoglobin2019-06-05 15:56:00* Test Item Value Reference Range Interpretation Comments Hemoglobin (test code = 57440-2) 12.8 12.0-16.0 [facility] CenterHematocrit2019-06-05 15:56:00* Test Item Value Reference Range Interpretation Comments Hematocrit (test code = 4544-3) 38.5 34.2-44.1 [facility] CenterMean Corpuscular Uytwan0425-48-33 15:56:00* Test Item Value Reference Range Interpretation Comments Mean Corpuscular Volume (test code = 787-2) 84.6 81-99 [facility] CenterMean Corpuscular Tbeauznxwz0323-52-94 15:56:00* Test Item Value Reference Range Interpretation Comments Mean Corpuscular Hemoglobin (test code = 785-6) 28.1 28-32 [facility] CenterMean Corpuscular Hemoglobin Concent 2019-03-22 15:56:00* Test Item Value Reference Range Interpretation Comments Mean Corpuscular Hemoglobin Concent (test code = 786-4) 33.2 31-35 [facility] CenterRed Cell Distribution Cfkst0431-22-36 15:56:00* Test Item Value Reference Range Interpretation Comments Red Cell Distribution Width (test code = 94154-1) 15.6 11.7 -14.4 H [facility] CenterPlatelet Jsntu0150-27-75 15:56:00* Test Item Value Reference Range Interpretation Comments Platelet Count (test code = 777-3) 115 140-360 L [facility] CenterNeutrophils (%) (Auto)2019-03-22 15:56:00 * Test Item Value Reference Range Interpretation Comments Neutrophils (%) (Auto) (test code = 64504-6) 64.2 38.7-80.0 [facility] CenterLymphocytes (%) (Auto)2019-03-22 15:56:00 * Test Item Value Reference Range Interpretation Comments Lymphocytes (%) (Auto) (test code = 736-9) 25.7 18.0-39.1 [facility] CenterMonocytes (%) (Auto)2019-03-22 15:56:00* Test Item Value Reference Range Interpretation Comments Monocytes (%) (Auto) (test code = 5905-5) 7.0 4.4-11.3 [facility] CenterEosinophils (%) (Auto)2019-03-22 15:56:00 * Test Item Value Reference Range Interpretation Comments Eosinophils (%) (Auto) (test code = 713-8) 2.1 0.0-6.0 [facility] CenterBasophils (%) (Auto)2019-03-22 15:56:00* Test Item Value Reference Range Interpretation Comments Basophils (%) (Auto) (test code = 706-2) 0.7 0.0-1.0 [facility] CenterIM GRANULOCYTES %2019-03-22 15:56:00* Test Item Value Reference Range Interpretation Comments IM GRANULOCYTES % (test code = IM GRANULOCYTES %) 0.3 0.0- 1.0 [facility] CenterNeutrophils # (Auto)2019-03-22 15:56:00* Test Item Value Reference Range Interpretation Comments Neutrophils # (Auto) (test code = 751-8) 3.9 2.1-6.9 [facility] CenterLymphocytes # (Auto)2019-03-22 15:56:00* Test Item Value Reference Range Interpretation Comments Lymphocytes # (Auto) (test code = 82589-4) 1.6 1.0-3.2 [facility] CenterMonocytes # (Auto)2019-03-22 15:56:00* Test Item Value Reference Range Interpretation Comments Monocytes # (Auto) (test code = 742-7) 0.4 0.2-0.8 [facility] CenterEosinophils # (Auto)2019-03-22 15:56:00* Test Item Value Reference Range Interpretation Comments Eosinophils # (Auto) (test code = 711-2) 0.1 0.0-0.4 [facility] CenterBasophils # (Auto)2019-03-22 15:56:00* Test Item Value Reference Range Interpretation Comments Basophils # (Auto) (test code = 704-7) 0.0 0.0-0.1 [facility] CenterAbsolute Immature Granulocyte (auto 2019-03-22 15:56:00* Test Item Value Reference Range Interpretation Comments Absolute Immature Granulocyte (auto (cuca t code = Absolute Immature Granulocyte (auto) 0.02 0-0.1 [facility] CenterUrine Bpyis8321-25-71 15:56:00* Test Item Value Reference Range Interpretation Comments Urine Color (test code = 5778-6) YELLOW YELLOW [facility] CenterUrine Vbwjyhu4754-49-19 15:56:00* Test Item Value Reference Range Interpretation Comments Urine Clarity (test code = 02665-5) HAZY CLEAR [facility] CenterUrine Specific Eexkbgm2817-77-52 15:56:00 * Test Item Value Reference Range Interpretation Comments Urine Specific [place] (test code = 5811-5) 1.010 1.010-1.02 5 [facility] CenterUrine kL5013-99-87 15:56:00* Test Item Value Reference Range Interpretation Comments Urine pH (test code = 15798-8) 8 5-7 [facility] CenterUrine Leukocyte Bkidxfjz5648-12-12 15:56:00* Test Item Value Reference Range Interpretation Comments Urine Leukocyte Esterase (test code = 52844-0) NEGATIVE NEGATIV E [facility] CenterUrine Ynrifbc1193-78-92 15:56:00* Test Item Value Reference Range Interpretation Comments Urine Nitrite (test code = 08147-8) NEGATIVE NEGATIVE [facility] CenterUrine Avmqwgi0126-02-96 15:56:00* Test Item Value Reference Range Interpretation Comments Urine Protein (test code = 34381-6) NEGATIVE NEGATIVE [facility] CenterUrine Glucose (UA)2019-03-22 15:56:00* Test Item Value Reference Range Interpretation Comments Urine Glucose (UA) (test code = 23847-8) 3+ NEGATIVE [facility] CenterUrine Anohcix9081-98-56 15:56:00* Test Item Value Reference Range Interpretation Comments Urine Ketones (test code = 37039-9) NEGATIVE NEGATIVE [facility] CenterUrine Vijshlpahwxo8751-01-28 15:56:00* Test Item Value Reference Range Interpretation Comments Urine Urobilinogen (test code = 06976-9) 4 0.2-1 [facility] CenterUrine Shrawdzyw3258-97-59 15:56:00* Test Item Value Reference Range Interpretation Comments Urine Bilirubin (test code = 1977-8) NEGATIVE NEGATIVE [facility] CenterUrine Awugn5022-50-23 15:56:00* Test Item Value Reference Range Interpretation Comments Urine Blood (test code = 18868-4) TRACE NEGATIVE [facility] CenterWhite Blood Mvujh2186-45-27 15:56:00* Test Item Value Reference Range Interpretation Comments White Blood Count (test code = 6690-2) 6.10 4.8-10.8 [facility] CenterRed Blood Cqkjb1362-59-54 15:56:00* Test Item Value Reference Range Interpretation Comments Red Blood Count (test code = 789-8) 4.55 3.6-5.1 [facility] CenterHemoglobin2019-06-05 15:56:00* Test Item Value Reference Range Interpretation Comments Hemoglobin (test code = 56158-7) 12.8 12.0-16.0 [facility] CenterHematocrit2019-06-05 15:56:00* Test Item Value Reference Range Interpretation Comments Hematocrit (test code = 4544-3) 38.5 34.2-44.1 [facility] CenterMean Corpuscular Jviiin0961-76-92 15:56:00* Test Item Value Reference Range Interpretation Comments Mean Corpuscular Volume (test code = 787-2) 84.6 81-99 [facility] CenterMean Corpuscular Lsceqmphnh1682-32-66 15:56:00* Test Item Value Reference Range Interpretation Comments Mean Corpuscular Hemoglobin (test code = 785-6) 28.1 28-32 [facility] CenterMean Corpuscular Hemoglobin Concent 2019-03-22 15:56:00* Test Item Value Reference Range Interpretation Comments Mean Corpuscular Hemoglobin Concent (test code = 786-4) 33.2 31-35 [facility] CenterRed Cell Distribution Vwimc0714-86-77 15:56:00* Test Item Value Reference Range Interpretation Comments Red Cell Distribution Width (test code = 53916-1) 15.6 11.7 -14.4 H [facility] CenterPlatelet Hmlnj3557-17-39 15:56:00* Test Item Value Reference Range Interpretation Comments Platelet Count (test code = 777-3) 115 140-360 L [facility] CenterNeutrophils (%) (Auto)2019-03-22 15:56:00 * Test Item Value Reference Range Interpretation Comments Neutrophils (%) (Auto) (test code = 45247-3) 64.2 38.7-80.0 [facility] CenterLymphocytes (%) (Auto)2019-03-22 15:56:00 * Test Item Value Reference Range Interpretation Comments Lymphocytes (%) (Auto) (test code = 736-9) 25.7 18.0-39.1 [facility] CenterMonocytes (%) (Auto)2019-03-22 15:56:00* Test Item Value Reference Range Interpretation Comments Monocytes (%) (Auto) (test code = 5905-5) 7.0 4.4-11.3 [facility] CenterEosinophils (%) (Auto)2019-03-22 15:56:00 * Test Item Value Reference Range Interpretation Comments Eosinophils (%) (Auto) (test code = 713-8) 2.1 0.0-6.0 [facility] CenterBasophils (%) (Auto)2019-03-22 15:56:00* Test Item Value Reference Range Interpretation Comments Basophils (%) (Auto) (test code = 706-2) 0.7 0.0-1.0 [facility] CenterIM GRANULOCYTES %2019-03-22 15:56:00* Test Item Value Reference Range Interpretation Comments IM GRANULOCYTES % (test code = IM GRANULOCYTES %) 0.3 0.0- 1.0 [facility] CenterNeutrophils # (Auto)2019-03-22 15:56:00* Test Item Value Reference Range Interpretation Comments Neutrophils # (Auto) (test code = 751-8) 3.9 2.1-6.9 [facility] CenterLymphocytes # (Auto)2019-03-22 15:56:00* Test Item Value Reference Range Interpretation Comments Lymphocytes # (Auto) (test code = 65161-6) 1.6 1.0-3.2 [facility] CenterMonocytes # (Auto)2019-03-22 15:56:00* Test Item Value Reference Range Interpretation Comments Monocytes # (Auto) (test code = 742-7) 0.4 0.2-0.8 [facility] CenterEosinophils # (Auto)2019-03-22 15:56:00* Test Item Value Reference Range Interpretation Comments Eosinophils # (Auto) (test code = 711-2) 0.1 0.0-0.4 [facility] CenterBasophils # (Auto)2019-03-22 15:56:00* Test Item Value Reference Range Interpretation Comments Basophils # (Auto) (test code = 704-7) 0.0 0.0-0.1 [facility] CenterAbsolute Immature Granulocyte (auto 2019-03-22 15:56:00* Test Item Value Reference Range Interpretation Comments Absolute Immature Granulocyte (auto (cuca t code = Absolute Immature Granulocyte (auto) 0.02 0-0.1 [facility] CenterUrine Kmdpf4154-47-69 15:56:00* Test Item Value Reference Range Interpretation Comments Urine Color (test code = 5778-6) YELLOW YELLOW [facility] CenterUrine Oqtsmcx5815-25-38 15:56:00* Test Item Value Reference Range Interpretation Comments Urine Clarity (test code = 37520-9) HAZY CLEAR [facility] CenterUrine Specific Jcikkgb2324-63-75 15:56:00 * Test Item Value Reference Range Interpretation Comments Urine Specific [place] (test code = 5811-5) 1.010 1.010-1.02 5 [facility] CenterUrine qQ9081-45-65 15:56:00* Test Item Value Reference Range Interpretation Comments Urine pH (test code = 79294-5) 8 5-7 [facility] CenterUrine Leukocyte Lqkeovjr2923-58-30 15:56:00* Test Item Value Reference Range Interpretation Comments Urine Leukocyte Esterase (test code = 19280-7) NEGATIVE NEGATIV E [facility] Mvpodaw8348-40-43 15:56:00* Test Item Value Reference Range Interpretation Comments Urine Nitrite (test code = 34771-6) NEGATIVE NEGATIVE [facility] Cieoloy5068-73-31 15:56:00* Test Item Value Reference Range Interpretation Comments Urine Protein (test code = 18840-2) NEGATIVE NEGATIVE [facility] Glucose (UA)2019-03-22 15:56:00* Test Item Value Reference Range Interpretation Comments Urine Glucose (UA) (test code = 66641-0) 3+ NEGATIVE [facility] CenterUrine Bwtuvce8405-87-86 15:56:00* Test Item Value Reference Range Interpretation Comments Urine Ketones (test code = 89684-2) NEGATIVE NEGATIVE [facility] Zcetorteitjx5953-72-22 15:56:00* Test Item Value Reference Range Interpretation Comments Urine Urobilinogen (test code = 37200-8) 4 0.2-1 [facility] CenterUrine Xchuqodjm7683-45-46 15:56:00* Test Item Value Reference Range Interpretation Comments Urine Bilirubin (test code = 1977-8) NEGATIVE NEGATIVE [facility] CenterUrine Zbmgz9914-30-41 15:56:00* Test Item Value Reference Range Interpretation Comments Urine Blood (test code = 77862-4) TRACE NEGATIVE [facility] CenterWhite Blood Qlsvg5113-04-22 15:56:00* Test Item Value Reference Range Interpretation Comments White Blood Count (test code = 6690-2) 6.10 4.8-10.8 [facility] CenterRed Blood Gomws7051-60-39 15:56:00* Test Item Value Reference Range Interpretation Comments Red Blood Count (test code = 789-8) 4.55 3.6-5.1 [facility] CenterHemoglobin2019-06-05 15:56:00* Test Item Value Reference Range Interpretation Comments Hemoglobin (test code = 13485-5) 12.8 12.0-16.0 [facility] CenterHematocrit2019-06-05 15:56:00* Test Item Value Reference Range Interpretation Comments Hematocrit (test code = 4544-3) 38.5 34.2-44.1 [facility] CenterMean Corpuscular Xtqobu2425-57-29 15:56:00* Test Item Value Reference Range Interpretation Comments Mean Corpuscular Volume (test code = 787-2) 84.6 81-99 [facility] CenterMean Corpuscular Neynmmersm8730-59-34 15:56:00* Test Item Value Reference Range Interpretation Comments Mean Corpuscular Hemoglobin (test code = 785-6) 28.1 28-32 [facility] CenterMean Corpuscular Hemoglobin Concent 2019-03-22 15:56:00* Test Item Value Reference Range Interpretation Comments Mean Corpuscular Hemoglobin Concent (test code = 786-4) 33.2 31-35 [facility] CenterRed Cell Distribution Uovhq3365 15:56:00* Test Item Value Reference Range Interpretation Comments Red Cell Distribution Width (test code = 42887-7) 15.6 11.7 -14.4 H [facility] CenterPlatelet Lujvx4264-92-66 15:56:00* Test Item Value Reference Range Interpretation Comments Platelet Count (test code = 777-3) 115 140-360 L [facility] CenterNeutrophils (%) (Auto)2019-03-22 15:56:00 * Test Item Value Reference Range Interpretation Comments Neutrophils (%) (Auto) (test code = 55116-5) 64.2 38.7-80.0 [facility] CenterLymphocytes (%) (Auto)2019-03-22 15:56:00 * Test Item Value Reference Range Interpretation Comments Lymphocytes (%) (Auto) (test code = 736-9) 25.7 18.0-39.1 [facility] CenterMonocytes (%) (Auto)2019-03-22 15:56:00* Test Item Value Reference Range Interpretation Comments Monocytes (%) (Auto) (test code = 5905-5) 7.0 4.4-11.3 [facility] CenterEosinophils (%) (Auto)2019-03-22 15:56:00 * Test Item Value Reference Range Interpretation Comments Eosinophils (%) (Auto) (test code = 713-8) 2.1 0.0-6.0 [facility] CenterBasophils (%) (Auto)2019-03-22 15:56:00* Test Item Value Reference Range Interpretation Comments Basophils (%) (Auto) (test code = 706-2) 0.7 0.0-1.0 [facility] CenterIM GRANULOCYTES %2019-03-22 15:56:00* Test Item Value Reference Range Interpretation Comments IM GRANULOCYTES % (test code = IM GRANULOCYTES %) 0.3 0.0- 1.0 [facility] CenterNeutrophils # (Auto)2019-03-22 15:56:00* Test Item Value Reference Range Interpretation Comments Neutrophils # (Auto) (test code = 751-8) 3.9 2.1-6.9 [facility] CenterLymphocytes # (Auto)2019-03-22 15:56:00* Test Item Value Reference Range Interpretation Comments Lymphocytes # (Auto) (test code = 82082-5) 1.6 1.0-3.2 [facility] CenterMonocytes # (Auto)2019-03-22 15:56:00* Test Item Value Reference Range Interpretation Comments Monocytes # (Auto) (test code = 742-7) 0.4 0.2-0.8 [facility] CenterEosinophils # (Auto)2019-03-22 15:56:00* Test Item Value Reference Range Interpretation Comments Eosinophils # (Auto) (test code = 711-2) 0.1 0.0-0.4 [facility] CenterBasophils # (Auto)2019-03-22 15:56:00* Test Item Value Reference Range Interpretation Comments Basophils # (Auto) (test code = 704-7) 0.0 0.0-0.1 [facility] CenterAbsolute Immature Granulocyte (auto 2019-03-22 15:56:00* Test Item Value Reference Range Interpretation Comments Absolute Immature Granulocyte (auto (cuca t code = Absolute Immature Granulocyte (auto) 0.02 0-0.1 [facility] CenterUrine Xiyju2434-83-39 15:56:00* Test Item Value Reference Range Interpretation Comments Urine Color (test code = 5778-6) YELLOW YELLOW [facility] CenterUrine Xmpmdlx6174-92-07 15:56:00* Test Item Value Reference Range Interpretation Comments Urine Clarity (test code = 05816-9) HAZY CLEAR [facility] CenterUrine Specific Jqefrkr3121-24-65 15:56:00 * Test Item Value Reference Range Interpretation Comments Urine Specific [place] (test code = 5811-5) 1.010 1.010-1.02 5 [facility] CenterUrine rV6698-70-86 15:56:00* Test Item Value Reference Range Interpretation Comments Urine pH (test code = 76012-4) 8 5-7 [facility] CenterUrine Leukocyte Bsvrlqdf3434-23-75 15:56:00* Test Item Value Reference Range Interpretation Comments Urine Leukocyte Esterase (test code = 73631-2) NEGATIVE NEGATIV E [facility] CenterUrine Gctcrkt2758-33-27 15:56:00* Test Item Value Reference Range Interpretation Comments Urine Nitrite (test code = 99526-3) NEGATIVE NEGATIVE [facility] CenterUrine Zbfrufh4387-60-90 15:56:00* Test Item Value Reference Range Interpretation Comments Urine Protein (test code = 33065-6) NEGATIVE NEGATIVE [facility] CenterUrine Glucose (UA)2019-03-22 15:56:00* Test Item Value Reference Range Interpretation Comments Urine Glucose (UA) (test code = 75381-0) 3+ NEGATIVE [facility] CenterUrine Fpgnsoh4664-36-89 15:56:00* Test Item Value Reference Range Interpretation Comments Urine Ketones (test code = 90605-7) NEGATIVE NEGATIVE [facility] CenterUrine Hvxxazjckdsx9666-36-60 15:56:00* Test Item Value Reference Range Interpretation Comments Urine Urobilinogen (test code = 29135-9) 4 0.2-1 [facility] CenterUrine Xirfghmhj0084-22-21 15:56:00* Test Item Value Reference Range Interpretation Comments Urine Bilirubin (test code = 1977-8) NEGATIVE NEGATIVE [facility] Atrqm2398-83-11 15:56:00* Test Item Value Reference Range Interpretation Comments Urine Blood (test code = 96927-1) TRACE NEGATIVE [facility] CenterTISSUE HVVS2129-15-02 17:02:00Surgical Pathology Report Case: [id number] Authorizing Provider: Fidencio Jackson MD Collected: 01/17/2019 1120 Ordering Location: [facility] Radiology Angio Received: 01/17/2019 1426 Pathologist: Laura Porter MD Specimen: Liver LIVER, ULTRASOUND-GUIDED NEEDLE BIOPSIES- CIRRHOSIS- STEATOSIS (~6%)- RARE BALLOONED HEPATOCYTE- see comment Signing Pathologist Direct Phone Line: [phone] signed by Laura Porter MD on 01/20/2019 at 5:02 PMThe histological features are consistent with cirrhosis secondary to steatohe patitis. No features of autoimmune hepatitis are seen.The non-alcoholic steatohe patitis (GIANFRANCO) activity scoring is performed according to guidelines from non-alc oholic steatohepatitis, clinical research network (Pilo, et al. Hepatology 06 03. 41:1313-21), at the request of the clinician, for research related purposes. The GIANFRANCO score is: Steatosis: Grade 1 + lobular inflammation, grade 0 + hepatocyt e ballooning score 1 = 2/8. The fibrosis score is 4 of 4.36843, 57435 X5Yfpqfsmz liver enzymesNative right liver biopsyThe specimen is received in a formalin-fi lled container and labeled with the patient's information and labeled "right kelly vesta liver biopsy" and consists of two rockwell-red core biopsies measuring 1.5 x 1.7 cm in length, submitted entirely A1. CG/pl Section shows two cores of liver pare nchyma with greater than 10 portal tracts and is adequate for evaluation. Trichr ome and reticulin stain shows distortion of architecture with bridging fibrosis and incomplete to complete regenerative nodule formation. Foci of pericellular f ibrosis is present. The fibrous septa show cholangiolar proliferation and very m ild chronic lymphoplasmacytic inflammation. Few scattered ceroid laden macrophag es are present in the fibrous septa. No significant interface hepatitis is noted . The bile ducts appear preserved. No periductal inflammation, granulomas or que e duct scars are seen. There is miild steatosis, mixed small droplet and large d roplet type, involving almost 6% of liver parenchyma. Rare ballooned hepatocyte with early Marie Denk hyaline is seen. No significant lobular inflammation is present. Iron stain is negative. No hyaline globules are seen on PAS with diasta se stain.Special stains: trichrome, reticulin, iron and PAS with diastaseThe int erpretation of this case included the use of immunohistochemistry or special sta ins. Immunohistochemistry technical testing was performed at [facility], Pathology Laboratory where it was developed and its performance c haracteristics were determined. It has not been cleared or approved by the U.S. Food and Drug Administration. The FDA has determined that such clearance or appr oval is not necessary. The test is used for clinical purposes. It should not be regarded as investigational or for research. This laboratory is certified under the Clinical Laboratory Improvement Amendments of 1988 (CLIA-88) as qualified to perform high complexity clinical laboratory testing.U/S, BIOPSY, LIVER 2019-01-17 11:59:00Referring: MIGUELINA Anaya-CUltrasound guided liver biopsyAbnormal liver enzymes, cirrhosis, AIH vs NASHReason for Exam:->abnormal liver enzymesFINAL REPORT Ultrasound guided liver biopsy. Clinical History: Elevated LFTs. Comparison Study: Ultrasound dated December 14, 2018. Informed consent was obtained from the patient and the risks of the procedure were explained including bleeding, infection, pneumothorax and visceral injury. Sedation: 1% Xylocaine was used as local analgesia. One mg of Versed and 50 micrograms of fentanyl were administered using the moderate sedation protocol under the supervision of a physician. Moderate Sedation Time: 20 minutes. Technique: Using sterile technique, real-time ultrasound guidance and a 16 gauge core biopsy needle, a two pass core biopsy of the right lobe of the liver was performed. No immediate complications developed. Post procedure ultrasound demonstrates no hematoma. Patient disposition: The patient will be monitored for several hours to ensure that no symptoms develop. Impression: Successful core biopsy of the right lobe of the liver under ultrasound guidance. Signed: Javed Collazo MDReport Verified Date/Time: 01/17/2019 11:59:42 Reading Location: [address] Ultrasound Reading Room [id number] 08:59:00* Test Item Value Reference Range Interpretation Comments PARTIAL THROMBOPLASTIN TIME (BEAKER) (test code = 760) 37.7 seconds 22.5-36.0 H PROTHROMBIN TIME/[id number] 08:58:00* Test Item Value Reference Range Interpretation Comments PROTIME (BEAKER) (test code = 759) 14.7 seconds 11.7-14.7 INR (BEAKER) (test code = 370) 1.1 <=5.9 RECOMMENDED COUMADIN/WARFARIN INR THERAPY RANGESSTANDARD DOSE: 2.0 - 3.0 Inclu jered: PROPHYLAXIS for venous thrombosis, systemic embolization; TREATMENT for cristhian ous thrombosis and/or pulmonary embolus.HIGH RISK: Target INR is 2.5-3.5 for pat ients with mechanical heart valves.PLATELET [id number] 08:50:00* Test Item Value Reference Range Interpretation Comments PLATELET COUNT (BEAKER) (test code = 756) 113 K/CU MM 150-450 L PROTHROMBIN TIME/[id number] 09:40:00* Test Item Value Reference Range Interpretation Comments PROTIME (BEAKER) (test code = 759) 25.0 seconds 11.7-14.7 H INR (BEAKER) (test code = 370) 2.3 <=5.9 RECOMMENDED COUMADIN/WARFARIN INR THERAPY RANGESSTANDARD DOSE: 2.0 - 3.0 Inclu jered: PROPHYLAXIS for venous thrombosis, systemic embolization; TREATMENT for cristhian ous thrombosis and/or pulmonary embolus.HIGH RISK: Target INR is 2.5-3.5 for pat ients with mechanical heart valves.CBC W/PLT COUNT & AUTO [id number] 09:33:00* Test Item Value Reference Range Interpretation Comments WHITE BLOOD CELL COUNT (BEAKER) (test code = 775) 6.6 K/ L 3.5- 10.5 RED BLOOD CELL COUNT (BEAKER) (test code = 761) 4.61 M/ L 3.93-5 .22 HEMOGLOBIN (BEAKER) (test code = 410) 12.8 GM/DL 11.2-15.7 HEMATOCRIT (BEAKER) (test code = 411) 39.8 % 34.1-44.9 MEAN CORPUSCULAR VOLUME (BEAKER) (test code = 753) 86.3 fL 79. 4-94.8 MEAN CORPUSCULAR HEMOGLOBIN (BEAKER) (test code = 751) 27.8 pg 25.6-32.2 MEAN CORPUSCULAR HEMOGLOBIN CONC (BEAKER) (test code = 752) 32.2 GM/DL 32.2-35.5 RED CELL DISTRIBUTION WIDTH (BEAKER) (test code = 412) 15.3 % 11.7-14.4 H PLATELET COUNT (BEAKER) (test code = 756) 128 K/CU MM 150-450 L MEAN PLATELET VOLUME (BEAKER) (test code = 754) 10.9 fL 9.4-12 .3 NUCLEATED RED BLOOD CELLS (BEAKER) (test code = 413) 0 /100 WBC 0 -0 NEUTROPHILS RELATIVE PERCENT (BEAKER) (test code = 429) 66 % LYMPHOCYTES RELATIVE PERCENT (BEAKER) (test code = 430) 24 % MONOCYTES RELATIVE PERCENT (BEAKER) (test code = 431) 6 % EOSINOPHILS RELATIVE PERCENT (BEAKER) (test code = 432) 3 % BASOPHILS RELATIVE PERCENT (BEAKER) (test code = 437) 1 % NEUTROPHILS ABSOLUTE COUNT (BEAKER) (test code = 670) 4.38 K/ L 1.56-6.13 LYMPHOCYTES ABSOLUTE COUNT (BEAKER) (test code = 414) 1.58 K/ L 1.18-3.74 MONOCYTES ABSOLUTE COUNT (BEAKER) (test code = 415) 0.41 K/ L 0. 24-0.36 H EOSINOPHILS ABSOLUTE COUNT (BEAKER) (test code = 416) 0.18 K/ L 0.04-0.36 BASOPHILS ABSOLUTE COUNT (BEAKER) (test code = 417) 0.05 K/ L 0. 01-0.08 IMMATURE GRANULOCYTES-RELATIVE PERCENT (BEAKER) (test code = 2801) 1 % 0-1 U/S, ABDOMINAL, [id number] 11:18:00Referring: MIGUELINA Anaya- CCirrhosis assess for HCCReason for Exam:->Cirrhosis asess for HCCFINAL REPORT Ultrasound of the abdomen. Clinical History: Cirrhosis asess for HCC. Comparison study: MRI dated April 08, 2018. Findings: The liver is coarsened in echotexture with no focal masses. It measures 19.1 cm in length. There is no evidence of intra or extrahepatic biliary dilatation with the common bile duct measuring six mm. The main portal vein diameter is 1.3 cm. The gallbladder has been resected. The spleen measures 16.6 cm and is unremarkable. The pancreas is poorly seen. Trace ascites is present. The right kidney alton sures 12.1 cm and left kidney measures 12.4 cm, both within normal limits. The p roximal aorta and IVC are unremarkable. No pleural effusion is seen. Impression: 1. Nodular, cirrhotic appearing liver with no focal masses.2. Trace ascites.3. Pancreas poorly seen. Signed: Javed Collazo MDReport Verified Date/Time: 11/19 11:18:11 Reading Location: [address] Radiology Reading Room Elec tronically signed by: JAVED COLLAZO M.D. on 12/14/2018 11:18 AM ALPHA FETOPROTEIN (AFP), TUMOR [id number] 19:36:00* Test Item Value Reference Range Interpretation Comments ALPHA-FETOPROTEIN (BEAKER) (test code = 1094) 4.2 ng/mL <10.0 HEPATIC FUNCTION [id number] 17:53:00* Test Item Value Reference Range Interpretation Comments TOTAL PROTEIN (BEAKER) (test code = 770) 8.2 gm/dL 6.0-8.3 ALBUMIN (BEAKER) (test code = 1145) 3.7 g/dL 3.5-5.0 BILIRUBIN TOTAL (BEAKER) (test code = 377) 1.3 mg/dL 0.2-1.2 H BILIRUBIN DIRECT (BEAKER) (test code = 706) 0.5 mg/dL 0.1-0.5 ALKALINE PHOSPHATASE (BEAKER) (test code = 346) 85 U/L 40-150 AST (SGOT) (BEAKER) (test code = 353) 35 U/L 5-34 H ALT (SGPT) (BEAKER) (test code = 347) 21 U/L 6-55 BASIC METABOLIC [id number] 17:53:00* Test Item Value Reference Range Interpretation Comments SODIUM (BEAKER) (test code = 381) 141 meq/L 136-145 POTASSIUM (BEAKER) (test code = 379) 4.0 meq/L 3.5-5.1 CHLORIDE (BEAKER) (test code = 382) 105 meq/L 98-107 CO2 (BEAKER) (test code = 355) 32 meq/L 22-29 H BLOOD UREA NITROGEN (BEAKER) (test code = 354) 14 mg/dL 7-21 CREATININE (BEAKER) (test code = 358) 0.75 mg/dL 0.57-1.25 GLUCOSE RANDOM (BEAKER) (test code = 652) 153 mg/dL 70-105 H CALCIUM (BEAKER) (test code = 697) 9.6 mg/dL 8.4-10.2 EGFR (BEAKER) (test code = 1092) 81 mL/min/1.73 sq m ESTIMATED GFR IS NOT ACCURATE CREATININE CLEARANCE IN PREDICTING GLOMERULAR FILTRATION RATE. ESTIMATED GFR IS NOT APPLICABLE FOR DIALYSIS PATIENTS. PROTHROMBIN TIME/[id number] 17:46:00* Test Item Value Reference Range Interpretation Comments PROTIME (BEAKER) (test code = 759) 19.1 seconds 11.7-14.7 H INR (BEAKER) (test code = 370) 1.6 <=5.9 RECOMMENDED COUMADIN/WARFARIN INR THERAPY RANGESSTANDARD DOSE: 2.0 - 3.0 Inclu jered: PROPHYLAXIS for venous thrombosis, systemic embolization; TREATMENT for cristhian ous thrombosis and/or pulmonary embolus.HIGH RISK: Target INR is 2.5-3.5 for pat ients with mechanical heart valves.CBC W/PLT COUNT & AUTO [id number] 17:32:00* Test Item Value Reference Range Interpretation Comments WHITE BLOOD CELL COUNT (BEAKER) (test code = 775) 6.2 K/ L 3.5- 10.5 RED BLOOD CELL COUNT (BEAKER) (test code = 761) 4.40 M/ L 3.93-5 .22 HEMOGLOBIN (BEAKER) (test code = 410) 12.2 GM/DL 11.2-15.7 HEMATOCRIT (BEAKER) (test code = 411) 39.2 % 34.1-44.9 MEAN CORPUSCULAR VOLUME (BEAKER) (test code = 753) 89.1 fL 79. 4-94.8 MEAN CORPUSCULAR HEMOGLOBIN (BEAKER) (test code = 751) 27.7 pg 25.6-32.2 MEAN CORPUSCULAR HEMOGLOBIN CONC (BEAKER) (test code = 752) 31.1 GM/DL 32.2-35.5 L RED CELL DISTRIBUTION WIDTH (BEAKER) (test code = 412) 15.9 % 11.7-14.4 H PLATELET COUNT (BEAKER) (test code = 756) 134 K/CU MM 150-450 L MEAN PLATELET VOLUME (BEAKER) (test code = 754) 11.9 fL 9.4-12 .3 NUCLEATED RED BLOOD CELLS (BEAKER) (test code = 413) 0 /100 WBC 0 -0 NEUTROPHILS RELATIVE PERCENT (BEAKER) (test code = 429) 67 % LYMPHOCYTES RELATIVE PERCENT (BEAKER) (test code = 430) 23 % MONOCYTES RELATIVE PERCENT (BEAKER) (test code = 431) 6 % EOSINOPHILS RELATIVE PERCENT (BEAKER) (test code = 432) 2 % BASOPHILS RELATIVE PERCENT (BEAKER) (test code = 437) 1 % NEUTROPHILS ABSOLUTE COUNT (BEAKER) (test code = 670) 4.21 K/ L 1.56-6.13 LYMPHOCYTES ABSOLUTE COUNT (BEAKER) (test code = 414) 1.44 K/ L 1.18-3.74 MONOCYTES ABSOLUTE COUNT (BEAKER) (test code = 415) 0.39 K/ L 0. 24-0.36 H EOSINOPHILS ABSOLUTE COUNT (BEAKER) (test code = 416) 0.13 K/ L 0.04-0.36 BASOPHILS ABSOLUTE COUNT (BEAKER) (test code = 417) 0.05 K/ L 0. 01-0.08 IMMATURE GRANULOCYTES-RELATIVE PERCENT (BEAKER) (test code = 2801) 0 % 0-1 RAD, HAND, 2 VIEWS, [id number] 13:22:00Referring: CRISTIAN Anaya for Exam:->m79.641Reason for Exam:->m79.642FINAL REPORT Exam: Right and left hand three views each History: Pain Comparison: None. Findings: No fracture or malalignment. Bone demineralization. Narrowing of the interphalangeal joints and first carpometacarpal joint. No abnormal soft tissue calcification or soft tissue defect. Impression: No acute osseous abnormality Osteoarthrosis of the interphalangeal and first carpometacarpal joint Signed: Armida Head Verified Date/Time: 11/17/2018 13:22:55 , HAND, 2 VIEWS, [id number] 13:22:00Referring: Rolando Anaya for Exam:->m79.641Reason for Exam:->m79.642FINAL REPORT Exam: Right and left hand three views each History: Pain Comparison: None. Findings: No fracture or malalignment. Bone demineralization. Narrowing of the interphalangeal joints and first carpometacarpal joint. No abnormal soft tissue calcification or soft tissue defect. Impression: No acute osseous abnormality Osteoarthrosis of the interphalangeal and first carpometacarpal joint Signed: Armida Head Verified Date/Time: 11/17/2018 13:22:55 ABD/PEL WITH [id number]-[id number] 22:26:[address], [place] [address] Patient Name: ANDREZ CARR MR #: [id number] : 1965 Age/Sex: 53/F Req #: [id number] Adm Physician: Ordered by: SAVANNAH RUFF MD Report #: [id number] Location: [facility] Room/Bed: Procedure: 1218 -0004 HOPD/CT ABD/PEL WITH CONTRAST-HOPD Exam Date: 10/04/18 Exam Time: 2143 REPORT STA TUS: Signed EXAM: CT ABD/PEL WITH CONTRAST-HOPD DATE: 10/04/2018 12:00 AM INDICATION: Abdominal pain COMPARISON: 07/21/2018 TECHNIQUE: The abdomen and pelvis were scanned using a multidetector helical scanner. Coronal and sa gittal reformations were obtained. CT low dose techniques were utilized, as a pplicable. IV Contrast: 100 ml Isovue 300/370 FINDINGS: Evaluation luis ewhat degraded by noise related to body habitus. LOWER THORAX: No consolidatio ns LIVER: Stable morphologic changes suggesting cirrhosis. No masses. GALLBLADDER/BILIARY: Surgically absent SPLEEN: Stable splenomegaly, 15 to 16 cm. PANCREAS: Unremarkable ADRENALS: No nodules KIDNEYS: No suspicious renal masses. Stable 3 mm nonobstructing left renal calculus. No hydronephro sis. GI TRACT: Postsurgical changes are again noted status post prior bow el resections. Unchanged haziness of the small bowel mesentery. No evidence of bowel obstruction. Appendix is not visualized. VESSELS: Moderate atheros clerotic changes. Infrarenal IVC filter is again noted. PERITONEUM/RETROPERITO NEUM: No free air or fluid collection. Stable areas of fat necrosis. LYMPH N ODES: No lymphadenopathy REPRODUCTIVE ORGANS/BLADDER: Hysterectomy. Decompr essed bladder. SOFT TISSUES: Postsurgical changes along the anterior abdomi nal wall with juxtaposed bowel. BONES: No suspicious bone lesions. IMPR ESSION: 1. No significant change from prior. No acute abnormality. 2. Mor phologic changes of cirrhosis with splenomegaly suggesting portal hypertension . Signed by: Dr Davion Rojo MD on 10/04/2018 10:34 PM Dictated By : DAVION ROJO MD 2 234 Transcribed By: CHERYL on 10/04/18 4380 COPY TO: SAVANNAH RUFF MD CT ABDOMEN/PELVIS [id number] 16:21:00 [place] [address] Patient Name: ANDREZ CARR MR #: [id number] : 1965 Age/Sex: 53/F Req #: [id number] Adm Physician: Ordered by: ALLISON DONAHUE MD Report #: [id number] Location: ER Room/Bed: Procedure: [id number] CT/CT ABDOMEN/PELVIS W Exa m Date: Exam Time: REPORT STATUS: Signed E XAM: CT of the abdomen and pelvis WITH contrast HISTORY: Abdominal pain, vomiting, nausea, blood in stool, lower abdominal pain COMPARISON: CT abdom en and pelvis April 03, 2018. TECHNIQUE: The abdomen and pelvis were scan tomas utilizing a multidetector helical scanner. Coronal and sagittal reformats are provided. PROTOCOL: Routine IV CONTRAST: 100 cc of Isovue-370. ORAL CONTRAST: Water RADIATION DO SE: Total DLP: 804.57 mGy*cm Estimated effective dose: (DLP x 0.015 x size factor) Dose modulation, iterative reconstruction, and/o r weight based adjustment of the mA/kV was utilized to reduce the radiation do se to as low as reasonably achievable. COMPLICATIONS: None FINDINGS: LOWER THORAX: Unremarkable LIVER: Persistent hepatomegaly with subtle nodular liver contour and relative enlargement of the left lobe and cau date lobes of the liver. BILIARY: Cholecystectomy. No ductal dilation. S PLEEN: Persistent splenomegaly. PANCREAS: No masses. Mild diffuse atrophy. ADRENALS: No nodules KIDNEYS: Symmetric perfusion. No enhancing masses. No h ydronephrosis. A stable 3 mm nonobstructing calcific density near the inferio r pole of the left kidney. GI TRACT: Postsurgical changes within the right lower quadrant of the abdomen/right pelvis, and in the rectosigmoid region. Ne ar one surgical anastomotic site there is mild dilation and small bowel feces sign (see series 2 image 58), but this appears similar to the comparison. Zo l gas and fecal material in the rectosigmoid region. VESSELS: Moderate at herosclerotic changes including the coronary arteries. IVC filter. PERITONE UM/RETROPERITONEUM: Persistent mild mesenteric edema and trace ascites adjacen t to the inferior liver. LYMPH NODES: No lymphadenopathy REPRODUCTIVE ORG ANS: Not visualized BLADDER: Decompressed, which limits evaluation. SOFT TISSUES: Unremarkable BONES: No suspicious bone lesions. IMPRESSION: 1. Findings remain consistent with early cirrhosis and portal hypertension. 2. Postsurgical changes within the abdomen and pelvis and one small segment of s table small bowel stasis, the stability suggests postsurgical stasis/mild color maker mario low-grade mechanical obstruction. If there is concern for developing/incr easing bowel obstruction, advise serial abdominal radiographs. 3. Stable 3 mm nonobstructing left renal stone. Signed by: Bell KabaO., M.M.M. on 07/21/2018 4:42 PM Dictated By: OG MENDEZ DO 41 Transcribed By: CHERYL on 07/21/181641 COPY TO: ALLISON DONAHUE MD Creatine Kinase [id number] 15:15:00* Test Item Value Reference Range Interpretation Comments Creatine Kinase MB (test code = 61073-9) 0.30 0-5.0 [facility] [id number] 15:15:00* Test Item Value Reference Range Interpretation Comments Troponin I (test code = OVK3089) -0.001 0-0.300 [facility] CenterThyroid Stimulating Hormone (TSH) 2018-07-21 15:15:00* Test Item Value Reference Range Interpretation Comments Thyroid Stimulating Hormone (TSH) (test code = 12935-7) 0.601 0.350-4.940 [facility] CenterCreatine Kinase [id number] 15:15:00* Test Item Value Reference Range Interpretation Comments Creatine Kinase MB (test code = 76869-0) 0.30 0-5.0 [place] [id number] 15:15:00* Test Item Value Reference Range Interpretation Comments Troponin I (test code = UJI4255) < 0.001 0-0.300 [facility] CenterTh[facility]ormone (TSH) 2018-07-21 15:15:00* Test Item Value Reference Range Interpretation Comments Thyroid Stimulating Hormone (TSH) (test code = 76435-4) 0.601 0.350-4.940 [facility] CenterCreatine Kinase [id number] 15:15:00* Test Item Value Reference Range Interpretation Comments Creatine Kinase MB (test code = 16046-2) 0.30 0-5.0 [place] [id number] 15:15:00* Test Item Value Reference Range Interpretation Comments Troponin I (test code = VUU5253) < 0.001 0-0.300 [facility] CenterThy[facility]ulating Hormone (TSH) 2018-07-21 15:15:00* Test Item Value Reference Range Interpretation Comments Thyroid Stimulating Hormone (TSH) (test code = 92069-7) 0.601 0.350-4.940 [facility] CenterCreatine Kinase [id number] 15:15:00* Test Item Value Reference Range Interpretation Comments Creatine Kinase MB (test code = 78317-0) 0.30 0-5.0 [place] [id number] 15:15:00* Test Item Value Reference Range Interpretation Comments Troponin I (test code = JPV8741) < 0.001 0-0.300 [facility] CenterTh[facility]ulating H[facility]one (TSH) 2018-07-21 15:15:00* Test Item Value Reference Range Interpretation Comments Thyroid Stimulating Hormone (TSH) (test code = 44668-5) 0.601 0.350-4.940 [facility] CenterTotal Rlrnuvvqw8573-19-75 15:02:00* Test Item Value Reference Range Interpretation Comments Total Bilirubin (test code = 1975-2) 1.5 0.2-1.2 H [facility] Cvdazduxm9618-79-10 15:02:00* Test Item Value Reference Range Interpretation Comments Total Bilirubin (test code = 1975-2) 1.5 0.2-1.2 [facility] Daezf8123-62-43 14:52:00* Test Item Value Reference Range Interpretation Comments Sodium Level (test code = 2951-2) 140 136-145 [facility] CenterPotassium Aymza4153-09-79 14:52:00* Test Item Value Reference Range Interpretation Comments Potassium Level (test code = 2823-3) 4.3 3.5-5.1 [facility] CenterChloride Vvoec1507-22-08 14:52:00* Test Item Value Reference Range Interpretation Comments Chloride Level (test code = 2075-0) 105 98-107 [facility] CenterCarbon Dioxide Stvpf1665-35-31 14:52:00* Test Item Value Reference Range Interpretation Comments Carbon Dioxide Level (test code = 2028-9) 23 22-29 [facility] CenterAnion [id number] 14:52:00* Test Item Value Reference Range Interpretation Comments Anion Gap (test code = 40657-0) 16.3 8-16 H [facility] CenterBlood Urea Xbdaaheq4253-29-99 14:52:00* Test Item Value Reference Range Interpretation Comments Blood Urea Nitrogen (test code = 3094-0) 12 7-26 [facility] CenterCreatinine2018-10-04 14:52:00* Test Item Value Reference Range Interpretation Comments Creatinine (test code = 2160-0) 0.90 0.57-1.11 [facility] CenterBUN/Creatinine Owicp3746-34-27 14:52:00* Test Item Value Reference Range Interpretation Comments BUN/Creatinine Ratio (test code = 3097-3) 13 6-25 [facility] CenterEstimat Glomerular Filtration Rate 2018-07-21 14:52:00* Test Item Value Reference Range Interpretation Comments Estimat Glomerular Filtration Rate (test code = 423285539) 60- >60 Ranges were taken from the National Kidney Disease Education Program and the [facility] literature.Reference ranges:60 or greater: Gucqvx66-06 ( for 3 consecutive months): Chronic kidney disease 15 or less: Kidney failureMatagorda Regional Medical CenterGlucose Grxui2787-06-16 14:52:00* Test Item Value Reference Range Interpretation Comments Glucose Level (test code = BBC6343) 184 74-118 H [facility] CenterCalcium Lvcrz4582-82-31 14:52:00* Test Item Value Reference Range Interpretation Comments Calcium Level (test code = 30475-8) 10.2 8.4-10.2 [facility] CenterMagnesium Vpbtn6377-63-30 14:52:00* Test Item Value Reference Range Interpretation Comments Magnesium Level (test code = 86548-1) 1.8 1.3-2.1 [facility] CenterAspartate Amino Transf (AST/SGOT) 2018-07-21 14:52:00* Test Item Value Reference Range Interpretation Comments Aspartate Amino Transf (AST/SGOT) (test code = Aspartate Amino Transf (AST/SGOT)) 63 5-34 H [facility] CenterAlanine Aminotransferase (ALT/SGPT) 2018-07-21 14:52:00* Test Item Value Reference Range Interpretation Comments Alanine Aminotransferase (ALT/SGPT) (test code = 1742-6) 38 0-55 [facility] CenterTotal Oqtlmcu8696-67-94 14:52:00* Test Item Value Reference Range Interpretation Comments Total Protein (test code = 2885-2) 8.7 6.5-8.1 H [facility] CenterAlbumin2018-10-04 14:52:00* Test Item Value Reference Range Interpretation Comments Albumin (test code = 1751-7) 3.8 3.5-5.0 [facility] CenterGlobulin2018-10-04 14:52:00* Test Item Value Reference Range Interpretation Comments Globulin (test code = 23012-9) 4.9 2.3-3.5 H [facility] CenterAlbumin/Globulin Kwasm8310-23-98 14:52:00 * Test Item Value Reference Range Interpretation Comments Albumin/Globulin Ratio (test code = 1759-0) 0.8 0.8-2.0 [facility] CenterAlkaline Nkxldtsfcbu6611-28-95 14:52:00* Test Item Value Reference Range Interpretation Comments Alkaline Phosphatase (test code = 6768-6) 103 40-150 [facility] CenterCreatine Bcvpha1763-28-61 14:52:00* Test Item Value Reference Range Interpretation Comments Creatine Kinase (test code = 2157-6) 37 29-168 [facility] CenterAmylase Ftnzm8652-90-82 14:52:00* Test Item Value Reference Range Interpretation Comments Amylase Level (test code = 1798-8) 63 25-125 [facility] CenterLipase2018-10-04 14:52:00* Test Item Value Reference Range Interpretation Comments Lipase (test code = 3040-3) 40 8-78 [facility] Centerodium Divut9735-46-60 14:52:00* Test Item Value Reference Range Interpretation Comments Sodium Level (test code = 2951-2) 140 136-145 [facility] CenterPotassium Vkmwa7141-51-44 14:52:00* Test Item Value Reference Range Interpretation Comments Potassium Level (test code = 2823-3) 4.3 3.5-5.1 [facility] CenterChloride Qzdog9732-68-69 14:52:00* Test Item Value Reference Range Interpretation Comments Chloride Level (test code = 2075-0) 105 98-107 [facility] CenterCarbon Dioxide Qmuak1620-45-50 14:52:00* Test Item Value Reference Range Interpretation Comments Carbon Dioxide Level (test code = 2028-9) 23 22-29 [facility] CenterAnion Fcc1014-99-52 14:52:00* Test Item Value Reference Range Interpretation Comments Anion Gap (test code = 90238-6) 16.3 8-16 H [facility] CenterBlood Urea Qkwgkckj6309-10-78 14:52:00* Test Item Value Reference Range Interpretation Comments Blood Urea Nitrogen (test code = 3094-0) 12 7-26 [facility] CenterCreatinine2018-10-04 14:52:00* Test Item Value Reference Range Interpretation Comments Creatinine (test code = 2160-0) 0.90 0.57-1.11 [facility] CenterBUN/Creatinine Igpud3755-91-87 14:52:00* Test Item Value Reference Range Interpretation Comments BUN/Creatinine Ratio (test code = 3097-3) 13 - [facility] CenterEstimat Glomerular Filtration Rate 2018-07-21 14:52:00* Test Item Value Reference Range Interpretation Comments Estimat Glomerular Filtration Rate (test code = 326970309) > 60 >60 Ranges were taken from the National Kidney Disease Education Program and the [facility] Foundation literature.Reference ranges:60 or greater: Fznflz40-62 ( for 3 consecutive months): Chronic kidney disease 15 or less: Kidney failureMatagorda Regional Medical CenterGlucose Mgmgh3233-87-42 14:52:00* Test Item Value Reference Range Interpretation Comments Glucose Level (test code = VSZ8087) 184 74-118 [facility] CenterCalcium Dsdzl2049-07-63 14:52:00* Test Item Value Reference Range Interpretation Comments Calcium Level (test code = 04647-2) 10.2 8.4-10.2 [facility] CenterMagnesium Hdnex5494-14-84 14:52:00* Test Item Value Reference Range Interpretation Comments Magnesium Level (test code = 81225-8) 1.8 1.3-2.1 [facility] CenterAspartate Amino Transf (AST/SGOT) 2018-07-21 14:52:00* Test Item Value Reference Range Interpretation Comments Aspartate Amino Transf (AST/SGOT) (test code = Aspartate Amino Transf (AST/SGOT)) 63 5-34 [facility] CenterAlanine Aminotransferase (ALT/SGPT) 2018-07-21 14:52:00* Test Item Value Reference Range Interpretation Comments Alanine Aminotransferase (ALT/SGPT) (test code = 1742-6) 38 0-55 [facility] CenterTotal Irzgkcv5333-57-82 14:52:00* Test Item Value Reference Range Interpretation Comments Total Protein (test code = 2885-2) 8.7 6.5-8.1 [facility] CenterAlbumin2018-10-04 14:52:00* Test Item Value Reference Range Interpretation Comments Albumin (test code = 1751-7) 3.8 3.5-5.0 [facility] CenterGlobulin2018-10-04 14:52:00* Test Item Value Reference Range Interpretation Comments Globulin (test code = 94771-7) 4.9 2.3-3.5 [facility] CenterAlbumin/Globulin Ptoos8927-46-14 14:52:00 * Test Item Value Reference Range Interpretation Comments Albumin/Globulin Ratio (test code = 1759-0) 0.8 0.8-2.0 [facility] CenterAlkaline Rraezkpwlgz3688-16-11 14:52:00* Test Item Value Reference Range Interpretation Comments Alkaline Phosphatase (test code = 6768-6) 103 40-150 [facility] CenterCreatine Squeox1341-65-64 14:52:00* Test Item Value Reference Range Interpretation Comments Creatine Kinase (test code = 2157-6) 37 29-168 [facility] CenterAmylase Jxnpy0611-21-69 14:52:00* Test Item Value Reference Range Interpretation Comments Amylase Level (test code = 1798-8) 63 25-125 [facility] CenterLipase2018-10-04 14:52:00* Test Item Value Reference Range Interpretation Comments Lipase (test code = 3040-3) 40 8-78 [facility] CenterMagnesium Mpktd9996-36-29 14:52:00* Test Item Value Reference Range Interpretation Comments Magnesium Level (test code = 60507-5) 1.8 1.3-2.1 [facility] CenterCreatine Gbdbqi7101-02-28 14:52:00* Test Item Value Reference Range Interpretation Comments Creatine Kinase (test code = 2157-6) 37 29-168 [facility] CenterAmylase Nsfeb0237-17-56 14:52:00* Test Item Value Reference Range Interpretation Comments Amylase Level (test code = 1798-8) 63 25-125 [facility] CenterLipase2018-10-04 14:52:00* Test Item Value Reference Range Interpretation Comments Lipase (test code = 3040-3) 40 78 [facility] CenterMagnesium Oatsy5366-04-45 14:52:00* Test Item Value Reference Range Interpretation Comments Magnesium Level (test code = 53809-0) 1.8 1.3-2.1 [facility] CenterCreatine Jswrmp7857-85-42 14:52:00* Test Item Value Reference Range Interpretation Comments Creatine Kinase (test code = 2157-6) 37 29-168 [facility] CenterAmylase Rfswt2383-67-62 14:52:00* Test Item Value Reference Range Interpretation Comments Amylase Level (test code = 1798-8) 63 25-125 [facility] CenterLipase2018-10-04 14:52:00* Test Item Value Reference Range Interpretation Comments Lipase (test code = 3040-3) 40 -78 [facility] CenterUrine RSC2633-26-16 14:41:00* Test Item Value Reference Range Interpretation Comments Urine WBC (test code = 5821-4) 0-5 0-5 [facility] CenterUrine LUN9241-70-67 14:41:00* Test Item Value Reference Range Interpretation Comments Urine RBC (test code = 85178-7) 6-10 0-5 [facility] CenterUrine Puchscwt9800-58-13 14:41:00* Test Item Value Reference Range Interpretation Comments Urine Bacteria (test code = 82147-0) FEW NONE [facility] CenterUrine Epithelial Stvfj4327-94-92 14:41:00 * Test Item Value Reference Range Interpretation Comments Urine Epithelial Cells (test code = 48494-2) FEW NONE [facility] Amorphous Qeyulvvz1606-08-18 14:41:00* Test Item Value Reference Range Interpretation Comments Urine Amorphous Sediment (test code = 8246-1) FEW FEW [facility] Hyadr8955-83-33 14:41:00* Test Item Value Reference Range Interpretation Comments Urine Mucus (test code = 8247-9) FEW RARE H [facility] MNP7945-41-08 14:41:00* Test Item Value Reference Range Interpretation Comments Urine WBC (test code = 5821-4) 0-5 0-5 [facility] EBA1890-32-11 14:41:00* Test Item Value Reference Range Interpretation Comments Urine RBC (test code = 88247-0) 6-10 0-5 H [facility] Fkefrwrp7204-31-81 14:41:00* Test Item Value Reference Range Interpretation Comments Urine Bacteria (test code = 27525-0) FEW NONE [facility] Epithelial Pwwrp3193-58-37 14:41:00 * Test Item Value Reference Range Interpretation Comments Urine Epithelial Cells (test code = 94691-2) FEW NONE [facility] Amorphous Ncrzfknp5369-25-61 14:41:00* Test Item Value Reference Range Interpretation Comments Urine Amorphous Sediment (test code = 8246-1) FEW FEW [facility] Wmmqg5627-66-83 14:41:00* Test Item Value Reference Range Interpretation Comments Urine Mucus (test code = 8247-9) FEW RARE H [facility] Amorphous Yzyzluwb7769-90-54 14:41:00* Test Item Value Reference Range Interpretation Comments Urine Amorphous Sediment (test code = 8246-1) FEW FEW [facility] Htsnf3536-72-21 14:41:00* Test Item Value Reference Range Interpretation Comments Urine Mucus (test code = 8247-9) FEW RARE H [facility] Amorphous Gkbbrjel4032-13-50 14:41:00* Test Item Value Reference Range Interpretation Comments Urine Amorphous Sediment (test code = 8246-1) FEW FEW [facility] CenterUrine Ycqci2429-59-80 14:41:00* Test Item Value Reference Range Interpretation Comments Urine Mucus (test code = 8247-9) FEW RARE H [facility] CenterProthrombin Mhcl3870-62-22 14:39:00* Test Item Value Reference Range Interpretation Comments Prothrombin Time (test code = 5902-2) 26.1 11.9-14.5 [facility] CenterProthromb Time International Ratio 2018-07-21 14:39:00* Test Item Value Reference Range Interpretation Comments Prothromb Time International Ratio (test code = 6301-6) 2.20 Oral Anticoagulant Therapy INR Values:1. Low Intensity Therapy 1.5 - 2.02 . Moderate Intensity Therapy 2.0 - 3.03. High Intensity Therapy(1) 2.5 - 3. 54. High Intensity Therapy(2) 3.0 - 4.05. Panic Value INR > 5.0 [facility] CenterActivated Partial Thromboplast Time 2018-07-21 14:39:00* Test Item Value Reference Range Interpretation Comments Activated Partial Thromboplast Time (test code = 17477-8) 44.8 23.8-35.5 H [facility] CenterProthrombin Zelw1582-87-78 14:39:00* Test Item Value Reference Range Interpretation Comments Prothrombin Time (test code = 5902-2) 26.1 11.9-14.5 [facility] CenterProthromb Time International Ratio 2018-07-21 14:39:00* Test Item Value Reference Range Interpretation Comments Prothromb Time International Ratio (test code = 6301-6) 2.20 Oral Anticoagulant Therapy INR Values:1. Low Intensity Therapy 1.5 - 2.02 . Moderate Intensity Therapy 2.0 - 3.03. High Intensity Therapy(1) 2.5 - 3. 54. High Intensity Therapy(2) 3.0 - 4.05. Panic Value INR > 5.0 [facility] CenterActivated Partial Thromboplast Time 2018-07-21 14:39:00* Test Item Value Reference Range Interpretation Comments Activated Partial Thromboplast Time (test code = 30029-0) 44.8 23.8-35.5 [facility] CenterProthrombin Vrbm5622-98-83 14:39:00* Test Item Value Reference Range Interpretation Comments Prothrombin Time (test code = 5902-2) 26.1 11.9-14.5 [facility] CenterProthromb Time International Ratio 2018-07-21 14:39:00* Test Item Value Reference Range Interpretation Comments Prothromb Time International Ratio (test code = 6301-6) 2.20 Oral Anticoagulant Therapy INR Values:1. Low Intensity Therapy 1.5 - 2.02 . Moderate Intensity Therapy 2.0 - 3.03. High Intensity Therapy(1) 2.5 - 3. 54. High Intensity Therapy(2) 3.0 - 4.05. Panic Value INR > 5.0 [facility] CenterActivated Partial Thromboplast Time 2018-07-21 14:39:00* Test Item Value Reference Range Interpretation Comments Activated Partial Thromboplast Time (test code = 36300-5) 44.8 23.8-35.5 [facility] CenterProthrombin Etyt8227-95-63 14:39:00* Test Item Value Reference Range Interpretation Comments Prothrombin Time (test code = 5902-2) 26.1 11.9-14.5 [facility] CenterProthromb Time International Ratio 2018-07-21 14:39:00* Test Item Value Reference Range Interpretation Comments Prothromb Time International Ratio (test code = 6301-6) 2.20 Oral Anticoagulant Therapy INR Values:1. Low Intensity Therapy 1.5 - 2.02 . Moderate Intensity Therapy 2.0 - 3.03. High Intensity Therapy(1) 2.5 - 3. 54. High Intensity Therapy(2) 3.0 - 4.05. Panic Value INR > 5.0 [facility] CenterActivated Partial Thromboplast Time 2018-07-21 14:39:00* Test Item Value Reference Range Interpretation Comments Activated Partial Thromboplast Time (test code = 04261-9) 44.8 23.8-35.5 H [facility] Dqzqp9293-94-59 14:35:00* Test Item Value Reference Range Interpretation Comments Urine Color (test code = 5778-6) YELLOW YELLOW [facility] CenterUrine Gbeutlz6146-89-95 14:35:00* Test Item Value Reference Range Interpretation Comments Urine Clarity (test code = 96715-5) SL CLOUDY CLEAR [facility] Specific Zlonhvq8387-18-68 14:35:00 * Test Item Value Reference Range Interpretation Comments Urine Specific [place] (test code = 5811-5) 1.025 1.010-1.02 5 [facility] eS4185-94-27 14:35:00* Test Item Value Reference Range Interpretation Comments Urine pH (test code = 73512-9) 6 5-7 [facility] Leukocyte Qjzcysqo6259-55-67 14:35:00* Test Item Value Reference Range Interpretation Comments Urine Leukocyte Esterase (test code = 5799-2) NEGATIVE NEGATIVE [facility] Sgawcol7719-04-61 14:35:00* Test Item Value Reference Range Interpretation Comments Urine Nitrite (test code = 46675-9) NEGATIVE NEGATIVE [facility] Wokrahm4375-98-71 14:35:00* Test Item Value Reference Range Interpretation Comments Urine Protein (test code = 5804-0) NEGATIVE NEGATIVE [facility] Glucose (UA)2018-07-21 14:35:00* Test Item Value Reference Range Interpretation Comments Urine Glucose (UA) (test code = 2349-9) 3+ NEGATIVE H [facility] CenterUrine Ljbmxno4178-21-51 14:35:00* Test Item Value Reference Range Interpretation Comments Urine Ketones (test code = 83820-4) TRACE NEGATIVE H [facility] Rvvzbbfuouxp2399-73-94 14:35:00* Test Item Value Reference Range Interpretation Comments Urine Urobilinogen (test code = 16448-0) 0.2 0.2-1 [facility] Lfmprlxph9040-65-44 14:35:00* Test Item Value Reference Range Interpretation Comments Urine Bilirubin (test code = 1978-6) NEGATIVE NEGATIVE [facility] CenterUrine Jstbb2073-64-31 14:35:00* Test Item Value Reference Range Interpretation Comments Urine Blood (test code = 16780-8) TRACE NEGATIVE H [facility] CenterUrine Vmllq6014-03-58 14:35:00* Test Item Value Reference Range Interpretation Comments Urine Color (test code = 5778-6) YELLOW YELLOW [facility] CenterUrine Wakhimw7108-99-81 14:35:00* Test Item Value Reference Range Interpretation Comments Urine Clarity (test code = 99773-4) SL CLOUDY CLEAR [facility] CenterUrine Specific Nzkydmv4825-55-68 14:35:00 * Test Item Value Reference Range Interpretation Comments Urine Specific [place] (test code = 5811-5) 1.025 1.010-1.02 5 [facility] CenterUrine sC7647-90-72 14:35:00* Test Item Value Reference Range Interpretation Comments Urine pH (test code = 00392-1) 6 5-7 [facility] CenterU[facility] Leukocyte Kesvgoiu1031-01-27 14:35:00* Test Item Value Reference Range Interpretation Comments Urine Leukocyte Esterase (test code = 5799-2) NEGATIVE NEGATIVE [facility] CenterU[facility] Eiqayob3693-51-14 14:35:00* Test Item Value Reference Range Interpretation Comments Urine Nitrite (test code = 89547-0) NEGATIVE NEGATIVE [facility] CenterUrine Iiaaiui4365-59-52 14:35:00* Test Item Value Reference Range Interpretation Comments Urine Protein (test code = 5804-0) NEGATIVE NEGATIVE [facility] CenterUrine Glucose (UA)2018-07-21 14:35:00* Test Item Value Reference Range Interpretation Comments Urine Glucose (UA) (test code = 2349-9) 3+ NEGATIVE [facility] CenterUrine Glsfxoc6882-42-21 14:35:00* Test Item Value Reference Range Interpretation Comments Urine Ketones (test code = 98490-7) TRACE NEGATIVE H [facility] CenterUrine Jtddlqkvjoma1059-21-59 14:35:00* Test Item Value Reference Range Interpretation Comments Urine Urobilinogen (test code = 78489-3) 0.2 0.2-1 [facility] CenterUrine Rwpkbcjtq8183-32-11 14:35:00* Test Item Value Reference Range Interpretation Comments Urine Bilirubin (test code = 1978-6) NEGATIVE NEGATIVE [facility] CenterUrine Jygud7783-60-76 14:35:00* Test Item Value Reference Range Interpretation Comments Urine Blood (test code = 03354-2) TRACE NEGATIVE H [facility] CenterWhite Blood Guott4820-94-62 14:31:00* Test Item Value Reference Range Interpretation Comments White Blood Count (test code = 6690-2) 7.35 4.8-10.8 [facility] CenterRed Blood Yngnw8209-33-86 14:31:00* Test Item Value Reference Range Interpretation Comments Red Blood Count (test code = 789-8) 5.00 3.6-5.1 [facility] CenterHemoglobin2018-10-04 14:31:00* Test Item Value Reference Range Interpretation Comments Hemoglobin (test code = 49804-4) 13.2 12.0-16.0 [facility] CenterHematocrit2018-10-04 14:31:00* Test Item Value Reference Range Interpretation Comments Hematocrit (test code = 4544-3) 42.6 34.2-44.1 [facility] CenterMean Corpuscular Fxjfqt3951-98-41 14:31:00* Test Item Value Reference Range Interpretation Comments Mean Corpuscular Volume (test code = 787-2) 85.2 81-99 [facility] CenterMean Corpuscular Fkofrrsgfg3713-52-09 14:31:00* Test Item Value Reference Range Interpretation Comments Mean Corpuscular Hemoglobin (test code = 785-6) 26.4 28-32 L [facility] CenterMean Corpuscular Hemoglobin Concent 2018-07-21 14:31:00* Test Item Value Reference Range Interpretation Comments Mean Corpuscular Hemoglobin Concent (test code = 786-4) 31.0 31-35 [facility] CenterRed Cell Distribution Grdyp1984-80-73 14:31:00* Test Item Value Reference Range Interpretation Comments Red Cell Distribution Width (test code = 49395-6) 18.6 11.7 -14.4 H [facility] CenterPlatelet Ywrkn8783-55-27 14:31:00* Test Item Value Reference Range Interpretation Comments Platelet Count (test code = 777-3) 160 140-360 [facility] CenterNeutrophils (%) (Auto)2018-07-21 14:31:00 * Test Item Value Reference Range Interpretation Comments Neutrophils (%) (Auto) (test code = 42154-6) 72.5 38.7-80.0 [facility] CenterLymphocytes (%) (Auto)2018-07-21 14:31:00 * Test Item Value Reference Range Interpretation Comments Lymphocytes (%) (Auto) (test code = 736-9) 17.7 18.0-39.1 L [facility] CenterMonocytes (%) (Auto)2018-07-21 14:31:00* Test Item Value Reference Range Interpretation Comments Monocytes (%) (Auto) (test code = 5905-5) 6.1 4.4-11.3 [facility] CenterEosinophils (%) (Auto)2018-07-21 14:31:00 * Test Item Value Reference Range Interpretation Comments Eosinophils (%) (Auto) (test code = 713-8) 2.4 0.0-6.0 [facility] CenterBasophils (%) (Auto)2018-07-21 14:31:00* Test Item Value Reference Range Interpretation Comments Basophils (%) (Auto) (test code = 706-2) 1.0 0.0-1.0 [facility] CenterIM GRANULOCYTES %2018-07-21 14:31:00* Test Item Value Reference Range Interpretation Comments IM GRANULOCYTES % (test code = IM GRANULOCYTES %) 0.3 0.0- 1.0 [facility] CenterNeutrophils # (Auto)2018-07-21 14:31:00* Test Item Value Reference Range Interpretation Comments Neutrophils # (Auto) (test code = 751-8) 5.3 2.1-6.9 [facility] CenterLymphocytes # (Auto)2018-07-21 14:31:00* Test Item Value Reference Range Interpretation Comments Lymphocytes # (Auto) (test code = 39250-4) 1.3 1.0-3.2 [facility] CenterMonocytes # (Auto)2018-07-21 14:31:00* Test Item Value Reference Range Interpretation Comments Monocytes # (Auto) (test code = 742-7) 0.5 0.2-0.8 [facility] CenterEosinophils # (Auto)2018-07-21 14:31:00* Test Item Value Reference Range Interpretation Comments Eosinophils # (Auto) (test code = 711-2) 0.2 0.0-0.4 [facility] CenterBasophils # (Auto)2018-07-21 14:31:00* Test Item Value Reference Range Interpretation Comments Basophils # (Auto) (test code = 704-7) 0.1 0.0-0.1 [facility] CenterAbsolute Immature Granulocyte (auto 2018-07-21 14:31:00* Test Item Value Reference Range Interpretation Comments Absolute Immature Granulocyte (auto (cuca t code = Absolute Immature Granulocyte (auto) 0.02 0-0.1 [facility] CenterWhite Blood Qmxjf9171-88-33 14:31:00* Test Item Value Reference Range Interpretation Comments White Blood Count (test code = 6690-2) 7.35 4.8-10.8 [facility] CenterRed Blood Brmky7193-51-28 14:31:00* Test Item Value Reference Range Interpretation Comments Red Blood Count (test code = 789-8) 5.00 3.6-5.1 [facility] CenterHemoglobin2018-10-04 14:31:00* Test Item Value Reference Range Interpretation Comments Hemoglobin (test code = 82716-3) 13.2 12.0-16.0 [facility] CenterHematocrit2018-10-04 14:31:00* Test Item Value Reference Range Interpretation Comments Hematocrit (test code = 4544-3) 42.6 34.2-44.1 [facility] CenterMean Corpuscular Jtbqyh0031-27-48 14:31:00* Test Item Value Reference Range Interpretation Comments Mean Corpuscular Volume (test code = 787-2) 85.2 81-99 [facility] CenterMean Corpuscular Alyeotcmuy3612-30-72 14:31:00* Test Item Value Reference Range Interpretation Comments Mean Corpuscular Hemoglobin (test code = 785-6) 26.4 28-32 L [facility] CenterMean Corpuscular Hemoglobin Concent 2018-07-21 14:31:00* Test Item Value Reference Range Interpretation Comments Mean Corpuscular Hemoglobin Concent (test code = 786-4) 31.0 31-35 [facility] CenterRed Cell Distribution Icnsd2125-59-10 14:31:00* Test Item Value Reference Range Interpretation Comments Red Cell Distribution Width (test code = 57018-7) 18.6 11.7 -14.4 H [facility] CenterPlatelet Tphrz9067-37-61 14:31:00* Test Item Value Reference Range Interpretation Comments Platelet Count (test code = 777-3) 160 140-360 [facility] CenterNeutrophils (%) (Auto)2018-07-21 14:31:00 * Test Item Value Reference Range Interpretation Comments Neutrophils (%) (Auto) (test code = 77857-4) 72.5 38.7-80.0 [facility] CenterLymphocytes (%) (Auto)2018-07-21 14:31:00 * Test Item Value Reference Range Interpretation Comments Lymphocytes (%) (Auto) (test code = 736-9) 17.7 18.0-39.1 L [facility] CenterMonocytes (%) (Auto)2018-07-21 14:31:00* Test Item Value Reference Range Interpretation Comments Monocytes (%) (Auto) (test code = 5905-5) 6.1 4.4-11.3 [facility] CenterEosinophils (%) (Auto)2018-07-21 14:31:00 * Test Item Value Reference Range Interpretation Comments Eosinophils (%) (Auto) (test code = 713-8) 2.4 0.0-6.0 [facility] CenterBasophils (%) (Auto)2018-07-21 14:31:00* Test Item Value Reference Range Interpretation Comments Basophils (%) (Auto) (test code = 706-2) 1.0 0.0-1.0 [facility] CenterIM GRANULOCYTES %2018-07-21 14:31:00* Test Item Value Reference Range Interpretation Comments IM GRANULOCYTES % (test code = IM GRANULOCYTES %) 0.3 0.0- 1.0 [facility] CenterNeutrophils # (Auto)2018-07-21 14:31:00* Test Item Value Reference Range Interpretation Comments Neutrophils # (Auto) (test code = 751-8) 5.3 2.1-6.9 [facility] CenterLymphocytes # (Auto)2018-07-21 14:31:00* Test Item Value Reference Range Interpretation Comments Lymphocytes # (Auto) (test code = 24644-5) 1.3 1.0-3.2 [facility] CenterMonocytes # (Auto)2018-07-21 14:31:00* Test Item Value Reference Range Interpretation Comments Monocytes # (Auto) (test code = 742-7) 0.5 0.2-0.8 [facility] CenterEosinophils # (Auto)2018-07-21 14:31:00* Test Item Value Reference Range Interpretation Comments Eosinophils # (Auto) (test code = 711-2) 0.2 0.0-0.4 [facility] CenterBasophils # (Auto)2018-07-21 14:31:00* Test Item Value Reference Range Interpretation Comments Basophils # (Auto) (test code = 704-7) 0.1 0.0-0.1 [facility] CenterAbsolute Immature Granulocyte (auto 2018-07-21 14:31:00* Test Item Value Reference Range Interpretation Comments Absolute Immature Granulocyte (auto (cuca t code = Absolute Immature Granulocyte (auto) 0.02 0-0.1 [facility] Hfrdbez6284-00-12 06:44:00* Test Item Value Reference Range Interpretation Comments Bedside Glucose (test code = 71344-8) 171 70-120 H Meter ID: [id number] [facility] Glucose 2018-05-12 06:44:00* Test Item Value Reference Range Interpretation Comments Bedside Glucose (test code = 21148-8) 171 70-120 H [facility] [id number] [facility] 16:47:00* Test Item Value Reference Range Interpretation Comments FERRITIN (BEAKER) (test code = 361) 29 ng/mL 5-275 HEPATITIS B CORE ANTIBODY, [id number] 15:24:00* Test Item Value Reference Range Interpretation Comments HEPATITIS B CORE TOTAL ANTIBODY (BEAKER) (test code = 497) React vesta Nonreactive A HEPATITIS B SURFACE WSDNDAJB0266-12-55 15:23:00* Test Item Value Reference Range Interpretation Comments HEPATITIS B SURFACE ANTIBODY (BEAKER) (test code = 647) 1539.3 mIU/ mL <8.0 H HEPATITIS A ANTIBODY, [id number] 15:23:00* Test Item Value Reference Range Interpretation Comments HEPATITIS A IGG ANTIBODY (BEAKER) (test code = 2797) Reactive N onreactive A ALPHA FETOPROTEIN (AFP), TUMOR [id number] 15:20:00* Test Item Value Reference Range Interpretation Comments ALPHA-FETOPROTEIN (BEAKER) (test code = 1094) 3.9 ng/mL <10.0 HEPATITIS B SURFACE QZJVGEM2406-26-91 14:54:00* Test Item Value Reference Range Interpretation Comments HEPATITIS B SURFACE ANTIGEN (2) (BEAKER) (test code = 2585) Nonreactive Nonreactive HEPATITIS C ZRIGVTDQ2802-06-72 14:54:00* Test Item Value Reference Range Interpretation Comments HEPATITIS C ANTIBODY (BEAKER) (test code = 367) Nonreactive Nonrea ctive IRON, TIBC, % SAT. (WITHOUT FERRITIN)2018-05-06 14:29:00* Test Item Value Reference Range Interpretation Comments IRON (BEAKER) (test code = 547) 46 ug/dL 40-160 TOTAL IRON BINDING CAPACITY (BEAKER) (test code = 769) 421 ug/dL 250-450 IRON % SATURATION (2) (BEAKER) (test code = 2590) 11 % 20-5 5 L COMPREHENSIVE METABOLIC [id number] 14:21:00* Test Item Value Reference Range Interpretation Comments TOTAL PROTEIN (BEAKER) (test code = 770) 8.9 gm/dL 6.0-8.3 H ALBUMIN (BEAKER) (test code = 1145) 4.0 g/dL 3.5-5.0 ALKALINE PHOSPHATASE (BEAKER) (test code = 346) 103 U/L 40-150 BILIRUBIN TOTAL (BEAKER) (test code = 377) 1.0 mg/dL 0.2-1.2 SODIUM (BEAKER) (test code = 381) 137 meq/L 136-145 POTASSIUM (BEAKER) (test code = 379) 4.0 meq/L 3.5-5.1 CHLORIDE (BEAKER) (test code = 382) 105 meq/L 98-107 CO2 (BEAKER) (test code = 355) 23 meq/L 22-29 BLOOD UREA NITROGEN (BEAKER) (test code = 354) 16 mg/dL 7-21 CREATININE (BEAKER) (test code = 358) 0.77 mg/dL 0.57-1.25 GLUCOSE RANDOM (BEAKER) (test code = 652) 165 mg/dL 70-105 H CALCIUM (BEAKER) (test code = 697) 9.8 mg/dL 8.4-10.2 AST (SGOT) (BEAKER) (test code = 353) 85 U/L 5-34 H ALT (SGPT) (BEAKER) (test code = 347) 41 U/L 6-55 EGFR (BEAKER) (test code = 1092) 78 mL/min/1.73 sq m ESTIMATED GFR IS NOT ACCURATE CREATININE CLEARANCE IN PREDICTING GLOMERULAR FILTRATION RATE. ESTIMATED GFR IS NOT APPLICABLE FOR DIALYSIS PATIENTS. BILIRUBIN, [id number] 14:21:00* Test Item Value Reference Range Interpretation Comments BILIRUBIN DIRECT (BEAKER) (test code = 706) 0.5 mg/dL 0.1-0.5 CBC W/PLT COUNT & AUTO [id number] 14:14:00* Test Item Value Reference Range Interpretation Comments WHITE BLOOD CELL COUNT (BEAKER) (test code = 775) 5.9 K/ L 3.5- 10.5 RED BLOOD CELL COUNT (BEAKER) (test code = 761) 4.55 M/ L 3.93-5 .22 HEMOGLOBIN (BEAKER) (test code = 410) 10.9 GM/DL 11.2-15.7 L HEMATOCRIT (BEAKER) (test code = 411) 36.7 % 34.1-44.9 MEAN CORPUSCULAR VOLUME (BEAKER) (test code = 753) 80.7 fL 79. 4-94.8 MEAN CORPUSCULAR HEMOGLOBIN (BEAKER) (test code = 751) 24.0 pg 25.6-32.2 L MEAN CORPUSCULAR HEMOGLOBIN CONC (BEAKER) (test code = 752) 29.7 GM/DL 32.2-35.5 L RED CELL DISTRIBUTION WIDTH (BEAKER) (test code = 412) 16.2 % 11.7-14.4 H PLATELET COUNT (BEAKER) (test code = 756) 144 K/CU MM 150-450 L MEAN PLATELET VOLUME (BEAKER) (test code = 754) 12.6 fL 9.4-12 .3 H NUCLEATED RED BLOOD CELLS (BEAKER) (test code = 413) 0 /100 WBC 0 -0 NEUTROPHILS RELATIVE PERCENT (BEAKER) (test code = 429) 68 % LYMPHOCYTES RELATIVE PERCENT (BEAKER) (test code = 430) 22 % MONOCYTES RELATIVE PERCENT (BEAKER) (test code = 431) 6 % EOSINOPHILS RELATIVE PERCENT (BEAKER) (test code = 432) 2 % BASOPHILS RELATIVE PERCENT (BEAKER) (test code = 437) 1 % NEUTROPHILS ABSOLUTE COUNT (BEAKER) (test code = 670) 4.01 K/ L 1.56-6.13 LYMPHOCYTES ABSOLUTE COUNT (BEAKER) (test code = 414) 1.31 K/ L 1.18-3.74 MONOCYTES ABSOLUTE COUNT (BEAKER) (test code = 415) 0.38 K/ L 0. 24-0.36 H EOSINOPHILS ABSOLUTE COUNT (BEAKER) (test code = 416) 0.14 K/ L 0.04-0.36 BASOPHILS ABSOLUTE COUNT (BEAKER) (test code = 417) 0.05 K/ L 0. 01-0.08 IMMATURE GRANULOCYTES-RELATIVE PERCENT (BEAKER) (test code = 2801) 1 % 0-1 CT ABDOMEN/PELVIS [id number] 21:58:00 [place] [id number] Patient Name: ANDREZ CARR MR #: [id number] : 1965 Age/Sex: 53/F Req #: [id number] Adm Physician: Ordered by: NADIRA FORTE MD Report #: [id number] Location: ER Room/Bed: Procedure: [id number] CT/CT ABDOMEN/PELVIS W Exam Date: 04/03/18 Exam Time: [address] ATUS: Signed EXAM: CT ABDOMEN AND PELVIS with IV CONTRAST DATE: 04/03/2018 9 :15 PM Time stamp on Exam: 2144 hours INDICATION: Right-sided abdominal pain COMPARISON: CT of the abdomen and pelvis March 20, 2012 TECHNIQUE: The abdom en and pelvis were scanned using a multidetector helical scanner. Coronal and sagittal reformations were obtained. Routine protocol performed. IV Contrast : 100 cc Isovue-370 Oral Contrast: None CTDIvol has been reviewed. It is bel ow the limits set by the Radiation Protocol Committee (RPC). FINDINGS: LOWER THORAX: No consolidations LIVER: Hepatomegaly with subtle nodular christa er contour and relative enlargement of the left lobe and caudate lobes of the liver. BILIARY: Cholecystectomy. No ductal dilation. SPLEEN: Splenomegal y to 15.7 cm in craniocaudal dimension. PANCREAS: No masses ADRENALS: No nodules KIDNEYS: Symmetric perfusion. No enhancing masses. No hydronephrosis. GI TRACT: No distention, wall thickening or evidence of obstruction. VESSELS: Moderate atherosclerotic changes of the abdominal aorta without an eurysm. There is an infrarenal inferior vena cava filter. The main portal vein is patent. PERITONEUM/RETROPERITONEUM: Mesenteric edema and trace ascites hanh und the inferior liver. LYMPH NODES: No lymphadenopathy REPRODUCTIVE OR VAUGHN: Not visualized BLADDER: Decompressed SOFT TISSUES: Unremarkable B ONES: No suspicious bone lesions. IMPRESSION: Findings consistent with ea rly cirrhosis and portal hypertension with trace ascites. Signed by: Dr. Cy Pickering M.D. on 04/03/2018 10:06 PM Dictated By: CY PICKERING MD 05 Transcribed By: CHERYL on 04/03/182205 COPY TO: NADIRA FORTE MD Urine [id number] 21:32:00* Test Item Value Reference Range Interpretation Comments Urine WBC (test code = 5821-4) 11-20 0-5 H [facility] [id number] 21:32:00* Test Item Value Reference Range Interpretation Comments Urine RBC (test code = 44224-8) NONE 0-5 [facility] Tqshafqv9740-22-69 21:32:00* Test Item Value Reference Range Interpretation Comments Urine Bacteria (test code = 22494-4) MODERATE NONE [facility] [id number] 21:32:00 * Test Item Value Reference Range Interpretation Comments Urine Epithelial Cells (test code = 27564-5) MANY NONE [facility] [id number] 21:32:00* Test Item Value Reference Range Interpretation Comments Urine Mucus (test code = 8247-9) MANY RARE H [facility] [id number] 21:15:00* Test Item Value Reference Range Interpretation Comments Urine Color (test code = 5778-6) GLORIA YELLOW H [facility] Akaucsx1498-06-54 21:15:00* Test Item Value Reference Range Interpretation Comments Urine Clarity (test code = 33185-2) CLEAR CLEAR [facility] Center[facility] Specific Pzxwcdu6442-10-19 21:15:00 * Test Item Value Reference Range Interpretation Comments Urine Specific [place] (test code = 5811-5) 1.030 1.010-1.02 5 H [facility] Center[facility] [id number] 21:15:00* Test Item Value Reference Range Interpretation Comments Urine pH (test code = 52193-7) 6 5-7 [facility] Leukocyte Udluainh4913-15-75 21:15:00* Test Item Value Reference Range Interpretation Comments Urine Leukocyte Esterase (test code = 5799-2) NEGATIVE NEGATIVE [facility] Qyeujyy0038-73-07 21:15:00* Test Item Value Reference Range Interpretation Comments Urine Nitrite (test code = 37654-3) NEGATIVE NEGATIVE [facility] Arfbacu8853-32-99 21:15:00* Test Item Value Reference Range Interpretation Comments Urine Protein (test code = 5804-0) 1+ NEGATIVE H [facility] Glucose (UA)2018-04-03 21:15:00* Test Item Value Reference Range Interpretation Comments Urine Glucose (UA) (test code = 2349-9) NEGATIVE NEGATIVE [facility] Wydskpk2232-68-83 21:15:00* Test Item Value Reference Range Interpretation Comments Urine Ketones (test code = 76710-8) 1+ NEGATIVE H [facility] Tjhghqqfvbmd7870-32-29 21:15:00* Test Item Value Reference Range Interpretation Comments Urine Urobilinogen (test code = 98269-2) 1 0.2-1 [facility] Zzxopgygp8441-68-08 21:15:00* Test Item Value Reference Range Interpretation Comments Urine Bilirubin (test code = 1978-6) 1+ NEGATIVE H [facility] Duekt9522-81-94 21:15:00* Test Item Value Reference Range Interpretation Comments Urine Blood (test code = 72529-7) NEGATIVE [facility]GATIVE [facility] Ediay7922-05-41 20:22:00* Test Item Value Reference Range Interpretation Comments Sodium Level (test code = 2951-2) 140 136-145 [facility]Potassium Zwmat9232-42-92 20:22:00* Test Item Value Reference Range Interpretation Comments Potassium Level (test code = 2823-3) 3.8 3.5-5.1 [facility] CenterChloride Ooosy5704-13-19 20:22:00* Test Item Value Reference Range Interpretation Comments Chloride Level (test code = 2075-0) 105 98-107 [facility] CenterCarbon Dioxide Nvqjx8044-81-77 20:22:00* Test Item Value Reference Range Interpretation Comments Carbon Dioxide Level (test code = 2028-9) 25 22-29 [facility] CenterAnion [id number] 20:22:00* Test Item Value Reference Range Interpretation Comments Anion Gap (test code = 71122-7) 13.8 8-16 [facility] CenterBlood Urea Hsllmwxs4969-98-50 20:22:00* Test Item Value Reference Range Interpretation Comments Blood Urea Nitrogen (test code = 3094-0) 13 7-26 [facility] CenterCreatinine2018-06-17 20:22:00* Test Item Value Reference Range Interpretation Comments Creatinine (test code = 2160-0) 0.85 0.57-1.11 [facility] CenterBUN/Creatinine Aaych8350-26-20 20:22:00* Test Item Value Reference Range Interpretation Comments BUN/Creatinine Ratio (test code = 3097-3) 15 6-25 [facility] CenterEstimat Glomerular Filtration Rate 2018-04-03 20:22:00* Test Item Value Reference Range Interpretation Comments Estimat Glomerular Filtration Rate (test code = 24678-3) 60- >60 Ranges were taken from the National Kidney Disease Education Program and the [facility] Foundation literature.Reference ranges:60 or greater: Kwabar38-29 ( for 3 consecutive months): Chronic kidney disease 15 or less: Kidney failureMatagorda Regional Medical CenterGlucose Wunyz3426-47-67 20:22:00* Test Item Value Reference Range Interpretation Comments Glucose Level (test code = OZP7034) 260 74-118 H [facility] CenterCalcium Kwksx2672-27-02 20:22:00* Test Item Value Reference Range Interpretation Comments Calcium Level (test code = 38323-9) 9.4 8.4-10.2 [facility] CenterTotal Rprvvotdm1867-94-44 20:22:00* Test Item Value Reference Range Interpretation Comments Total Bilirubin (test code = 1975-2) 0.7 0.2-1.2 [facility] CenterAspartate Amino Transf (AST/SGOT) 2018-04-03 20:22:00* Test Item Value Reference Range Interpretation Comments Aspartate Amino Transf (AST/SGOT) (test code = Aspartate Amino Transf (AST/SGOT)) 53 5-34 H [facility] CenterAlanine Aminotransferase (ALT/SGPT) 2018-04-03 20:22:00* Test Item Value Reference Range Interpretation Comments Alanine Aminotransferase (ALT/SGPT) (test code = 1742-6) 28 0-55 [facility] CenterTotal Ejgyuii9085-61-73 20:22:00* Test Item Value Reference Range Interpretation Comments Total Protein (test code = 2885-2) 8.1 6.5-8.1 [facility] CenterAlbumin2018-06-17 20:22:00* Test Item Value Reference Range Interpretation Comments Albumin (test code = 1751-7) 3.3 3.5-5.0 L [facility] CenterGlobulin2018-06-17 20:22:00* Test Item Value Reference Range Interpretation Comments Globulin (test code = 89305-3) 4.8 2.3-3.5 H [facility] CenterAlbumin/Globulin Eibjf3289-59-26 20:22:00 * Test Item Value Reference Range Interpretation Comments Albumin/Globulin Ratio (test code = 1759-0) 0.7 0.8-2.0 L [facility] CenterAlkaline Npytnzizjzp2439-71-81 20:22:00* Test Item Value Reference Range Interpretation Comments Alkaline Phosphatase (test code = 6768-6) 92 40-150 [facility] CenterWhite Blood Qwkoi1045-68-52 20:00:00* Test Item Value Reference Range Interpretation Comments White Blood Count (test code = 6690-2) 7.38 4.8-10.8 [facility] CenterRed Blood Jexpq7208-61-38 20:00:00* Test Item Value Reference Range Interpretation Comments Red Blood Count (test code = 789-8) 4.18 3.6-5.1 [facility] CenterHemoglobin2018-06-17 20:00:00* Test Item Value Reference Range Interpretation Comments Hemoglobin (test code = 15562-8) 10.4 12.0-16.0 L [facility] CenterHematocrit2018-06-17 20:00:00* Test Item Value Reference Range Interpretation Comments Hematocrit (test code = 4544-3) 33.5 34.2-44.1 L [facility] CenterMean Corpuscular Ndogyy2245-29-75 20:00:00* Test Item Value Reference Range Interpretation Comments Mean Corpuscular Volume (test code = 787-2) 80.1 81-99 L [facility] CenterMean Corpuscular Ugbiensgme8521-93-55 20:00:00* Test Item Value Reference Range Interpretation Comments Mean Corpuscular Hemoglobin (test code = 785-6) 24.9 28-32 L [facility] CenterMean Corpuscular Hemoglobin Concent 2018-04-03 20:00:00* Test Item Value Reference Range Interpretation Comments Mean Corpuscular Hemoglobin Concent (test code = 786-4) 31.0 31-35 [facility] CenterRed Cell Distribution Wbcij8548-67-88 20:00:00* Test Item Value Reference Range Interpretation Comments Red Cell Distribution Width (test code = 41993-6) 17.1 11.7 -14.4 H [facility] CenterPlatelet Ilzjc5707-64-96 20:00:00* Test Item Value Reference Range Interpretation Comments Platelet Count (test code = 777-3) 163 140-360 [facility] CenterNeutrophils (%) (Auto)2018-04-03 20:00:00 * Test Item Value Reference Range Interpretation Comments Neutrophils (%) (Auto) (test code = 56997-1) 74.6 38.7-80.0 [facility] CenterLymphocytes (%) (Auto)2018-04-03 20:00:00 * Test Item Value Reference Range Interpretation Comments Lymphocytes (%) (Auto) (test code = 736-9) 16.1 18.0-39.1 L [facility] CenterMonocytes (%) (Auto)2018-04-03 20:00:00* Test Item Value Reference Range Interpretation Comments Monocytes (%) (Auto) (test code = 5905-5) 6.8 4.4-11.3 [facility] CenterEosinophils (%) (Auto)2018-04-03 20:00:00 * Test Item Value Reference Range Interpretation Comments Eosinophils (%) (Auto) (test code = 713-8) 1.8 0.0-6.0 [facility] CenterBasophils (%) (Auto)2018-04-03 20:00:00* Test Item Value Reference Range Interpretation Comments Basophils (%) (Auto) (test code = 706-2) 0.3 0.0-1.0 [facility] CenterIM GRANULOCYTES %2018-04-03 20:00:00* Test Item Value Reference Range Interpretation Comments IM GRANULOCYTES % (test code = IM GRANULOCYTES %) 0.4 0.0- 1.0 [facility] CenterNeutrophils # (Auto)2018-04-03 20:00:00* Test Item Value Reference Range Interpretation Comments Neutrophils # (Auto) (test code = 751-8) 5.5 2.1-6.9 [facility] CenterLymphocytes # (Auto)2018-04-03 20:00:00* Test Item Value Reference Range Interpretation Comments Lymphocytes # (Auto) (test code = 93395-5) 1.2 1.0-3.2 [facility] CenterMonocytes # (Auto)2018-04-03 20:00:00* Test Item Value Reference Range Interpretation Comments Monocytes # (Auto) (test code = 742-7) 0.5 0.2-0.8 [facility] CenterEosinophils # (Auto)2018-04-03 20:00:00* Test Item Value Reference Range Interpretation Comments Eosinophils # (Auto) (test code = 711-2) 0.1 0.0-0.4 [facility] CenterBasophils # (Auto)2018-04-03 20:00:00* Test Item Value Reference Range Interpretation Comments Basophils # (Auto) (test code = 704-7) 0.0 0.0-0.1 [facility] CenterAbsolute Immature Granulocyte (auto 2018-04-03 20:00:00* Test Item Value Reference Range Interpretation Comments Absolute Immature Granulocyte (auto (cuca t code = Absolute Immature Granulocyte (auto) 0.03 0-0.1 [facility]
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
--- OUTSIDE RECORDS SUMMARY | 2020-03-24 22:29 | XMS REPORT | Summary of Care ---
Author Author [facility] Organization [facility] Address Unknown Phone Unavailable Care Team Providers Care Reprographics Associate Name Role Phone Mulu Flanagan PCP Reason for Visit * Reason Comments Post-op Follow-up Encounter Details Care Team Description Date Type Department Lee Holden III, MD [address] [place] [address] Post-op Follow-up 03/20/2020 Office Visit [facility] Orthopedic Surgery [address] [facility]. 10[address], [place] [address] Allergies Comments Active Allergy Reactions Severity Noted Date Adhesive Tape "makes me sick" Cephalexin Other (See Low 08/29/2009 Comments) Hydromorphone Hcl Doxycycline Low 07/21/2018 " makes me sick" Doxycycline Hyclate 05/06/2018 Dapagliflozin Itching, Rash 11/30/2018 Became very violent Other reaction(s): Other (See Comments) hallucination hallucination Hydromorphone Other (See High 05/06/2018 Comments), Hallucination s documented as of this encounter (statuses as of 03/20/2020) Medications End Date Status Medication Sig Dispensed [...] 600mg Neuropathy Active Ergocalciferol 1.25 MG 0 (67286 UT) CAPS 9 09/19/2020 Active furosemide (LASIX) [...] 03/06 by mouth two 0 times daily. Active promethazine (PHENERGAN) Take 1 Tab by 30 Tab 0 12.5 MG mouth every 8 0 tabletIndications: Nausea hours as and vomiting, needed for intractability of Nausea. vomiting not specified, unspecified vomiting type Active albuterol 108 (90 base) ProAir HFA 90 0 mcg/act inhaler mcg/actuation 0 aerosol inhaler Active benzonatate (TESSALON) benzonatate 0 02 200 mg capsule 200 mg 0 capsule Active Diclofenac Sodium 1 % GEL Place onto 0 11/18 the skin. 0 Active enoxaparin 80 MG/0.8ML 0 injection 0 Active Exenatide 10 MCG/0.04ML Byetta 10 0 SOPN mcg/dose(250 0 mcg/mL)2.4 mL subcutaneous pen injector Active Insulin Glargine, 1 Unit Inject into 0 08/21 Dial, 300 UNIT/ML SOPN the skin. 9 Active nystatin (MYCOSTATIN) Nystop 0 12/06/19 2 powder 100,000 0 unit/gram topical powder Active pantoprazole (PROTONIX) 0 40 MG tablet 8 Active pioglitazone (ACTOS) 30 pioglitazone 0 MG tablet 30 mg tablet 0 Active sucralfate (CARAFATE) 1 g sucralfate 1 0 11/18 tablet gram tablet 0 Active warfarin (COUMADIN) 3 MG 0 tablet 8 documented as of this encounter (statuses as of 03/20/2020) Active Problems Problem Noted Date Abdominal bloating [...] as of this encounter (statuses as of 03/20/2020) Immunizations Name Administration Dates Next Due Influenza [...] at Date Recorded Female 12/05/2019 4:11 PM [employer] Industry Job Start Date Occupation Not on file Not on file Not on file Travel End Travel History Travel Start No recent travel history available. Date Recorded COVID-19 Exposure Response 03/20/2020 1:38 PM CDT In the last month, have you been in contact with No / Unsure someone who was confirmed or suspected to have Coronavirus / COVID-19? documented as of this encounter Last Filed Vital Signs Not on filedocumented in this encounter Progress Notes * Lee Holden III, MD - 03/20/2020 1:40 PM CDT This patient is 6 days status post fusion right ring finger DIP joint. She has no complaints. Her finger is nicely positioned and her wounds are healing. Sut ures were removed. 3 views of the right ring finger taken today reveals anatomi c reduction and an extremely stable construct with a buried headless screw. We talked about appropriate scar massage and therapy. I'll see her back in 3-4 wee ks with x-rays. documented in this encounter Plan of Treatment Care Team Description Date Type Specialty Michael Keller MD [address] [place] [address] 03/27/2020 Office Visit Gynecology Oncology Carol Chopra MD [address] [place] [address] 04/17/2020 Office Visit Rheumatology Hazel Nava, ELMER [address] [facility] [address] [place] [address] 04/30/2020 Office Visit Gastroenterology Sly Upton MD [address] [phone] 06/05/2020 Office Visit Hematology and Onco logy Order Schedule Name Type Priority Associated Diag noses Ordered: 03/20/2020 ORT - XR FINGER RIGHT 2V NE Charge Routine Finge r pain, right ( [...] 06/03/2019 documented as of this encounter Results * XR FINGER RIGHT < 2 VW (03/20/2020 2:33 PM CDT) Specimen Narrative Performed At For result, please reference physician' s note on the corresponding date. documented in this encounter Visit Diagnoses Diagnosis Arthritis of finger - Primary Finger pain, right Pain in limb documented in this encounter Insurance Type Payer Benefit Subscriber ID Effective Phone Address Plan / Dates Group [facility] xxxxxxxxxx 2019-P [place] [facility] [address] [place] [phone] documented as of this encounter
--- NOTE | 2020-03-24 23:13 | Emergency Department Note ---
History of Present Illnes History of Present Illness Chief Complaint: tooth #11 pain/broken tooth while eating History of Present Illness This is a 55 year old female. waa doing well prior to this. Historian: Patient Arrival Mode: Car History limited by: condition of the patient (normal) Paralegal Legal Secretary Required: No Onset (how long ago): hour(s) (today) Location: tooth#11 Quality: sharp Radiation: non-radiation Severity: moderate Onset quality: sudden Duration (how long): hour(s) (today) Timing of current episode: constant Progression: worsening Chronicity: new Context: recent illness, recent surgery, recent immobilization, recent travel, trauma/injury, new medications, hx of DVT/PE, non-compliance w/ medications Relieving factors: none Exacerbating factors: none Associated symptoms: denies other symptoms Treatments prior to arrival: none Past Medical/Family History Physician Review I have reviewed the patient's past medical and family history. Any updates have been documented here. Past Medical History Recent Fever: No Clinical Suspicion of Infectio: No New/Unexplained Change in Ment: No Past Medical History: Hypertension, Diabetes, Hypothyroidism, Hepatitis C, Liver Disease, Anemia, GERD, Hyperlipedemia, DVT/PE Other Medical History: IVF FOR DVT'S BARRETS ESOPHAGUS HIATAL HERNIA DIVERTICULITIS BOWEL OBSTRUCTION IBS Hep B Past Surgical History: Cholecysctectomy, Appendectomy, Hysterectomy, T&A, Hernia Repair, Colon Resection Other Surgery: HERNIA REPAIR X2, DUCTS REMOVED FROM BREASTS, HAND VENA CAVA FILTERS bowel obstruction sx X 4 DIFFERENT SURGERIES Social History Smoking Cessation: Never Smoker Counseling Performed: No Alcohol Use: Social Any Illegal Drug Use: No TB Exposure/Symptoms: No Physically hurt or threatened: No Family History Family history of heart diseas: No Other Last Tetanus: UTD Any Pre-Existing Lines (PICC,: No Is patient up to date on immun: No Review of Systems Review of Systems Constitutional: no symptoms EENTM: as per HPI Cardiovascular: no symptoms Respiratory: no symptoms Gastrointestinal: no symptoms Genitourinary: no symptoms Musculoskeletal: no symptoms Neurological: no symptoms Psychological: no symptoms Endocrine: no symptoms Hematological/Lymphatic: no symptoms Review of other systems All other systems reviewed and negative. Physical Exam Related Data Allergies: Coded Allergies: cephalexin (Verified Allergy, Mild, 07/21/18) doxycycline (Verified Allergy, Mild, 07/21/18) hydromorphone (Verified Allergy, Mild, HALLUCINATIONS, 07/21/18) Vital signs reviewed: Yes Physical Exam CONSTITUTIONAL Constitutional: well-developed, well-nourished HENT HENT: normocephalic, atraumatic, oropharynx clear/moist, nose normal, other (+tooth#11 fracture) HENT L/R: left ext ear normal, right ext ear normal EYES Eyes: PERRL, conjunctivae normal NECK Neck: ROM normal PULMONARY Pulmonary: effort normal, breath sounds normal CARDIOVASCULAR Cardiovascular: regular rhythm, heart sounds normal, capillary refill normal, normal rate GASTROINTESTINAL Abdominal: soft, nontender, bowel sounds normal GENITOURINARY Genitourinary: exam deferred SKIN Skin: warm, dry MUSCULOSKELETAL Musculoskeletal: ROM normal NEUROLOGICAL Neurological: alert, oriented x 3, no gross motor or sensory deficits PSYCHOLOGICAL Psychological: mood/affect normal, judgement normal Critical Care Time Subsequent provider I assumed direction of critical care for this patient from another provider of my specialty. Assessment & Plan Assessment & Plan Final Impression: (1) Tooth fracture Assessment & Plan FOLLOW WITH DENTIST Depart Disposition: HOME, SELF-[facility] Meds Active Scripts Acetaminophen With Codeine (TYLENOL WITH CODEINE #3 TABLET) 1 Each Tablet, 1-2 TAB PO Q6H for pain, #20 TAB 0 [address]ills [address] take an drive or operate machinery. Prov:MERLYN GONZALEZ MD 11/13/19 JOHNATHAN LINDSEY Mar 24, 2020 23:13
== END 2020-03-24 23:32 | disposition home or self-care (01) ==
LOC: FSED 22:19
DX: S02.5XXA Fracture of tooth (traumatic), initial encounter for closed fracture (principal); I10 Essential (primary) hypertension; E11.9 Type 2 diabetes mellitus without complications; E78.5 Hyperlipidemia, unspecified; K21.9 Gastro-esophageal reflux disease without esophagitis; B19.20 Unspecified viral hepatitis C without hepatic coma; Z98.0 Intestinal bypass and anastomosis status
CPT/HCPCS: 99282

== ENCOUNTER 2021-05-15 17:40 | Emergency (ER) | payer MEDICARE, OTHER ==
[~2021-05-15] VITALS: Ht 167.6 cm; Wt 119.3 kg
[2021-05-15 18:44] LABS: BASOPHILS % 0.3 % (0.0-1.0); HEMOGLOBIN 13.8 g/dL (12.0-16.0); LYMPHOCYTES # (AUTO) 0.8 (1.0-3.2); LYMPHOCYTES % 7.8 % (18.0-39.1); MEAN CORPUSCULAR HEMOGLOBIN 27.4 pg (28-32); MEAN CORPUSCULAR HGB CONC 32.1 g/dL (31-35); MEAN CORPUSCULAR VOLUME 85.3 fL (81-99); MONOCYTES # (AUTO) 0.3 (0.2-0.8); MONOCYTES % 2.8 % (4.4-11.3); NEUTROPHILS # (AUTO) 9.1 (2.1-6.9); NEUTROPHILS % 88.5 % (38.7-80.0); PLATELET COUNT 111 x10e3/uL (140-360); RED BLOOD COUNT 5.04 x10e6/uL (3.6-5.1); RED CELL DISTRIBUTION WIDTH 14.3 % (11.7-14.4)
[2021-05-15 18:58] LABS: INR 1.04; PROTHROMBIN TIME 14.2 seconds (11.9-14.5)
[2021-05-15 19:02] LABS: ALBUMIN 3.5 g/dL (3.5-5.0); ALBUMIN/GLOBULIN RATIO 0.8 (0.8-2.0); ANION GAP 14.5 mmol/L (8-16); CALCIUM 8.7 mg/dL (8.4-10.2); CREATININE, SERUM 0.86 mg/dL (0.57-1.11); POTASSIUM 4.5 mmol/L (3.5-5.1)
[2021-05-15 19:09] LABS: CREATINE KINASE MB 0.9 ng/mL (0-5.0)
[2021-05-15] MEDS ORDERED: IOPAMIDOL 370 MG/ML 200 ML INFUS..BTL INJ ONE (19:41)
[2021-05-15] MEDS ORDERED: SODIUM CHLORIDE 0.9% 50ML 50 ML ONE (19:41)
[2021-05-15] MEDS: HYDROCODONE/APAP 10MG-325MG TAB PO ONE (20:37)
== END 2021-05-15 22:39 | disposition home or self-care (01) ==
LOC: ER 18:20
DX: R06.00 Dyspnea, unspecified (principal); E11.65 Type 2 diabetes mellitus with hyperglycemia; I10 Essential (primary) hypertension; Z20.822 Contact with and (suspected) exposure to COVID-19; R94.31 Abnormal electrocardiogram [ECG] [EKG]
CPT/HCPCS: 36415; 71260; 80053; 82550; 82553; 84484; 85025; 85610; 85730; 93005; 99284; Q9967; U0002